=== PATIENT | male | born 1960 | race Caucasian/White ===

== ENCOUNTER 2023-11-03 08:06 | Outpatient (OUT) | payer OTHER, SELFPAY ==
[2023-11-03 08:28] LABS: Basophils Percent Auto 0.6 % (0.2-2.0); Eosinophils Absolute Auto 0.2 10^3/uL (0.0-0.7); Eosinophils Percent Auto 2.9 % (0.9-7.0); Hematocrit 41.2 % (42.0-54.0); Hemoglobin 13.9 g/dL (14.0-18.0); Immature Granulocytes Abs Auto 0.02 10^3/uL (0.00-0.03); Immature Granulocytes Pct Auto 0.3 % (0.0-0.5); Lymphocytes Absolute Auto 1.6 10^3/uL (1.2-3.8); Lymphocytes Percent Auto 24.2 % (20.5-60.0); Mean Corpuscular HGB Conc 33.7 g/dL (29.9-35.2); Mean Corpuscular Hemoglobin 31.1 pg (25.9-34.0); Mean Corpuscular Volume 92.2 fL (80.0-94.0); Mean Platelet Volume 9.5 fL (9.5-13.5); Monocytes Absolute Auto 0.5 10^3/uL (0.3-0.8); Monocytes Percent Auto 7.9 % (1.7-12.0); Neutrophils Absolute Auto 4.2 10^3/uL (1.4-6.5); Neutrophils Percent Auto 64.1 % (43.0-75.0); Platelet Count 176 10^3/uL (150-450); Red Blood Count 4.47 10^6/uL (4.70-6.10); White Blood Count 6.6 10^3/uL (4.0-11.0)
[2023-11-03 08:57] LABS: Bilirubin Urine NEGATIVE (NEGATIVE); Blood Urine NEGATIVE (NEGATIVE); Clarity Urine CLEAR (CLEAR); Color Urine YELLOW (YELLOW); Glucose Urine UA NEGATIVE (NEGATIVE); Ketones Urine NEGATIVE (NEGATIVE); Leukocyte Esterase Urine NEGATIVE (NEGATIVE); Nitrite Urine NEGATIVE (NEGATIVE); Protein Urine NEGATIVE (NEG/TRACE); pH Urine 5.5 (5.0-9.0)
[2023-11-03 09:19] LABS: Alanine Aminotransferase 33 U/L (16-63); Albumin Level 3.7 g/dL (3.4-5.0); Alkaline Phosphatase 93 U/L (46-116); Anion Gap 10.5; Aspartate Amino Transferase 17 U/L (15-37); Bilirubin Total 1.2 mg/dL (0.2-1.0); Carbon Dioxide 29.5 mmol/L (21.0-32.0); Chloride 99 mmol/L (98-107); Chol HDL Ratio 2.8; Cholesterol 109 mg/dL (<=200); Estimated GFR (African America >60 (>=60); Estimated GFR (Non-African Ame >60 (>=60); Globulin 3.7 g/dL; Glucose 102 mg/dL (74-106); HDL Cholesterol 39 mg/dL (40-60); Magnesium 1.8 mg/dL (1.8-2.4); Sodium 135 mmol/L (136-145); Total Protein 7.4 g/dL (6.4-8.2); Triglycerides 116 mg/dL (<=150); VLDL CHOLESTEROL 23.2 mg/dL
[2023-11-03 09:25] LABS: Prostate Specific Antigen Scrn 0.88 ng/mL (<=4.00)
[2023-11-03 09:41] LABS: Bacteria Urine NONE SEEN #/HPF (NONE SEEN); Cast Seen? NONE SEEN #/LPF (NONE SEEN); Crystals Seen? None Seen #/HPF (None Seen); Mucus Urine NONE SEEN (NONE SEEN); RBC Urine 0-2 #/HPF (0-2); Squamous Epithelial Cell Urine RARE #/LPF (NONE/RARE); WBC Urine 0-2 #/HPF (NONE SEEN)
== END 2023-11-03 08:07 | disposition home or self-care (01) ==
LOC: LAB 08:11
PROVIDERS: PCP Nurse Practitioner; Visit Provider Nurse Practitioner
DX: I25.10 Atherosclerotic heart disease of native coronary artery without angina pectoris (principal); Z12.5 Encounter for screening for malignant neoplasm of prostate; R25.2 Cramp and spasm; Z72.0 Tobacco use
CPT/HCPCS: 36415; 80053; 80061; 81001; 82728; 83735; 85025; G0103

== ENCOUNTER 2024-08-19 08:04 | Outpatient (OUT) | payer OTHER, SELFPAY ==
--- OUTSIDE RECORDS SUMMARY | 2024-08-19 08:09 | XMS_ITS | CCD ---
Author Organization [facility] Care Team Providers Care Storage Garage Manager Name Role Phone Unknown, Unknown Unavailable Unavailable UNKNOWN, UNKNOWN Primary Care Unavailable MD ALEM CRUZ Attending Unava ilable Lopez, Dr. Jess Barakat Referring Jayne vailable UNKNOWN, UNKNOWN Primary Care Unavailable Marroquin, Dr. Jess Barakat Attending Jayne vailable Aicisaiz, Tonja Vinita Unavailable Unavailable Unavailable ROGER, TONJA Lilia Primary Care Physician [phone] AICHHOLZ, TRUCK MECHANIC APPRENTICE TONJA Admitting Unavailable AICHHOLZ, TRUCK MECHANIC APPRENTICE TONJA Attending Unavailable AICHHOLZ, TRUCK MECHANIC APPRENTICE TONJA Primary Care Unavailable ROBBIE ADAMS Consulting Unavailable AICHHOLZ, TRUCK MECHANIC APPRENTICE TONJA Consulting Unavailable AICHHOLZ, TRUCK MECHANIC APPRENTICE TONJA Admitting Unavailable AICHHOLZ, TRUCK MECHANIC APPRENTICE TONJA Attending Unavailable AICHHOLZ, TRUCK MECHANIC APPRENTICE TONJA Primary Care Unavailable AICHHOLZ, TRUCK MECHANIC APPRENTICE TONJA Consulting Unavailable DR DENNIS KIM Consulting Unavailable AICHHOLZ, TRUCK MECHANIC APPRENTICE TONJA Admitting Unavailable AICHHOLZ, TRUCK MECHANIC APPRENTICE TONJA Attending Unavailable AICHHOLZ, TRUCK MECHANIC APPRENTICE TONJA Primary Care Unavailable AICHHOLZ, TRUCK MECHANIC APPRENTICE OTNJA Consulting Unavailable DR DENNIS KIM Consulting Unavailable AICHHOLZ, TRUCK MECHANIC APPRENTICE TONJA Admitting Unavailable AICHHOLZ, TRUCK MECHANIC APPRENTICE TONJA Attending Unavailable AICHHOLZ, TRUCK MECHANIC APPRENTICE TONJA Primary Care Unavailable ROBBIE ADAMS Consulting Unavailable AICHHOLZ, TRUCK MECHANIC APPRENTICE TONJA Consulting Unavailable AICHHOLZ, TRUCK MECHANIC APPRENTICE TONJA Admitting Unavailable AICHHOLZ, TRUCK MECHANIC APPRENTICE TONJA Attending Unavailable AICHHOLZ, TRUCK MECHANIC APPRENTICE TONJA Primary Care Unavailable AICHHOLZ, TRUCK MECHANIC APPRENTICE TONJA Consulting Unavailable AICHHOLZ, TRUCK MECHANIC APPRENTICE TONJA Primary Care Unavailable SHAIKH Pia LOEW Admitting Unavailable FAWWATod, SHAIKH Pia Attending Unavailable FAWWATod, SHAIKH Pia Consulting Unavailable DANAE .SEN Consulting Unavailable NILL ., DR CARPENTER Admitting Unavailable NILL ., DR CARPENTER Attending Unavailable AICHOLZ, TIFFANY TONJA Primary Care Unavailable NILL ., DR CARPENTER Consulting Unavailable SALMA CONNOLLY Consulting Unavailable MARCIO CARO Consulting Unavailable [facility], TIFFANY TONJA Admitting Unavailable [facility], TIFFANY TONJA Attending Unavailable AICHOLZ, TRUCK MECHANIC APPRENTICE TONJA Primary Care Unavailable ROBBIE ADAMS Consulting Unavailable AICHOLZ, TRUCK MECHANIC APPRENTICE TONJA Consulting Unavailable NILL, Pauline Rodriguez Attending Unavailable NILL, Pauline Rodriguez Attending Unavailable NILL, Pauline Rodriguez Attending Unavailable Aichholz FOUNTAIN MANAGER-Tonja ALLEN Primary Care Provider ROMAN HUDSON Attending [facility]available [facility]JA TALAMANTES Primary Care Unavailable ROMAN HUDSON Attending Unavailable [facility], TONJA TALAMANTES Primary Care [facility] Attending Unavailable [facility]JA Attending Unavailable AICHOLJc, TONJA Attending Unavailable ROMAN HUDSON Referring Unavailable [facility] TONJA VINITA Primary Care Unavailable Allergies Allergy Classification Reported Allergen(s) Allergy Type Date of Onset Reaction(s) Facility (1 source) No Known Medication Allergies; Translations: [No Known Medication Allergies] Propensity to adverse reactions (disorder) [facility] Repository Medications Current Medications Medication Drug Class(es) Dates Sig (Normalized) Sig (Original) atorvastatin 80 mg oral tablet (7 sources) HMG-CoA Reductase Inhibitor Start: 01-14-2020 take 1 tablet by mouth once daily atorvastatin 80 mg Tab 80 mg = 1 tab(s), Oral, Daily Start Date: 01/14/20 Status: Ordered BuPROPion (Eqv-Wellbutrin SR) 150 mg/12 hours oral tablet, extended release (2 sources) Start: 02-14-2023 BuPROPion (Eqv-Wellbutrin SR) 150 mg/12 hours oral tablet, extended release 150 mg = 1 tab(s), Oral, Daily, Refills(s) 0 Start Date: 02/14/23 Status: Ordered lisinopril 10 mg oral tablet (7 sources) Angiotensin Converting Enzyme Inhibitor Start: 01-14-2020 take 1 tablet by mouth once daily lisinopril 10 mg Tab 10 mg = 1 tab(s), Oral, Daily Start Date: 01/14/20 Status: Ordered Meclizine (4 sources) Antiemetic Start: 02-14-2023 meclizine 25 mg Tab as directed, Refills(s) 0 Start Date: 02/14/23 Status: Ordered Start: 02-14-2023 take 1 tablet by william th three times daily as needed for dizziness meclizine (Antivert) 25 mg tablet Take 1 tablet (25 mg) by mouth 3 times a day as needed for dizziness. 0 02/14/2023 Active take 1 tablet by william th three times daily as needed Meclizine HCl - 25 MG Oral Tablet TAKE 1 TABLET 3 TIMES DAILY NEEDED. Quantity: 0 Refills: 0 Ordered: 09-Jan-2023 DO Active omeprazole 20 mg delayed release oral capsule (7 sources) Proton Pump Inhibitor Start: 12-02-2023 take 1 capsule by mouth once daily omeprazole (PriLOSEC) [address] capsule Take 1 capsule (20 mg) by mouth once daily. 0 12/02/2023 Active Start: 01-14-2020 take 1 capsule by mo uth once daily omeprazole 20 mg Cap-DR 20 mg = 1 cap(s), Oral, Daily Start Date: 01/14/20 Status: Ordered take 1 tablet by william th once daily before mealtime omeprazole OTC (PriLOSEC OTC) 20 mg EC tablet Take 1 tablet (20 mg) by mouth once daily in the morning. Take before meals. Do not crush, chew, or split. 0 Active Completed/Discontinued Medications Medication Drug Class(es) Dates Sig (Normalized) Sig (Original) amLODIPine 10 mg oral tablet (4 sources) Dihydropyridine Calcium Channel Gamal Start: 02-14-2023 take 1 tablet by mouth once daily amLODIPine 10 mg Tab 30 EA, take 1 tablet by mouth once daily, Refills(s) 0 Start Date: 02/14/23 Status: Ordered take 1 tablet by mouth once barney y amLODIPine Besylate 10 MG Oral Tablet Take 1 tablet daily Quantity: 90 Refills: 3 Ordered: 09-Jan-2023 Jess Marroquin MD Active aspirin 81 mg delayed release oral tablet (7 sources) Platelet Aggregation Inhibitor, Nonsteroidal Anti-inflammatory Drug Start: 12-28-2022 take 1 tablet by mouth once daily Aspirin 81 MG Oral Tablet Delayed Release TAKE 1 TABLET DAILY. Quantity: 90 Refills: 3 Ordered: 09-Jan-2023 Jess Marroquin MD Start : 28-Dec-2022 Active Start: 01-14-2020 take 1 tablet by mouth once da eladio aspirin 81 mg oral tablet 81 mg = 1 tab(s), Oral, Daily Start Date: 01/14/20 Status: Ordered iohexol (OMNIPaque) 350 mg iodine/mL solution 75 mL (1 source) Start: 12-14-2023 End: 12-14-2023 iohexol (OMNIPaque) 350 mg iodine/mL solution 75 mL metoprolol tartrate 25 mg oral tablet (3 sources) beta-Adrenergic Gamal Start: 09-28-2022 take 1 tablet by mouth twice daily Metoprolol Tartrate 25 MG Oral Tablet TAKE 1 TABLET TWICE DAILY. Quantity: 30 Refills: 2 Ordered: 29-Nov-2022 DO Start : 28-Sep-2022 Active Problems Active Problems Problem Classification Problem Date Documented Date Episodic/Chronic Aortic; peripheral; and visceral artery aneurysms (20 sources) Aneurysm of ascending aorta; Translations: [Thoracic aneurysm without mention of rupture] Onset: 04-28-2022 02-09-2023 Chronic Cardiac dysrhythmias (1 source) Bradycardia, unspecified; Translations: [BRADYCARDIA UNSPECIFIED] Onset: 01-03-2023 Episodic Conditions associated with dizziness or vertigo (4 sources) Dizziness and giddiness; Translations: [DIZZINESS AND GIDDINESS] Onset: 12-30-2022 Episodic Coronary atherosclerosis and other heart disease (15 sources) Recurrent coronary arteriosclerosis after percutaneous transluminal coronary angioplasty; Translations: [Coronary atherosclerosis of [place] coronary artery] Onset: 04-13-2022 01-14-2020 Chronic Comment on above: RCA drug-eluting siddhartha nt Cole 2012; Outside Source Comme nt: Comment on above: RCA drug-eluting stent Cole 2012; Coronary atherosclerosis and other heart disease (1 source) Presence of coronary angioplasty implant and graft; Translations: [PRESENCE COR ANGPLSTY IMPLANT AND GRAFT] Onset: 03-06-2023 Episodic Disorders of lipid metabolism (9 sources) Hyperlipidemia; Translations: [Other and unspecified hyperlipidemia] Onset: 01-03-2023 02-09-2023 Chronic Esophageal disorders (6 sources) Gastroesophageal reflux disease; Translations: [Gastro-esophageal reflux disease without esophagitis] Onset: 03-06-2023 01-14-2020 Chronic Essential hypertension (5 sources) Hypertensive disorder; Translations: [Unspecified essential hypertension] Onset: 03-06-2023 01-14-2020 Chronic Headache; including migraine (4 sources) Headache; including migraine; Translations: [HEADACHE UNSPECIFIED] Onset: 01-17-2023 Hypertension with complications and secondary hypertension (3 sources) Secondary hypertension; Translations: [Secondary hypertension, unspecified] Onset: 11-28-2023 11-28-2023 Chronic Other aftercare (1 source) Other snf (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; Translations: [OTH [facility] CURRENT DRUG THERAPY] Onset: 03-06-2023 Episodic Other aftercare (1 source) [facility] (current) use of aspirin; Translations: [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 OF 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 CURRENT USE OF ASPIRIN] Onset: 03-06-2023 Episodic Other and unspecified benign neoplasm (3 sources) History of polyp of colon; Translations: [Personal history of colonic polyps] Onset: 02-14-2023 Episodic Other and unspecified benign neoplasm (4 sources) Personal history of colonic polyps; Translations: [PERSONAL HISTORY OF COLONIC POLYPS] Onset: 03-01-2023 Episodic Other and unspecified benign neoplasm (1 source) Benign neoplasm of sigmoid colon; Translations: [BENIGN NEOPLASM OF SIGMOID COLON] Onset: 03-06-2023 Episodic Other and unspecified benign neoplasm (2 sources) Benign neoplasm of sigmoid colon; Translations: [Benign neoplasm of sigmoid colon] Onset: 03-14-2023 Episodic Other lower respiratory disease (3 sources) Dyspnea on exertion; Translations: [Other forms of dyspnea] Onset: 11-28-2023 11-28-2023 Episodic Other screening for suspected conditions (not mental disorders or infectious disease) (4 sources) Abnormal findings on diagnostic imaging of other specified body structures; Translations: [ABNORML FIND DX IMG OT BODY STRUC] Onset: 11-23-2022 Chronic Residual codes; unclassified (1 source) Body mass index 20-24 - normal; Translations: [Body Mass Index between 19-24, adult] Episodic Residual codes; unclassified (3 sources) Tobacco user; Translations: [Tobacco use] Onset: 02-14-2023 Episodic Substance-related disorders (6 sources) Smokes tobacco daily; Translations: [Tobacco use disorder] Onset: 04-20-2022 Chronic Comment on above: 1.5PPD sometimes mor e; Unclassified (1 source) Aneurysm of the ascending aorta, without rupture; Translations: [Aneurysm of the ascending aorta, without rupture] Onset: 12-28-2022 Unclassified (1 source) Abdominal aortic aneurysm, without rupture, unspecified; Translations: [Abdominal aortic aneurysm, without rupture, unspecified] Onset: 12-28-2022 Unclassified (2 sources) Body mass index 20-24 - normal 02-14-2023 Unclassified (2 sources) Patient encounter status 01-15-2020 Unclassified (1 source) ABDOMINAL AA W/O RUPTURE UNSPCIFIED; Translations: [ABDOMINAL AA W/O RUPTURE UNSPCIFIED] Onset: 03-06-2023 Unclassified (1 source) Aneurysm of the ascending aorta, without rupture (CMS/HCC); Translations: [Aneurysm of the ascending aorta, without rupture (CMS/HCC)] Onset: 12-15-2023 Past or Other Problems Problem Classification Problem Date Documented Date Episodic/Chronic Biliary tract disease (1 source) Calculus of gallbladder without cholecystitis without obstruction; Translations: [CALCU GB W/O CHOLECYST W/O OBST] Onset: 05-05-2022 Episodic Other screening for suspected conditions (not mental disorders or infectious disease) (1 source) Encounter for screening for malignant neoplasm of prostate; Translations: [ENC SCREEN MALIG NEOPLASM PROSTATE] Onset: 04-15-2022 Episodic Unclassified (1 source) Aneurysm of the ascending aorta, without rupture (CMS/HCC); Translations: [Aneurysm of the ascending aorta, without rupture (CMS/HCC)] Onset: 01-17-2024 Results Test Name Value Interpretation Reference Range Facility CT ANGIO CHEST W AND WO IV C [facility] 12-14-2023 CT ANGIO CHEST W AND WO IV CONTRAST Interpreted By: Pauline Flowers, ADDENDUM: Technical: The following is to serve as an over-read for a contrast-enhanced cardiac CT, to evaluate the extra vascular structures. Contiguous axial CT sections are performed from level the bj to the upper abdomen following the bolus administration of 90 cc of intravenous Omnipaque 350. Findings: There are bilateral emphysematous changes with scattered subpleural bulla more pronounced along the mediastinum. There is no sign of pathologic lymph node enlargement. There is no pericardial or pleural effusion. There is a small calcified gallstone. There is an exophytic cyst in the mid right kidney posteriorly measuring 1.5 cm in diameter. The visualized osseous and soft tissue structures of the chest wall are intact. Impression: Bilateral emphysematous changes. Cholelithiasis. 1.5 cm right renal cyst. The extra vascular structures are otherwise unremarkable. Signed by: Pauline Flowers 12/18/2023 4:59 PM -------- ORIGINAL REPORT -------- Dictation workstation: [id number] Interpreted By: Pauline Shepard, STUDY: CT ANGIO CHEST W AND WO IV CONTRAST; 12/14/2023 11:09 am INDICATION: Signs/Symptoms:year fu. COMPARISON: None. ACCESSION NUMBER(S): [id number] ORDERING CLINICIAN: ROMAN HUDSON TECHNIQUE: Using multi-detector 64-slice CT technology, axial, sequential imaging with prospective ECG gating was performed of the chest following the intravenous administration of contrast material. A low-osmolar contrast agent was used 90ml of Omnipaque 350. CT Dose-Length Product (DLP): 1254.6 mGy*cm CT Dose Reduction Employed: Yes prospective ECG triggering, iterative reconstruction For optimization of anatomic evaluation, multiplanar reconstruction, maximum intensity projections, and advanced 3-D off-line postprocessing were performed on a dedicated stand-alone workstation by the interpreting physician. FINDINGS: THORACIC AORTIC DIMENSIONS: Aortic annulus: 28 x 21mm. Sinus of Valsalva(coronal): 39 mm Across sinuses(cusp-commissure ): 38mm. Sinotubular junction: 33mm. Ascending aorta (RPA level): 37mm. Upper ascending aorta: 35mm. Arch(mid): 26mm. There is incomplete visualization of the aortic arch that is outside field of view. Arch(distal): 29mm. Descending aorta(PA level): 29mm. Descending aorta (diaphragm level): 25mm. Main pulmonary artery: 19mm. Right pulmonary artery: 19 mm. Left pulmonary artery: 18mm. No evidence of thoracic aortic dissection or coarctation. Aortic Valve: Trileaflet Pulmonary Veins: Normal pulmonary vein anatomy without evidence of anomalous pulmonary venous return. No pulmonary vein stenosis CORONARY ARTERIES: The examination is not optimized for assessment of the coronary arteries. Normal coronary artery origins. Right dominant system. Diffuse coronary artery calcification. CARDIAC CHAMBERS: Normal atrioventricular and ventriculoarterial concordance. ABDOMINAL AORTIC DIMENSIONS: Suprarenal abdominal aorta (diaphragm level): 25 mm Renal artery level: 29 mm. Small dissection flap along posterior aorta at the level of right renal artery. Length of limited dissection 8 mm. Infrarenal abdominal aorta: 34 mm (mural thrombus present). Distal abdominal aorta (iliac bifurcation): Unable to visualize outside of field of view. Celiac artery: Normal. Superior mesenteric artery: Mild atherosclerosis. Right renal artery: Mild atherosclerosis. Left renal artery: Mild atherosclerosis. IMPRESSION: 1. Dilated aortic root 39 mm. 2. Limited dissection of posterior abdominal aorta (at level of right renal artery takeoff) with maximal aorta luminal diameter 29 mm. 3. Infrarenal abdominal aortic aneurysm 34 mm. Reading Credentialing Coordinator: Dr. Pauline Shepard, Date: 12/18/2023 2:43 pm Signed by: Pauline Shepard 12/18/2023 3:00 PM Dictation workstation: [id number] [facility] Ambulatory Visit Summaryon 0 03-14-2023 Ambulatory Visit Summary JATINDER CALVERT :1960 Visit Date:03/14/2023 Ambulatory Visit Instructions Your Care Team Attending Physician - Pauline BAINS MD Primary Care Physician - TONJA WILEY CNP This Is Your Medications List amlodipine (amLODIPine 10 mg Tab) aspirin (aspirin 81 mg oral tablet) atorvastatin (atorvastatin 80 mg Tab) buPROPion (BuPROPion (Eqv-Wellbutrin SR) 150 mg/12 hours oral tablet, extended release) lisinopril (lisinopril 10 mg Tab) meclizine (meclizine 25 mg Tab) omeprazole (omeprazole 20 mg Сергей-) Procedures Performed Colonoscopy (03/01/2023), Colonoscopy (01/2020), Cardiac catheterisation, Placement of stent in cardiac conduit. Medications What How Much When Instructions Unchanged amlodipine (amLODIPine 10 mg Tab) 30 EA, take 1 tablet by mouth once daily Unchanged aspirin (aspirin 81 mg oral tablet) 1 Tablets By Mouth Every day Unchanged atorvastatin (atorvastatin 80 mg Tab) 1 Tablets By Mouth Every day Unchanged buPROPion (BuPROPion (Eqv-Wellbutrin SR) 150 mg/ 12 hours oral tablet, extended release) 1 Tablets By Mouth Every day Unchanged lisinopril (lisinopril 10 mg Tab) 1 Tablets By Mouth Every day Unchanged meclizine (meclizine 25 mg Tab) as directed Unchanged omeprazole (omeprazole 20 mg Cap-DR) 1 Capsules By Mouth Every day Allergies No Known Allergies No Known Medication Allergies Problems Ongoing - Any problem that you are currently receiving treatment for. Abdominal aortic aneurysm without rupture BMI 22.0-22.9, adult CAD (coronary artery disease) Chronic GERD Hyperlipidemia Hypertension Personal history of colonic polyps Recurrent coronary arteriosclerosis after percutaneous transluminal coronary angioplasty Screening for malignant neoplasm of colon Tobacco use Michelle [facility] General Surgery Office/Clini c Noteon 03-14-2023 General Surgery Office/Clinic Note Chief Complaint colonoscopy follow up HPI Staff 13 day post operative follow up post colonoscopy with sigmoid polypectomy. History of Present Illness s/p colonoscopy and polypectomy for small tubular adenoma or sigmoid colon; patient doing well; denies abd pain or blood in stools. Review of Systems ROS - Provider Constitutional: no fever, no sweats, no weight loss. Eyes: no glasses, no blurred vision, no visual loss. ENMT: no dentures, no hoarseness, no swallowing difficulties, no hearing loss, no ear infection(s), no nose bleeds. Cardiovascular: normal blood pressure, no chest pain, regular heartbeat, no heart murmur. Respiratory: no shortness of breath, no cough, no asthma, no wheezing. Gastrointestinal: no nausea, no vomiting, no diarrhea, no constipation, no blood in stool, no change in bowel habits, no abdominal pain, no hepatitis. Genitourinary: no kidney stones, no urine infection, no dysuria. Musculoskeletal: no pain, no weakness. Skin: no changing moles, no rash, no skin lumps. Neurologic: no seizures, no epilepsy, no headache. Psychiatric: no emotional or psychiatric problem. Heme/Lymph: no bleeding problems, no anemia, no blood clots, no transfusions. Allergy/Immunologic: no swollen lymph nodes/glands, no IV drug abuse. Other: Additional ROS info: Except as noted in the above Review of Systems and in the History of Present Illness, all other systems have been reviewed and are negative or noncontributory. Assessment/Plan 1. Benign neoplasm of sigmoid colon (D12.5: Benign neoplasm of sigmoid colon) recommend surveillance colonoscopy in 5 years, call sooner if problems/questions. Follow-up No qualifying data available Problem List/Past Medical History Ongoing Abdominal aortic aneurysm without rupture BMI 22.0-22.9, adult CAD (coronary artery disease) Chronic GERD Hyperlipidemia Hypertension Personal history of colonic polyps Recurrent coronary arteriosclerosis after percutaneous transluminal coronary angioplasty Screening for malignant neoplasm of colon Tobacco use Tubular adenoma of colon Historical No qualifying data Procedure/Surgical History Colonoscopy (03/01/2023), Colonoscopy (01/2020), Cardiac catheterisation, Placement of stent in cardiac conduit. Medications amLODIPine 10 mg Tab aspirin 81 mg oral tablet, 81 mg= 1 tab(s), Oral, Daily atorvastatin 80 mg Tab, 80 mg= 1 tab(s), Oral, Daily BuPROPion (Eqv-Wellbutrin SR) 150 mg/12 hours oral tablet, extended release, 150 mg= 1 tab(s), Oral, Daily lisinopril 10 mg Tab, 10 mg= 1 tab(s), Oral, Daily meclizine 25 mg Tab omeprazole 20 mg Cap-DR, 20 mg= 1 cap(s), Oral, Daily Allergies No Known Allergies No Known Medication Allergies Social History Alcohol - Denies Alcohol Use, 01/14/2020 Substance Abuse - Denies Substance Abuse, 02/14/2023 Tobacco 10 or more cigarettes (1/2 pack or more)/day in last 30 days Tobacco Use:. Never Smokeless Tobacco Use:. Cigarettes, 1 per day. Previous treatment: Counseling. Ready to change: No. Household tobacco concerns: No. Yes, 02/14/2023 Family History Diabetes mellitus type 2: Mother and Sister. Hypertension: Father. Primary malignant neoplasm of prostate: Sister. Immunizations Vaccine Date Status influenza virus vaccine, inactivated 08/20/2022 Recorded Normal [facility] Comment on above: Result Comment: Elec tronically Signed By: WALT ELLIOTT, Pauline Egan\Date and Time Signed: 03/14/23 15:50 EDT Reminderson 03-14-2023 Reminders - From: Delores Joseph LPN To: N - Clinical; Sent: 03/14/2023 15:27:01 EDT Show up: 01/30/2028 07:00:00 EDT Subject: colonoscopy recall Due Date/Time: 03/01/2028 07:00:00 EDT Reminder/Recall Patient due for colonoscopy 03/01/28 due to history of colonic polyp. Normal [facility] Pathology Noteon 03-06-2023 Pathology Note [id number] D:127 Normal [facility] Outside Colonoscopyon 2022 Outside Colonoscopy [id number] D:127 Normal [facility] Consent for Procedure/Surger yon 02-15-2023 Consent for Procedure/Surgery [id number] D:127 Normal [facility] General Surgery Office/Clini c Noteon 02-14-2023 General Surgery Office/Clinic Note Chief Complaint surveillance colonoscopy HPI Staff 62 year old male presents on consultation for surveillance colonoscopy. Last colonoscopy completed 01/2020 with tubulovillous adenoma. No known family history of colon cancer. Denies abdominal or rectal pain. No rectal bleeding or change in bowel habits. Denies nausea or vomiting. No unexplained weight loss. History of Present Illness 62 yo male with h/o CAD, htn, hyperlipidemia, presents for surveillance colonoscopy; last colonoscopy 01/2020 with small tubulovillous adenoma in the distal sigmoid colon; denies change in bms or blood in stools, no abd complaints; no abdominal operations; on baby asa daily, no NSAIDs, no SBE prophylaxis; no fmhx of GI malignancy or IBD; smokes daily. Review of Systems PHQ Score Initial Depression Screen Score: 0 ROS - Provider Constitutional: no fever, no sweats, no weight loss. Eyes: no glasses, no blurred vision, no visual loss. ENMT: no dentures, no hoarseness, no swallowing difficulties, no hearing loss, no ear infection(s), no nose bleeds. Cardiovascular: normal blood pressure, no chest pain, regular heartbeat, no heart murmur. Respiratory: no shortness of breath, no cough, no asthma, no wheezing. Gastrointestinal: no nausea, no vomiting, no diarrhea, no constipation, no blood in stool, no change in bowel habits, no abdominal pain, no hepatitis. Genitourinary: no kidney stones, no urine infection, no dysuria. Musculoskeletal: no pain, no weakness. Skin: no changing moles, no rash, no skin lumps. Neurologic: no seizures, no epilepsy, no headache. Psychiatric: no emotional or psychiatric problem. Heme/Lymph: no bleeding problems, no anemia, no blood clots, no transfusions. Allergy/Immunologic: no swollen lymph nodes/glands, no IV drug abuse. Other: Additional ROS info: Except as noted in the above Review of Systems and in the History of Present Illness, all other systems have been reviewed and are negative or noncontributory. Physical Exam Vitals & Measurements HR: 68(Peripheral) RR: 16 BP: 116/84 HT: 70 in HT: 177.8 cm WT: 71.4 kg WT: 157.08 lb BMI: 22.59 HEENT: normal conjunctiva, sclera clear, no scleral icterus, EOM intact, PERRLA, oral mucosa moist without lesions. Neck: trachea midline, no mass, symmetric, no thyromegaly or nodules, no adenopathy Respiratory: lungs CTA, respirations non labored. Cardiovascular: regular rate and rhythm, no murmur, no pedal edema or varicosities. Gastrointestinal: soft, non distended, no tenderness, no masses, no palpable hernias, diastasis recti no, no hepatosplenomegaly; normal bs Lymphatic: no cervical adenopathy, no supraclavicular adenopathy Musculoskeletal: normal gait, digits and nails without infection, nodes, cyanosis, clubbing. Skin: no rashes, no lesions, no ulcers, no subcutaneous nodules, induration. Psychiatric/Neuro: oriented to time, place, person, judgement normal, affect appropriate for age, insight intact, no focal deficits. Tests: review of old records completed, Discussed surgical options, risks, and possible complications with patient. Assessment/Plan 1. Personal history of colonic polyps (Z86.010: Personal history of colonic polyps) plan surveillance colonoscopy under anesthesia, informed consent obtained. 2. Tobacco use (Z72.0: Tobacco use) We strongly recommend to quit tobacco use. Cigarette smoking harms nearly every organ of the body, causes many diseases, and reduces the health of smokers in general. Quitting smoking lowers your risk for smoking-related diseases and can add years to your life. We encourage you to visit www.smokefree.gov access to helpful resources including free telephone support. If you decide on prescription treatment to help you quit, your family doctor would be happy to provide these. Follow-up No qualifying data available Problem List/Past Medical History Ongoing Abdominal aortic aneurysm without rupture BMI 22.0-22.9, adult CAD (coronary artery disease) Chronic GERD Hyperlipidemia Hypertension Personal history of colonic polyps Recurrent coronary arteriosclerosis after percutaneous transluminal coronary angioplasty Screening for malignant neoplasm of colon Tobacco use Historical No qualifying data Procedure/Surgical History Colonoscopy (01/2020), Cardiac catheterisation, Placement of stent in cardiac conduit. Medications amLODIPine 10 mg Tab aspirin 81 mg oral tablet, 81 mg= 1 tab(s), Oral, Daily atorvastatin 80 mg Tab, 80 mg= 1 tab(s), Oral, Daily BuPROPion (Eqv-Wellbutrin SR) 150 mg/12 hours oral tablet, extended release, 150 mg= 1 tab(s), Oral, Daily lisinopril 10 mg Tab, 10 mg= 1 tab(s), Oral, Daily meclizine 25 mg Tab omeprazole 20 mg Cap-DR, 20 mg= 1 cap(s), Oral, Daily Allergies No Known Allergies No Known Medication Allergies Social History Alcohol - Denies Alcohol Use, 01/14/2020 Substance Abuse - Denies Substance Abuse, 02/14/2023 Tobacco 10 or more cigarettes (1/2 pack or (more content not included)... Normal [facility] Comment on above: Result Comment: Elec tronically Signed By: WALT ELLIOTT, Pauline Egan\Date and Time Signed: 02/14/23 15:24 EDT MRI BRAIN WO CONon 3 MRI BRAIN WO CON EXAMINATION: MRI BRA IN WO CON, 01/17/2023 3:03 PM EST HISTORY: Headache COMPARISON: None. TECHNIQUE: MRI of the brain was performed without IV contrast. FINDINGS: CEREBRUM: No edema, hemorrhage, mass, acute infarction, or inappropriate atrophy. Minimal scattered hyperintense foci are present, typical for a patient of this age, most commonly caused by small vessel ischemic changes. CEREBELLUM: No edema, hemorrhage, mass, acute infarction, or inappropriate atrophy. BRAINSTEM: No edema, hemorrhage, mass, acute infarction, or inappropriate atrophy. CSF SPACES: Ventricles, cisterns, and sulci are appropriate for age. No hydrocephalus, subarachnoid hemorrhage, or mass. SKULL: No mass or other significant visible lesion. SINUSES: Partial opacification right ethmoid cellules ORBITS: Limited views are unremarkable. OTHER: Negative. IMPRESSION: Minimal white matter signal abnormality. Nonspecific. No acute infarct Electronically authenticated by: ROBBIE ADAMS Date: 2023-01-18 08:13 Normal [facility] Office Visit (Cardiology)on 01-09-2023 Follow-up visit Diagnoses/Problems Assessed CAD S/P percutaneous coronary angioplasty (414.01,V45.82) (I25.10,Z98.61) RCA drug-eluting stent Cole 2012 Abdominal aortic aneurysm (441.4) (I71.40) Ascending aortic aneurysm (441.2) (I71.21) Hypertension (401.9) (I10) Hyperlipidemia (272.4) (E78.5) Current every day smoker (305.1) (F17.200) 1.5PPD sometimes more Body mass index (BMI) of 22.0 to 22.9 in adult (V85.1) (Z68.22) Orders CAD S/P percutaneous coronary angioplasty Renew: Aspirin 81 MG Oral Tablet Delayed Release; TAKE 1 TABLET DAILY IO EKG Electrocardiogram- 12 Lead; Status:Complete; Done: [id number] CAD S/P percutaneous coronary angioplasty, Hyperlipidemia Renew: Atorvastatin Calcium 80 MG Oral Tablet; TAKE 1 TABLET DAILY ALT - Alanine Aminotransferase, Serum; Status:Active - Retrospective Authorization; Requested for:[id number]; AST; Status:Active - Retrospective Authorization; Requested for:[id number]; Lipid Panel; Status:Active - Retrospective Authorization; Requested for:[id number]; CAD S/P percutaneous coronary angioplasty, Hypertension Renew: Lisinopril 10 MG Oral Tablet; TAKE 1 TABLET DAILY Hypertension Renew: amLODIPine Besylate 10 MG Oral Tablet; Take 1 tablet daily SocHx: Current every day smoker You need to stop smoking. Though it is not easy, more than half of all adult smokers have quit. We encourage you to write down all the reasons you should quit smoking and set a quit date for yourself. Ask us how we can help. You may also call 9-079-KQUYNOW for free resources and assistance.; Status:Complete - Retrospective Authorization; Done: [id number] Tobacco Use Screening; Status:Complete; Done: [id number] Patient Instructions Please bring all medicines, vitamins, and herbal supplements with you when you come to the office. Prescriptions will not be filled unless you are compliant with your follow up appointments or have a follow up appointment scheduled as per instruction of your physician. Refills should be requested at the time of your visit. Follow up in 1 year. The provider reviewed the following test(s) and result(s) with the patient: ECG Chief Complaint JATINDER CALVERT is being seen for a consultation for. referral Dr. Salmon; AAA, HTN 62-year-old white male who is being seen for management of hypertension and CAD. The patient was seen recently by cardiothoracic surgery at [facility] Dr. Sherman Cruz for ascending and abdominal aortic aneurysm. The size is too small to intervene on. The patient has history of CAD and previous PCI of the RCA 2012 in [place] with drug-eluting stent. He is actively smoking and at one time was smoking 2 and half packs daily. He does have significant emphysema but not on medical therapy. Has had no recurrent coronary artery disease. He is hyperlipidemic and hypertensive on medical therapy. 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 He wishes to quit smoking and he is working with his PCP on tobacco cessation methods. His examination is only remarkable for diminished breath sounds otherwise was unremarkable. Assessment/recommendati ons: 1?CAD status post PCI of the RCA 2012 with drug-eluting stent. No recurrences and no symptoms. He is on aspirin and high intensity statin. Tobacco cessation was advised. No card investigations are needed. 2?ascending aortic aneurysm and abdominal arctic aneurysm both are less than 4 cm in diameter followed by the aortic clinic at [facility]. Tobacco cessation was emphasized. Hypertension controlled was advised as well. 3?hypertension, currently under control medical therapy with no changes needed. 4?hyperlipidemia on statin therapy. Target LDL less than 70 mg/dL. Lipid profile is ordered. 5?COPD from heavy tobacco abuse. Currently not on medical therapy. 6?heavy tobacco abuse. Patient was counseled on tobacco cessation and and he wishes to quit smoking. His PCP is working on measures to achieve the goal. Patient will come back to see me in annual basis or sooner if needed Active Problems Problems Abdominal aortic aneurysm (441.4) (I71.40) Ascending aortic aneurysm (441.2) (I71.21) CAD S/P percutaneous coronary angioplasty (414.01,V45.82) (I25.10,Z98.61) RCA drug-eluting stent Cole 2012 Hyperlipidemia (272.4) (E78.5) Hypertension (401.9) (I10) Surgical History Problems History of Colonoscopy History of Coronary artery stent placement Current Meds Medication NameInstruction amLODIPine Besylate 10 MG Oral TabletTake 1 tablet daily Aspirin 81 MG Oral Tablet Delayed ReleaseTAKE 1 TABLET DAILY. Atorvastatin Calcium 80 MG Oral TabletTAKE 1 TABLET DAILY. Lisinopril 10 MG Oral TabletTAKE 1 TABLET DAILY. Meclizine HCl - 25 MG Oral TabletTAKE 1 TABLET 3 TIMES DAILY NEEDED. Omeprazole 20 MG Oral Capsule Delayed ReleaseTAKE 1 CAPSULE BY MOUTH DAILY patient brought bottles Allergies NoKnown No Known Russ (more content not included)... Normal [facility] Tobacco Screening.on 023 Adult depression screening assessment No -[facility] [employer] DO Work Phone: Tobacco use status CPHS a) Yes [facility] [employer] DO Work Phone: Tobacco Screening. Yes [facility] [employer] DO Work Phone: CARDIAC SHERMAN ADMITon 023 CK [Catalytic activity/Vol] 85 U/L Normal 39-308 [facility] Comment on above: Performed By: #### C SAVANNAH BERTRAND #### [facility] [address] [place], [place] [address] Dr. Diego Wilkins CK.MB [Mass/Vol] 1.16 ng/mL Normal <=3.60 [facility] Comment on above: Performed By: #### C SAVANNAH BERTRAND #### [facility] [address] [place], [place] [address] Dr. Diego Wilkins HSTROP 5.4 pg/mL Normal 4.0-76.1 [facility] Comment on above: Result Comment: CUT- OFF POINTS HAVE BEEN ESTABLISHED BASED ON THE FOURTH UNIVERSAL DEFINITIONS OF MYOCARDIAL INFARCTION. THE UPPER REFERENCE LIMIT (URL) OF TROPONIN, DEFINED THE 99TH PERCENTILE OF cTnI DISTRIBUTION IN A REFERENCE POPULATION, HAS BEEN CONFIRMED THE DECISION THRESHOLD FOR DC DIAGNOSIS. Performed By: #### C SAVANNAH BERTRAND #### [facility] [address] [place] [address] [address] Diego Wilkins AUDREY 39 ng/mL Normal 16-96 [facility] Comment on above: Performed By: #### C ELZA, SAVANNAH #### [facility] [address] [place] [address] [address] Diego Wilkins CBC AUTO DIFFon 12-30-2022 BASO # 0.1 103/ul Normal 0.0-0.1 [facility] Comment on above: Performed By: #### C BC ####[facility] [address] [place] [address]DrJos Wilkins Basophils/100 WBC (Bld) 0.8 % Normal 0.2-2.0 [facility] Comment on above: Performed By: #### C BC ####[facility] [address] [place] [address]DrJos Wilkins EO # 0.2 103/ul Normal 0.0-0.7 [facility] Comment on above: Performed By: #### C BC ####[facility] [address] [place] [address]DrJos Wilkins Eosinophils/100 WBC (Bld) 2.8 % Normal 0.9-7.0 [facility] Comment on above: Performed By: #### C BC ####[facility] [address] [place] [address]Dr. Diego Wilkins Erythrocyte distribution width (RBC) [Ratio] 12.1 % Normal 11.0-15.0 [facility] Comment on above: Performed By: #### C BC ####[facility] [address] [place] [address]DrJos Wilkins Hematocrit (Bld) [Volume fraction] 41.4 % Critically low 42.0-54.0 [facility] Comment on above: Performed By: #### C BC ####[facility] [address] [place] [id number]. Diego Wilkins Hemoglobin (Bld) [Mass/Vol] 14.1 g/dL Normal 14.0-18.0 [facility] Comment on above: Performed By: #### C BC ####[facility] [address] [place] [id number]. Diego Wilkins IG # 0.02 10e3/ul Normal 0.00-0.03 [facility] Comment on above: Performed By: #### C BC ####[facility] [address] [place] [id number]. Diego Wilkins IG % 0.3 % Normal 0.0-0.5 [facility] Comment on above: Performed By: #### C BC ####[facility] [address] [place], [place] [address]Dr. Diego Wilkins LYMPH # 1.6 103/ul Normal 1.2-3.8 [facility] Comment on above: Performed By: #### C BC ####[facility] [address] [place] [address]Dr. Diego Wilkins Lymphocytes/100 WBC (Bld) 25.9 % Normal 20.5-60.0 [facility] Comment on above: Performed By: #### C BC ####[facility] [address] [place] [id number]. Diego Wilkins MANUAL DIFF REQ NO Normal [facility] Comment on above: Performed By: #### C BC ####[facility] [address] [place], [place] [address]Dr. Diego Wilkins MCH (RBC) [Entitic mass] 30.7 pg Normal 25.9-34.0 [facility] Comment on above: Performed By: #### C BC ####[facility] [address] [place] [id number]. Diego Wilkins MCHC (RBC) [Mass/Vol] 34.1 g/dL Normal 29.9-35.2 [facility] Comment on above: Performed By: #### C BC ####[facility] [address] [place] [id number]. Diego Wilkins MCV (RBC) [Entitic vol] 90.0 fL Normal 80.0-94.0 [facility] Comment on above: Performed By: #### C BC ####[facility] [address] [place] [id number]. Diego Wilkins MONO # 0.3 103/ul Normal 0.3-0.8 [facility] Comment on above: Performed By: #### C BC ####[facility] [address] [place], [place] [address]Dr. Diego Wilkins Monocytes/100 WBC (Bld) 5.1 % Normal 1.7-12.0 [facility] Comment on above: Performed By: #### C BC ####[facility] [address] [place], [place] [address]Dr. Diego Wilkins NEUT # 4.0 103/ul Normal 1.4-6.5 [facility] Comment on above: Performed By: #### C BC ####[facility] [address] [place], [place] [address]Dr. Diego Wilkins Neutrophils/100 WBC (Bld) 65.1 % Normal 43.0-75.0 [facility] Comment on above: Performed By: #### C BC ####[facility] [address] [place], [place] [address]Dr. Diego Wilkins Platelet mean volume (Bld) [Entitic vol] 10.0 fL Normal 9.5-13.5 [facility] Comment on above: Performed By: #### C BC ####[facility] [address] [place] [id number]. Diego Wilkins PLT 145 103/ul Critically low 150-450 [facility] Comment on above: Performed By: #### C BC ####[facility] [address] [place] [id number]. Diego Wilkins RBC 4.60 106/ul Critically low 4.70-6.10 [facility] Comment on above: Performed By: #### C BC ####[facility] [address] [place], [place] [address]NtDr. Diego Wilkins WBC 6.1 103/ul Normal 4.0-11.0 [facility] Comment on above: Performed By: #### C BC ####[facility] [address] [place], [place] [address]SeDr. Diego Wilkins PROF 14(COMP METB)on 023 Albumin [Mass/Vol] 3.5 g/dL Normal 3.4-5.0 [facility] Comment on above: Performed By: #### C ELZA, CMADM #### [facility] [address] [place] [address] [address] Diego Wilkins Albumin/Globulin [Mass ratio] 1.0 {ratio} Normal [facility] Comment on above: Performed By: #### C ELZA, CMADM #### [facility] [address] [place] [address] [address] Diego Wilkins ALP [Catalytic activity/Vol] 116 U/L Normal 46-116 [facility] Comment on above: Performed By: #### C ELZA, CMADM #### [facility] [address] [place] [address] [address] Diego Wilkins ALT [Catalytic activity/Vol] 20 U/L Normal 16-63 [facility] Comment on above: Performed By: #### C ELZA, CMADM #### [facility] [address] [place] [address] [address] Diego Wilkins Anion gap [Moles/Vol] 11.2 mmol/L Normal [facility] Comment on above: Performed By: #### C ELZA, CMADM #### [facility] [address] [place] [address] [address] Diego Wilkins AST [Catalytic activity/Vol] 18 U/L Normal 15-37 [facility] Comment on above: Performed By: #### C ELZA, CMADM #### [facility] [address] [place] [address] [address] Diego Wilkins Bilirubin [Mass/Vol] 0.6 mg/dL Normal 0.2-1.0 [facility] Comment on above: Performed By: #### C MP, CMADM #### [facility] [address] [place] [address] [address] Diego Wilkins Calcium [Mass/Vol] 8.7 mg/dL Normal 8.5-10.1 [facility] Comment on above: Performed By: #### C MP, CMADM #### [facility] [address] [place] [address] [address] Diego Wilkins Chloride [Moles/Vol] 102 mmol/L Normal 98-107 [facility] Comment on above: Performed By: #### C MP, CMADM #### [facility] [address] [place] [address] [address] Diego Wilkins CO2 [Moles/Vol] 31.4 mmol/L Normal 21.0-32.0 [facility] Comment on above: Performed By: #### C MP, CMADM #### [facility] [address] [place] [address] [address] Diego Wilkins Creatinine [Mass/Vol] 0.76 mg/dL Normal 0.70-1.30 [facility] Comment on above: Performed By: #### C MP, CMADM #### [facility] [address] [place] [address] [address] Diego Wilkins EGFR-AF GHANAIAN >60 Normal >=60 [facility] Comment on above: Performed By: #### C MP, CMADM #### [facility] [address] [place] [address] [address] Diego Wilkins EGFR-NON AF GHANAIAN >60 Normal >=60 [facility] Comment on above: Performed By: #### C MP, CMADM #### [facility] [address] [place] [address] [address] Diego Wilkins Globulin (S) [Mass/Vol] 3.6 g/dL Normal [facility] Comment on above: Performed By: #### C MP, CMADM #### [facility] [address] [place] [address] [address] Diego Wilkins Glucose [Mass/Vol] 110 mg/dL Critically high 74-106 [facility] Comment on above: Performed By: #### C MP, CMADM #### [facility] [address] [place] [address] [address] Diego Wilkins Potassium [Moles/Vol] 3.6 mmol/L Normal 3.5-5.1 [facility] Comment on above: Performed By: #### C MP, CMADM #### [facility] [address] [place] [address] Dr. Diego Wilkins Protein [Mass/Vol] 7.1 g/dL Normal 6.4-8.2 [facility] Comment on above: Performed By: #### C MP, CMADM #### [facility] [address] [place] [address] Dr. Diego Wilkins Sodium [Moles/Vol] 141 mmol/L Normal 136-145 [facility] Comment on above: Performed By: #### C MP, CMADM #### [facility] [address] [place] [address] Dr. Diego Wilkins Urea nitrogen [Mass/Vol] 4.0 mg/dL Critically low 7.0-18.0 [facility] Comment on above: Performed By: #### C MP, CMADM #### [facility] [address] [place] [address] Dr. Diego Wilkins Urea nitrogen/Creatinin e [Mass ratio] 5.3 mg/mg Normal [facility] Comment on above: Performed By: #### C MP, CMADM #### [facility] [address] [place] [address] Dr. Diego Wilkins T4on 12-30-2022 T4 [Mass/Vol] 8.90 ug/dL Normal 4.50-12.10 [facility] Comment on above: Performed By: #### T 4, TSH #### [facility] [address] [place] [address] Dr. Diego Wilkins TROPONIN, HIGH SENSITIVITYon 12-30-2022 HSTROP 4.6 pg/mL Normal 4.0-76.1 [facility] Comment on above: Result Comment: CUT- OFF POINTS HAVE BEEN ESTABLISHED BASED ON THE FOURTH UNIVERSAL DEFINITIONS OF MYOCARDIAL INFARCTION. THE UPPER REFERENCE LIMIT (URL) OF TROPONIN, DEFINED THE 99TH PERCENTILE OF cTnI DISTRIBUTION IN A REFERENCE POPULATION, HAS BEEN CONFIRMED THE DECISION THRESHOLD FOR DC DIAGNOSIS. Performed By: #### H STROPN ####[facility] [address] [place], [place] [address]RqDr. Diego Wilkins TSHon 12-30-2022 TSH 1.729 uIU/mL Normal 0.358-3.740 [facility] Comment on above: Performed By: #### T 4, TSH #### [facility] [address] [place], [place] [address] Dr. Diego Wilkins Office Visit (Cardiac Surger y)on 12-28-2022 Follow-up visit Diagnoses/Problems Assessed Ascending aortic aneurysm (441.2) (I71.21) Abdominal aortic aneurysm (441.4) (I71.40) Orders Abdominal aortic aneurysm, Ascending aortic aneurysm Basic Metabolic Panel; Status:Active - Retrospective By Protocol Authorization; Requested for:20Nov2023; CT Chest Abdomen Pelvis with IV Contrast; Status:Hold For - Scheduling,Retrospectiv e By Protocol Authorization; Requested for:20Nov2023; Patient taking Metformin or Derivatives? : No Radiologist to Determine Optimal Study : Y What are the patient's signs and symptoms? : none SocHx: Current every day smoker Tobacco Use Screening; Status:Complete; Done: 28Dec2022 Provider Impressions In summary this 62-year-old man is asymptomatic from a 3.9 cm a sending aortic aneurysm. I reviewed his investigations that include an old echo from 2015. At that time left ventricular function was normal, the tricuspid valve showed mild to moderate regurgitation, mitral and aortic valves are essentially normal. The aortic root on this study was mildly dilated at 3.8 cm. There was evidence of mild pulmonary hypertension likely secondary to his smoking history. I reviewed his most recent CT scan on 23 November. This reveals a relatively smooth ascending aorta that is ectatic measuring 3.9 cm. There are some changes consistent with emphysema. I compared this to a CT scan from April 2022, in which the ascending aorta was measured at 3.9 x 3.8 cm. Therefore there has been no significant change in the past 6 months. Incidentally in April [address] he also had a CT of the abdomen, which confirmed a 3.2 x 3.5 cm abdominal aortic aneurysm. In summary, Mr. Calvert has 2 aneurysms involving the ascending aorta at 3.9 cm and the abdominal aorta at 3.2 x 3.5 cm. Based on international guidelines neither meet the indications for surgery at this time. Typically for the ascending aorta this would be diameter of 5.5 cm. In some cases we will operate on a lower diameter based on the risk and benefit analysis. In his case, my concern would be pulmonary dysfunction if he ever require surgery. The fact that he has substantial clubbing of both hands, evidence of emphysema on his CT scan, and evidence of mild pulmonary hypertension on an echo from 6 years ago are all concerning features about the severity of his COPD. We spent some time talking about smoking cessation, and have asked him to speak to [facility] team about the options to help with smoking cessation. We discussed the need for tight blood pressure control, and to take his blood pressure daily. I do believe he should be referred to a chemistry physics teacher, and since he lives in the [facility], we will refer him to one of our cardiology colleagues from [facility]. Lastly, we will refer him to the aortic clinic. So that he can be followed on a regular basis. That team will be able to evaluate both the abdominal aortic aneurysm and ascending aortic aneurysm on a regular basis. I have spoken with the nurse from that team, María Elena Tubbs, and his next visit would be in approximately 1 year. Chief Complaint Patient is here for a surgical evaluation for an ascending aortic aneurysm following a referral by Tonja Wiley CNP ([facility]). COURTNEY Ruiz, RN Adult Risk Screening Living Will. Living Will: No living will on file. Healthcare POA: No healthcare proxy on file. History of Present Illness This 62-year patient has been referred with a diagnosis of a dilated ascending aorta. He recently underwent a CT scan on 23 November, somehow he was known to have ectasia of the ascending aorta. This confirmed a slightly dilated ascending aorta of 3.9 cm. For that reason, he has been referred to our cardiac surgical team. 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 He feels they are related to musculoskeletal symptoms from the jarring effects of the forklift. There have been no pain events that appear to be unexplained or that come within his chest. He has had no shortness of breath. He has had hypertension for quite some time and dyslipidemia. He has been a heavy smoker, approximately 2 packs/day for 45 years and consumes THC daily. No alcohol use. He did have a coronary stent in 2013. Review of Systems Constitutional: not feeling tired. Eyes: no eyesight problems. ENT: no hearing loss and no nosebleeds. Cardiovascular: no intermittent leg claudication and as noted in HPI. Respiratory: no chronic cough and no shortness of breath. Gastrointestinal: no change in bowel habits and no blood in stools. Genitourinary: no urinary frequency and no hematuria. Skin: no skin rashes. Neurological: no seizures and no frequent falls. Psychiatric: no depression and not suicidal. All other systems have been reviewed and are negative for complaint. Active Problems Problems Abdominal aortic aneurysm (441.4) (I71.40) Ascending aortic aneurysm (441.2) (I71.21) CAD S/P percutaneous coronary angioplasty (414.01,V45.82) (I25 (more content not included)... Normal [facility] Tobacco Screening.on 023 Fall risk assessment a) No falls within the last year [facility] Work Phone: Tobacco use status [facility]PHS a) Yes [facility] Work Phone: Tobacco Screening. Yes [facility] 1800 Work Phone: CT CHEST WO CONon 11-24-2022 CT CHEST WO CON EXAMINATION: CT CHES T WO CON HISTORY: Imaging result abnormal ; ectasia of ascending thoracic aorta COMPARISON: CT chest 04/28/2022 TECHNIQUE: Axial, Coronal, and Sagittal images were created without the administration of IV contrast material. Dose reduction techniques were achieved by using automated exposure control and/or adjustment of mA and/or kV according to patient size and/or use of iterative reconstruction technique. FINDINGS: LUNGS: Mild emphysematous changes. A few small areas of pleural scarring. No suspicious nodules. PLEURA: No mass, effusion, or pneumothorax. VASCULATURE: No abnormality. VARINDER: No mass or adenopathy. MEDIASTINUM: No mass or adenopathy. CARDIAC: No enlargement or pericardial thickening. AORTA: Mild ectasia of ascending thoracic aorta, 3.9 cm in diameter. CHEST WALL: No mass or axillary adenopathy. BONES: No bone lesion or fracture. LIMITED ABDOMEN: No suspicious findings. Limited images of the upper abdomen. OTHER: Negative. IMPRESSION: 1. Stable mild ectasia of the ascending thoracic aorta, 3.9 cm in diameter. 2. Mild emphysematous changes. Electronically authenticated by: DENNIS KIM Date: 2022-11-24 07:39 Normal [facility] CTA ABD/PELVIS WO W CONon CTA ABD/PELVIS WO W CON EXAMINATION: CTA ABD/PELVIS WO W CON HISTORY: Imaging result abnormal ; thoracic aortic aneurysm, abdominal aortic aneurysm suspected on chest CT COMPARISON: No relevant comparison available. TECHNIQUE: Axial, Coronal, and Sagittal CT images without and with IV contrast. Multi-planar/3-D imaging to optimize visualization of vascular anatomy. Dose reduction techniques were achieved by using automated exposure control and/or adjustment of mA and/or kV according to patient size and/or use of iterative reconstruction technique. FINDINGS: AORTA/VASCULAR: Fusiform aneurysmal dilation of the infrarenal aorta up to 3.5 x 3.2 cm. Moderate atherosclerotic narrowing of the distal aorta and its bifurcation. Mild-moderate atherosclerotic narrowing of the common iliac arteries. CELIAC ARTERY: Normal celiac vessels. SMA: Normal mesenteric vessels. RENAL ARTERIES: Moderate atherosclerotic narrowing at origin of right renal artery. No significant narrowing of left renal artery. LUNG BASES: No visible pulmonary or pleural disease. LIVER: No enlargement, atrophy, abnormal density, or significant focal lesion. BILIARY: 5 mm stone within the noninflamed gallbladder. PANCREAS: No lesion, fluid collection, ductal dilatation, or atrophy. SPLEEN: No enlargement or focal lesion. ADRENALS: No mass or enlargement. KIDNEYS: Incidental small right renal cyst. No mass, obstruction, or calcification. BOWEL/MESENTERY: No visible mass, obstruction, or bowel wall thickening. RETROPERITONEUM: No mass or adenopathy. LYMPH NODES: No adenopathy. URINARY BLADDER: No visible focal wall thickening, lesion, or calculus. PELVIC ORGANS: No visible mass. Pelvic organs appropriate for patient age. ABDOMINAL WALL: No mass or hernia. BONES: No bony lesion or fracture. Moderate-marked degenerative disc disease and foraminal narrowing involving the lower lumbar spine. OTHER: Negative. IMPRESSION: 1. Mild fusiform aneurysmal dilation of the abdominal aorta, 3.5 cm in diameter. Moderate atherosclerotic disease. 2. Cholelithiasis. Electronically authenticated by: DENNIS KIM Date: 2022-05-04 07:31 Normal [facility] CTA CHEST WO W CONon 022 CTA CHEST WO W CON EXAMINATION: CTA ALYSE ST WO W CON HISTORY: Thoracic aortic aneurysm without rupture COMPARISON: 04/20/2022 TECHNIQUE: Multi-planar CT images were created with IV contrast. Axial, Coronal, and Sagittal images. Dose reduction techniques were achieved by using automated exposure control and/or adjustment of mA and/or kV according to patient size and/or use of iterative reconstruction technique. FINDINGS: VASCULATURE: No pulmonary embolism or abnormal opacity. LUNGS: Moderate bilateral centrilobular and paraseptal emphysema. Scattered punctate pulmonary nodules, stable from the exam one week ago. Patchy opacities in both lung apices, pleural parenchymal scarring is favored. No new infiltrate nodule or mass PLEURA: No mass, effusion, or pneumothorax. VARINDER: No mass or adenopathy. MEDIASTINUM: No mass or adenopathy. CARDIAC: No enlargement, pericardial effusion, or pericardial thickening. AORTA: Prominent thoracic aorta measuring a maximum of 3.9 x 3.8 cm axial image 51. Moderate atherosclerosis. No aortic dissection. There is abnormal contour of the visualized abdominal aorta with contour deformity along the posterior margin axial image 99 through 100 and a second area image 104 CHEST WALL: No mass or axillary adenopathy. BONES: No bone lesion or fracture. LIMITED ABDOMEN: No suspicious findings. Limited images of the upper abdomen. OTHER: Negative. IMPRESSION: Borderline aneurysm of the ascending thoracic aorta measuring 3.9 cm in diameter Contour deformity of the posterior abdominal aorta which is only partially visualized. Consider CT angiogram of the abdomen and pelvis to evaluate atherosclerotic aortic ulcer or intramural thrombus Electronically authenticated by: ROBBIE ADAMS Date: 2022-04-29 07:42 Normal [facility] CT LUNG CANCER SCREENINGon 0 04-20-2022 CT LUNG CANCER SCREENING EXAMINATION: CT LUNG CANCER SCREENING HISTORY: Tobacco dependence caused by cigarettes COMPARISON: No relevant comparison available. TECHNIQUE: Axial, Coronal, and Sagittal images were created without the administration of IV contrast material. Dose reduction techniques were achieved by using automated exposure control and/or adjustment of mA and/or kV according to patient size and/or use of iterative reconstruction technique. FINDINGS: LUNGS: Moderate centrilobular and paraseptal emphysema with an upper lobe predominance. Scattered solid bilateral pulmonary nodules the largest in the left apex measures 9.8 x 7.4 mm, axial image 13 this is relatively flat and could represent pleural parenchymal scarring. PLEURA: No mass, effusion, or pneumothorax. VASCULATURE: No abnormality. VARINDER: No mass or pathologic adenopathy. MEDIASTINUM: No mass or pathologic adenopathy. CARDIAC: No enlargement or pericardial effusion. Moderate coronary atherosclerosis AORTA: Aneurysm of the ascending thoracic aorta measuring 4.1 cm in diameter, axial image #84. Mild to moderate aortic atherosclerosis CHEST WALL: No mass or axillary adenopathy BONES: No bone lesion or fracture. LIMITED ABDOMEN: No suspicious findings. Limited images of the upper abdomen. OTHER: Negative. IMPRESSION: Scattered parenchymal nodules the largest in the left apex. 6 month follow-up is recommended as there are no prior comparisons 4.1 cm aneurysm ascending aorta LUNG SCREENING: Lung-RADS Category 3- Probably benign. Probably benign finding(s)- short term follow up suggested; includes nodules with a low likelihood of becoming a clinically active cancer. Six month LDCT. Electronically authenticated by: ROBBIE ADAMS Date: 2022-04-20 09:40 Normal [facility] CBC AUTO DIFFon 04-13-2022 BASO # 0.0 103/ul Normal 0.0-0.1 [facility] Comment on above: Performed By: #### C BC ####[facility] [address] [place] [address]Dr. Diego Wilkins Basophils/100 WBC (Bld) 0.8 % Normal 0.2-2.0 [facility] Comment on above: Performed By: #### C BC ####[facility] [address] [place] [address]Dr. Diego Wilkins EO # 0.0 103/ul Normal 0.0-0.7 [facility] Comment on above: Performed By: #### C BC ####[facility] [address] [place] [address]Dr. Diego Wilkins Eosinophils/100 WBC (Bld) 0.3 % Critically low 0.9-7.0 [facility] Comment on above: Performed By: #### C BC ####[facility] [address] [place] [address]Dr. Diego Wilkins Erythrocyte distribution width (RBC) [Ratio] 13.0 % Normal 11.0-15.0 [facility] Comment on above: Performed By: #### C BC ####[facility] [address] [place] [address]Dr. Diego Wilkins Hematocrit (Bld) [Volume fraction] 43.3 % Normal 42.0-54.0 [facility] Comment on above: Performed By: #### C BC ####[facility] [address] [place], [place] [address]Dr. Diego Wilkins Hemoglobin (Bld) [Mass/Vol] 14.2 g/dL Normal 14.0-18.0 [facility] Comment on above: Performed By: #### C BC ####[facility] [address] [place], [place] [address]Dr. Diego Wilkins IG # 0.01 10e3/ul Normal 0.00-0.03 [facility] Comment on above: Performed By: #### C BC ####[facility] [address] [place], [place] [address]Dr. Leathaliz Wilkins IG % 0.3 % Normal 0.0-0.5 [facility] Comment on above: Performed By: #### C BC ####[facility] [address] [place], [place] [address]Dr. Leathaliz Wilkins LYMPH # 0.9 103/ul Critically low 1.2-3.8 [facility] Comment on above: Performed By: #### C BC ####[facility] [address] [place], [place] [address]Dr. Leathaliz Wilkins Lymphocytes/100 WBC (Bld) 23.7 % Normal 20.5-60.0 [facility] Comment on above: Performed By: #### C BC ####[facility] [address] [place], [place] [address]Dr. Diego Wilkins MANUAL DIFF REQ NO Normal [facility] Comment on above: Performed By: #### C BC ####[facility] [address] [place], [place] [address]Dr. Diego Wilkins MCH (RBC) [Entitic mass] 31.0 pg Normal 25.9-34.0 [facility] Comment on above: Performed By: #### C BC ####[facility] [address] [place] [address]Dr. Diego Wilkins MCHC (RBC) [Mass/Vol] 32.8 g/dL Normal 29.9-35.2 [facility] Comment on above: Performed By: #### C BC ####[facility] [address] [place] [address]Dr. Diego Wilkins MCV (RBC) [Entitic vol] 94.5 fL Critically high 80.0-94.0 [facility] Comment on above: Performed By: #### C BC ####[facility] [address] [place] [address]Dr. Diego Wilkins MONO # 0.6 103/ul Normal 0.3-0.8 [facility] Comment on above: Performed By: #### C BC ####[facility] [address] [place] [address]Dr. Diego Wilkins Monocytes/100 WBC (Bld) 16.8 % Critically high 1.7-12.0 [facility] Comment on above: Performed By: #### C BC ####[facility] [address] [place] [address]Dr. Diego Wilkins NEUT # 2.1 103/ul Normal 1.4-6.5 [facility] Comment on above: Performed By: #### C BC ####[facility] [address] [place] [address]Dr. Diego Wilkins Neutrophils/100 WBC (Bld) 58.1 % Normal 43.0-75.0 [facility] Comment on above: Performed By: #### C BC ####[facility] [address] [place] [address]Dr. Diego Wilkins Platelet mean volume (Bld) [Entitic vol] 10.6 fL Normal 9.5-13.5 [facility] Comment on above: Performed By: #### C BC ####[facility] [address] [place], [place] [address]Mg. Diego Wilkins PLT 141 103/ul Critically low 150-450 [facility] Comment on above: Performed By: #### C BC ####[facility] [address] [place], [place] [address]Xn. Diego Wilkins RBC 4.58 106/ul Critically low 4.70-6.10 [facility] Comment on above: Performed By: #### C BC ####[facility] [address] [place] [id number]. Diego Wilkins WBC 3.6 103/ul Critically low 4.0-11.0 [facility] Comment on above: Performed By: #### C BC ####[facility] [address] [place] [id number]. Diego Wilkins LIPID PROFILEon 04-13-2022 CHOL-HDL RATIO NORM SEE BELOW Normal [facility] Comment on above: Result Comment: 3.3 - 4.4 LOW RISK 4.4 - 7.1 AVERAGE RISK 7.1 - 11.0 MODERATE RISK >11.0 HIGH RISK Performed By: #### L IPID, CMP ####[facility] [address] [place] [id number]. Diego Wilkins Cholesterol [Mass/Vol] 71 mg/dL Normal <=200 [facility] Comment on above: Performed By: #### L IPID, CMP ####[facility] [address] [place] [id number]. Diego Wilkins Cholesterol in HDL [Mass/Vol] 30 mg/dL Critically low 40-60 [facility] Comment on above: Performed By: #### L IPID, CMP ####[facility] [address] [place] [id number]. Diego Wilkins Cholesterol in LDL [Mass/Vol] 28.4 mg/dL Normal [facility] Comment on above: Performed By: #### L IPID, CMP ####[facility] [address] [place] [id number]. Diego Wilkins Cholesterol.total/ Cholesterol in HDL [Mass ratio] 2.4 {ratio} Normal [facility] Comment on above: Performed By: #### L IPID, CMP ####[facility] [address] [place] [address]Dr. Diego Wilkins HDL NORMAL > or = 60 mg/dl - LO W CARDIOVASCULAR RISK <40 mg/dl - HIGH CARDIOVASCULAR RISK Normal [facility] Comment on above: Performed By: #### L IPID, CMP ####[facility] [address] [place] [address]Dr. Diego Wilkins LDL CALC NORMAL SEE BELOW Normal [facility] Comment on above: Result Comment: <100 mg/dl OPTIMAL 100 - 129 mg/dl NEAR OR ABOVE OPTIMAL 130 - 159 mg/dl BORDERLINE HIGH 160 - 189 mg/dl HIGH >190 mg/dl VERY HIGH Performed By: #### L IPID, CMP ####[facility] [address] [place], [place] [address]Dr. Diego Wilkins Triglyceride [Mass/Vol] 63 mg/dL Normal <=150 [facility] Comment on above: Performed By: #### L IPID, CMP ####[facility] [address] [place], [place] [address]Dr. Diego Wilkins VLDL CALC 12.6 mg/dL Normal [facility] Comment on above: Performed By: #### L IPID, CMP ####[facility] [address] [place] [address]Dr. Diego Wilkins PROF 14(COMP METB)on 022 Albumin [Mass/Vol] 3.9 g/dL Normal 3.4-5.0 [facility] Comment on above: Performed By: #### L IPID, CMP ####[facility] [address] [place], [place] [address]Dr. Diego Wilkins Albumin/Globulin [Mass ratio] 1.1 {ratio} Normal [facility] Comment on above: Performed By: #### L IPID, CMP ####[facility] [address] [place] [address]Dr. Dieog Wilkins ALP [Catalytic activity/Vol] 141 U/L Critically high 46-116 [facility] Comment on above: Performed By: #### L IPID, CMP ####[facility] [address] [place] [address]Dr. Diego Wilkins ALT [Catalytic activity/Vol] 24 U/L Normal 16-63 [facility] Comment on above: Performed By: #### L IPID, CMP ####[facility] [address] [place] [address]Dr. Diego Wilkins Anion gap [Moles/Vol] 9.9 mmol/L Normal [facility] Comment on above: Performed By: #### L IPID, CMP ####[facility] [address] [place], [place] [address]Dr. Diego Wilkins AST [Catalytic activity/Vol] 23 U/L Normal 15-37 [facility] Comment on above: Performed By: #### L IPID, CMP ####[facility] [address]uk[address] [place], [place] [address]Dr. Diego Wilkins Bilirubin [Mass/Vol] 0.7 mg/dL Normal 0.2-1.0 [facility] Comment on above: Performed By: #### L IPID, CMP ####[facility] [address] [place], [place] [address]Dr. Diego Franky Calcium [Mass/Vol] 9.0 mg/dL Normal 8.5-10.1 [facility] Comment on above: Performed By: #### L IPID, CMP ####[facility] [address] [place], [place] [address]Dr. Diego Wilkins Chloride [Moles/Vol] 98 mmol/L Normal 98-107 [facility] Comment on above: Performed By: #### L IPID, CMP ####[facility] [address] [place], [place] [address]Dr. Diego Wilkins CO2 [Moles/Vol] 32.6 mmol/L Critically high 21.0-32.0 [facility] Comment on above: Performed By: #### L IPID, CMP ####[facility] [address] [place], [place] [address]Dr. Diego Wilkins Creatinine [Mass/Vol] 0.84 mg/dL Normal 0.70-1.30 [facility] Comment on above: Performed By: #### L IPID, CMP ####[facility] [address] [place] [address]Dr. Diego Wilkins EGFR-AF GHANAIAN >60 Normal >=60 [facility] Comment on above: Performed By: #### L IPID, CMP ####[facility] [address] [place] [address]Dr. Diego Wilkins EGFR-NON AF GHANAIAN >60 Normal >=60 [facility] Comment on above: Performed By: #### L IPID, CMP ####[facility] [address] [place], [place] [address]Dr. Leathaliz Franky Globulin (S) [Mass/Vol] 3.4 g/dL Normal [facility] Comment on above: Performed By: #### L IPID, CMP ####[facility] [address] [place], [place] [address]Dr. Leathaliz Franky Glucose [Mass/Vol] 98 mg/dL Normal 74-106 [facility] Comment on above: Performed By: #### L IPID, CMP ####[facility] [address] [place], [place] [address]Dr. Leathaliz Franky Potassium [Moles/Vol] 3.5 mmol/L Normal 3.5-5.1 [facility] Comment on above: Performed By: #### L IPID, CMP ####[facility] [address] [place], [place] [address]Dr. Diego Franky Protein [Mass/Vol] 7.3 g/dL Normal 6.4-8.2 [facility] Comment on above: Performed By: #### L IPID, CMP ####[facility] [address] [place], [place] [address]Dr. Leathaliz Wilkins Sodium [Moles/Vol] 137 mmol/L Normal 136-145 [facility] Comment on above: Performed By: #### L IPID, CMP ####[facility] [address] [place], [place] [address]Dr. Leathaliz Wilkins Urea nitrogen [Mass/Vol] 5.0 mg/dL Critically low 7.0-18.0 [facility] Comment on above: Performed By: #### L IPID, CMP ####[facility] [address] [place] [address]Dr. Diego Wilkins Urea nitrogen/Creatinin e [Mass ratio] 6.0 mg/mg Normal [facility] Comment on above: Performed By: #### L IPID, CMP ####[facility] [address] [place] [id number]. Diego Wilkins UA RANDOM W/MICROSCOPICon BACTERIA NONE SEEN Normal NONE SEEN [facility] Comment on above: Performed By: #### U AMIC #### [facility] [address] [place] [address] Dr. Diego Wilkins Bilirubin Ql (U) Negative Normal NEGATIVE [facility] Comment on above: Performed By: #### U AMIC #### [facility] [address] [place] [address] Dr. Diego Wilkins CAST NONE SEEN Normal NONE SEEN [facility] Comment on above: Performed By: #### U AMIC #### [facility] [address] [place] [address] [address] Diego Wilkins Clarity (U) CLEAR Normal CLEAR [facility] Comment on above: Performed By: #### U AMIC #### [facility] [address] [place] [address] [address] Diego Wilkins Color (U) LT. YELLOW Normal YELLOW [facility] Comment on above: Performed By: #### U AMIC #### [facility] [address] [place] [address] [address] Diego Wilkins Crystals LM Nom (Urine sed) NONE SEEN Normal NONE SEEN [facility] Comment on above: Performed By: #### U AMIC #### [facility] [address] [place] [address] Dr. Diego Wilkins Epithelial cells LM Ql (Urine sed) RARE Normal NONE SEEN /RARE [facility] Comment on above: Performed By: #### U AMIC #### [facility] [address] [place] [address] [address] Diego Wilkins Glucose Ql (U) Negative Normal NEGATIVE [facility] Comment on above: Performed By: #### U AMIC #### [facility] [address] [place] [address] [address] Diego Wilkins Hemoglobin Ql (U) Negative Normal NEGATIVE [facility] Comment on above: Performed By: #### U AMIC #### [facility] [address] [place] [address] [address] Diego Wilkins Ketones Ql (U) Negative Normal NEGATIVE [facility] Comment on above: Performed By: #### U AMIC #### [facility] [address] [place] [address] [address] Diego Wilkins LEUKOCYTES Negative Normal NEGATIVE [facility] Comment on above: Performed By: #### U AMIC #### [facility] [address] [place] [address] Dr. Diego Wilkins MUCOUS NONE SEEN Normal NONE SEEN [facility] Comment on above: Performed By: #### U AMIC #### [facility] [address] [place] [address] [address] Diego Wilkins Nitrite Ql (U) Negative Normal NEGATIVE [facility] Comment on above: Performed By: #### U AMIC #### [facility] [address] [place] [address] Dr. Diego Wilkins pH (U) 6.0 [pH] Normal 5-9 [facility] Comment on above: Performed By: #### U AMIC #### [facility] [address] [place] [address] [address] Diego Wilkins RBC NONE SEEN Abnormal 0-2 [facility] Comment on above: Performed By: #### U AMIC #### [facility] [address] [place] [address] [address] Diego Wilkins SPEC GRAVITY <=1.005 Abnormal 1.005-<=1.025 [facility] Comment on above: Performed By: #### U AMIC #### [facility] [address] [place] [address] [address] Diego Wilkins UA PROTEIN Negative Normal NEGATIVE/ TRACE [facility] Comment on above: Performed By: #### U AMIC #### [facility] [address] [place] [address] [address] Diego Wilkins Urobilinogen Qn (U) 1.0 {Shelly'U}/dL Normal 0.2 - 1.0 [facility] Comment on above: Performed By: #### U AMIC #### [facility] [address] [place] [address] [address] Diego Wilkins WBC NONE SEEN Normal NONE SEEN [facility] Comment on above: Performed By: #### U AMIC #### [facility] [address] [place] [address] [address] Diego Wilkins Vital Signs Date Time Vital Sign Value Performing Clinician Facility 11-29-2023 11:04-0500 Body height 172.7 cm Roman Hudson MD Work Phone: [facility] 11-29-2023 11:04-0500 Body mass index (BMI) [Ratio] 23.87 kg/m2 Roman Hudson MD Work Phone: [facility] 11-29-2023 11:04-0500 Body weight 71.22 kg Roman Hudson MD Work Phone: [facility] 11-29-2023 11:04-0500 Diastolic blood pressure 68 mm[Hg] Roman Hudson MD Work Phone: [facility] 11-29-2023 11:04-0500 Heart rate 84 /min Roman Hudson MD Work Phone: [facility] 11-29-2023 11:04-0500 SaO2% (BldA) [Mass fraction] 96 % Roman Hudson MD Work Phone: [facility] 11-29-2023 11:04-0500 Systolic blood pressure 105 mm[Hg] Roman Hudson MD Work Phone: [facility] 02-14-2023 15:06-0400 Blood Pressure Location Pauline BAINS [facility] [place] 02-14-2023 15:06-0400 Diastolic blood pressure 84 mm[Hg] Pauline BAINS [facility] [place] 02-14-2023 15:06-0400 Heart rate 68 /min Pauline BAINS [facility] [place] 02-14-2023 15:06-0400 Respiratory rate 16 /min Pauline BAINS [facility] [place] 02-14-2023 15:06-0400 Systolic blood pressure 116 mm[Hg] Pauline BAINS [facility] [place] 01-09-2023 10:00-0500 Diastolic blood pressure 74 mm[Hg] Tonja Cifuenteshholz Work Phone: [facility] 600 DO Work Phone: 01-09-2023 10:00-0500 Diastolic blood pressure 82 mm[Hg] Tonja Cifuenteshholz Work Phone: [facility] 600 DO Work Phone: 01-09-2023 10:00-0500 Systolic blood pressure 118 mm[Hg] Tonja Cifuenteshholz Work Phone: [facility] 600 DO Work Phone: 01-09-2023 10:00-0500 Systolic blood pressure 124 mm[Hg] Tonja Cifuenteshholz Work Phone: [facility] [place] 600 DO Work Phone: 01-09-2023 09:58-0500 Body height 176.53 cm Tonja Cifuenteshholz Work Phone: [facility] [place] 600 DO Work Phone: 01-09-2023 09:58-0500 Body mass index (BMI) [Ratio] 22.27 kg/m2 Tonja Jo Aichholz Work Phone: [facility] 600 DO Work Phone: 01-09-2023 09:58-0500 Body surface area Derived from formula 1.85 m2 Tonja Wiley Work Phone: [facility] 600 DO Work Phone: 01-09-2023 09:58-0500 Body weight 69.4 kg Tonja Wiley Work Phone: [facility] 600 DO Work Phone: 01-09-2023 09:58-0500 Heart rate 75 /min Tonja Wiley Work Phone: [employer] 600 DO Work Phone: 12-28-2022 13:06-0500 Body height 175.26 cm Unknown Unknown [facility] 1800 Work Phone: 12-28-2022 13:06-0500 Body mass index (BMI) [Ratio] 22.52 kg/m2 Unknown Unknown [facility] 1800 Work Phone: 12-28-2022 13:06-0500 Body surface area Derived from formula 1.84 m2 Unknown Unknown [facility] Work Phone: 12-28-2022 13:06-0500 Body weight 69.17 kg Unknown Unknown [facility] Work Phone: 12-28-2022 13:06-0500 Diastolic blood pressure 81 mm[Hg] Unknown Unknown [facility] Work Phone: 12-28-2022 13:06-0500 Heart rate 60 /min Unknown Unknown [facility] [facility] Work Phone: 12-28-2022 13:06-0500 SaO2% (BldA) [Mass fraction] 94 % Unknown Unknown [facility] Work Phone: 12-28-2022 13:06-0500 Systolic blood pressure 152 mm[Hg] Unknown Unknown [facility] [facility] Work Phone: 12-28-2022 13:06-0500 0 1 Unknown Unknown [facility] Work Phone: Comment on above: [employer] Encounters Encounter Date Encounter Type Care Provider Facility Start: 08-08-2024 End: 08-08-2024 ambulatory TONJA AICHHOLZ Not Available Start: 05-07-2024 End: 05-07-2024 ambulatory TONJA AICHHOLZ Not Available Start: 01-17-2024 End: 01-17-2024 Office outpatient visit 25 minutes Roman Hudson MD Work Phone: [facility] Comment on above: Ascending aortic ane urysm, unspecified whether ruptured ([facility]) Start: 01-17-2024 End: 01-18-2024 ambulatory [facility] Start: 12-14-2023 End: 12-14-2023 Subsequent hospital visit by physician Madeline Daily [address] 1 [facility] Comment on above: Ascending aorta dila tation ([facility]) Start: 12-14-2023 End: 12-14-2023 ambulatory ROMAN R [facility] Start: 11-29-2023 End: 11-29-2023 ambulatory ROMAN Rodriguez [facility] Start: 11-29-2023 End: 11-29-2023 Office outpatient new 60 minutes Roman Hudson MD Work Phone: [facility] Comment on above: Ascending aorta dila tion ([facility]) Start: 11-06-2023 End: 11-06-2023 ambulatory TONJA AICHHOLZ Not Available Start: 03-14-2023 End: 03-15-2023 ambulatory Pauline BAINS Facility:[facility] Start: 03-14-2023 End: 03-14-2023 Patient encounter procedure Pauline BAINS General [facility] Start: 03-01-2023 End: 03-02-[address] PAULINE BAINS . Facility:[facility] Start: 02-14-2023 End: 02-15-2023 ambulatory Pauline BAINS Facility:[facility] Start: 02-14-2023 End: 02-14-2023 Patient encounter procedure Pauline BAINS General [facility] Start: 01-17-2023 End: 01-18-2023 ambulatory TIFFANY WILEY Facility:[facility] Start: 01-09-2023 Office consultation new/estab patient 60 min Tonja Wiley Work Phone: [facility] 600 DO Work Phone: Start: 01-09-[address] Jess Marroquin Facility: Start: 12-30-2022 End: 12-30-2022 ambulatory TIFFANY WILEY Facility:[facility] Start: 12-28-2022 Office consultation new/estab patient 80 min Unknown Unknown [facility] [facility] Work Phone: Start: 12-28-2022 ambulatory UNKNOWN UNKNOWN Facilit y:[facility] Start: 11-23-2022 End: 11-24-2022 ambulatory TIFFANY WILEY Facility:[facility] Start: 05-03-2022 End: 05-04-2022 ambulatory TIFFANY WILEY Facility:[facility] Start: 04-28-2022 End: 04-29-2022 ambulatory TIFFANY WILEY Facility:[facility] Start: 04-20-2022 End: 04-21-2022 ambulatory TIFFANY WILEY Facility:[facility] Start: 04-13-2022 End: 04-14-2022 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 Diego Wilkins Start: 11-20-2020 Colonoscopy Tonja Vinita avila Work Phone: Start: 01-19-2020 Colonoscopy Pauline RENTERIA LL Cardiac catheterization Mike aejag NILL Placement of stent i n cardiac conduit Pauline NILL Placement of stent i n coronary artery Unknown Unknown Plan of Treatment Date Care Activity Detail Author Start: 03-01-2033 Screening for malign ant neoplasm of colon [facility] Start: 01-17-2024 End: 01-17-2024 Telemedicine consultation with patient 01/17/2024 1:20 PM EST Telemedicine [facility] [address] [facility] [address] [place] [id number] [place] [address] Department [place] [address] [facility] Start: 01-09-2024 FUV, Provider: Jess Marroquin, Status: Pen, Time: 9:20 AM FUV, Provider: Jess Marroquin, Status: Pen, Time: 9:20 AM [facility] 600 DO Work Phone: Start: 01-09-2024 End: 01-09-2024 Patient encounter procedure 01/09/2024 9:20 AM EST Office Visit [address] [place] [address] Jess Marroquin MD [address] [facility] 2, [address] [place] [address] [facility] Start: 11-29-2023 NPV, Provider: Roman Hudson, Status: Pen, Time: 11:30 AM NPV, Provider: Roman Hudson, Status: Pen, Time: 11:30 AM [facility] 600 DO Work Phone: Start: 01-11-2023 NPV, Provider: Roman Hudson, Status: Pen, Time: 2:30 PM NPV, Provider: Roman Hudson, Status: Pen, Time: 2:30 PM [facility] Work Phone: Start: 06-30-2018 Pneumococcal Vaccine : Pediatrics (0 to 5 Years) and At-Risk Patients (6 to 64 Years) (2 - PCV) Pneumococcal Vaccine: Pediatrics (0 to 5 Years) and At-Risk Patients (6 to 64 Years) (2 - PCV) [facility] Start: 2011 Zoster Vaccines (1 o f 2) Zoster Vaccines (1 of 2) [facility] Start: 1983 DTaP/Tdap/Td Vaccine s (1 - Tdap) DTaP/Tdap/Td Vaccines (1 - Tdap) [facility] Start: 1979 Hepatitis C screening Hepatitis C [facility] Start: 1967 Pneumococcal Vaccine : Pediatrics (0 to 5 Years) and At-Risk Patients (6 to 64 Years) (1 - PCV) Pneumococcal Vaccine: Pediatrics (0 to 5 Years) and At-Risk Patients (6 to 64 Years) (1 - PCV) [facility] Start: 1962 MMR Vaccines (1 of 1 - Standard series) MMR Vaccines (1 of 1 - Standard series) [facility] Start: 02-09-1962 COVID-19 Vaccine (#1) COVID-19 Vacci ne (#1) [facility] Start: 1961 HIV screening HIV Screening [facility] Start: 1961 Lipid panel Lipid Panel [facility] Start: 1961 Screening for malign ant neoplasm of colon [facility] Start: 1961 Yearly Adult Physical Yearly Adult P hysical [facility] End: 12-14-2023 CTA Chest vessels WO and W contrast IV [facility] Service Area Work Phone: Comment on above: Once for 1 Occurrenc es starting 12/14/2023 until 12/14/2023 Immunizations Immunization Date Immunization Notes Care Provider Flip yañez 07-13-2023 influenza, injectabl e, quadrivalent, preservative free Roman Hudson MD Work Phone: [facility] Work Phone: 08-20-2022 influenza virus vacc ine, unspecified formulation Pauline BAINS [facility] [place] 08-20-2022 influenza, seasonal, injectable Tonja Wiley Work Phone: [facility] 600 DO Work Phone: 08-18-2020 influenza, injectabl e, quadrivalent, preservative free Unknown Unknown [facility] [facility] Work Phone: 07-12-2019 influenza, injectabl e, quadrivalent, preservative free Unknown Unknown [facility] [facility] Work Phone: 06-30-2017 pneumococcal polysaccharide vaccine, 23 valent Tonja Wiley Work Phone: [facility] 600 DO Work Phone: Comment on above: Series: Payers Date Payer Category Payer Unknown 1960 Unknown [id number] 2.16. [id number] 1961 Unknown [id number] 2.16. [id number] 1961 Unknown [id number] 2.16.84 [id number] 1961 Unknown [id number] 2.16.84 0.1.595296.3.579.2.593 1961 Unknown [id number] 2.16.84 0.1.795104.3.579.2.593 1961 Unknown [id number] 2.16.84 0.1.713325.3.579.2.593 1961 Unknown [id number] 2.16.84 0.1.291441.3.579.2.593 1961 Unknown [id number] 2.16.84 0.1.883651.3.579.2.593 1961 Unknown [id number] 2.16.84 0.1.374405.3.579.2.593 1961 Unknown [id number] 2.16.84 0.1.215374.3.579.2.593 1961 Unknown [id number] 2.16.8 40.1.750241.3.579.2.727 1961 Unknown [id number] 2.16.8 40.1.073653.3.579.2.727 1961 Unknown [id number] 2.16.8 40.1.682885.3.579.2.727 1961 Unknown [id number] 2.16.8 40.1.457959.3.579.2.1245 1961 Unknown [id number] 2.16.8 40.1.233869.3.579.2.1245 1961 Unknown [id number] 2.16.84 0.1.105353.3.579.2.1259 1961 Unknown [id number] 2.16.84 0.1.333699.3.579.2.1259 1961 Unknown [id number] 2.16.840 .1.261455.3.579.2.1259 1961 Unknown [id number] 2.16.8 40.1.576597.3.579.2.1246 1959 Unknown [id number] Social History Date Type Detail Facility Start: 11-29-2023 End: 12-15-2023 Current every day smoker Current every day smoker [facility] Work Phone: Comment on above: 1.5PPD sometimes mor e; Start: 02-14-2023 Tobacco smoking status Heavy t obacco smoker (finding) [facility] Tobacco smoking status Never [facility] [place] Start: 11-29-2023 End: 12-15-2023 Sex Assigned At Male [facility] Start: 11-28-2023 End: 12-15-2023 Tobacco smoking status NHIS Smokes tobacco daily [facility] Work Phone: History of tobacco use Cigarette Smoker [facility] Work Phone: Start: 1960 Sex Assigned At Not on file [facility] Work Phone: Start: 11-19-2023 End: 12-14-2023 Exposure to SARS-CoV-2 (event) Not sure [facility] Start: 12-15-2023 Alcohol intake Lifetime non-d margarita (finding) [facility] Work Phone: Functional Status Date Assessment Result Facility 02-14-2023 Functional Status N/A [facility] Clinical Notes 11-23-2022 to 01-17-2024 Roman Hudson MD - 01/17/2024 1:20 PM Irvin Hudson MD - 11/29/2023 11:30 AM EST Note Date & Type Note Facility 01-17-2024 History of Present illness Narrative Contacting Jatinder to discuss results of recent ct 12/14/23. Ginger Conley RN This is a 64 years old male patient who has been followed by the aortic center because of a dilated ascending. He had a previous CT with no contrast that it was not a good quality to do measurements so we requested a new CT scan with contrast and we have a today which is actually showing ascending aorta of 39 mm. The patient has no significant risk factors he is hypertensive but he is taking medications. So we have a 20-minute phone conversation today with him we explained him about surveillance we will see him in 1 more year with new CT scan he is advised to maintain his blood pressure medication and also avoid heavy lifting. documented in this encounter [facility] Work Phone: 11-29-2023 History of Present illness Narrative Jatinder returns for aorta follow up. Ginger Conley RN This is a 63 years old male patient who was found with mildly dilated ascending aorta 3.[address] November 2022. The patient is here today with no new imaging so we will send him for a new CT scan and then eventually follow-up in 1 more year. The patient denies any significant family history with aneurysm or other pathology. He himself does not look like have an connective tissue disorder so we will going to order genetic studies anyways. In the meantime I advised him to maintain regular visit with his chemistry physics teacher and blood pressure control. Will get the echo cardiogram to rule out bicuspid valve and we will follow him with a CT scan. He is also advised to avoid heavy lifting. documented in this encounter [facility] Work Phone: 03-01-2023 Note OPERATIVE NOTE OPERATION DATE: 03/01/2023 PREOPERATIVE DIAGNOSIS: Personal history of colon polyps. POSTOPERATIVE DIAGNOSIS: Distal sigmoid polyp, 5 mm. PROCEDURE: Colonoscopy to cecum with hot snare polypectomy x1. SURGEON: Pauline Bains M.D. ANESTHESIA: Monitored anesthesia care. ESTIMATED BLOOD LOSS: Zero. INDICATIONS AND CONSENT: Patient is a 62-year-old male with personal history of colon polyps. Last colonoscopy was in 2019. Indications, risks, benefits, alternatives of proceeding with surveillance colonoscopy were explained extensively to the patient, including the risks of bleeding, colon perforation or anesthetic complications. All of his questions were answered. Informed consent was obtained. PROCEDURE: Patient brought to the operating room, placed in the left lateral decubitus position. Monitored anesthesia care was provided. Rectal exam was performed which showed no masses or blood. The scope was inserted into the anal canal. Under direct visualization was advanced. It was advanced to the cecum where cecal markings were clearly identified. There was noted to be a good prep. Upon withdrawal of the scope, mucosal surfaces were carefully examined. There were no mass lesions or inflammatory changes. No significant diverticulosis. In the distal sigmoid colon, there was noted to be a 5 mm sessile, hyperemic polyp that was removed with hot snare with good hemostasis. The scope was retroflexed in the anal canal. There was no significant hemorrhoidal disease. Scope was then withdrawn. Patient tolerated procedure well, was sent to recovery room in good condition. CC: Tonja Wiley CNP [facility] 11-23-2022 History of Present illness Narrative This 62-year patient has been referred with a diagnosis of a dilated ascending aorta. He recently underwent a CT scan on 23 November, somehow he was known to have ectasia of the ascending aorta. This confirmed a slightly dilated ascending aorta of 3.9 cm. 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 He feels they are related to musculoskeletal symptoms from the jarring effects of the forklift. There have been no pain events that appear to be unexplained or that come within his chest. He has had no shortness of breath. He has had hypertension for quite some time and dyslipidemia. He has been a heavy smoker, approximately 2 packs/day for 45 years and consumes THC daily. No alcohol use. He did have a coronary stent in 2012. [id number] Work Phone: Chief complaint Narrative - Reported Patient is here for a surgical evaluation for an ascending aortic aneurysm following a referral by Tonja Wiley CNP ([facility]). COURTNEY Ruiz, RN [id number] Work Phone: Chief complaint Narrative - Reported JATINDER CALVERT is being seen for a consultation for. referral Dr. Salmon; AAA, [id number] white male who is being seen for management of hypertension and CAD. The patient was seen recently by cardiothoracic surgery at [facility] Dr. Sherman Cruz for ascending and abdominal aortic aneurysm. The size is too small to intervene on. The patient has history of CAD and previous PCI of the RCA 2012 in [place] with drug-eluting stent. He is actively smoking and at one time was smoking 2 and half packs daily. He does have significant emphysema but not on medical therapy. Has had no recurrent coronary artery disease. He is hyperlipidemic and hypertensive on medical therapy. 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 He wishes to quit smoking and he is working with his PCP on tobacco cessation methods. His examination is only remarkable for diminished breath sounds otherwise was unremarkable.Assessment/recommen dations:1 CAD status post PCI of the RCA 2012 with drug-eluting stent. No recurrences and no symptoms. He is on aspirin and high intensity statin. Tobacco cessation was advised. No card investigations are needed.2 ascending aortic aneurysm and abdominal arctic aneurysm both are less than 4 cm in diameter followed by the aortic clinic at [facility]. Tobacco cessation was emphasized. Hypertension controlled was advised as well.3 hypertension, currently under control medical therapy with no changes needed.4 hyperlipidemia on statin therapy. Target LDL less than 70 mg/dL. Lipid profile is ordered.5 COPD from heavy tobacco abuse. Currently not on medical therapy.6 heavy tobacco abuse. Patient was counseled on tobacco cessation and and he wishes to quit smoking. His PCP is working on measures to achieve the goal. Patient will come back to see me in annual basis or sooner if needed -[facility] 600 DO Work Phone: Evaluation + Plan note No data available for this section [facility] [place] Evaluation note Diagnosis Ascending aorta dilation (CMS/HCC) Thoracic aneurysm without mention of rupture documented in this encounter [facility] Work Phone: Evaluation note* Diagnosis Ascending aorta dilatation (CMS/HCC) Thoracic aneurysm without mention of rupture documented in this encounter [facility] Work Phone: Evaluation note* Diagnosis Ascending aortic aneurysm, unspecified whether ruptured (CMS/HCC) documented in this encounter [facility] Work Phone: Hospital Discharge instructions No data available for this section [facility] [place] Progress note No data available for this section [facility] [place] Summary Purpose Family History No Family History Records FoundNo Family History Records FoundNo Family History Records FoundNo Family History Records FoundNo Family History Records FoundNo Family History Records FoundNo Family History Records Found Advance Directives No Advanced Directives Records FoundNo Advanced Directives Records FoundNo Advanced Directives Records FoundNo Advanced Directives Records FoundNo Advanced Directives Records FoundNo Advanced Directives Records FoundNo Advanced Directives Records Found Reason for Referral Specialty Diagnoses / Procedures Referred By Contac t Referred To Contact Radiology Diagnoses Ascending aorta dilatation (CMS/HCC) Procedures CT angio [place] [address] [facility] [place] [address] Referral ID Status Reason Start Date Expiration Date Visits Requested Visits Authorized [id number] Authorized Perform Procedure 11/30/2023 11/29/2024 1 1 Additional Source Comments (unrecognized sect ion and content) No Status Records FoundNo Status Records FoundNo Status Records FoundNo Status Records FoundNo Status Records FoundNo Status Records FoundNo Status Records Found INFORMATION SOURCE (unrecogn ized section and content) DATE CREATED AUTHOR 01/09/2023 [facility] DATE CREATED AUTHOR AUTHOR'S ORGANIZ ATION 01/09/2023 [employer] DATE CREATED AUTHOR AUTHOR'S ORGANIZ ATION 03/07/2023 [facility] DATE CREATED AUTHOR AUTHOR'S ORGANIZ ATION 03/15/2023 [facility] DATE CREATED AUTHOR AUTHOR'S ORGANIZ ATION 01/22/2024 [facility] DATE CREATED AUTHOR AUTHOR'S ORGANIZ ATION 08/11/2024 [facility] EPIC DATE CREATED AUTHOR AUTHOR'S ORGANIZ ATION 2024 [facility] Patient Care team informatio n (unrecognized section and content) Storage Garage Manager Relationship Specialty Start Date End Date Tonja Wiley, FOUNTAIN MANAGER-TRUCK MECHANIC APPRENTICE [address] [facility] [place] [address] PCP - General 01/09/23 Storage Garage Manager Relationship Specialty Start Date End Date Tonja Wiley FOUNTAIN MANAGER-TRUCK MECHANIC APPRENTICE [address] [place] [address] PCP - General 01/09/23 Storage Garage Manager Relationship Specialty Start Date End Date Tonja Wiley, FOUNTAIN MANAGER-[facility] [address] [place] [address] PCP - General 01/09/23 Reason for Visit (unrecogniz ed section and content) Specialty Diagnoses / Procedures Referred By Contac t Referred To Contact Radiology Diagnoses Ascending aorta dilatation (CMS/HCC) Procedures [place] angio [place] [address] [facility] Department of Surgery-Cardiac [place] [id number] Referral ID Status Reason Start Date Expiration Date Visits Requested Visits Authorized [id number] Authorized Perform Procedure 11/30/2023 11/29/2024 1 FOR RECORDS PERTAINING TO PATIENTS WHO ARE OR HAVE BEEN ENROLLED IN A CHEMICAL DEPENDENCY/SUBSTANCEABUSE PROGRAM, SOME INFORMATION MAY BE OMITTED. This clinical summary was aggregated from multiple sources. Caution should be exercised in using it in the provision of clinical care. This summary normalizes information from multiple sources, and as a consequence, information in this document may materially change the coding, format and clinical context of patient data. In addition, data may be omitted in some cases. CLINICAL DECISIONS SHOULD BE BASED ON THE PRIMARY CLINICAL RECORDS. [email or web address] provides no warranty or guarantee of the accuracy [phone] completeness of information in this [email or web address]
[2024-08-19 08:41] LABS: Basophils Absolute Auto 0.1 10^3/uL (0.0-0.1); Basophils Percent Auto 0.8 % (0.2-2.0); Eosinophils Absolute Auto 0.2 10^3/uL (0.0-0.7); Eosinophils Percent Auto 2.7 % (0.9-7.0); Hematocrit 43.2 % (42.0-54.0); Hemoglobin 14.6 g/dL (14.0-18.0); Immature Granulocytes Abs Auto 0.02 10^3/uL (0.00-0.03); Immature Granulocytes Pct Auto 0.3 % (0.0-0.5); Lymphocytes Absolute Auto 1.8 10^3/uL (1.2-3.8); Lymphocytes Percent Auto 23.4 % (20.5-60.0); Mean Corpuscular HGB Conc 33.8 g/dL (29.9-35.2); Mean Corpuscular Hemoglobin 31.3 pg (25.9-34.0); Mean Corpuscular Volume 92.7 fL (80.0-94.0); Mean Platelet Volume 9.7 fL (9.5-13.5); Monocytes Absolute Auto 0.5 10^3/uL (0.3-0.8); Monocytes Percent Auto 6.1 % (1.7-12.0); Neutrophils Percent Auto 66.7 % (43.0-75.0); Platelet Count 203 10^3/uL (150-450); Red Blood Count 4.66 10^6/uL (4.70-6.10); Red Cell Distribution Width 13.1 % (11.0-15.0); White Blood Count 7.5 10^3/uL (4.0-11.0)
[2024-08-19 08:44] LABS: Bilirubin Urine NEGATIVE (NEGATIVE); Blood Urine NEGATIVE (NEGATIVE); Clarity Urine CLEAR (CLEAR); Color Urine YELLOW (YELLOW); Glucose Urine UA NEGATIVE (NEGATIVE); Ketones Urine TRACE mg/dL (NEGATIVE); Leukocyte Esterase Urine NEGATIVE (NEGATIVE); Nitrite Urine NEGATIVE (NEGATIVE); Protein Urine NEGATIVE (NEG/TRACE); Specific Gravity Urine 1.025 (1.005-1.025)
[2024-08-19 08:47] LABS: Urine Microscopic Indicated NO
[2024-08-19 08:55] LABS: Creatinine Urine Random 326.09 mg/dL (20.00-300.00); Microalbumin Urine Random 4.9 mg/dL (<=30.0)
[2024-08-19 09:18] LABS: Alanine Aminotransferase 26 U/L (16-63); Albumin Level 3.5 g/dL (3.4-5.0); Alkaline Phosphatase 117 U/L (46-116); Anion Gap 7.8; Aspartate Amino Transferase 18 U/L (15-37); BUN Creatinine Ratio 5.1; Bilirubin Total 0.7 mg/dL (0.2-1.0); Calcium 9.3 mg/dL (8.5-10.1); Carbon Dioxide 33.4 mmol/L (21.0-32.0); Chloride 99 mmol/L (98-107); Chol HDL Ratio 2.7; Cholesterol 95 mg/dL (<=200); Estimated GFR (African America >60 (>=60); Estimated GFR (Non-African Ame >60 (>=60); Globulin 3.6 g/dL; Glucose 103 mg/dL (74-106); HDL Cholesterol 35 mg/dL (40-60); Potassium 3.2 mmol/L (3.5-5.1); Sodium 137 mmol/L (136-145); Total Protein 7.1 g/dL (6.4-8.2); Triglycerides 111 mg/dL (<=150); VLDL CHOLESTEROL 22.2 mg/dL
[2024-08-19 10:10] LABS: Prostate Specific Antigen Scrn 0.99 ng/mL (<=4.00)
== END 2024-08-19 08:05 | disposition home or self-care (01) ==
LOC: LAB 08:05
PROVIDERS: PCP Nurse Practitioner; Visit Provider Nurse Practitioner
DX: I25.10 Atherosclerotic heart disease of native coronary artery without angina pectoris (principal); F17.200 Nicotine dependence, unspecified, uncomplicated; J43.8 Other emphysema; I10 Essential (primary) hypertension; Z12.5 Encounter for screening for malignant neoplasm of prostate
CPT/HCPCS: 36415; 80053; 80061; 81003; 82043; 82570; 85025; G0103

== ENCOUNTER 2024-09-07 08:20 | Outpatient (OUT) | payer OTHER, SELFPAY ==
--- OUTSIDE RECORDS SUMMARY | 2024-09-07 08:25 | XMS_ITS | CCD ---
Author Organization [facility] Care Team Providers Care Brass Cutter Name Role Phone Unknown, Unknown Unavailable Unavailable UNKNOWN, UNKNOWN Primary Care Unavailable MD ALEM CRUZ Attending Unava ilable Lopez, Dr. Jess Barakat Referring Jayne vailable UNKNOWN, UNKNOWN Primary Care Unavailable Marroquin, Dr. Jess Barakat Attending Jayne vailable Aicisaiz, Tonja Vinita Unavailable Unavailable Unavailable ROGER, TONJA Lilia Primary Care Physician AICHHOLZ, CARBON CLEANER TONJA Admitting Unavailable AICHHOLZ, CARBON CLEANER TONJA Attending Unavailable AICHHOLZ, CARBON CLEANER TONJA Primary Care Unavailable ROBBIE ADAMS Consulting Unavailable AICHHOLZ, CARBON CLEANER TONJA Consulting Unavailable AICHHOLZ, CARBON CLEANER TONJA Admitting Unavailable AICHHOLZ, CARBON CLEANER TONJA Attending Unavailable AICHHOLZ, CARBON CLEANER TONJA Primary Care Unavailable AICHHOLZ, CARBON CLEANER TONJA Consulting Unavailable DR DENNIS KIM Consulting Unavailable AICHHOLZ, CARBON CLEANER TONJA Admitting Unavailable AICHHOLZ, CARBON CLEANER TONJA Attending Unavailable AICHHOLZ, CARBON CLEANER TONJA Primary Care Unavailable AICHHOLZ, CARBON CLEANER TONJA Consulting Unavailable DR DENNIS KIM Consulting Unavailable AICHHOLZ, CARBON CLEANER TONJA Admitting Unavailable AICHHOLZ, CARBON CLEANER TONJA Attending Unavailable AICHHOLZ, CARBON CLEANER TONJA Primary Care Unavailable ROBBIE ADAMS Consulting Unavailable AICHHOLZ, CARBON CLEANER TONJA Consulting Unavailable AICHHOLZ, CARBON CLEANER TONJA Admitting Unavailable AICHHOLZ, CARBON CLEANER TONJA Attending Unavailable AICHHOLZ, CARBON CLEANER TONJA Primary Care Unavailable AICHHOLZ, CARBON CLEANER TONJA Consulting Unavailable AICHHOLZ, CARBON CLEANER TONJA Primary Care Unavailable SHAIKH Pia LOWE Admitting Unavailable FAWWATod, SHAIKH Pia Attending Unavailable FAWWATod, SHAIKH Pia Consulting Unavailable DANAE .SEN Consulting Unavailable NILL ., DR CARPENTER Admitting Unavailable NILL ., DR CARPENTER Attending Unavailable AICHOLZ, TIFFANY TONJA Primary Care Unavailable NILL ., DR CARPENTER Consulting Unavailable SALMA CONNOLLY Consulting Unavailable MARCIO CARO Consulting Unavailable [facility] TIFFANY TONJA Admitting Unavailable [facility] TIFFANY TONJA Attending Unavailable AICHOLZ, CARBON CLEANER TONJA Primary Care Unavailable ROBBIE ADAMS Consulting Unavailable AICHOLZ, CARBON CLEANER TONJA Consulting Unavailable NILL, Pauline Rodriguez Attending Unavailable NILL, Pauline Rodriguez Attending Unavailable NILL, Pauline Rodriguez Attending Unavailable Aichholz TANK WAGON OPERATOR-Tonja ALLEN Primary Care Provider ROMAN HUDSON Attending [facility]available [facility] TALAMANTES Primary Care Unavailable ROMAN HUDSON Attending Unavailable [facility], TONJA TALAMANTES Primary Care Unavailable [facility]ONJA Attending Unavailable [facility] TONJA Attending Unavailable AICHOLJc, TONJA Attending Unavailable ROMAN HUDSON Referring Unavailable [facility], TONJA VINITA Primary Care Unavailable Allergies Allergy Classification Reported Allergen(s) Allergy Type Date of Onset Reaction(s) Facility (1 source) No Known Medication Allergies; Translations: [No Known Medication Allergies] Propensity to adverse reactions (disorder) [facility] Repository Medications Current Medications Medication Drug Class(es) [...] transluminal coronary angioplasty; Translations: [Coronary atherosclerosis of [place] coronary artery] Onset: 04-13-2022 01-14-2020 Chronic Comment [...] 11-28-2023 Chronic Other aftercare (1 source) Other prison (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; Translations: [OTH [facility] CURRENT DRUG THERAPY] Onset: 03-06-2023 Episodic Other aftercare (1 source) [facility] (current) use of aspirin; 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 COMPARISON: None. ACCESSION NUMBER(S): [id number] ORDERING CLINICIAN: ROMAN HUDSON TECHNIQUE: Using multi-detector [...] Infrarenal abdominal aortic aneurysm 34 mm. Reading Home Service Technician: Dr. Pauline Shepard, Date: 12/18/2023 2:43 pm Signed by: Pauline Shepard 12/18/2023 3:00 PM Dictation workstation: [id number] [facility] Ambulatory Visit Summaryon 0 03-14-2023 Ambulatory [...] malignant neoplasm of colon Tobacco use Michelle [facility] General Surgery Office/Clini c Noteon 03-14-2023 General [...] influenza virus vaccine, inactivated 08/20/2022 Recorded Normal [facility] Comment on above: Result Comment: Elec tronically Signed By: WALT ELLIOTT, Pauline Egan\Date and Time Signed: 03/14/23 15:50 EDT Reminderson 03-14-2023 Reminders - From: Delores Joseph LPN To: N - Clinical; Sent: 03/14/2023 15:27:01 EDT Show up: 01/30/2028 07:00:00 EDT Subject: colonoscopy recall Due Date/Time: 03/01/2028 07:00:00 EDT Reminder/Recall Patient due for colonoscopy 03/01/28 due to history of colonic polyp. Normal [facility] Pathology Noteon 03-06-2023 Pathology Note [id number]#1.00C D:127 Normal [facility] Outside Colonoscopyon 2022 Outside Colonoscopy [id number]#1.00C D:127 Normal [facility] Consent for Procedure/Surger yon 02-15-2023 Consent for Procedure/Surgery [id number] D:127 Normal [facility] General Surgery Office/Clini c Noteon 02-14-2023 General [...] pack or (more content not included)... Normal [facility] Comment on above: Result Comment: Elec tronically [...] ROBBIE ADAMS Date: 2023-01-18 08:13 Normal [facility] Office Visit (Cardiology)on 01-09-2023 Follow-up visit [...] IO EKG Electrocardiogram- 12 Lead; Status:Complete; Done: [id number] CAD S/P percutaneous coronary angioplasty, Hyperlipidemia Renew: Atorvastatin Calcium 80 MG Oral Tablet; TAKE 1 TABLET DAILY ALT - Alanine Aminotransferase, Serum; Status:Active - Retrospective Authorization; Requested for:[id number]; AST; Status:Active - Retrospective Authorization; Requested for:[id number]; Lipid Panel; Status:Active - Retrospective Authorization; Requested for:[id number]; CAD S/P percutaneous coronary angioplasty, Hypertension Renew: [...] we can help. You may also call 8-141-SGAGNOW for free resources and assistance.; Status:Complete - Retrospective Authorization; Done: [id number] Tobacco Use Screening; Status:Complete; Done: [id number] Patient Instructions Please bring all medicines, vitamins, [...] was seen recently by cardiothoracic surgery at [facility] Dr. Sherman Cruz for ascending and abdominal aortic aneurysm. The size is too small to intervene on. The patient has history of CAD and previous PCI of the RCA 2012 in [place] with drug-eluting stent. He is actively smoking and at one time was smoking 2 and half packs daily. He does have significant emphysema but not on medical therapy. Has had no recurrent coronary artery disease. He is hyperlipidemic and hypertensive on medical therapy. 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 He wishes to [...] diameter followed by the aortic clinic at [facility]. Tobacco cessation was emphasized. Hypertension [...] Known Russ (more content not included)... Normal made.com Tobacco Screening.on 023 Adult depression screening assessment No -[facility] [employer] 600 DO Work Phone: Tobacco use status CPHS a) Yes [facility] [employer] 600 DO Work Phone: Tobacco Screening. Yes [facility] [employer] 600 DO Work Phone: CARDIAC SHERMAN ADMITon 023 CK [Catalytic activity/Vol] 85 U/L Normal 39-308 [facility] Comment on above: Performed By: #### C SAVANNAH BERTRAND #### [facility] [address] [place], [place] [address] Dr. Diego Wilkins CK.MB [Mass/Vol] 1.16 ng/mL Normal <=3.60 [facility] Comment on above: Performed By: #### C SAVANNAH BERTRAND #### [facility] [address] [place], [place] [address] Dr. Diego Wilkins HSTROP 5.4 pg/mL Normal 4.0-76.1 [facility] Comment on above: Result Comment: CUT- OFF POINTS HAVE BEEN ESTABLISHED BASED ON THE FOURTH UNIVERSAL DEFINITIONS OF MYOCARDIAL INFARCTION. THE UPPER REFERENCE LIMIT (URL) OF TROPONIN, DEFINED THE 99TH PERCENTILE OF cTnI DISTRIBUTION IN A REFERENCE POPULATION, HAS BEEN CONFIRMED THE DECISION THRESHOLD FOR [place] DIAGNOSIS. Performed By: #### C SAVANNAH BERTRAND #### [facility] [address] [place] [address] [address] Diego Wilkins AUDREY 39 ng/mL Normal 16-96 [facility] Comment on above: Performed By: #### C ELZA, SAVANNAH #### [facility] [address] [place] [address] [address] Diego Wilkins CBC AUTO DIFFon 12-30-2022 BASO # 0.1 103/ul Normal 0.0-0.1 [facility] Comment on above: Performed By: #### C BC ####[facility] [address] [place] [address]DrJos Wilkins Basophils/100 WBC (Bld) 0.8 % Normal 0.2-2.0 [facility] Comment on above: Performed By: #### C BC ####[facility] [address] [place] [address]DrJos Wilkins EO # 0.2 103/ul Normal 0.0-0.7 [facility] Comment on above: Performed By: #### C BC ####[facility] [address] [place] [address]DrJos Wilkins Eosinophils/100 WBC (Bld) 2.8 % Normal 0.9-7.0 [facility] Comment on above: Performed By: #### C BC ####[facility] [address] [place] [address]Dr. Digeo Wilkins Erythrocyte distribution width (RBC) [Ratio] 12.1 % Normal 11.0-15.0 [facility] Comment on above: Performed By: #### C BC ####[facility] [address] [place] [address]DrJos Wilkins Hematocrit (Bld) [Volume fraction] 41.4 % Critically low 42.0-54.0 [facility] Comment on above: Performed By: #### C BC ####[facility] [address] [place] [id number]. Diego Wilkins Hemoglobin (Bld) [Mass/Vol] 14.1 g/dL Normal 14.0-18.0 [facility] Comment on above: Performed By: #### C BC ####[facility] [address] [place] [id number]. Diego Wilkins IG # 0.02 10e3/ul Normal 0.00-0.03 [facility] Comment on above: Performed By: #### C BC ####[facility] [address] [place] [address]Dr. Diego Wilkins IG % 0.3 % Normal 0.0-0.5 [facility] Comment on above: Performed By: #### C BC ####[facility] [address] [place], [place] [address]Dr. Diego Wilkins LYMPH # 1.6 103/ul Normal 1.2-3.8 [facility] Comment on above: Performed By: #### C BC ####[facility] [address] [place] [address]Dr. Diego Wilkins Lymphocytes/100 WBC (Bld) 25.9 % Normal 20.5-60.0 [facility] Comment on above: Performed By: #### C BC ####[facility] [address] [place] [id number]. Diego Wilkins MANUAL DIFF REQ NO Normal [facility] Comment on above: Performed By: #### C BC ####[facility] [address] [place], [place] [address]Dr. Diego Wilkins MCH (RBC) [Entitic mass] 30.7 pg Normal 25.9-34.0 [facility] Comment on above: Performed By: #### C BC ####[facility] [address] [place] [id number]. Diego Wilkins MCHC (RBC) [Mass/Vol] 34.1 g/dL Normal 29.9-35.2 [facility] Comment on above: Performed By: #### C BC ####[facility] [address] [place] [id number]. Diego Wilkins MCV (RBC) [Entitic vol] 90.0 fL Normal 80.0-94.0 [facility] Comment on above: Performed By: #### C BC ####[facility] [address] [place] [id number]. Diego Wilkins MONO # 0.3 103/ul Normal 0.3-0.8 [facility] Comment on above: Performed By: #### C BC ####[facility] [address] [place], [place] [address]Dr. Diego Wilkins Monocytes/100 WBC (Bld) 5.1 % Normal 1.7-12.0 [facility] Comment on above: Performed By: #### C BC ####[facility] [address] [place], [place] [address]Dr. Diego Wilkins NEUT # 4.0 103/ul Normal 1.4-6.5 [facility] Comment on above: Performed By: #### C BC ####[facility] [address] [place], [place] [address]Dr. Diego Wilkins Neutrophils/100 WBC (Bld) 65.1 % Normal 43.0-75.0 [facility] Comment on above: Performed By: #### C BC ####[facility] [address] [place], [place] [address]Dr. Diego Wilkins Platelet mean volume (Bld) [Entitic vol] 10.0 fL Normal 9.5-13.5 [facility] Comment on above: Performed By: #### C BC ####[facility] [address] [place] [id number]. Diego Wilkins PLT 145 103/ul Critically low 150-450 The [facility] Comment on above: Performed By: #### C BC ####[facility] [address] [place] [id number]. Diego Wilkins RBC 4.60 106/ul Critically low 4.70-6.10 [facility] Comment on above: Performed By: #### C BC ####[facility] [address] [place], [place] [address]KqDr. Diego Wilkins WBC 6.1 103/ul Normal 4.0-11.0 [facility] Comment on above: Performed By: #### C BC ####[facility] [address] [place], [place] [address]DzDr. Diego Wilkins PROF 14(COMP METB)on 023 Albumin [Mass/Vol] 3.5 g/dL Normal 3.4-5.0 [facility] Comment on above: Performed By: #### C ELZA, CMADM #### [facility] [address] [place] [address] [address] Diego Wilkins Albumin/Globulin [Mass ratio] 1.0 {ratio} Normal [facility] Comment on above: Performed By: #### C ELZA, CMADM #### [facility] [address] [place] [address] [address] Diego Wilkins ALP [Catalytic activity/Vol] 116 U/L Normal 46-116 [facility] Comment on above: Performed By: #### C ELZA, CMADM #### [facility] [address] [place] [address] [address] Diego Wilkins ALT [Catalytic activity/Vol] 20 U/L Normal 16-63 [facility] Comment on above: Performed By: #### C ELZA, CMADM #### [facility] [address] [place] [address] [address] Diego Wilkins Anion gap [Moles/Vol] 11.2 mmol/L Normal [facility] Comment on above: Performed By: #### C ELZA, CMADM #### [facility] [address] [place] [address] [address] Diego Wilknis AST [Catalytic activity/Vol] 18 U/L Normal 15-37 [facility] Comment on above: Performed By: #### C ELZA, CMADM #### [facility] [address] [place] [address] [address] Diego Wilkins Bilirubin [Mass/Vol] 0.6 mg/dL Normal 0.2-1.0 [facility] Comment on above: Performed By: #### C MP, CMADM #### [facility] [address] [place] [address] [address] Diego Wilkins Calcium [Mass/Vol] 8.7 mg/dL Normal 8.5-10.1 [facility] Comment on above: Performed By: #### C MP, CMADM #### [facility] [address] [place] [address] [address] Diego Wilkins Chloride [Moles/Vol] 102 mmol/L Normal 98-107 [facility] Comment on above: Performed By: #### C MP, CMADM #### [facility] [address] [place] [address] [address] Diego Wilkins CO2 [Moles/Vol] 31.4 mmol/L Normal 21.0-32.0 [facility] Comment on above: Performed By: #### C MP, CMADM #### [facility] [address] [place] [address] [address] Diego Wilkins Creatinine [Mass/Vol] 0.76 mg/dL Normal 0.70-1.30 [facility] Comment on above: Performed By: #### C MP, CMADM #### [facility] [address] [place] [address] [address] Diego Wilkins EGFR-AF CHINESE >60 Normal >=60 [facility] Comment on above: Performed By: #### C MP, CMADM #### [facility] [address] [place] [address] [address] Diego Wilkins EGFR-NON AF CHINESE >60 Normal >=60 [facility] Comment on above: Performed By: #### C MP, CMADM #### [facility] [address] [place] [address] [address] Deigo Wilkins Globulin (S) [Mass/Vol] 3.6 g/dL Normal [facility] Comment on above: Performed By: #### C MP, CMADM #### [facility] [address] [place] [address] [address] Diego Wilkins Glucose [Mass/Vol] 110 mg/dL Critically high 74-106 [facility] Comment on above: Performed By: #### C MP, CMADM #### [facility] [address] [place] [address] [address] Diego Wilkins Potassium [Moles/Vol] 3.6 mmol/L Normal 3.5-5.1 [facility] Comment on above: Performed By: #### C MP, CMADM #### [facility] [address] [place] [address] Dr. Diego Wilkins Protein [Mass/Vol] 7.1 g/dL Normal 6.4-8.[address] [facility] Comment on above: Performed By: #### C MP, CMADM #### [facility] [address] [place] [address] Dr. Diego Wilkins Sodium [Moles/Vol] 141 mmol/L Normal 136-[address] [facility] Comment on above: Performed By: #### C MP, CMADM #### [facility] [address] [place] [address] Dr. Diego Wilkins Urea nitrogen [Mass/Vol] 4.0 mg/dL Critically low 7.0-18.0 [facility] Comment on above: Performed By: #### C MP, CMADM #### [facility] [address] [place] [address] Dr. Diego Wilkins Urea nitrogen/Creatinin e [Mass ratio] 5.3 mg/mg Normal [facility] Comment on above: Performed By: #### C MP, CMADM #### [facility] [address] [place] [address] Dr. Diego Wilkins T4on 12-30-2022 T4 [Mass/Vol] 8.90 ug/dL Normal 4.50-12.10 [facility] Comment on above: Performed By: #### T 4, TSH #### [facility] [address] [place] [address] Dr. Diego Wilkins TROPONIN, HIGH SENSITIVITYon 12-30-2022 HSTROP 4.6 pg/mL Normal 4.0-76.1 [facility] Comment on above: Result Comment: CUT- OFF POINTS HAVE BEEN ESTABLISHED BASED ON THE FOURTH UNIVERSAL DEFINITIONS OF MYOCARDIAL INFARCTION. THE UPPER REFERENCE LIMIT (URL) OF TROPONIN, DEFINED THE 99TH PERCENTILE OF cTnI DISTRIBUTION IN A REFERENCE POPULATION, HAS BEEN CONFIRMED THE DECISION THRESHOLD FOR [place] DIAGNOSIS. Performed By: #### H STROPN ####[facility] [address] [place], [place] [address]Dr. Diego Wilkins TSHon 12-30-2022 TSH 1.729 uIU/mL Normal 0.358-3.740 [facility] Comment on above: Performed By: #### T 4, TSH #### [facility] [address] [place], [place] [address] Dr. Diego Wilkins Office Visit (Cardiac Surger [...] have [facility] about the options to help with smoking cessation. We discussed the need for tight blood pressure control, and to take his blood pressure daily. I do believe he should be referred to a community health planning director, and since he lives in the [facility], we will refer him to one of our cardiology colleagues from [facility]. Lastly, we will refer him to the [...] following a referral by Tonja Wiley CNP ([facility]). COURTNEY Ruiz, RN Adult Risk Screening Living [...] (414.01,V45.82) (I25 (more content not included)... Normal made.com Tobacco Screening.on 023 Fall risk assessment a) No falls within the last year [facility] 1800 Work Phone: Tobacco use status CPHS a) Yes [facility] 1800 Work Phone: Tobacco Screening. Yes [facility] 1800 Work Phone: CT CHEST WO CONon [...] by: DENNIS KIM Date: 2022-11-24 07:39 Normal [facility] CTA ABD/PELVIS WO W CONon CTA [...] by: DENNIS KIM Date: 2022-05-04 07:31 Normal [facility] CTA CHEST WO W CONon 022 [...] ROBBIE ADAMS Date: 2022-04-29 07:42 Normal [facility] CT LUNG CANCER SCREENINGon 0 04-20-2022 [...] ROBBIE ADAMS Date: 2022-04-20 09:40 Normal [facility] CBC AUTO DIFFon 04-13-2022 BASO # 0.0 103/ul Normal 0.0-0.1 [facility] Comment on above: Performed By: #### C BC ####[facility] [address] [place] [address]Dr. Diego Wilkins Basophils/100 WBC (Bld) 0.8 % Normal 0.2-2.0 [facility] Comment on above: Performed By: #### C BC ####[facility] [address] [place] [address]Dr. Diego Iwlkins EO # 0.0 103/ul Normal 0.0-0.7 [facility] Comment on above: Performed By: #### C BC ####[facility] [address] [place] [address]Dr. Diego Wilkins Eosinophils/100 WBC (Bld) 0.3 % Critically low 0.9-7.0 [facility] Comment on above: Performed By: #### C BC ####[facility] [address] [place] [address]Dr. Diego Wilkins Erythrocyte distribution width (RBC) [Ratio] 13.0 % Normal 11.0-15.0 [facility] Comment on above: Performed By: #### C BC ####[facility] [address] [place] [address]Dr. Diego Wilkins Hematocrit (Bld) [Volume fraction] 43.3 % Normal 42.0-54.0 [facility] Comment on above: Performed By: #### C BC ####[facility] [address] [place], [place] [address]Dr. Diego Wilkins Hemoglobin (Bld) [Mass/Vol] 14.2 g/dL Normal 14.0-18.0 [facility] Comment on above: Performed By: #### C BC ####[facility] [address] [place], [place] [address]Dr. Diego Wilkins IG # 0.01 10e3/ul Normal 0.00-0.03 [facility] Comment on above: Performed By: #### C BC ####[facility] [address] [place], [place] [address]Dr. Leathaliz Wilkins IG % 0.3 % Normal 0.0-0.5 [facility] Comment on above: Performed By: #### C BC ####[facility] [address] [place], [place] [address]Dr. Leathaliz Wilkins LYMPH # 0.9 103/ul Critically low 1.2-3.8 The [facility] Comment on above: Performed By: #### C BC ####[facility] [address] [place], [place] [address]Dr. Leathaliz Wilkins Lymphocytes/100 WBC (Bld) 23.7 % Normal 20.5-60.0 [facility] Comment on above: Performed By: #### C BC ####[facility] [address] [place], [place] [address]Dr. Diego Wilkins MANUAL DIFF REQ NO Normal [facility] Comment on above: Performed By: #### C BC ####[facility] [address] [place], [place] [address]Dr. Diego Wilkins MCH (RBC) [Entitic mass] 31.0 pg Normal 25.9-34.0 [facility] Comment on above: Performed By: #### C BC ####[facility] [facility] [address] [place] [address]Dr. Diego Wilkins MCHC (RBC) [Mass/Vol] 32.8 g/dL Normal 29.9-35.2 The [facility] Comment on above: Performed By: #### C BC ####[facility] [address] [place] [address] [address]Dr. Diego Wilkins MCV (RBC) [Entitic vol] 94.5 fL Critically high 80.0-94.0 The [facility] Comment on above: Performed By: #### C BC ####[facility] [address] [place] [address]Dr. Diego Wilkins MONO # 0.6 103/ul Normal 0.3-0.8 The [facility] Comment on above: Performed By: #### C BC ####[facility] [address] [place] [address]Dr. Diego Wilkins Monocytes/100 WBC (Bld) 16.8 % Critically high 1.7-12.0 The [facility] Comment on above: Performed By: #### C BC ####[facility] [address] [place] [address]Dr. Diego Wilkins NEUT # 2.1 103/ul Normal 1.4-6.5 The [facility] Comment on above: Performed By: #### C BC ####[facility] [address] [place] [address]Dr. Diego Wilkins Neutrophils/100 WBC (Bld) 58.1 % Normal 43.0-75.0 The [facility] Comment on above: Performed By: #### C BC ####[facility] [address] [place] [address]Dr. Diego Wilkins Platelet mean volume (Bld) [Entitic vol] 10.6 fL Normal 9.5-13.5 The [facility] Comment on above: Performed By: #### C BC ####[facility] [address] [place], [place] [address]Fg. Diego Wilkins PLT 141 103/ul Critically low 150-450 The [facility] Comment on above: Performed By: #### C BC ####[facility] [address]fc[address]vm[address] [place], [place] [address]Ir. Diego Wilkins RBC 4.58 106/ul Critically low 4.70-6.10 The [facility] Comment on above: Performed By: #### C BC ####[facility] [address] [place] [id number]. Diego Wilkins WBC 3.6 103/ul Critically low 4.0-11.0 The [facility] Comment on above: Performed By: #### C BC ####[facility] [address] [place] [id number]. Diego Wilkins LIPID PROFILEon 04-13-2022 CHOL-HDL RATIO NORM SEE BELOW Normal The [facility] Comment on above: Result Comment: 3.3 - 4.4 LOW RISK 4.4 - 7.1 AVERAGE RISK 7.1 - 11.0 MODERATE RISK >11.0 HIGH RISK Performed By: #### L IPID, CMP ####[facility] [address]ssts[address] [place] [id number]. Diego Wilkins Cholesterol [Mass/Vol] 71 mg/dL Normal <=200 The [facility] Comment on above: Performed By: #### L IPID, CMP ####[facility] [address]msy[address]xpaqs[address] [place] [id number]. Diego Wilkins Cholesterol in HDL [Mass/Vol] 30 mg/dL Critically low 40-60 The [facility] Comment on above: Performed By: #### L IPID, CMP ####[facility] [address]mselnes[address] [place] [id number]. Diego Wilkins Cholesterol in LDL [Mass/Vol] 28.4 mg/dL Normal The [facility] Comment on above: Performed By: #### L IPID, CMP ####[facility] [address]ik[address]ynqvt[address] [place] [id number]. Diego Wilkins Cholesterol.total/ Cholesterol in HDL [Mass ratio] 2.4 {ratio} Normal The [facility] Comment on above: Performed By: #### L IPID, CMP ####[facility] [address] [place] [address]Dr. Diego Wilkins HDL NORMAL > or = 60 mg/dl - LO W CARDIOVASCULAR RISK <40 mg/dl - HIGH CARDIOVASCULAR RISK Normal [facility] Comment on above: Performed By: #### L IPID, CMP ####[facility] [address]hlmon[address] [place] [address]Dr. Diego Wilkins LDL CALC NORMAL SEE BELOW Normal [facility] Comment on above: Result Comment: <100 mg/dl OPTIMAL 100 - 129 mg/dl NEAR OR ABOVE OPTIMAL 130 - 159 mg/dl BORDERLINE HIGH 160 - 189 mg/dl HIGH >190 mg/dl VERY HIGH Performed By: #### L IPID, CMP ####[facility] [address] [place], [place] [address]Dr. Diego Wilkins Triglyceride [Mass/Vol] 63 mg/dL Normal <=150 [facility] Comment on above: Performed By: #### L IPID, CMP ####[facility] [address] [place], [place] [address]Dr. Diego Wilkins VLDL CALC 12.6 mg/dL Normal [facility] Comment on above: Performed By: #### L IPID, CMP ####[facility] Mtygonxate[address] [place] [address]Dr. Diego Wilkins PROF 14(COMP METB)on 022 Albumin [Mass/Vol] 3.9 g/dL Normal 3.4-5.0 [facility] Comment on above: Performed By: #### L IPID, CMP ####[facility] R[address] [place], [place] [address]Dr. Diego Wilkins Albumin/Globulin [Mass ratio] 1.1 {ratio} Normal [facility] Comment on above: Performed By: #### L IPID, CMP ####[facility] Is[address]uyigna[address] [place] [address]Dr. iDego Wilkins ALP [Catalytic activity/Vol] 141 U/L Critically high 46-116 [facility] Comment on above: Performed By: #### L IPID, CMP ####[facility] U[address]zctxt[address] [place] [address]Dr. Diego Wilkins ALT [Catalytic activity/Vol] 24 U/L Normal 16-63 [facility] Comment on above: Performed By: #### L IPID, CMP ####[facility] [address] [place] [address]Dr. Diego Wilkins Anion gap [Moles/Vol] 9.9 mmol/L Normal [facility] Comment on above: Performed By: #### L IPID, CMP ####[facility] [address] [place], [place] [address]Dr. Diego Wilkins AST [Catalytic activity/Vol] 23 U/L Normal 15-37 [facility] Comment on above: Performed By: #### L IPID, CMP ####[facility] [address] [place], [place] [address]Dr. Diego Wilkins Bilirubin [Mass/Vol] 0.7 mg/dL Normal 0.2-1.0 [facility] Comment on above: Performed By: #### L IPID, CMP ####[facility] [address] [place], [place] [address]Dr. Diego Franky Calcium [Mass/Vol] 9.0 mg/dL Normal 8.5-10.1 [facility] Comment on above: Performed By: #### L IPID, CMP ####[facility] [address] [place], [place] [address]Dr. Diego Wilkins Chloride [Moles/Vol] 98 mmol/L Normal 98-107 The [facility] Comment on above: Performed By: #### L IPID, CMP ####[facility] Ul[address] [place], [place] [address]Dr. Diego Wilkins CO2 [Moles/Vol] 32.6 mmol/L Critically high 21.0-32.0 [facility] Comment on above: Performed By: #### L IPID, CMP ####[facility] [address]ch[address] [place], [place] [address]Dr. Diego Wilkins Creatinine [Mass/Vol] 0.84 mg/dL Normal 0.70-1.30 The [facility] Comment on above: Performed By: #### L IPID, CMP ####[facility] [address]xvxl[address] [place] [address]Dr. Diego Wilkins EGFR-AF CHINESE >60 Normal >=60 The [facility] Comment on above: Performed By: #### L IPID, CMP ####[facility] Zcoxptkjwc[address] [place] [address]Dr. Diego Wilkins EGFR-NON AF CHINESE >60 Normal >=60 [facility] Comment on above: Performed By: #### L IPID, CMP ####[facility] [address] [place], [place] [address]Dr. Leathaliz Franky Globulin (S) [Mass/Vol] 3.4 g/dL Normal [facility] Comment on above: Performed By: #### L IPID, CMP ####[facility] Qvgsc[address] [place], [place] [address]Dr. Leathaliz Franky Glucose [Mass/Vol] 98 mg/dL Normal 74-106 [facility] Comment on above: Performed By: #### L IPID, CMP ####[facility] Z[address] [place], [place] [address]Dr. Leathaliz Franky Potassium [Moles/Vol] 3.5 mmol/L Normal 3.5-5.1 The [facility] Comment on above: Performed By: #### L IPID, CMP ####[facility] [address] [place], [place] [address]Dr. Diego Franky Protein [Mass/Vol] 7.3 g/dL Normal 6.4-8.[address] [facility] Comment on above: Performed By: #### L IPID, CMP ####[facility] [address] [place], [place] [address]Dr. Leathaliz Wilkins Sodium [Moles/Vol] 137 mmol/L Normal 136-[address] [facility] Comment on above: Performed By: #### L IPID, CMP ####[facility] [address] [place], [place] [address]Dr. Leathaliz Wilkins Urea nitrogen [Mass/Vol] 5.0 mg/dL Critically low 7.0-18.0 The [facility] Comment on above: Performed By: #### L IPID, CMP ####[facility] [address] [place] [address]Dr. Diego Wilkins Urea nitrogen/Creatinin e [Mass ratio] 6.0 mg/mg Normal The [facility] Comment on above: Performed By: #### L IPID, CMP ####[facility] Drvvv[address]egi[address] [place] [id number]. Diego Wilkins UA RANDOM W/MICROSCOPICon BACTERIA NONE SEEN Normal NONE SEEN [facility] Comment on above: Performed By: #### U AMIC #### [facility] [address] [place] [address] Dr. Diego Wilkins Bilirubin Ql (U) Negative Normal NEGATIVE The [facility] Comment on above: Performed By: #### U AMIC #### [facility] [address] [place] [address] Dr. Diego Wilkins CAST NONE SEEN Normal NONE SEEN [facility] Comment on above: Performed By: #### U AMIC #### [facility] [address] [address] [address] Diego Wilkins Clarity (U) CLEAR Normal CLEAR [facility] Comment on above: Performed By: #### U AMIC #### [facility] [address] [address] [address] Diego Wilkins Color (U) LT. YELLOW Normal YELLOW The [facility] Comment on above: Performed By: #### U AMIC #### [facility] [address] [address] [address] Diego Wilkins Crystals LM Nom (Urine sed) NONE SEEN Normal NONE SEEN The [facility] Comment on above: Performed By: #### U AMIC #### [facility] [address] [place] [address] Dr. Diego Wilkins Epithelial cells LM Ql (Urine sed) RARE Normal NONE SEEN /RARE The [facility] Comment on above: Performed By: #### U AMIC #### [facility] [address] [address] [address] Dieog Wilkins Glucose Ql (U) Negative Normal NEGATIVE The [facility] Comment on above: Performed By: #### U AMIC #### [facility] [address] [address] [address] Diego Wilkins Hemoglobin Ql (U) Negative Normal NEGATIVE The [facility] Comment on above: Performed By: #### U AMIC #### [facility] [address] [address] [address] Diego Wilkins Ketones Ql (U) Negative Normal NEGATIVE [facility] Comment on above: Performed By: #### U AMIC #### [facility] [address] [address] [address] Diego Wilkins LEUKOCYTES Negative Normal NEGATIVE [facility] Comment on above: Performed By: #### U AMIC #### [facility] [address] [place] [address] Dr. Diego Wilkins MUCOUS NONE SEEN Normal NONE SEEN [facility] Comment on above: Performed By: #### U AMIC #### [facility] [address] [address] [address] Diego Wilkins Nitrite Ql (U) Negative Normal NEGATIVE The [facility] Comment on above: Performed By: #### U AMIC #### [facility] [address] [place] [address] Dr. Diego Wilkins pH (U) 6.0 [pH] Normal 5-9 [facility] Comment on above: Performed By: #### U AMIC #### [facility] [address] [address] [address] Diego Wilkins RBC NONE SEEN Abnormal 0-2 The [facility] Comment on above: Performed By: #### U AMIC #### [facility] [address] [address] [address] Diego Wilkins SPEC GRAVITY <=1.005 Abnormal 1.005-<=1.025 [facility] Comment on above: Performed By: #### U AMIC #### [facility] [address] [address] [address] Diego Wilkins UA PROTEIN Negative Normal NEGATIVE/ TRACE [facility] Comment on above: Performed By: #### U AMIC #### [facility] [address] [address] [address] Diego Wilkins Urobilinogen Qn (U) 1.0 {Shelly'U}/dL Normal 0.2 - 1.0 [facility] Comment on above: Performed By: #### U AMIC #### [facility] [address] [address] [address] Diego Wilkins WBC NONE SEEN Normal NONE SEEN [facility] Comment on above: Performed By: #### U AMIC #### [facility] [address] [address] [address] Diego Wilkins Vital Signs Date Time Vital Sign Value Performing Clinician Facility 11-29-2023 11:04-0500 Body height 172.7 cm Roman Hudson MD Work Phone: [facility] 11-29-2023 11:04-0500 Body mass index (BMI) [Ratio] 23.87 kg/m2 Roman Hudson MD Work Phone: [facility] 11-29-2023 11:04-0500 Body weight 71.22 kg Roman Hudson MD Work Phone: [facility] 11-29-2023 11:04-0500 Diastolic blood pressure 68 mm[Hg] Roman Hudson MD Work Phone: [facility] 11-29-2023 11:04-0500 Heart rate 84 /min oRman Hudson MD Work Phone: [facility] 11-29-2023 11:04-0500 SaO2% (BldA) [Mass fraction] 96 % Roman Hudson MD Work Phone: [facility] 11-29-2023 11:04-0500 Systolic blood pressure 105 mm[Hg] Roman Hudson MD Work Phone: [facility] 02-14-2023 15:06-0400 Blood Pressure Location Pauline BAINS [facility] [place] 02-14-2023 15:06-0400 Diastolic blood pressure 84 mm[Hg] Pauline BAINS [facility] 02-14-2023 15:06-0400 Heart rate 68 /min Pauline BAINS [facility] [place] 02-14-2023 15:06-0400 Respiratory rate 16 /min Pauline BAINS [facility] [place] 02-14-2023 15:06-0400 Systolic blood pressure 116 mm[Hg] Pauline BAINS [facility] [place] 01-09-2023 10:00-0500 Diastolic blood pressure 74 mm[Hg] Tonja Cifuenteshholz Work Phone: [facility] [employer] 600 DO Work Phone: 01-09-2023 10:00-0500 Diastolic blood pressure 82 mm[Hg] Tonja Cifuenteshholz Work Phone: [facility] [employer] 600 DO Work Phone: 01-09-2023 10:00-0500 Systolic blood pressure 118 mm[Hg] Tonja Cifuenteshholz Work Phone: [facility] [employer] 600 DO Work Phone: 01-09-2023 10:00-0500 Systolic blood pressure 124 mm[Hg] Tonja Cifuenteshholz Work Phone: [facility] [employer] 600 DO Work Phone: 01-09-2023 09:58-0500 Body height 176.53 cm Tonja Cifuenteshholz Work Phone: [facility] [employer] 600 DO Work Phone: 01-09-2023 09:58-0500 Body mass index (BMI) [Ratio] 22.27 kg/m2 Tonja Jo Aichholz Work Phone: [facility] 600 DO Work Phone: 01-09-2023 09:58-0500 Body surface area Derived from formula 1.85 m2 Tonja Wiley Work Phone: [facility] 600 DO Work Phone: 01-09-2023 09:58-0500 Body weight 69.4 kg Tonja Wiley Work Phone: [facility] 600 DO Work Phone: 01-09-2023 09:58-0500 Heart rate 75 /min Tonja Wiley Work Phone: [facility] 600 DO Work Phone: 12-28-2022 13:06-0500 Body height 175.26 cm Unknown Unknown [facility] 1800 Work Phone: 12-28-2022 13:06-0500 Body mass index (BMI) [Ratio] 22.52 kg/m2 Unknown Unknown [facility] 1800 Work Phone: 12-28-2022 13:06-0500 Body surface area Derived from formula 1.84 m2 Unknown Unknown [facility] 1800 Work Phone: 12-28-2022 13:06-0500 Body weight 69.17 kg Unknown Unknown [facility] 1800 Work Phone: 12-28-2022 13:06-0500 Diastolic blood pressure 81 mm[Hg] Unknown Unknown [facility] 1800 Work Phone: 12-28-2022 13:06-0500 Heart rate 60 /min Unknown Unknown [facility] 1800 Work Phone: 12-28-2022 13:06-0500 SaO2% (BldA) [Mass fraction] 94 % Unknown Unknown [facility] 1800 Work Phone: 12-28-2022 13:06-0500 Systolic blood pressure 152 mm[Hg] Unknown Unknown [facility] 1800 Work Phone: 12-28-2022 13:06-0500 0 1 Unknown Unknown [facility] 1800 Work Phone: Comment on above: [employer] Encounters Encounter Date Encounter Type Care Provider Facility Start: 08-08-2024 End: 08-08-2024 ambulatory TONJA AICHHOLZ Not Available Start: 05-07-2024 End: 05-07-2024 ambulatory TONJA AICHHOLZ Not Available Start: 01-17-2024 End: 01-17-2024 Office outpatient visit 25 minutes Roman Hudson MD Work Phone: [facility] Comment on above: Ascending aortic ane urysm, unspecified whether ruptured ([facility]) Start: 01-17-2024 End: 01-18-2024 ambulatory [facility] Start: 12-14-2023 End: 12-14-2023 Subsequent hospital visit by physician Madeline Daily [address] [facility] Comment on above: Ascending aorta dila tation ([facility]) Start: 12-14-2023 End: 12-14-2023 ambulatory ROMAN R [facility] Start: 11-29-2023 End: 11-29-2023 ambulatory ROMAN Rodriguez [facility] Start: 11-29-2023 End: 11-29-2023 Office outpatient new 60 minutes Roman Hudson MD Work Phone: [facility] Comment on above: Ascending aorta dila tion ([facility]) Start: 11-06-2023 End: 11-06-2023 ambulatory TONJA AICHHOLZ Not Available Start: 03-14-2023 End: 03-15-2023 ambulatory Pauline BAINS Facility:[facility] Start: 03-14-2023 End: 03-14-2023 Patient encounter procedure Pauline BAINS [facility] Start: 03-01-2023 End: 03-02-[address] PAULINE BAINS . Facility:[facility] Start: 02-14-2023 End: 02-15-2023 ambulatory Pauline BAINS Facility:[facility] Start: 02-14-2023 End: 02-14-2023 Patient encounter procedure Pauline BAINS [facility] Start: 01-17-2023 End: 01-18-2023 ambulatory TIFFANY WILEY Facility:[facility] Start: 01-09-2023 Office consultation new/estab patient 60 min Tonja Wiley Work Phone: [facility] 600 DO Work Phone: Start: 01-09-[address] Jess Marroquin Facility: Start: 12-30-2022 End: 12-30-2022 ambulatory TIFFANY WILEY Facility:[facility] Start: 12-28-2022 Office consultation new/estab patient 80 min Unknown Unknown [facility] 1800 Work Phone: Start: 12-28-2022 ambulatory UNKNOWN UNKNOWN Facilit y:[facility] Start: 11-23-2022 End: 11-24-2022 ambulatory TIFFANY WILEY Facility:[facility] Start: 05-03-2022 End: 05-04-2022 ambulatory TIFFANY WILEY Facility:[facility] Start: 04-28-2022 End: 04-29-2022 ambulatory TIFFANY WILEY Facility:[facility] Start: 04-20-2022 End: 04-21-2022 ambulatory TIFFANY WILEY Facility:[facility] Start: 04-13-2022 End: 04-14-2022 ambulatory [employer] TONJA ROGER Facility:[facility] Procedures Date Procedure Procedure Detail Performing Clinician Start: 12-14-2023 CT ANGIO CHEST W AND WO IV CONTRAST ROMAN HUDSON Start: 03-01-2023 Colonoscopy Roman rogers MD Work Phone: Start: 03-01-2023 Colonoscopy Pauline NI LL Start: 04-13-2022 PSA screening [employer] TONJA ROGER Comment on above: Performed By: #### P [facility] #### [facility] [address] [address] [address] Diego Wilkins Start: 11-20-2020 Colonoscopy Tonja Vinita avila Work Phone: Start: 01-19-2020 Colonoscopy Pauline RENTERIA LL Cardiac catheterization Mike aejag NILL Placement of stent i n cardiac conduit Pauline NILL Placement of stent i n coronary artery Unknown Unknown Plan of Treatment Date Care Activity Detail Author Start: 03-01-2033 Screening for malign ant neoplasm of colon [facility] Start: 01-17-2024 End: 01-17-2024 Telemedicine consultation with patient 01/17/2024 1:20 PM EST [facility]icine [facility] [address] [facility] [address] [place] [id number] [place] [address] Department [place] [address] [facility] Start: 01-09-2024 FUV, Provider: Jess Marroquin, Status: Pen, Time: 9:20 AM FUV, Provider: Jess Marroquin, Status: Pen, Time: 9:20 AM [facility] 600 DO Work Phone: Start: 01-09-2024 End: 01-09-2024 Patient encounter procedure 01/09/2024 9:20 AM EST Office Visit [address] [place] [address] Jess Marroquin MD [address] [facility] 2, [address] [place] [address] [facility] Start: 11-29-2023 NPV, Provider: Roman Hudson, Status: Pen, Time: 11:30 AM NPV, Provider: Roman Hudson, Status: Pen, Time: 11:30 AM [facility] 600 DO Work Phone: Start: 01-11-2023 NPV, [...] (6 to 64 Years) (2 - PCV) [facility] Start: 2011 Zoster Vaccines (1 o f 2) Zoster Vaccines (1 of 2) [facility] Start: 1983 DTaP/Tdap/Td Vaccine s (1 - Tdap) DTaP/Tdap/Td Vaccines (1 - Tdap) [facility] Start: 1979 Hepatitis C screening Hepatitis C [facility] Start: 1967 Pneumococcal Vaccine : Pediatrics (0 to 5 Years) and At-Risk Patients (6 to 64 Years) (1 - PCV) Pneumococcal Vaccine: Pediatrics (0 to 5 Years) and At-Risk Patients (6 to 64 Years) (1 - PCV) [facility] Start: 1962 MMR Vaccines (1 of 1 - Standard series) MMR Vaccines (1 of 1 - Standard series) [facility] Start: 02-09-1962 COVID-19 Vaccine (#1) COVID-19 Vacci ne (#1) [facility] Start: 1961 HIV screening HIV Screening [facility] Start: 1961 Lipid panel Lipid Panel [facility] Start: 1961 Screening for malign ant neoplasm of colon [facility] Start: 1961 Yearly Adult Physical Yearly Adult P hysical [facility] End: 12-14-2023 CTA Chest vessels WO and W contrast IV [facility] Service Area Work Phone: Comment on above: Once for 1 Occurrenc es starting 12/14/2023 until 12/14/2023 Immunizations Immunization Date Immunization Notes Care Provider Flip yañez 07-13-2023 influenza, injectabl e, quadrivalent, preservative free Roman Hudson MD Work Phone: [facility] Work Phone: 08-20-2022 influenza virus vacc ine, unspecified formulation Pauline BAINS [facility] [place] 08-20-2022 influenza, seasonal, injectable Tonja Wiley Work Phone: [facility] 600 DO Work Phone: 08-18-2020 influenza, injectabl e, quadrivalent, preservative free Unknown Unknown [facility] Work Phone: 07-12-2019 influenza, injectabl e, quadrivalent, preservative free Unknown Unknown [facility] Work Phone: 06-30-2017 pneumococcal polysaccharide vaccine, 23 valent Tonja Wiley Work Phone: [facility] 600 DO Work Phone: Comment on above: Series: Payers Date Payer Category Payer Unknown 1960 Unknown [id number] [id number] 1961 Unknown [id number] 2.16. [id number] 1961 Unknown [id number] 2.16.84 [id number] 1961 Unknown [id number] 2.16.84 [id number] 1961 Unknown [id number] 2.16.84 [id number] 1961 Unknown [id number] 2.16.84 [id number] 1961 Unknown [id number] 2.16.84 [id number] 1960 Unknown [id number] 2.16.84 0.1.052708.3.579.2.593 1960 Unknown [id number] 2.16.84 0.1.677704.3.579.2.593 1960 Unknown [id number] 2.16.84 0.1.052970.3.579.2.593 1960 Unknown [id number] 2.16.8 40.1.681903.3.579.2.727 1961 Unknown [id number] 2.16.8 40.1.024386.3.579.2.727 1960 Unknown [id number] 2.16.8 40.1.304306.3.579.2.727 1960 Unknown [id number] 2.16.8 40.1.883469.3.579.2.1245 1960 Unknown [id number] 2.16.8 40.1.695088.3.579.2.1245 1960 Unknown [id number] 2.16.84 0.1.666781.3.579.2.1259 1960 Unknown [id number] 2.16.84 0.1.175327.3.579.2.1259 1960 Unknown [id number] 2.16.840 .1.313367.3.579.2.1259 1960 Unknown [id number] 2.16.8 40.1.439023.3.579.2.1246 1959 Unknown [id number] Social History Date Type Detail Facility Start: 11-29-2023 End: 12-15-2023 Current every day smoker Current every day smoker [facility] Work Phone: Comment on above: 1.5PPD sometimes mor e; Start: 02-14-2023 Tobacco smoking status Heavy t obacco smoker (finding) [facility] Tobacco smoking status Never [facility] Start: 11-29-2023 End: 12-15-2023 Sex Assigned At Male [facility] Start: 11-28-2023 End: 12-15-2023 Tobacco smoking status NHIS Smokes tobacco daily [facility] Work Phone: History of tobacco use Cigarette Smoker [facility] Work Phone: Start: 1960 Sex Assigned At Not on file [facility] Work Phone: Start: 11-19-2023 End: 12-14-2023 Exposure to SARS-CoV-2 (event) Not sure [facility] Start: 12-15-2023 Alcohol intake Lifetime non-d margarita (finding) [facility] Work Phone: Functional Status Date Assessment Result Facility 02-14-2023 Functional Status N/A [facility] Clinical Notes 11-23-2022 to 01-17-2024 Roman [...] avoid heavy lifting. documented in this encounter [facility] Work Phone: 11-29-2023 History of Present illness [...] him to maintain regular visit with his community health planning director and blood pressure control. Will get the echo cardiogram to rule out bicuspid valve and we will follow him with a CT scan. He is also advised to avoid heavy lifting. documented in this encounter [facility] Work Phone: 03-01-2023 Note OPERATIVE NOTE OPERATION [...] good condition. CC: Tonja Wiley CNP [facility] 11-23-2022 History of Present illness Narrative [...] did have a coronary stent in 2012. [facility] Work Phone: Chief complaint Narrative - Reported Patient is here for a surgical evaluation for an ascending aortic aneurysm following a referral by Tonja Wiley CNP ([facility]). COURTNEY Ruiz, RN [facility] Work Phone: Chief complaint Narrative - Reported JATINDER CALVERT is being seen for a consultation for. referral Dr. Salmon; AAA, [id number] white male who is being seen for management of hypertension and CAD. The patient was seen recently by cardiothoracic surgery at [facility] Dr. Sherman Cruz for ascending and abdominal aortic aneurysm. The size is too small to intervene on. The patient has history of CAD and previous PCI of the RCA 2012 in [place] with drug-eluting stent. He is actively smoking and at one time was smoking 2 and half packs daily. He does have significant emphysema but not on medical therapy. Has had no recurrent coronary artery disease. He is hyperlipidemic and hypertensive on medical therapy. 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 He wishes to [...] diameter followed by the aortic clinic at [facility]. Tobacco cessation was emphasized. Hypertension [...] in annual basis or sooner if needed -[facility] 600 DO Work Phone: Evaluation + Plan note No data available for this section [facility] Evaluation note Diagnosis Ascending aorta dilation (CMS/HCC) Thoracic aneurysm without mention of rupture documented in this encounter [facility] Work Phone: Evaluation note* Diagnosis Ascending aorta dilatation (CMS/HCC) Thoracic aneurysm without mention of rupture documented in this encounter [facility] Work Phone: Evaluation note* Diagnosis Ascending aortic aneurysm, unspecified whether ruptured (CMS/HCC) documented in this encounter [facility] Work Phone: Hospital Discharge instructions No data available for this section [facility] Progress note No data available for this section [facility] Summary Purpose Family History No Family History [...] [place] [address] [facility] [place] [address] Referral ID Status Reason Start Date Expiration Date Visits Requested Visits Authorized [id number] Authorized Perform Procedure 11/30/2023 11/29/2024 1 1 Additional Source Comments (unrecognized sect ion and content) No Status Records FoundNo Status Records FoundNo Status Records FoundNo Status Records FoundNo Status Records FoundNo Status Records FoundNo Status Records Found INFORMATION SOURCE (unrecogn ized section and content) DATE CREATED AUTHOR 01/09/2023 [facility] DATE CREATED AUTHOR AUTHOR'S ORGANIZ ATION 01/09/2023 [facility] DATE CREATED AUTHOR AUTHOR'S ORGANIZ ATION 03/07/2023 [facility] DATE CREATED AUTHOR AUTHOR'S ORGANIZ ATION 03/15/2023 [facility] DATE CREATED AUTHOR AUTHOR'S ORGANIZ ATION 01/22/2024 [facility] DATE CREATED AUTHOR AUTHOR'S ORGANIZ ATION 08/11/2024 [facility] EPIC DATE CREATED AUTHOR AUTHOR'S ORGANIZ ATION 2024 [facility] Patient Care team informatio n (unrecognized section and content) Brass Cutter Relationship Specialty Start Date End Date Tonja Wiley, TANK WAGON OPERATOR-[employer] CLEANER [address] [place] [place] [address] PCP - General 01/09/23 Brass Cutter Relationship Specialty Start Date End Date Tonja Wiley TANK WAGON OPERATOR-[employer]ER [address] [place] [address] PCP - General 01/09/23 Brass Cutter Relationship Specialty Start Date End Date Tonja Wiley, TANK WAGON OPERATOR-[facility] [address] [place] [address] PCP - General 01/09/23 Reason for Visit (unrecogniz ed section and content) Specialty Diagnoses / Procedures Referred By Contac t Referred To Contact Radiology Diagnoses Ascending aorta dilatation (CMS/HCC) Procedures CT angio [place] [address] [facility] Department of Surgery-Cardiac [place] [id number] Referral ID Status Reason Start Date Expiration Date Visits Requested Visits Authorized [id number] Authorized Perform Procedure 11/30/2023 11/29/2024 1 FOR [...] BE BASED ON THE PRIMARY CLINICAL RECORDS. [email or web address] provides no warranty or guarantee of the accuracy or completeness of information in this document.
[2024-09-07 08:55] LABS: Potassium 4.3 mmol/L (3.5-5.1)
== END 2024-09-07 08:21 | disposition home or self-care (01) ==
LOC: LAB 08:22
PROVIDERS: PCP Nurse Practitioner; Visit Provider Nurse Practitioner
DX: E87.6 Hypokalemia (principal)
CPT/HCPCS: 36415; 84132

== ENCOUNTER 2025-01-04 09:07 | Outpatient (OUT) | payer OTHER, SELFPAY ==
--- NOTE | 2025-01-04 | CT_ITS ---
[address] [address] Patient Name: JATINDER SCHULTZ MRN: [id number] date: 1960 Sex: M Assigned Patient Location: CT Current Patient Location: CT Accession/Order Number: [id number] Exam Date: 01/04/2025 09:21 Report Date: 01/06/2025 16:31 At the request of: PEDRO DURAN Procedure: CT lung screening low-dose EXAM: CT lung screening low-dose HISTORY: cigarette nicotine dependance F17.210 COMPARISON: 11/23/2022. 04/28/2022. 04/20/2022. TECHNIQUE: Unenhanced low-dose helical acquisition obtained through the chest. FINDINGS: Mild-moderate paraseptal and centrilobular emphysema. Scattered pulmonary granulomatous calcifications. Stable focal thickening of the right minor fissure. Mild biapical pleural and pulmonary parenchymal scarring. The pleural spaces are clear. No enlarged lymph nodes within the chest. Severe diffuse coronary arterial calcifications. CT/CT lung screening low-dose IMPRESSION: 1. No evidence of pulmonary malignancy. 2. Mild-moderate emphysema. 3. Severe coronary arterial calcifications. Lung-RADs 1 FINDINGS: No lung nodules; nodule(s) with specific calcifications: Complete, central, popcorn, concentric rings and fat containing nodules. MANAGEMENT: Continue annual screening with LDCT in 12 months. Lung-RADs S FINDINGS: severe coronary arterial calcifications.. Electronically authenticated by: ANANT CALLES Date: 01/06/2025 16:31
--- OUTSIDE RECORDS SUMMARY | 2025-01-04 09:11 | XMS_ITS | CCD ---
Author Organization [facility] Care Team Providers Care Aircraft Designer Name Role Phone Unknown, Unknown Unavailable Unavailable UNKNOWN, UNKNOWN Primary Care Unavailable MD LOI CRUZ Attending Unava ilable Lopez, Dr. Jess Barakat Referring Jayne vailable UNKNOWN, UNKNOWN Primary Care Unavailable Lopez, Dr. Jess Barakat Attending Jayne vailable Saurabh Tonja Vinita Unavailable Unavailable Unavailable CRYS WILEYA J Primary Care Physician AICHHOLZ, SOCIAL INSURANCE ANALYST TONJA Admitting Unavailable AICHHOLZ, SOCIAL INSURANCE ANALYST TONJA Attending Unavailable AICHHOLZ, SOCIAL INSURANCE ANALYST TONJA Primary Care Unavailable ROBBIE ADAMS Consulting Unavailable AICHHOLZ, SOCIAL INSURANCE ANALYST TONJA Consulting Unavailable AICHHOLZ, SOCIAL INSURANCE ANALYST TONJA Admitting Unavailable AICHHOLZ, SOCIAL INSURANCE ANALYST TONJA Attending Unavailable AICHHOLZ, SOCIAL INSURANCE ANALYST TONJA Primary Care Unavailable AICHHOLZ, SOCIAL INSURANCE ANALYST TONJA Consulting Unavailable DR DENNIS KIM Consulting Unavailable AICHHOLZ, SOCIAL INSURANCE ANALYST TONJA Admitting Unavailable AICHHOLZ, SOCIAL INSURANCE ANALYST TONJA Attending Unavailable AICHHOLZ, SOCIAL INSURANCE ANALYST TONJA Primary Care Unavailable AICHHOLZ, SOCIAL INSURANCE ANALYST TONJA Consulting Unavailable DR DENNIS KIM Consulting Unavailable AICHHOLZ, SOCIAL INSURANCE ANALYST TONJA Admitting Unavailable AICHHOLZ, SOCIAL INSURANCE ANALYST TONJA Attending Unavailable AICHHOLZ, SOCIAL INSURANCE ANALYST TONJA Primary Care Unavailable ROBBIE ADAMS Consulting Unavailable AICHHOLZ, SOCIAL INSURANCE ANALYST TONJA Consulting Unavailable AICHHOLZ, SOCIAL INSURANCE ANALYST TONAJ Admitting Unavailable AICHHOLZ, SOCIAL INSURANCE ANALYST TONJA Attending Unavailable AICHHOLZ, SOCIAL INSURANCE ANALYST TONJA Primary Care Unavailable AICHHOLZ, SOCIAL INSURANCE ANALYST TONJA Consulting Unavailable AICHHOLZ, SOCIAL INSURANCE ANALYST TONJA Primary Care Unavailable SHAIKH Pia LOWE Admitting Unavailable SHAIKH Pia LOWE Attending Unavailable FAWSHAIKH Pia CORADO Consulting Unavailable DIAB ., SEN Consulting Unavailable NILL ., DR CARPENTER Admitting Unavailable NILL ., DR CARPENTER Attending Unavailable AICHHOLZ, SOCIAL INSURANCE ANALYST TONJA Primary Care Unavailable NILL ., DR CARPENTER Consulting Unavailable SALMA CONNOLLY Consulting Unavailable MARCIO CARO Consulting Unavailable AICHHOLZ, SOCIAL INSURANCE ANALYST TONJA Admitting Unavailable AICHHOLZ, SOCIAL INSURANCE ANALYST TONJA Attending Unavailable AICHHOLZ, SOCIAL INSURANCE ANALYST TONJA Primary Care Unavailable ROBBIE ADAMS Consulting Unavailable AICHHOLZ, SOCIAL INSURANCE ANALYST TONJA Consulting Unavailable NILL, Pauline Rodriguez Attending Unavailable NILL, Pauline Rodriguez Attending Unavailable NILL, Pauline R Attending Unavailable Aichholz MANAGER WOUND CARE-SOCIAL INSURANCE ANALYST, Tonja Vinita Primary Care Provider ROMAN HUDSON Attending Unavailable AICHHOLZ, TONJA TALAMANTES Primary Care Unavailable ROMAN HUDSON Attending Unavailable AICHHOLZ, TONJA TALAMANTES Primary Care Unavailable TRISTANROMAN TITUS Referring Unavailable AICHHOLZ, TONJA TALAMANTES Primary Care Unavailable Aichholz WOOL PULLER, Tonja Unavailable Loi Red MD Primary Care Provider Unallocated , Noms Provider Primary Care Provi eddy Loi Red MD Primary Care Provider [phone] AICHHOLZ, TONJA Attending Unavailable AICHHOLZ, TONJA Attending Unavailable AICHHOLZ, TONJA Attending Unavailable AICHHOLZ, TONJA Attending Unavailable Allergies Allergy Classification Reported Allergen(s) Allergy Type Date of Onset Reaction(s) Facility (1 source) No Known Medication Allergies; Translations: [No Known Medication Allergies] Propensity to adverse reactions (disorder) [facility] Repository Medications Current Medications Medication Drug Class(es) Dates Sig (Normalized) Sig (Original) [id number] 200 actuat albuterol 0.09 mg/actuat metered dose inhaler (17 sources) beta2-Adrenergic Agonist Start: 05-07-2024 End: 09-07-2024 take 2 puff(s) by inhalation every six hours for wheezing albuterol HFA 90 mcg/act inhaler Indications: Other emphysema ([facility]) Inhale 2 puffs every 6 (six) hours if needed for wheezing or shortness of breath 18 g 1 08/08/2024 Active amLODIPine 5 mg oral tablet (20 sources) Dihydropyridine Calcium Channel Gamal Start: 09-10-2024 End: 12-09-2024 take 1 tablet by mouth once daily amLODIPine (Norvasc) 5 MG tablet Indications: Primary hypertension (CMS/HCC) Take 1 tablet (5 mg) by mouth Daily 90 tablet 1 09/10/2024 Active Start: 02-14-2023 End: 10-28-2024 take 1 tablet by mouth once daily amLODIPine (Norvasc) 10 MG tablet Indications: Primary hypertension (CMS/HCC) Take 1 tablet (10 mg) by mouth Daily 90 tablet 1 07/30/2024 10/28/2024 Active take 1 tablet by once daily amLODIPine Besylate 10 MG Oral Tablet Take 1 tablet daily Quantity: 90 Refills: 3 Ordered: 09-Jan-2023 Jess Marroquin MD Active atorvastatin 80 mg oral tablet (20 sources) HMG-CoA Reductase Inhibitor Start: 01-14-2020 End: 01-05-2025 take 1 tablet by mouth in the evening atorvastatin (Lipitor) 80 MG tablet Indications: 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 (CMS/HCC) Take 1 tablet (80 mg) by mouth in the evening 90 tablet 1 10/07/2024 01/05/2025 Active 120 actuat budesonide 0.16 mg/actuat / formoterol fumarate 0.0048 mg/actuat / glycopyrrolate 0.009 mg/actuat metered dose inhaler (14 sources) Corticosteroid, beta2-Adrenergic Agonist Start: 07-30-2024 End: 11-06-2024 take 2 puff(s) by mouth in the morning Budeson-Glycopyrro l-Formoterol (Breztri Aerosphere) 160-9-4.8 MCG/ACT aerosol Indications: Chronic Obstructive Pulmonary Disease , Pulmonary Emphysema Inhale 2 puffs in the morning and 2 puffs before bedtime. Rinse mouth after use. 32.1 g 1 08/08/2024 11/06/2024 Active End: 07-30-2024 take 2 puff(s) by inhalation in the morning Uviwxwl-Intyrlxlzhb-Uwszkaokja (Breztri Aerosphere) 160-9-4.8 MCG/ACT aerosol Indications: Chronic Obstructive Pulmonary Disease , Pulmonary Emphysema Inhale 2 puffs in the morning and 2 puffs before bedtime. 07/30/2024 Discontinued (Reorder) BuPROPion (Eqv-Wellbutrin SR) 150 mg/12 hours oral tablet, extended release (2 sources) Start: 02-14-2023 BuPROPion (Eqv-Wellbutrin SR) 150 mg/12 hours oral tablet, extended release 150 mg = 1 tab(s), Oral, Daily, Refills(s) 0 Start Date: 02/14/23 Status: Ordered lisinopril 10 mg oral tablet (20 sources) Angiotensin Converting Enzyme Inhibitor Start: 01-14-2020 End: 12-09-2024 take 1 tablet by mouth once daily in the morning lisinopril 10 MG tablet Indications: Primary hypertension (CMS/HCC) Take 1 tablet (10 mg) by mouth Daily Take 10 mg by mouth in the morning. 90 tablet 1 09/10/2024 Active Meclizine (19 sources) Antiemetic Start: 02-14-2023 meclizine 25 mg Tab as directed, Refills(s) 0 Start Date: 02/14/23 Status: Ordered Start: 02-14-2023 take 1 tablet by william th three times daily as needed for dizziness meclizine (Antivert) 25 mg tablet Take 1 tablet (25 mg) by mouth 3 times a day as needed for dizziness. 0 02/14/2023 Active take 1 tablet by william th every eight hours as needed for dizziness meclizine (Antivert) 25 MG tablet Take 25 mg by mouth every 8 (eight) hours if needed for dizziness Active take 1 tablet by william th three times daily as needed Meclizine HCl - 25 MG Oral Tablet TAKE 1 TABLET 3 TIMES DAILY NEEDED. Quantity: 0 Refills: 0 Ordered: 09-Jan-2023 DO Active 10 actuat olodaterol 0.0025 mg/actuat / tiotropium 0.0025 mg/actuat inhalation spray (2 sources) Anticholinergic, beta2-Adrenergic Agonist tiotropium-olodatero l (Stiolto Respimat) 2.5-2.5 MCG/ACT aerosol solution inhaler Indications: Chronic Obstructive Pulmonary Disease Inhale 2 Inhalation Daily Active omeprazole 20 mg delayed release oral capsule (20 sources) Proton Pump Inhibitor Start: 2023 End: 2024 take 1 capsule by mouth before mealtime omeprazole (PriLOSEC) [address] capsule Indications: Gastroesophageal reflux disease, unspecified whether esophagitis present Take 1 capsule (20 mg) by mouth in the morning. Take before meals. 90 capsule 1 11/27/2024 02/25/2025 Active Start: 01-14-2020 take 1 capsule by [...] not crush, chew, or split. 0 Active potassium chloride 20 meq extended release oral tablet (1 source) Start: 08-19-2024 End: 08-24-2024 take 1 tablet by mouth once daily at mealtime potassium chloride CR (K-Tab) 20 MEQ ER tablet Indications: Hypokalemia Take 1 tablet (20 mEq) by mouth Daily for 5 days Take with food. Do not crush, chew, or split. 5 tablet 08/19/2024 08/24/2024 Active Completed/Discontinued Medications Medication Drug Class(es) Dates Sig (Normalized) Sig (Original) aspirin 81 mg delayed release oral tablet (14 sources) Platelet Aggregation Inhibitor, Nonsteroidal Anti-inflammatory Drug [...] Oral, Daily Start Date: 01/14/20 Status: Ordered benzonatate 200 mg oral capsule (4 sources) Non-narcotic Antitussive End: 08-08-2024 take 1 capsule by mouth every eight hours benzonatate (Tessalon) 200 MG capsule Take 200 mg by mouth every 8 (eight) hours Do not crush or chew. 08/08/2024 Discontinued (Therapy completed) iohexol (OMNIPaque) 350 mg iodine/mL solution 75 [...] unspecified; Translations: [BRADYCARDIA UNSPECIFIED] Onset: 01-03-2023 Episodic Chronic obstructive pulmonary disease and bronchiectasis (20 sources) Pulmonary emphysema; Translations: [Other emphysema] Onset: 05-07-2024 05-07-2024 Chronic Conditions associated with dizziness or vertigo (4 sources) Dizziness and giddiness; Translations: [DIZZINESS AND GIDDINESS] Onset: 12-30-2022 Episodic Coronary atherosclerosis and other heart disease (20 sources) Recurrent coronary arteriosclerosis after percutaneous transluminal coronary angioplasty; Translations: [Coronary atherosclerosis of venetie coronary artery] Onset: 04-13-2022 01-14-2020 Chronic Comment on above: RCA drug-eluting siddhartha nt Cole 2012; Outside Source Comme nt: Comment on above: RCA drug-eluting stent Cole 2012; Coronary atherosclerosis and other heart disease (1 source) Presence of coronary angioplasty implant and graft; Translations: [PRESENCE COR ANGPLSTY IMPLANT AND GRAFT] Onset: 03-06-2023 Episodic Disorders of lipid metabolism (20 sources) Hyperlipidemia; Translations: [Other and unspecified hyperlipidemia] Onset: 01-03-2023 02-09-2023 Chronic Esophageal disorders (20 sources) Gastroesophageal reflux disease; Translations: [Gastro-esophageal reflux disease without esophagitis] Onset: 03-06-2023 01-14-2020 Chronic Essential hypertension (20 sources) Hypertensive disorder; Translations: [Unspecified essential hypertension] Onset: 03-06-2023 01-14-2020 Chronic Headache; including migraine (4 sources) Headache; including migraine; Translations: [HEADACHE UNSPECIFIED] Onset: 01-17-2023 Hypertension with complications and secondary hypertension (3 sources) Secondary hypertension; Translations: [Secondary hypertension, unspecified] Onset: 11-28-2023 11-28-2023 Chronic Other aftercare (1 source) Other intermediate designer (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; Translations: [OTH PIT TANNER CURRENT DRUG THERAPY] Onset: 03-06-2023 Episodic Other aftercare (1 source) skilled nursing (current) use of aspirin; Translations: [PIT TANNER CURRENT USE OF ASPIRIN] Onset: 03-06-2023 Episodic [...] IMG OT BODY STRUC] Onset: 11-23-2022 Chronic Other screening for suspected conditions (not mental disorders or infectious disease) (20 sources) Encounter for screening for malignant neoplasm of prostate; Translations: [Patient encounter status] Onset: 04-15-2022 08-19-2024 Episodic Residual codes; unclassified (1 source) Body mass index 20-24 - normal; Translations: [Body Mass Index between 19-24, adult] Episodic Residual codes; unclassified (3 sources) Tobacco user; Translations: [Tobacco use] Onset: 02-14-2023 Episodic Substance-related disorders (20 sources) Smokes tobacco daily; Translations: [Tobacco use [...] mass index 20-24 - normal 02-14-2023 Unclassified (1 source) ABDOMINAL AA W/O RUPTURE [...] W/O CHOLECYST W/O OBST] Onset: 05-05-2022 Episodic Fluid and electrolyte disorders (11 sources) Hypokalemia; Translations: [Hypokalemia] Onset: 08-19-2024 08-19-2024 Episodic Other liver diseases (15 sources) Hyperbilirubinemia; Translations: [Unspecified jaundice] Onset: 11-05-2023 11-05-2023 Episodic Unclassified (4 sources) Patient encounter status 01-15-2020 Unclassified (1 source) Aneurysm of the ascending aorta, without rupture (CMS/HCC); Translations: [Aneurysm of the ascending aorta, without rupture (CMS/HCC)] Onset: 01-17-2024 Results Test Name Value Interpretation Reference Range Facility ALL POTASSIUMon 09-07-2024 Potassium [Moles/Vol] 4.3 mmol/L 3.5 - 5.1 mmol/L [facility] ALL CBC WITH AUTO DIFFon BASOPHILS ABSOLUTE AUTO 0.1 [facility] Basophils/100 WBC (Bld) 0.8 % 0.2 - 2.0 % [facility] Eosinophils/100 WBC (Bld) 2.7 % 0.9 - 7.0 % [facility] Erythrocyte distribution width (RBC) [Ratio] 13.1 % 11.0 - 15.0 % [facility] Hematocrit (Bld) [Volume fraction] 43.2 % 42.0 - 54.0 % [facility] Hemoglobin (Bld) [Mass/Vol] 14.6 g/dL 14.0 - 18.0 g/dL [facility] IMMATURE GRANULOCYTES ABS AUTO 0.02 [facility] Immature granulocytes/100 WBC (Bld) 0.3 % 0.0 - 0.5 % [facility] Interpretation and review of laboratory results Abnormal [facility] LYMPHOCYTES ABSOLUTE AUTO 1.8 [facility] Lymphocytes/100 WBC (Bld) 23.4 % 20.5 - 60.0 % [facility] MCH (RBC) [Entitic mass] 31.3 pg 25.9 - 34.0 pg [facility] MCHC (RBC) [Mass/Vol] 33.8 g/dL 29.9 - 35.2 g/dL [facility] MCV (RBC) [Entitic vol] 92.7 fL 80.0 - 94.0 fL [facility] MONOCYTES ABSOLUTE AUTO 0.5 [facility] Monocytes/100 WBC (Bld) 6.1 % 1.7 - 12.0 % [facility] NEUTROPHILS ABSOLUTE AUTO 5.0 [facility] Neutrophils/100 WBC (Bld) 66.7 % 43.0 - 75.0 % [facility] Platelet mean volume (Bld) [Entitic vol] 9.7 fL 9.5 - 13.5 fL [facility] EO # 0.2 [facility] PLT 203 [facility] RBC 4.66 Low [facility] WBC 7.5 [facility] UA (CLEAN/CATCH) MICROSC OPIC IF INDICATEon 08-19-2024 BILIRUBIN URINE Negative NEGATIVE [facility] BLOOD URINE Negative NEGATIVE [facility] Clarity (U) CLEAR CLEAR [facility] Color (U) YELLOW YELLOW [facility] GLUCOSE URINE UA Negative NEGATIVE mg/dL [facility] Interpretation and review of laboratory results Abnormal [facility] Ketones Ql (U) TRACE Abnormal NEGATIVE mg/dL [facility] Leukocyte esterase Test strip Ql (U) Negative NEGATIVE [facility] NITRITE URINE Negative NEGATIVE [facility] pH (U) 6.0 [pH] 5.0 - 9.0 [facility] PROTEIN URINE Negative NEG/TRACE mg/dL [facility] SPECIFIC GRAVITY URINE 1.025 1.005 - 1.025 [facility] URINE MICROSCOPIC INDICATED NO [facility] UROBILINOGEN URINE 1.0 EU/dL 0.2 - 1.0 EU/dL [facility] CT ANGIO CHEST W AND WO IV C [facility] 12-14-2023 CT ANGIO CHEST W AND [...] PM -------- ORIGINAL REPORT -------- Dictation workstation: [id number] Interpreted By: Pauline Shepard, STUDY: CT ANGIO CHEST W AND WO IV CONTRAST; 12/14/2023 11:09 am INDICATION: Signs/Symptoms:year fu. COMPARISON: None. ACCESSION NUMBER(S): [id number] ORDERING CLINICIAN: ROMAN HUDSON TECHNIQUE: Using multi-detector [...] Infrarenal abdominal aortic aneurysm 34 mm. Reading V Belt Curer: Dr. Pauline Shepard, Date: 12/18/2023 2:43 pm Signed by: Pauline Shepard 12/18/2023 3:00 PM Dictation workstation: [id number] [facility] Ambulatory Visit Summaryon 0 03-14-2023 Ambulatory Visit Summary JATINDER CALVERT :1960 Visit Date:03/14/2023 Ambulatory Visit Instructions Your Care Team Attending Physician - WALT ELLIOTT, Pauline Rodriguez Primary Care Physician - SAURABH ALLEN, TONJA Rodrigues This Is Your Medications List amlodipine (amLODIPine 10 mg Tab) aspirin (aspirin 81 mg oral tablet) atorvastatin (atorvastatin 80 mg Tab) buPROPion (BuPROPion (Eqv-Wellbutrin SR) 150 mg/12 hours oral tablet, extended release) lisinopril (lisinopril 10 mg Tab) meclizine (meclizine 25 mg Tab) omeprazole (omeprazole 20 mg Cap-DR) Procedures Performed Colonoscopy (03/01/2023), Colonoscopy (01/2020), Cardiac [...] for malignant neoplasm of colon Tobacco use Normal [facility] General Surgery Office/Clini c Noteon 03-14-2023 General [...] influenza virus vaccine, inactivated 08/20/2022 Recorded Normal [facility] Comment on above: Result Comment: Elec tronically Signed By: WALT ELLIOTT, Pauline Egan\Date and Time Signed: 03/14/23 15:50 EDT Reminderson 03-14-2023 Reminders - From: Delores Joseph LPN To: N - Clinical; Sent: 03/14/2023 15:27:01 EDT Show up: 01/30/2028 07:00:00 EDT Subject: colonoscopy recall Due Date/Time: 03/01/2028 07:00:00 EDT Reminder/Recall Patient due for colonoscopy 03/01/28 due to history of colonic polyp. Normal [facility] Pathology Noteon 03-06-2023 Pathology Note [id number]#1.00C D:127 Normal [facility] Outside Colonoscopyon 2022 Outside Colonoscopy [id number]#1.00C D:127 Normal [facility] Consent for Procedure/Surger yon 02-15-2023 Consent for Procedure/Surgery [id number]#1.00C D:127 Normal [facility] General Surgery Office/Clini c Noteon 02-14-2023 General [...] pack or (more content not included)... Normal [facility] Comment on above: Result Comment: Elec tronically [...] by: ROBBIE ADAMS Date: 2023-01-18 08:13 Normal [facility] Office Visit (Cardiology)on 01-09-2023 Follow-up visit Diagnoses/Problems Assessed CAD S/P percutaneous coronary angioplasty (414.01,V45.82) (I25.10,Z98.61) RCA drug-eluting stent Kelsey 2012 Abdominal aortic aneurysm (441.4) (I71.40) Ascending aortic aneurysm (441.2) (I71.21) Hypertension (401.9) (I10) Hyperlipidemia (272.4) (E78.5) Current every day smoker (305.1) (F17.200) 1.5PPD sometimes more Body mass index (BMI) of 22.0 to 22.9 in adult (V85.1) (Z68.22) Orders CAD S/P percutaneous coronary angioplasty Renew: Aspirin 81 MG Oral Tablet Delayed Release; TAKE 1 TABLET DAILY IO EKG Electrocardiogram- 12 Lead; Status:Complete; Done: [id number] CAD S/P percutaneous coronary angioplasty, Hyperlipidemia Renew: Atorvastatin Calcium 80 MG Oral Tablet; TAKE 1 TABLET DAILY ALT - Alanine Aminotransferase, Serum; Status:Active - Retrospective Authorization; Requested for:[id number]; AST; Status:Active - Retrospective Authorization; Requested for:09Jan2023; Lipid Panel; Status:Active - Retrospective Authorization; Requested for:[id number]; CAD S/P percutaneous coronary angioplasty, Hypertension Renew: [...] we can help. You may also call 0-411-HMUATutor TechnologiesNOW for free resources and assistance.; Status:Complete - Retrospective Authorization; Done: [id number] Tobacco Use Screening; Status:Complete; Done: [id number] Patient Instructions Please bring all medicines, vitamins, [...] was seen recently by cardiothoracic surgery at [facility] Dr. Sherman Cruz for ascending and abdominal aortic aneurysm. The size is too small to intervene on. The patient has history of CAD and previous PCI of the RCA 2013 in [place] with drug-eluting stent. He is actively smoking and at one time was smoking 2 and half packs daily. He does have significant emphysema but not on medical therapy. Has had no recurrent coronary artery disease. He is hyperlipidemic and hypertensive on medical therapy. 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 He wishes to [...] diameter followed by the aortic clinic at [facility]. Tobacco cessation was emphasized. Hypertension controlled was [...] Known Russ (more content not included)... Normal [facility] Tobacco Screening.on 023 Adult depression screening assessment No [facility] [address] DO Work Phone: Tobacco use status [facility] a) Yes [facility] Work Phone: Tobacco Screening. Yes [facility] 600 DO Work Phone: CARDIAC SHERMAN ADMITon 023 CK [Catalytic activity/Vol] 85 U/L Normal 39-308 [facility] Comment on above: Performed By: #### C SAVANNAH BERTRAND #### [facility] [address] [address] [address] Diego Wilkins CK.MB [Mass/Vol] 1.16 ng/mL Normal <=3.60 [facility] Comment on above: Performed By: #### C SAVANNAH BERTRAND #### [facility] [address] [address] [address] Diego Wilkins HSTROP 5.4 pg/mL Normal 4.0-76.1 [facility] Comment on above: Result Comment: CUT- OFF POINTS HAVE BEEN ESTABLISHED BASED ON THE FOURTH UNIVERSAL DEFINITIONS OF MYOCARDIAL INFARCTION. THE UPPER REFERENCE LIMIT (URL) OF TROPONIN, DEFINED THE 99TH PERCENTILE OF cTnI DISTRIBUTION IN A REFERENCE POPULATION, HAS BEEN CONFIRMED THE DECISION THRESHOLD FOR NM DIAGNOSIS. Performed By: #### C SAVANNAH BERTRAND #### [facility] [address] [address] [address] Diego Wilkins AUDREY 39 ng/mL Normal 16-96 [facility] Comment on above: Performed By: #### C SAVANNAH BERTRAND #### [facility] [address] [address] [address] Diego Wilkins CBC AUTO DIFFon 12-30-2022 BASO # 0.1 103/ul Normal 0.0-0.1 [facility] Comment on above: Performed By: #### C BC ####[facility] [id number] [id number] Wilkins Basophils/100 WBC (Bld) 0.8 % Normal 0.2-2.0 [facility] Comment on above: Performed By: #### C BC ####[facility] [id number] [id number]. Diego Wilkins EO # 0.2 103/ul Normal 0.0-0.7 [facility] Comment on above: Performed By: #### C BC ####[facility] [address] [address]Dr. Diego Wilkins Eosinophils/100 WBC (Bld) 2.8 % Normal 0.9-7.0 [facility] Comment on above: Performed By: #### C BC ####[facility] [address] [address]Dr. Diego Wilkins Erythrocyte distribution width (RBC) [Ratio] 12.1 % Normal 11.0-15.0 [facility] Comment on above: Performed By: #### C BC ####[facility] [address] [place], [place] [address]Dr. Diego Wilkins Hematocrit (Bld) [Volume fraction] 41.4 % Critically low 42.0-54.0 [facility] Comment on above: Performed By: #### C BC ####[facility] [address] [place], [place] [address]Dr. Diego Wilkins Hemoglobin (Bld) [Mass/Vol] 14.1 g/dL Normal 14.0-18.0 [facility] Comment on above: Performed By: #### C BC ####[facility] [address] [place], [place] [address]Dr. Diego Wilkins IG # 0.02 10e3/ul Normal 0.00-0.03 [facility] Comment on above: Performed By: #### C BC ####[facility] [address] [place], [place] [address]Dr. Diego Wilkins IG % 0.3 % Normal 0.0-0.5 [facility] Comment on above: Performed By: #### C BC ####[facility] [address] [place], [place] [address]Dr. Diego Wilkins LYMPH # 1.6 103/ul Normal 1.2-3.8 [facility] Comment on above: Performed By: #### C BC ####[facility] Quusoautif[address] [place], [place] [address]Dr. Diego Wilkins Lymphocytes/100 WBC (Bld) 25.9 % Normal 20.5-60.0 [facility] Comment on above: Performed By: #### C BC ####[facility] [address] [place] [address]Dr. Diego Wilkins MANUAL DIFF REQ NO Normal [facility] Comment on above: Performed By: #### C BC ####[facility] [address] [place] [address] [id number]. Diego Wilkins MCH (RBC) [Entitic mass] 30.7 pg Normal 25.9-34.0 [facility] Comment on above: Performed By: #### C BC ####[facility] Aydunluqwd[address] [place], [place] [address]Dr. Diego Wilkins MCHC (RBC) [Mass/Vol] 34.1 g/dL Normal 29.9-35.2 [facility] Comment on above: Performed By: #### C BC ####[facility] Kdpkyklngw[address] [place], [place] [address]Dr. Diego Wilkins MCV (RBC) [Entitic vol] 90.0 fL Normal 80.0-94.0 [facility] Comment on above: Performed By: #### C BC ####[facility] Ddeocuolfu[address] [place], [place] [address]Dr. Diego Wilkins MONO # 0.3 103/ul Normal 0.3-0.8 [facility] Comment on above: Performed By: #### C BC ####[facility] Rkcapcpihh[address] [place], [place] [address]Dr. Diego Wilkins Monocytes/100 WBC (Bld) 5.1 % Normal 1.7-12.0 [facility] Comment on above: Performed By: #### C BC ####[facility] Pbmbcnxazj3[address] [place], [place] [address]Dr. Leathaliz Wilkins NEUT # 4.0 103/ul Normal 1.4-6.5 [facility] Comment on above: Performed By: #### C BC ####[facility] Nhyfnahbzd[address] [place], [place] [address]Dr. Diego Wilkins Neutrophils/100 WBC (Bld) 65.1 % Normal 43.0-75.0 [facility] Comment on above: Performed By: #### C BC ####[facility] T[address]orn[address] [place], [place] [address]Tq. Diego Wilkins Platelet mean volume (Bld) [Entitic vol] 10.0 fL Normal 9.5-13.5 [facility] Comment on above: Performed By: #### C BC ####[facility] I[address]xcazmdj67[address] [place], [place] [address]Fs. Diego Wilkins PLT 145 103/ul Critically low 150-450 [facility] Comment on above: Performed By: #### C BC ####[facility] Ldbpeobvgc44[address] [place], [place] [address]Qx. Diego Wilkins RBC 4.60 106/ul Critically low 4.70-6.10 [facility] Comment on above: Performed By: #### C BC ####[facility] Dpbwnmbxop[address] [place] [id number]. Diego Wilkins WBC 6.1 103/ul Normal 4.0-11.0 [facility] Comment on above: Performed By: #### C BC ####[facility] Fgjhkqkzoy8[address] [place] [id number] Wilkins PROF 14(COMP METB)on 023 Albumin [Mass/Vol] 3.5 g/dL Normal 3.4-5.0 [facility] Comment on above: Performed By: #### C SAVANNAH BERTRAND #### [facility] Laboratory [address] [address] [address] Diego Wilkins Albumin/Globulin [Mass ratio] 1.0 {ratio} Normal [facility] Comment on above: Performed By: #### C SAVANNAH BERTRAND #### [facility] Laboratory [address] [address] [address] Diego Wilkins ALP [Catalytic activity/Vol] 116 U/L Normal 46-116 [facility] Comment on above: Performed By: #### C SAVANNAH BERTRAND #### [facility] Laboratory [address] [address] [address] Diego Wilkins ALT [Catalytic activity/Vol] 20 U/L Normal 16-63 [facility] Comment on above: Performed By: #### C ELZA, CMADM #### [facility] Laboratory [address] [address] [address] Diego Wilkins Anion gap [Moles/Vol] 11.2 mmol/L Normal [facility] Comment on above: Performed By: #### C MP, CMADM #### [facility] Laboratory [address] [address] [address] Diego Wilkins AST [Catalytic activity/Vol] 18 U/L Normal 15-37 [facility] Comment on above: Performed By: #### C MP, CMADM #### [facility] Laboratory [address] [address] [address] Diego Wilkins Bilirubin [Mass/Vol] 0.6 mg/dL Normal 0.2-1.0 [facility] Comment on above: Performed By: #### C MP, CMADM #### [facility] Laboratory [address] [place] [address] Dr. Diego Wilkins Calcium [Mass/Vol] 8.7 mg/dL Normal 8.5-10.1 [facility] Comment on above: Performed By: #### C ELZA, CMADM #### [facility] Laboratory [address] [address] [address] Diego Wilkins Chloride [Moles/Vol] 102 mmol/L Normal 98-107 [facility] Comment on above: Performed By: #### C MP, CMADM #### [facility] Laboratory [address] [address] [address] Diego Wilkins CO2 [Moles/Vol] 31.4 mmol/L Normal 21.0-32.0 [facility] Comment on above: Performed By: #### C MP, CMADM #### [facility] Laboratory [address] [address] [address] Diego Wilkins Creatinine [Mass/Vol] 0.76 mg/dL Normal 0.70-1.30 [facility] Comment on above: Performed By: #### C MP, CMADM #### [facility] Laboratory [address] [address] [address] Diego Wilkins EGFR-AF LITHUANIAN >60 Normal >=60 [facility] Comment on above: Performed By: #### C MP, CMADM #### [facility] Laboratory [address] [address] [address] Diego Wilkins EGFR-NON AF LITHUANIAN >60 Normal >=60 [facility] Comment on above: Performed By: #### C MP, CMADM #### [facility] Laboratory [address] [address] [address] Diego Wilkins Globulin (S) [Mass/Vol] 3.6 g/dL Normal [facility] Comment on above: Performed By: #### C MP, CMADM #### [facility] Laboratory [address] [address] [address] Diego Wilkins Glucose [Mass/Vol] 110 mg/dL Critically high 74-106 [facility] Comment on above: Performed By: #### C MP, CMADM #### [facility] Laboratory [address] [address] [address] Diego Wilkins Potassium [Moles/Vol] 3.6 mmol/L Normal 3.5-5.1 [facility] Comment on above: Performed By: #### C MP, CMADM #### [facility] Laboratory [address] [address] [address] Diego Wilkins Protein [Mass/Vol] 7.1 g/dL Normal 6.4-8.2 [facility] Comment on above: Performed By: #### C MP, CMADM #### [facility] Laboratory [address] [address] [address] Diego Wilkins Sodium [Moles/Vol] 141 mmol/L Normal 136-145 [facility] Comment on above: Performed By: #### C MP, CMADM #### [facility] Laboratory [address] [address] [address] Diego Wilkins Urea nitrogen [Mass/Vol] 4.0 mg/dL Critically low 7.0-18.0 [facility] Comment on above: Performed By: #### C MP, CMADM #### [facility] Laboratory [address] [address] [address] Diego Wilkins Urea nitrogen/Creatinine [Mass ratio] 5.3 mg/mg Normal [facility] Comment on above: Performed By: #### C MP, CMADM #### [facility] Laboratory [address] [address] [address] Diego Wilkins T4on 12-30-2022 T4 [Mass/Vol] 8.90 ug/dL Normal 4.50-12.10 [facility] Comment on above: Performed By: #### T 4, TSH #### [facility] Laboratory [phone] Diego Wilkins TROPONIN, HIGH SENSITIVITYon 12-30-2022 HSTROP 4.6 pg/mL Normal 4.0-76.1 [facility] Comment on above: Result Comment: CUT- OFF POINTS HAVE BEEN ESTABLISHED BASED ON THE FOURTH UNIVERSAL DEFINITIONS OF MYOCARDIAL INFARCTION. THE UPPER REFERENCE LIMIT (URL) OF TROPONIN, DEFINED THE 99TH PERCENTILE OF cTnI DISTRIBUTION IN A REFERENCE POPULATION, HAS BEEN CONFIRMED THE DECISION THRESHOLD FOR NM DIAGNOSIS. Performed By: #### H STROPN ####[facility] [address] [place] [phone]. Diego Wilkins TSHon 12-30-2022 TSH 1.729 uIU/mL Normal 0.358-3.740 [facility] Comment on above: Performed By: #### T 4, TSH #### [facility] Laboratory [phone] Diego Wilkins Office Visit (Cardiac Surger [...] have asked him to speak to his [facility] team about the options to help with smoking cessation. We discussed the need for tight blood pressure control, and to take his blood pressure daily. I do believe he should be referred to a rnp, and since he lives in the [facility], we will refer him to one of our cardiology colleagues from [facility]. Lastly, we will refer him to the [...] following a referral by Tonja Wiley CNP ([facility] [place] COURTNEY Ruiz, RN Adult Risk Screening Living [...] did have a coronary stent in 2012. Review of Systems Constitutional: not feeling tired. [...] (414.01,V45.82) (I25 (more content not included)... Normal REMOTV Tobacco Screening.on 023 Fall risk assessment a) No falls within the last year [facility] 1800 Work Phone: Tobacco use status [facility]PH[facility] a) Yes [facility] 1800 Work Phone: Tobacco Screening. Yes [facility] 1800 Work Phone: CT CHEST WO CONon [...] by: DENNIS KIM Date: 2022-11-24 07:39 Normal [facility] CTA ABD/PELVIS WO W CONon CTA [...] by: DENNIS KIM Date: 2022-05-04 07:31 Normal [facility] CTA CHEST WO W CONon 022 [...] ROBBIE ADAMS Date: 2022-04-29 07:42 Normal [facility] CT LUNG CANCER SCREENINGon 0 04-20-2022 CT [...] ROBBIE ADAMS Date: 2022-04-20 09:40 Normal [facility] CBC AUTO DIFFon 04-13-2022 BASO # 0.0 103/ul Normal 0.0-0.1 [facility] Comment on above: Performed By: #### C BC ####[facility] X[address]rb[address] [place], [place] [address]Dr. Diego Wilkins Basophils/100 WBC (Bld) 0.8 % Normal 0.2-2.0 [facility] Comment on above: Performed By: #### C BC ####[facility] Cr[address]oofpt[address] [place] [address]Dr. Diego Wilkins EO # 0.0 103/ul Normal 0.0-0.7 [facility] Comment on above: Performed By: #### C BC ####[facility] Hslxksteb[address] [place], [place] [address]Dr. Diego Wilkins Eosinophils/100 WBC (Bld) 0.3 % Critically low 0.9-7.0 [facility] Comment on above: Performed By: #### C BC ####[facility] Cojolntxmy[address] [place], [place] [address]Dr. Diego Wilkins Erythrocyte distribution width (RBC) [Ratio] 13.0 % Normal 11.0-15.0 [facility] Comment on above: Performed By: #### C BC ####[facility] Eaehlhyunu[address] [place], [place] [address]Dr. Diego Wilkins Hematocrit (Bld) [Volume fraction] 43.3 % Normal 42.0-54.0 [facility] Comment on above: Performed By: #### C BC ####[facility] Htkfldnelm[address] [place], [place] [address]Dr. Diego Wilkins Hemoglobin (Bld) [Mass/Vol] 14.2 g/dL Normal 14.0-18.0 [facility] Comment on above: Performed By: #### C BC ####[facility] Qykudsuxty[address] [place], [place] [address]Dr. Diego Wilkins IG # 0.01 10e3/ul Normal 0.00-0.03 [facility] Comment on above: Performed By: #### C BC ####[facility] Fxqnqervaz[address] [place], [place] [address]Dr. Diego Wilkins IG % 0.3 % Normal 0.0-0.5 [facility] Comment on above: Performed By: #### C BC ####[facility] [address] [place] [address]Qt. Diego Wilkins LYMPH # 0.9 103/ul Critically low 1.2-3.8 [facility] Comment on above: Performed By: #### C BC ####[facility] [address] [place] [address]Dr. Diego Wilkins Lymphocytes/100 WBC (Bld) 23.7 % Normal 20.5-60.0 [facility] Comment on above: Performed By: #### C BC ####[facility] [address] [place] [address]Dr. Diego Wilkins MANUAL DIFF REQ NO Normal [facility] Comment on above: Performed By: #### C BC ####[facility] V[address]nszi[address] [place] [address]Dr. Leathaliz Wilkins MCH (RBC) [Entitic mass] 31.0 pg Normal 25.9-34.0 [facility] Comment on above: Performed By: #### C BC ####[facility] Tagmcnxphk[address] [place], [place] [address]Dr. Leathaliz Wilkins MCHC (RBC) [Mass/Vol] 32.8 g/dL Normal 29.9-35.2 [facility] Comment on above: Performed By: #### C BC ####[facility] W[address]cfr[address] [place] [address]Dr. Diego Wilkins MCV (RBC) [Entitic vol] 94.5 fL Critically high 80.0-94.0 [facility] Comment on above: Performed By: #### C BC ####[facility] Fr[address] [place] [address]Dr. Diego Wilkins MONO # 0.6 103/ul Normal 0.3-0.8 [facility] Comment on above: Performed By: #### C BC ####[facility] Arjnogerhz[address] [place], [place] [address]Dr. Diego Wilkins Monocytes/100 WBC (Bld) 16.8 % Critically high 1.7-12.0 [facility] Comment on above: Performed By: #### C BC ####[facility] [address] [place] [id number]. Diego Wilkins NEUT # 2.1 103/ul Normal 1.4-6.5 [facility] Comment on above: Performed By: #### C BC ####[facility] Oz[address]fuctmr[address] [place] [phone]. Diego Wilkins Neutrophils/100 WBC (Bld) 58.1 % Normal 43.0-75.0 [facility] Comment on above: Performed By: #### C BC ####[facility] R[address]yepb[address] [place] [address]Dr. Diego Wilkins Platelet mean volume (Bld) [Entitic vol] 10.6 fL Normal 9.5-13.5 [facility] Comment on above: Performed By: #### C BC ####[facility] X[address]qu[address] [place] [address]Dr. Diego Wilkins PLT 141 103/ul Critically low 150-450 [facility] Comment on above: Performed By: #### C BC ####[facility] [address]qatmxv[address] [place] [phone]. Diego Wilkins RBC 4.58 106/ul Critically low 4.70-6.[address] [facility] Comment on above: Performed By: #### C BC ####[facility] F[address]nkw[address] [place] [id number]. Diego Wilkins WBC 3.6 103/ul Critically low 4.0-11.0 [facility] Comment on above: Performed By: #### C BC ####[facility] Qf[address]kvqyv[address] [place] [id number]. Diego Wilkins LIPID PROFILEon 04-13-2022 CHOL-HDL RATIO NORM SEE BELOW Normal [facility] Comment on above: Result Comment: 3.3 - 4.4 LOW RISK 4.4 - 7.1 AVERAGE RISK 7.1 - 11.0 MODERATE RISK >11.0 HIGH RISK Performed By: #### L IPID, CMP ####[facility] [address] [place] [address]Dr. Diego Wilkins Cholesterol [Mass/Vol] 71 mg/dL Normal <=200 [facility] Comment on above: Performed By: #### L IPID, CMP ####[facility] Sz[address]ssfork[address] [place] [phone]. Diego Wilkins Cholesterol in HDL [Mass/Vol] 30 mg/dL Critically low 40-60 [facility] Comment on above: Performed By: #### L IPID, CMP ####[facility] [address]yjmep[address] [place] [phone]. Leathaliz Wilkins Cholesterol in LDL [Mass/Vol] 28.4 mg/dL Normal [facility] Comment on above: Performed By: #### L IPID, CMP ####[facility] [address]zxe[address] [place] [phone]. Diego Wilkins Cholesterol.total/C holesterol in HDL [Mass ratio] 2.4 {ratio} Normal [facility] Comment on above: Performed By: #### L IPID, CMP ####[facility] [address]agg[address] [place] [phone]. Diego Wilkins HDL NORMAL > or = 60 mg/dl - LO W CARDIOVASCULAR RISK <40 mg/dl - HIGH CARDIOVASCULAR RISK Normal [facility] Comment on above: Performed By: #### L IPID, CMP ####[facility] [address]jxocp[address] [place] [phone]. Diego Wilkins LDL CALC NORMAL SEE BELOW Normal [facility] Comment on above: Result Comment: <100 mg/dl OPTIMAL 100 - 129 mg/dl NEAR OR ABOVE OPTIMAL 130 - 159 mg/dl BORDERLINE HIGH 160 - 189 mg/dl HIGH >190 mg/dl VERY HIGH Performed By: #### L IPID, CMP ####[facility] Xlf[address]olru[address] [place] [phone]. Diego Wilkins Triglyceride [Mass/Vol] 63 mg/dL Normal <=150 [facility] Comment on above: Performed By: #### L IPID, CMP ####[facility] Lvgucfydfk4[address] [place] [id number]. Leathaliz Franky VLDL CALC 12.6 mg/dL Normal [facility] Comment on above: Performed By: #### L IPID, CMP ####[facility] Tr[address]dmwgq[address] [place] [address]Dr. Diego Wilkins PROF 14(COMP METB)on 022 Albumin [Mass/Vol] 3.9 g/dL Normal 3.4-5.0 [facility] Comment on above: Performed By: #### L IPID, CMP ####[facility] Sw[address]termuvl[address] [place] [address]Dr. Diego Wilkins Albumin/Globulin [Mass ratio] 1.1 {ratio} Normal [facility] Comment on above: Performed By: #### L IPID, CMP ####[facility] Rajqfqiqyw[address] [place] [address]Dr. Diego Wilkins ALP [Catalytic activity/Vol] 141 U/L Critically high 46-116 [facility] Comment on above: Performed By: #### L IPID, CMP ####[facility] Rviwypjrzy[address] [place] [address]Dr. Diego Wilkins ALT [Catalytic activity/Vol] 24 U/L Normal 16-63 [facility] Comment on above: Performed By: #### L IPID, CMP ####[facility] Ympcglenpr[address] [place] [address]Dr. Diego Wilikns Anion gap [Moles/Vol] 9.9 mmol/L Normal [facility] Comment on above: Performed By: #### L IPID, CMP ####[facility] Ucktkptruy[address] [place] [address]Dr. Diego Wilkins AST [Catalytic activity/Vol] 23 U/L Normal 15-37 [facility] Comment on above: Performed By: #### L IPID, CMP ####[facility] [address]fdzczus[address] [place] [address]Dr. Diego Wilkins Bilirubin [Mass/Vol] 0.7 mg/dL Normal 0.2-1.0 [facility] Comment on above: Performed By: #### L IPID, CMP ####[facility] Sa[address]etbhfx[address] [place] [address]Dr. Diego Wilkins Calcium [Mass/Vol] 9.0 mg/dL Normal 8.5-10.1 [facility] Comment on above: Performed By: #### L IPID, CMP ####[facility] Coc[address]qilc[address] [place] [address]Dr. Diego Wilkins Chloride [Moles/Vol] 98 mmol/L Normal 98-107 [facility] Comment on above: Performed By: #### L IPID, CMP ####[facility] Grrsufpfim[address] [place] [address]Dr. Diego Wilkins CO2 [Moles/Vol] 32.6 mmol/L Critically high 21.0-32.0 [facility] Comment on above: Performed By: #### L IPID, CMP ####[facility] Yczmuoxtim[address] [place], [place] [address]Dr. Diego Wilkins Creatinine [Mass/Vol] 0.84 mg/dL Normal 0.70-1.30 [facility] Comment on above: Performed By: #### L IPID, CMP ####[facility] Kuvjnjjrye[address] [place], [place] [address]Dr. Diego Wilkins EGFR-AF LITHUANIAN >60 Normal >=60 [facility] Comment on above: Performed By: #### L IPID, CMP ####[facility] Qempficwdz[address] [place], [place] [address]Dr. Diego Wilkins EGFR-NON AF LITHUANIAN >60 Normal >=60 [facility] Comment on above: Performed By: #### L IPID, CMP ####[facility] Sfnzmbhiuh[address] [place], [place] [address]Dr. Diego Wilkins Globulin (S) [Mass/Vol] 3.4 g/dL Normal [facility] Comment on above: Performed By: #### L IPID, CMP ####[facility] Luikcecyca[address] [place], [place] [address]Dr. Diego Wilkins Glucose [Mass/Vol] 98 mg/dL Normal 74-106 [facility] Comment on above: Performed By: #### L IPID, CMP ####[facility] Mpzzxwdpes[address] [place], [place] [address]Dr. Diego Wilkins Potassium [Moles/Vol] 3.5 mmol/L Normal 3.5-5.1 [facility] Comment on above: Performed By: #### L IPID, CMP ####[facility] Cu[address]wnhwm[address] [place] [address]Dr. Diego Wilkins Protein [Mass/Vol] 7.3 g/dL Normal 6.4-8.2 [facility] Comment on above: Performed By: #### L IPID, CMP ####[facility] Rwkscgfclm[address] [place] [address]Dr. Diego Wilkins Sodium [Moles/Vol] 137 mmol/L Normal 136-145 [facility] Comment on above: Performed By: #### L IPID, CMP ####[facility] Fkqhygspjw[address] [place], [place] [address]Dr. Diego Wilkins Urea nitrogen [Mass/Vol] 5.0 mg/dL Critically low 7.0-18.0 [facility] Comment on above: Performed By: #### L IPID, CMP ####[facility] Xxbswousiw[address] [place], [place] [address]Dr. Diego Wilkins Urea nitrogen/Creatinine [Mass ratio] 6.0 mg/mg Normal [facility] Comment on above: Performed By: #### L IPID, CMP ####[facility] Uufcmnnnxg[address] [place], [place] [address]DrJos Wilkins UA RANDOM W/MICROSCOPICon BACTERIA NONE SEEN Normal NONE SEEN [facility] Comment on above: Performed By: #### U AMIC #### [facility] Laboratory [address] [place] [address] Dr. Diego Wilkins Bilirubin Ql (U) Negative Normal NEGATIVE [facility] Comment on above: Performed By: #### U AMIC #### [facility] Laboratory [address] [place] [address] Dr. Diego Wilkins CAST NONE SEEN Normal NONE SEEN [facility] Comment on above: Performed By: #### U AMIC #### [facility] Laboratory [address] [place] [address] Dr. Diego Wilkins Clarity (U) CLEAR Normal CLEAR [facility] Comment on above: Performed By: #### U AMIC #### [facility] Laboratory [address] [address] [address] Diego Wilkins Color (U) LT. YELLOW Normal YELLOW [facility] Comment on above: Performed By: #### U AMIC #### [facility] Laboratory [address] [address] [address] Diego Wilkins Crystals LM Nom (Urine sed) NONE SEEN Normal NONE SEEN [facility] Comment on above: Performed By: #### U AMIC #### [facility] [address] [place] [address] Dr. Diego Wilkins Epithelial cells LM Ql (Urine sed) RARE Normal NONE SEEN /RARE [facility] Comment on above: Performed By: #### U AMIC #### [facility] [address] [place] [address] Dr. Diego Wilkins Glucose Ql (U) Negative Normal NEGATIVE [facility] Comment on above: Performed By: #### U AMIC #### [facility] [address] [address] [address] Diego Wilkins Hemoglobin Ql (U) Negative Normal NEGATIVE [facility] Comment on above: Performed By: #### U AMIC #### [facility] [address] [place] [address] Dr. Diego Wilkins Ketones Ql (U) Negative Normal NEGATIVE [facility] Comment on above: Performed By: #### U AMIC #### [facility] [address] [address] [address] Diego Wilkins LEUKOCYTES Negative Normal NEGATIVE [facility] Comment on above: Performed By: #### U AMIC #### [facility] [address] [place] [address] Dr. Diego Wilkins MUCOUS NONE SEEN Normal NONE SEEN [facility] Comment on above: Performed By: #### U AMIC #### [facility] [address] [place] [address] Dr. Diego Wilkins Nitrite Ql (U) Negative Normal NEGATIVE [facility] Comment on above: Performed By: #### U AMIC #### [facility] [address] [place] [address] Dr. Diego Wilkins pH (U) 6.0 [pH] Normal 5-9 [facility] Comment on above: Performed By: #### U AMIC #### [facility] [address] [place] [address] Dr. Diego Wilkins RBC NONE SEEN Abnormal 0-2 [facility] Comment on above: Performed By: #### U AMIC #### [facility] [address] [place] [address] Dr. Diego Wilkins SPEC GRAVITY <=1.005 Abnormal 1.005-<=1.025 [facility] Comment on above: Performed By: #### U AMIC #### [facility] [address] [place] [address] Dr. Diego Wilkins UA PROTEIN Negative Normal NEGATIVE/ TRACE [facility] Comment on above: Performed By: #### U AMIC #### [facility] [address] [place] [address] Dr. Diego Wilkins Urobilinogen Qn (U) 1.0 {Shelly'U}/dL Normal 0.2 - 1. 0 [facility] Comment on above: Performed By: #### U AMIC #### [facility] [address] [place] [address] Dr. Diego Wilkins WBC NONE SEEN Normal NONE SEEN [facility] Comment on above: Performed By: #### U AMIC #### [facility] [address] [place] [address] Dr. Diego Wilkins Vital Signs Date Time Vital Sign Value Performing Clinician Facility 12-26-2024 15:48-0500 Body height 176.5 cm Tonja Wiley [employer] Work Phone: [facility] 12-26-2024 15:48-0500 Body mass index (BMI) [Ratio] 22.42 kg/m2 Tonja Wiley [employer] Work Phone: [facility] 12-26-2024 15:48-0500 Body temperature 98.01 [degF] Tonja Wiley [employer] Work Phone: [facility] 12-26-2024 15:48-0500 Body weight 69.85 kg Tonja Kellyholz [employer] Work Phone: [facility] 12-26-2024 15:48-0500 Diastolic blood pressure 76 mm[Hg] Tonja Aichholz [employer] Work Phone: [facility] 12-26-2024 15:48-0500 Heart rate 51 /min Tonja Aichholz [employer] Work Phone: [facility] 12-26-2024 15:48-0500 Respiratory rate 18 /min Tonja Aichholz [employer] Work Phone: [facility] 12-26-2024 15:48-0500 SaO2% (BldA) [Mass fraction] 97 % Tonja Esauhholz [employer] Work Phone: [facility] 12-26-2024 15:48-0500 Systolic blood pressure 118 mm[Hg] Tonja Aichholz [employer] Work Phone: [facility] 09-10-2024 15:37-0400 Body height 176.5 cm Tonja Aichholz [employer] Work Phone: [facility] 09-10-2024 15:37-0400 Body mass index (BMI) [Ratio] 22.42 kg/m2 Tonja Aichholz [employer] Work Phone: [facility] 09-10-2024 15:37-0400 Body temperature 98.01 [degF] Tonja Esauhholz [employer] Work Phone: [facility] 09-10-2024 15:37-0400 Body weight 69.85 kg Tonja Aichholz [employer] Work Phone: [facility] 09-10-2024 15:37-0400 Diastolic blood pressure 66 mm[Hg] Tonja Aichholz [employer] Work Phone: [facility] 09-10-2024 15:37-0400 Heart rate 77 /min Tonja Aichholz [employer] Work Phone: [facility] 09-10-2024 15:37-0400 Respiratory rate 18 /min Tonja Kellyholz [employer] Work Phone: [facility] 09-10-2024 15:37-0400 SaO2% (BldA) [Mass fraction] 98 % Tonja Esauhholz [employer] Work Phone: [facility] 09-10-2024 15:37-0400 Systolic blood pressure 100 mm[Hg] Tonja Aichholz [employer] Work Phone: [facility] 08-08-2024 15:28-0400 Body height 176.5 cm Tonja Aichholz [employer] Work Phone: [facility] 08-08-2024 15:28-0400 Body mass index (BMI) [Ratio] 22.42 kg/m2 Tonja Aichholz [employer] Work Phone: [facility] 08-08-2024 15:28-0400 Body temperature 98.8 [degF] Tonja Esauhholz [employer] Work Phone: [facility] 08-08-2024 15:28-0400 Body weight 69.85 kg Tonja Aichholz [employer] Work Phone: [facility] 08-08-2024 15:28-0400 Diastolic blood pressure 70 mm[Hg] Tonja Esauhholz [employer] Work Phone: [facility] 08-08-2024 15:28-0400 Heart rate 79 /min Tonja Aichholz [employer] Work Phone: [facility] 08-08-2024 15:28-0400 Respiratory rate 18 /min Tonja Aichholz [employer] Work Phone: [facility] 08-08-2024 15:28-0400 SaO2% (BldA) [Mass fraction] 97 % Tonja Esauhholz [employer] Work Phone: [facility] 08-08-2024 15:28-0400 Systolic blood pressure 110 mm[Hg] Tonja Aichholz [employer] Work Phone: [facility] 11-29-2023 11:04-0500 Body height 172.7 cm Roman Hudson MD Work Phone: [facility] 11-29-2023 11:04-0500 Body mass index (BMI) [Ratio] 23.87 kg/m2 Roman Hudson MD Work Phone: [facility] 11-29-2023 11:04-0500 Body weight 71.22 kg Roman Hudson MD Work Phone: [facility] 11-29-2023 11:04-0500 Diastolic blood pressure 68 mm[Hg] Roman Hudson MD Work Phone: [facility] 11-29-2023 11:04-0500 Heart rate 84 /min Roman Hudson MD Work Phone: [facility] 11-29-2023 11:04-0500 SaO2% (BldA) [Mass fraction] 96 % Roman Hudson MD Work Phone: [facility] 11-29-2023 11:04-0500 Systolic blood pressure 105 mm[Hg] Roman Hudson MD Work Phone: [facility] 02-14-2023 15:06-0400 Blood Pressure Location Pauline BAINS [facility] [place] 02-14-2023 15:06-0400 Diastolic blood pressure 84 mm[Hg] Pauline BAINS [facility] [place] 02-14-2023 15:06-0400 Heart rate 68 /min Pauline BAINS [facility] [place] 02-14-2023 15:06-0400 Respiratory rate 16 /min Pauline BAINS [facility] [place] 02-14-2023 15:06-0400 Systolic blood pressure 116 mm[Hg] Pauline BAINS [facility] [place] 01-09-2023 10:00-0500 Diastolic blood pressure 74 mm[Hg] Tonja Talamantes Aichholz [facility] Phone: [facility] [facility] Work Phone: 01-09-2023 10:00-0500 Diastolic blood pressure 82 mm[Hg] Tonja Talamantes Aichholz Work Phone: [facility] [facility] DO Work Phone: 01-09-2023 10:00-0500 Systolic blood pressure 118 mm[Hg] Tonja Talamantes Aichholz Work Phone: [facility] 600 DO Work Phone: 01-09-2023 10:00-0500 Systolic blood pressure 124 mm[Hg] Tonja [facility]antes [facility] Work Phone: 01-09-2023 09:58-0500 Body height 176.53 cm Tonja Jo Aichholz Work Phone: [facility] [employer] 600 DO Work Phone: 01-09-2023 09:58-0500 Body mass index (BMI) [Ratio] 22.27 kg/m2 Tonja Jo Aichholz Work Phone: [facility] 600 DO Work Phone: 01-09-2023 09:58-0500 Body surface area Derived from formula 1.85 m2 Tonja Jo Aichholz Work Phone: [facility] 600 DO Work Phone: 01-09-2023 09:58-0500 Body weight 69.4 kg Tonja Talamantes Aichholz Work Phone: [facility] [employer] 600 DO Work Phone: 01-09-2023 09:58-0500 Heart rate 75 /min Tonja Vinita Aichholz Work Phone: [facility] 600 DO Work Phone: 12-28-2022 13:06-0500 Body height 175.26 cm Unknown Unknown [facility] Work Phone: 12-28-2022 13:06-0500 Body mass index (BMI) [Ratio] 22.52 kg/m2 Unknown Unknown [facility] Work Phone: 12-28-2022 13:06-0500 Body surface area Derived from formula 1.84 m2 Unknown Unknown [facility] Work Phone: 12-28-2022 13:06-0500 Body weight 69.17 kg Unknown Unknown [facility] 1800 Work Phone: 12-28-2022 13:06-0500 Diastolic blood pressure 81 mm[Hg] Unknown Unknown [facility] Work Phone: 12-28-2022 13:06-0500 Heart rate 60 /min Unknown Unknown [facility] Work Phone: 12-28-2022 13:06-0500 SaO2% (BldA) [Mass fraction] 94 % Unknown Unknown [facility] Work Phone: 12-28-2022 13:06-0500 Systolic blood pressure 152 mm[Hg] Unknown Unknown [facility] Work Phone: 12-28-2022 13:06-0500 0 1 Unknown Unknown [facility] Work Phone: Comment on above: [employer] Encounters Encounter Date Encounter Type Care Provider Facility Start: 12-26-2024 End: 12-26-2024 Office outpatient visit 25 minutes Tonja Wiley [employer] Work Phone: [facility] Comment on above: Primary hypertension (CMS/HCC) (Primary Dx); Other emphysema (CMS/HCC); 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 (CMS/HCC); Gastroesophageal reflux disease, unspecified whether esophagitis present; Mixed hyperlipidemia (CMS/HCC); Cigarette nicotine dependence without complication; Aneurysm of ascending aorta without rupture (CMS/HCC); Abdominal aortic aneurysm (AAA) without rupture, unspecified part (CMS/HCC); Encounter for screening for lung cancer Start: 12-26-2024 End: 12-26-2024 ambulatory TONJA AICHHOLZ Not Available Start: 12-26-2024 End: 12-26-2024 Bamboo flowsheet Tonja Wiley [employer] Work Phone: [facility] Start: 12-26-2024 End: 12-26-2024 Bamboo flowsheet Tonja Wiley [employer] Work Phone: [facility] Start: 11-27-2024 End: 11-27-2024 Refill Tonja Saurabh [employer] Work Phone: [facility] Comment on above: Gastroesophageal ref lux disease, unspecified whether esophagitis present Start: 10-07-2024 End: 10-07-2024 Refill Tonja Saurabh [employer] Work Phone: [facility] Comment on above: Coronary artery dise ase involving venetie coronary artery of venetie heart without angina pectoris (CMS/HCC) Start: 09-10-2024 End: 09-10-2024 Office outpatient visit 15 minutes Tonja Wiley [employer] Work Phone: [facility] Comment on above: Primary hypertension (CMS/HCC) (Primary Dx); Tobacco dependence Start: 09-10-2024 End: 09-10-2024 ambulatory TONJA AICHHOLZ Not Available Start: 09-10-2024 End: 09-10-2024 Bamboo flowsheet Tonja Wiley [employer] Work Phone: [facility] Start: 09-10-2024 End: 09-10-2024 Bamboo flowsheet Tonja Wiley [employer] Work Phone: [facility] Start: 09-07-2024 End: 09-09-2024 Clinisync Result Encounter Tonja Saurabh [employer] Work Phone: [facility] Unsolicited Start: 09-07-2024 End: 09-09-2024 Clinisync Result Encounter Tonja Sarahz [employer] Work Phone: [facility] Unsolicited Start: 08-19-2024 End: 08-19-2024 Clinisync Result Encounter Tonja Kellyholz [employer] Work Phone: [facility] Unsolicited Start: 08-19-2024 End: 08-19-2024 Clinisync Result Encounter Tonja Sarahz [employer] Work Phone: [facility] Unsolicited Start: 08-19-2024 End: 08-19-2024 Refill Tonja Saurabh [employer] Work Phone: [facility] Comment on above: Hypokalemia (Primary Dx) Start: 08-08-2024 End: 08-08-2024 Office outpatient visit 25 minutes Tonja Saurabh [employer] Work Phone: [facility] Comment on above: Primary hypertension (CMS/HCC) (Primary Dx); Tobacco dependence; Other emphysema (CMS/HCC); Prostate cancer screening; 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 (CMS/HCC); Gastroesophageal reflux disease, unspecified whether esophagitis present Start: 08-08-2024 End: 08-08-2024 ambulatory TONJA KELLYHOLZ Not Available Start: 08-08-2024 End: 08-08-2024 Bamboo flowsheet Tonja Kellyholz [employer] Work Phone: [facility] Start: 08-08-2024 End: 08-08-2024 Bamboo flowsheet Tonja Esauhholz [employer] Work Phone: [facility] Start: 07-30-2024 End: 07-30-2024 Refill Tonja Kellyholz [employer] Work Phone: [facility] Comment on above: Other emphysema (CMS /HCC) (Primary Dx); Primary hypertension ([facility]); 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 Comment on above: Ascending aortic ane urysm, unspecified whether ruptured ([facility]) Start: 01-17-2024 End: 01-18-2024 ambulatory [facility] Start: 12-14-2023 End: 12-14-2023 Subsequent hospital visit by physician Madeline Daily [facility] Comment on above: Ascending aorta dila tation ([facility]) Start: 12-14-2023 End: 12-14-2023 ambulatory [facility] Start: 11-29-2023 End: 11-29-2023 ambulatory [facility] Start: 11-29-2023 End: 11-29-2023 Office outpatient new 60 minutes Roman Hudson MD Work Phone: [facility] Comment on above: Ascending aorta dila tion ([facility]) Start: 03-14-2023 End: 03-15-2023 ambulatory Pauline BAINS Facility: [facility] Start: 03-14-2023 End: 03-14-2023 Patient encounter procedure Pauline BAINS [facility] Start: 03-01-2023 End: 03-02-[address] PAULINE BAINS . Facility: Start: 02-14-2023 End: 02-15-2023 ambulatory Pauline BAINS Facility:[facility] Start: 02-14-2023 End: 02-14-2023 Patient encounter procedure Pauline Rodriguez NILL General Surgery Nill/[facility] Start: 01-17-2023 End: 01-18-2023 ambulatory TIFFANY WILEY Facility:[facility] Start: 01-09-2023 Office consultation new/estab patient 60 min Tonja Wiley Work Phone: [facility] 600 DO Work Phone: Start: 01-09-[address] Jess Marroquin Facility: Start: 12-30-2022 End: 12-30-2022 ambulatory TIFFANY WILEY Facility:[facility] Start: 12-28-2022 Office consultation new/estab patient 80 min Unknown Unknown [facility] Work Phone: Start: 12-28-2022 ambulatory UNKNOWN UNKNOWN Facilit y:[facility] Start: 11-23-2022 End: 11-24-2022 ambulatory [employer] ANALYST TONJA SAURABH Facility:[facility] Start: 05-03-2022 End: 05-04-2022 ambulatory SOC[employer] INSURANCE ANALYST TONJA SAURABH Facility:[facility] Start: 04-28-2022 End: 04-29-2022 ambulatory [employer] INSURANCE ANALYST TONJA SARAHZ Facility:[facility] Start: 04-20-2022 End: 04-21-2022 ambulatory SOC[employer] INSURANCE ANALYST TONJA SARAHZ Facility:[facility] Start: 04-13-2022 End: 04-14-2022 ambulatory [employer] INSURANCE ANALYST TONJA KELLYHOLZ Facility:[facility] Procedures Date Procedure Procedure Detail Performing Clinician Start: 09-07-2024 ALL POTASSIUM Tonja Esauh hugo [employer] Work Phone: Start: 08-19-2024 ALL CBC WITH AUTO DIFF Tonja Aichholz [employer] Work Phone: Start: 08-19-2024 TBH UA (CLEAN/CATCH) MICROSCOPIC IF INDICATE Tonja Aichholz [employer] Work Phone: Start: 12-14-2023 CT ANGIO CHEST W AND WO IV CONTRAST ROMAN HUDSON Start: 03-01-2023 Colonoscopy Roman rogers MD Work Phone: Start: 03-01-2023 Colonoscopy Pauline RENTERIA LL Start: 04-13-2022 PSA screening [employer] INSURANCE ANALYST TONJA WILEY Comment on above: Performed By: #### [facility] #### [facility] Laboratory [address] [place] [address] Dr. Diego Wilkins Start: 11-20-2020 Colonoscopy Tonja Vinita avila Work Phone: Start: 01-19-2020 Colonoscopy Pauline RENTERIA LL Cardiac catheterization Mike tyler NILL Placement of stent i n cardiac conduit Pauline NILL Placement of stent i n coronary artery Unknown Unknown Plan of Treatment Date Care Activity Detail Author Start: 03-01-2033 Screening for malign ant neoplasm of colon [facility] Start: 03-10-2028 Screening for malign ant neoplasm of colon [facility] Start: 03-25-2025 End: 03-25-2025 Patient encounter procedure 03/25/2025 3:40 PM EDT Office Visit [facility] [address] [place] [phone] Tonja Wiley NP [address] [place] [phone] [facility] Start: 12-26-2024 End: 12-26-2024 Patient encounter procedure 12/26/2024 3:40 PM EST Office Visit [facility] [address] [place] [phone] Tonja Wiley NP [address] [place] [phone] 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 (CMS/HCC) (Primary Dx); Other emphysema (CMS/HCC); Primary hypertension (CMS/HCC); Gastroesophageal reflux disease, unspecified whether esophagitis present; Mixed hyperlipidemia (CMS/HCC); Tobacco dependence; Aneurysm of ascending aorta without rupture (CMS/HCC); Abdominal aortic aneurysm (AAA) without rupture, unspecified part (CMS/HCC) [facility] Comment on above: Coronary artery dise ase involving venetie coronary artery of venetie heart without angina pectoris (CMS/HCC) (Primary Dx); Other emphysema (CMS/HCC); Primary hypertension (CMS/HCC); Gastroesophageal reflux disease, unspecified whether esophagitis present; Mixed hyperlipidemia (CMS/HCC); Tobacco dependence; Aneurysm of ascending aorta without rupture (CMS/HCC); Abdominal aortic aneurysm (AAA) without rupture, unspecified part (CMS/HCC) Start: 12-26-2024 End: 12-26-2025 CT Chest for screening WO contrast CT lung screening low dose Imaging Routine Cigarette nicotine dependence without complication Encounter for screening for lung cancer Expected: 12/26/2024 (Approximate), Expires: 12/26/2025 [facility] Work Phone: Comment on above: Expected: 12/26/2024 (Approximate), Expires: 12/26/2025 Start: 12-11-2024 End: 12-11-2024 Patient encounter procedure 12/11/2024 3:20 PM EST Office Visit [facility] [address] [place] [phone] Tonja Wiley NP [address] [place] [phone] [facility] Start: 09-10-2024 End: 09-10-2024 Patient encounter procedure [facility] Comment on above: Arrived Start: 09-09-2024 End: 08-19-2025 Potassium [Moles/volume] in Serum or Plasma Potassium Lab Routine Hypokalemia Expected: 09/09/2024 (Approximate), Expires: 08/19/2025 [facility] Work Phone: Comment on above: Expected: 09/09/2024 (Approximate), Expires: 08/19/2025 Start: 08-08-2024 End: 08-08-2024 Patient encounter procedure [facility] Comment on above: Tobacco dependence ( Primary Dx); Primary hypertension (CMS/HCC); Other emphysema (CMS/HCC); Prostate cancer screening; 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 (CMS/HCC) Start: 08-08-2024 End: 08-08-2025 CBC W Auto Differential panel - Blood CBC and differential Lab Routine Tobacco dependence Other emphysema (CMS/HCC) 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 (CMS/HCC) Expected: 08/08/2024 (Approximate), Expires: 08/08/2025 [facility] Work Phone: Comment on above: Expected: 08/08/2024 (Approximate), Expires: 08/08/2025 Start: 08-08-2024 End: 08-08-2025 Comprehensive metabolic 2000 panel - Serum or Plasma Comprehensive metabolic panel Lab Routine Primary hypertension (CMS/HCC) 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 (CMS/HCC) Expected: 08/08/2024 (Approximate), Expires: 08/08/2025 [facility] Comment on above: Expected: 08/08/2024 (Approximate), Expires: 08/08/2025 Start: 08-08-2024 End: 08-08-2025 Lipid 1996 panel - Serum or Plasma Lipid panel Lab Routine 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 (CMS/HCC) Expected: 08/08/2024 (Approximate), Expires: 08/08/2025 [facility] Comment on above: Expected: 08/08/2024 (Approximate), Expires: 08/08/2025 Start: 08-08-2024 End: 08-08-2025 Microalbumin/Creatinine panel in random Urine Microalbumin / creatinine, urine ratio Lab Routine Primary hypertension (CMS/HCC) Expected: 08/08/2024 (Approximate), Expires: 08/08/2025 [facility] Comment on above: Expected: 08/08/2024 (Approximate), Expires: 08/08/2025 Start: 08-08-2024 End: 08-08-2025 Prostate specific Ag [Mass/volume] in Serum or Plasma PSA Lab Routine Prostate cancer screening Expected: 08/08/2024 (Approximate), Expires: 08/08/2025 [facility] Comment on above: Expected: 08/08/2024 (Approximate), Expires: 08/08/2025 Start: 08-08-2024 End: 08-08-2025 Urinalysis complete panel - Urine Urinalysis with reflex microscopic (clean catch) Lab Routine Primary hypertension (CMS/HCC) Expected: 08/08/2024 (Approximate), Expires: 08/08/2025 [facility] Comment on above: Expected: 08/08/2024 (Approximate), Expires: 08/08/2025 Start: 07-21-2024 Influenza vaccination Influenza Vacc ine (#1) [facility] Start: 01-17-2024 End: 01-17-2024 Telemedicine consultation with patient 01/17/2024 1:20 PM EST Telemedicine [facility] [address] [facility] [address] [place] [phone] [place] [address] Department [place] [address] [facility] Start: 01-09-2024 FUV, Provider: Jess Marroquin, Status: Pen, Time: 9:20 AM FUV, Provider: Jess Marroquin, Status: Pen, Time: 9:[address] [facility] 600 DO Work Phone: Start: 01-09-2024 End: 01-09-2024 Patient encounter procedure 01/09/2024 9:20 AM EST Office Visit [place] [address] [facility] [address] [place] [address] Jess Marroquin MD [address] [facility] [address] [place] [address] [facility] Start: 11-29-2023 NPV, Provider: Roman Hudson, Status: Pen, Time: 11:30 AM NPV, Provider: Roman Hudson, Status: Pen, Time: 11:30 AM [facility] 600 DO Work Phone: Start: 01-11-2023 NPV, Provider: Roman Hudson, Status: Pen, Time: 2:30 PM NPV, Provider: Roman Hudson, Status: Pen, Time: 2:30 PM [facility] Work Phone: Start: 06-30-2018 Pneumococcal Vaccine : Pediatrics (0 to 5 Years) and At-Risk Patients (6 to 64 Years) (2 - PCV) Pneumococcal Vaccine: Pediatrics (0 to 5 Years) and At-Risk Patients (6 to 64 Years) (2 - PCV) [facility] Start: 2011 Zoster Vaccines (1 of 2) Zoster Vacc kita (1 of 2) [facility] Start: 1983 DTaP/Tdap/Td Vaccine s (1 - Tdap) DTaP/Tdap/Td Vaccines (1 - Tdap) [facility] Start: 1979 Hepatitis C screening Hepatitis C [facility] Start: 1967 Pneumococcal Vaccine : Pediatrics (0 to 5 Years) and At-Risk Patients (6 to 64 Years) (1 - PCV) Pneumococcal Vaccine: Pediatrics (0 to 5 Years) and At-Risk Patients (6 to 64 Years) (1 - PCV) [facility] Start: 1962 MMR Vaccines (1 of 1 - Standard series) MMR Vaccines (1 of 1 - Standard series) [facility] Start: 02-09-1962 COVID-19 Vaccine (#1) COVID-19 Vacci ne (#1) [facility] Start: 1961 HIV screening HIV Screening [facility] Start: 1961 Lipid panel Lipid Panel [facility] Start: 1961 Screening for malign ant neoplasm of colon [facility] Start: 1961 Yearly Adult Physical Yearly Adult P hysical [facility] End: 12-14-2023 CTA Chest vessels WO and W contrast IV [facility] Service Area Work Phone: Comment on above: Once for 1 Occurrenc es starting 12/14/2023 until 12/14/2023 Immunizations Immunization Date Immunization Notes Care Provider Flip yañez 08-08-2024 influenza virus vacc ine, unspecified formulation Tonja Wiley WOOL [employer]ER Work Phone: [facility] 07-13-2023 influenza, injectabl e, quadrivalent, preservative free Roman Hudson MD Work Phone: [facility] Work Phone: 07-13-2023 influenza virus vacc ine, unspecified formulation Tonja Wiley [employer] Work Phone: [facility] 08-20-2022 influenza virus vacc ine, unspecified formulation Pauline BAINS [facility] [place] 08-20-2022 influenza, seasonal, injectable Tonja Wiley Work Phone: [facility] 600 DO Work Phone: 08-18-2020 influenza, injectabl e, quadrivalent, preservative free Unknown Unknown [facility] Work Phone: 07-12-2019 influenza, injectabl e, quadrivalent, preservative free Unknown Unknown [facility] Work Phone: 06-30-2017 pneumococcal polysaccharide vaccine, 23 valent Tonja Wiley Work Phone: [facility] 600 DO Work Phone: Comment on above: Series: Payers Date Payer Category Payer Private Health Insurance [employer] [id number] 2023 Unknown 1961 Unknown [id number] [id number]. 356 1961 Unknown [id number] 2.16.840.1.585121.3.579.2. 356 1961 Unknown [id number] 2.16.840.1.421805.3.579.2. 593 1961 Unknown [id number] 2.16.840.1.713366.3.579.2. 593 1961 Unknown [id number] 2.16.840.1.427795.3.579.2. 593 1961 Unknown [id number] 2.16.840.1.269253.3.579.2. 593 1961 Unknown [id number] 2.16.840.1.350263.3.579.2. 593 1961 Unknown [id number] 2.16.840.1.981961.3.579.2. 593 1961 Unknown [id number] 2.16.840.1.339487.3.579.2. 593 1961 Unknown [id number] 2.16.840.1.156254.3.579.2. 593 1961 Unknown [id number] 2.16.840.1.404795.3.579.2. 727 1961 Unknown [id number] 2.16.840.1.533021.3.579.2. 727 1961 Unknown [id number] 2.16.840.1.404175.3.579.2. 727 1961 Unknown [id number] 2.16.840.1.758660.3.579.2. 1245 1961 Unknown [id number] 2.16.840.1.080827.3.579.2. 1245 1961 Unknown [id number] 2.16.840.1.418338.3.579.2. 1246 1961 Unknown [id number] 2.16.840.1.249071.3.579.2. 1258 1961 Unknown [id number] 2.16.840.1.097677.3.579.2. 1259 1961 Unknown [id number] 2.16.840.1.495122.3.579.2. 1258 1961 Unknown [id number] 2.16.840.1.643299.3.579.2. 1259 1959 Unknown [id number] Social History Date Type Detail Facility Start: 11-29-2023 End: 05-07-2024 Current every day smoker Current every day smoker [facility] Comment on above: 1.5PPD sometimes mor e; Start: 02-14-2023 Tobacco smoking status Heavy t obacco smoker (finding) [facility] Tobacco smoking status Never [facility] Start: 11-29-2023 End: 05-07-2024 Sex Assigned At Male [facility] Start: 11-06-2023 End: 11-28-2023 Tobacco smoking status NHIS Smokes tobacco daily [facility] Work Phone: History of tobacco use Cigarette Smoker [facility] Work Phone: Start: 1960 Sex Assigned At Not on file [facility] Work Phone: Start: 11-19-2023 End: 12-14-2023 Exposure to SARS-CoV-2 (event) Not sure [facility] Start: 12-15-2023 Alcohol intake Lifetime non-d margarita (finding) [facility] Work Phone: Start: 11-06-2023 Tobacco use and exposure Former smokeless tobacco user [facility] End: 10-12-2023 History of tobacco use User of smokeless tobacco [facility] Functional Status Date Assessment Result Facility 02-14-2023 Functional Status N/A [facility] Clinical Notes 11-23-2022 to 12-26-2024 Tonja Wiley NP - 12/26/2024 4:33 PM Mona Wiley NP - 12/26/2024 3:40 PM ESTTonja Wiley, AALIYAH - 12/26/2024 7:51 AM ESTTonja Wiley, AALIYAH - 12/26/2024 7:50 AM ESTPatient Instructions Note Date & Type Note Facility 12-26-2024 History of Present illness Narrative Associated Problem(s): Encounter for screening for lung cancer Patient meets requirements for low dose CT scan for lung cancer screening: age 55-80, patient is a current smoker or has quit in the last 15 years. Smoking history is > or equal to 30 pack-year. If needed the patient is able or willing to receive treatment. The patient is not currently exhibiting any s/s of lung cancer. We have discussed the benefits as well as harms of screening, follow up testing if needed, false positive rates. We have also discussed that this type of CT scan has less radiation exposure than a traditional lung CT scan. We have also discussed that it is important to follow with annual screening for this. The patient has also been counseled on the importance of smoking cessation. Smokes: 1.25ppdX 50 years Images from the original note were not included. Jatinder Calvert is a 64 y.o. male presents with chief complaint of No chief complaint on file. HPI: COPD: did not like the way loni worked, he does admit to cough, clear mucus, with some wheezing at HS, does use albuterol as well prn Does get dyspnea with mild strenuous work. Hypertension This is a chronic problem. The current episode started more than 1 year ago. The problem is unchanged. The problem is controlled. Associated symptoms include shortness of breath. Pertinent negatives include no blurred vision, chest pain or peripheral edema. There are no associated agents to hypertension. Risk factors for coronary artery disease include dyslipidemia, male gender and smoking/tobacco exposure. Past treatments include TANA inhibitors and calcium channel blockers. The current treatment provides significant improvement. There are no compliance problems. Hypertensive end-organ damage includes CAD/NM. There is no history of CVA, heart failure, left ventricular hypertrophy or PVD. SUBJECTIVE: MEDICATIONS: Current Outpatient Medications Medication Instructions albuterol HFA 90 mcg/act inhaler 2 puffs, Inhalation, Every 6 hours PRN amLODIPine (NORVASC) 5 mg, Oral, Daily aspirin 81 mg, Daily atorvastatin (LIPITOR) 80 mg, Oral, Every evening lisinopril 10 mg, Oral, Daily, Take 10 mg by mouth in the morning. meclizine (ANTIVERT) 25 mg, Every 8 hours PRN omeprazole (PRILOSEC) 20 mg, Oral, Daily before breakfast tiotropium-olodaterol (Stiolto Respimat) 2.5-2.5 MCG/ACT aerosol solution inhaler 2 Inhalation , Inhalation, Daily ALLERGIES: No Known Allergies REVIEW OF SYMPTOMS: Review of Systems Constitutional: Negative for activity change, appetite change and unexpected weight change. HENT: Negative for ear pain, nosebleeds, sneezing, trouble swallowing and voice change. Eyes: Negative for blurred vision, pain, discharge and visual disturbance. Respiratory: Positive for shortness of breath and wheezing. Negative for apnea and chest tightness. Cardiovascular: Negative for chest pain and leg swelling. Gastrointestinal: Negative for abdominal distention, blood in stool, constipation and diarrhea. Genitourinary: Negative for decreased urine volume, difficulty urinating, dysuria and hematuria. Skin: Negative for color change. Neurological: Negative for dizziness, tremors and seizures. Psychiatric/Behavioral: Negative for agitation, decreased concentration, hallucinations, self-injury and suicidal ideas. The patient is not nervous/anxious. Hematological: Negative for adenopathy. Does not bruise/bleed easily. Endocrine: Negative for cold intolerance, heat intolerance, polydipsia and polyuria. Allergic/Immunologic: Negative for environmental allergies and food allergies. 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 OBJECTIVE: Visit Vitals BP 118/76 (BP Location: Left arm, Patient Position: Sitting, BP Cuff Size: Adult long) Pulse 51 Temp 98 F (Temporal) Resp 18 Ht 5' 9.5 Wt 154 lb SpO2 97% BMI 22.42 kg/m Smoking Status Every Day BSA 1.85 m Physical Exam Vitals and nursing note reviewed. Constitutional: Appearance: Normal appearance. He is not ill-appearing or toxic-appearing. HENT: Head: Normocephalic. Right Ear: External ear normal. Left Ear: External ear normal. Nose: Nose normal. Mouth/Throat: Mouth: Mucous membranes are moist. Pharynx: Oropharynx is clear. Eyes: Extraocular Movements: Extraocular movements intact. Conjunctiva/sclera: Conjunctivae normal. Neck: Vascular: No carotid bruit. Cardiovascular: Rate and Rhythm: Normal rate and regular rhythm. Pulses: Normal pulses. Heart sounds: Normal heart sounds. Pulmonary: Effort: Pulmonary effort is normal. Breath sounds: Normal breath sounds. No wheezing or rales. Abdominal: General: Bowel sounds are normal. Palpations: Abdomen is soft. Musculoskeletal: Cervical back: Neck supple. Right lower leg: No edema. Left lower leg: No edema. Lymphadenopathy: Cervical: No cervical adenopathy. Skin: General: Skin is warm and dry. Capillary Refill: Capillary refill takes 2 to 3 seconds. Neurological: General: No focal deficit present. Mental Status: He is alert. Psychiatric: Mood and Affect: Mood normal. Behavior: Behavior normal. Thought Content: Thought content normal. Judgment: Judgment normal. ASSESSMENT AND PLAN: Follow up in about 3 months (around 03/25/2025) for Recheck. Problem List Items Addressed This Visit 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 (CMS/HCC) - Primary No current symptoms Current meds: amlodipine, asa, statin, tana Primary hypertension (CMS/HCC) Please check blood pressure daily and record DASH diet Limit caffeine Take medication as directed Contact office if chest pain, pressure, dizziness, shortness of breath, swelling legs Recommend slow position changes Current meds: amlodipine, tana GERD (gastroesophageal reflux disease) Recommendations: freq small meals, nothing to eat or drink at least 2 hours prior to bed, limit caffeine, alcohol, as well as spicy foods Meds to limit or avoid if possible: NSAIDS Elevate HOB if possible Current meds: omeprazole Abdominal aortic aneurysm, without rupture, unspecified (CMS/HCC) Cont with CV for monitoring Ascending aortic aneurysm (CMS/HCC) Continue with CV for monitoring Hyperlipidemia (CMS/HCC) On statin therapy Check labs yearly and prn dose changes Cigarette nicotine dependence without complication The patient has been advised of the risks of continued smoking: stroke, NM, all forms of cancer, lung disease, and . Options for quitting smoking include: cold turkey, hypnosis, acupuncture, nicotine replacement meds (gum, lozenges, and patches), Buproprion, and Varenicline. At this time pt is encouraged to evaluate their goals for wanting to quit smoking, and reach out to provider when ready to start this process Relevant Orders CT lung screening low dose Other emphysema (CMS/HCC) Albuterol inhaler prn Recommend smoking cessation Will trial stiolito #2 samples given Lot: [id number], exp 08/14 Encounter for screening for lung cancer Patient meets requirements for low dose CT scan for lung cancer screening: age 55-80, patient is a current smoker or has quit in the last 15 years. Smoking history is > or equal to 30 pack-year. If needed the patient is able or willing to receive treatment. The patient is not currently exhibiting any s/s of lung cancer. We have discussed the benefits as well as harms of screening, follow up testing if needed, false positive rates. We have also discussed that this type of CT scan has less radiation exposure than a traditional lung CT scan. We have also discussed that it is important to follow with annual screening for this. The patient has also been counseled on the importance of smoking cessation. Smokes: 1.25ppdX [address] lung screening low dose Associated Problem(s): Ascending aortic aneurysm (CMS/HCC) Continue with CV for monitoring Associated Problem(s): Abdominal aortic aneurysm, without rupture, unspecified (CMS/HCC) Cont with CV for monitoring Associated Problem(s): Cigarette nicotine dependence without complication The patient has been advised of the risks of continued smoking: stroke, NM, all forms of cancer, lung disease, and . Options for quitting smoking include: cold turkey, hypnosis, acupuncture, nicotine replacement meds (gum, lozenges, and patches), Buproprion, and Varenicline. At this time pt is encouraged to evaluate their goals for wanting to quit smoking, and reach out to provider when ready to start this process Associated Problem(s): Hyperlipidemia (CMS/HCC) On statin therapy Check labs yearly and prn dose changes Associated Problem(s): GERD (gastroesophageal reflux disease) Recommendations: freq small meals, nothing to eat or drink at least 2 hours prior to bed, limit caffeine, alcohol, as well as spicy foods Meds to limit or avoid if possible: NSAIDS Elevate HOB if possible Current meds: omeprazole Associated Problem(s): Primary hypertension (CMS/HCC) Please check blood pressure daily and record DASH diet Limit caffeine Take medication as directed Contact office if chest pain, pressure, dizziness, shortness of breath, swelling legs Recommend slow position changes Current meds: amlodipine, tana Associated Problem(s): 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 (CMS/HCC) No current symptoms Current meds: amlodipine, asa, statin, tana Associated Problem(s): Other emphysema (CMS/HCC) Albuterol inhaler prn Recommend smoking cessation Will trial stiolito #2 samples given Lot: [id number], exp 08/14 documented in this encounter [facility] 12-26-2024 Instructions Tonja Wiley NP - 12/26/2024 3:40 PM EST Low dose CT scan for lung cancer screening: will fax to [facility] they should schedule. If they do not call you in 10 days, call them: [phone] Try stiolito 2 puffs daily documented in this encounter [facility] 09-10-2024 History of Present illness Narrative Associated Problem(s): Tobacco dependence The patient has been advised of the risks of continued smoking: stroke, NM, all forms of cancer, lung disease, and . Options for quitting smoking include: cold turkey, hypnosis, acupuncture, nicotine replacement meds (gum, lozenges, and patches), Buproprion, and Varenicline. At this time pt is encouraged to evaluate their goals for wanting to quit smoking, and reach out to provider when ready to start this process Associated Problem(s): Primary hypertension (CMS/HCC) Continue amlodipine at 5mg daily Continue all other blood pressure meds Fu in 3 months for recheck Pt states he does not feel any different however the dizziness has cut down drastically. Images from the original note were not included. Jatinder Calvert is a 64 y.o. male presents with chief complaint of No chief complaint on file. HPI: Here for recheck of blood pressure: since his last visit, we lowered the dose of amlodipine to 5mg, d/t dizziness and lightheadedness. He reports there has been significant improvement in the dizziness, still occ with position changes, but not happening on a daily basis. Denies chest pain, pressure, or swelling in legs SUBJECTIVE: MEDICATIONS: Current Outpatient Medications Medication Instructions albuterol HFA 90 mcg/act inhaler 2 puffs, Inhalation, Every 6 hours PRN amLODIPine (NORVASC) 5 mg, Oral, Daily aspirin 81 mg, Oral, Daily atorvastatin (LIPITOR) 80 mg, Oral, Every evening Ktkvlfy-Nhdvtgduuxy-Sqxezgygos (Breztri Aerosphere) 160-9-4.8 MCG/ACT aerosol 2 puffs, Inhalation, 2 times daily, Rinse mouth after use lisinopril 10 mg, Oral, Daily, Take 10 mg by mouth in the morning. meclizine (ANTIVERT) 25 mg, Oral, Every 8 hours PRN omeprazole (PRILOSEC) 20 mg, Oral, Daily before breakfast ALLERGIES: No Known Allergies REVIEW OF SYMPTOMS: Review of Systems Constitutional: Negative for activity change, appetite change and unexpected weight change. HENT: Negative for ear pain, nosebleeds, sneezing, trouble swallowing and voice change. Eyes: Negative for pain, discharge and visual disturbance. Respiratory: Positive for cough and shortness of breath (with physical activity). Negative for apnea, chest tightness and wheezing. Cardiovascular: Negative for leg swelling. Gastrointestinal: Negative for abdominal distention, blood in stool, constipation and diarrhea. Genitourinary: Negative for decreased urine volume, difficulty urinating, dysuria and hematuria. Skin: Negative for color change. Neurological: Positive for dizziness. Negative for tremors, seizures and facial asymmetry. Psychiatric/Behavioral: Negative for agitation, decreased concentration, hallucinations, self-injury and suicidal ideas. The patient is not nervous/anxious. Hematological: Negative for adenopathy. Does not bruise/bleed easily. Endocrine: Negative for cold intolerance, heat intolerance, polydipsia and polyuria. Allergic/Immunologic: Negative for environmental allergies and food allergies. PAST MEDICAL HISTORY Past Medical History: Diagnosis Date Abnormal CBC Abnormal computed tomography angiography (CTA) Abnormal CT lung screening Aneurysm, thoracic aortic (CMS/HCC) CAD (coronary artery disease) ([facility]/HCC) Centrilobular emphysema (CMS/HCC) Chest pain, cardiac 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 ([facility]/HCC) 11/06/2023 Dyspnea Elevated alkaline phosphatase level Erectile dysfunction GERD (gastroesophageal reflux disease) 01/15/2024 Headache HTN (hypertension) ([facility]/HCC) Leg cramps Nevus Primary hypertension ([facility]/HCC) 11/06/2023 Serum total bilirubin elevated 11/05/2023 Tobacco use URI (upper respiratory infection) Past Surgical History: Procedure Laterality Date HEART CATH 1 stent family history includes Diabetes in his mother; Heart disease in his father. OBJECTIVE: Visit Vitals BP 100/66 (BP Location: Left arm, Patient Position: Sitting, BP Cuff Size: Adult long) Pulse 77 Temp 98 F (Temporal) Resp 18 Ht 5' 9.5 Wt 154 lb SpO2 98% BMI 22.42 kg/m Smoking Status Every Day BSA 1.85 m Physical Exam Vitals and nursing note reviewed. Constitutional: Appearance: Normal appearance. HENT: Head: Normocephalic. Right Ear: External ear normal. Left Ear: External ear normal. Nose: Nose normal. Mouth/Throat: Mouth: Mucous membranes are moist. Pharynx: Oropharynx is clear. Eyes: Extraocular Movements: Extraocular movements intact. Conjunctiva/sclera: Conjunctivae normal. Cardiovascular: Rate and Rhythm: Normal rate and regular rhythm. Pulses: Normal pulses. Heart sounds: Normal heart sounds. Pulmonary: Effort: Pulmonary effort is normal. Breath sounds: Normal breath sounds. Musculoskeletal: Cervical back: Neck supple. Right lower leg: No edema. Left lower leg: No edema. Lymphadenopathy: Cervical: No cervical adenopathy. Skin: General: Skin is warm and dry. Capillary Refill: Capillary refill takes 2 to 3 seconds. Neurological: General: No focal deficit present. Mental Status: He is alert. Psychiatric: Mood and Affect: Mood normal. Behavior: Behavior normal. Thought Content: Thought content normal. Judgment: Judgment normal. ASSESSMENT AND PLAN: Follow up in about 3 months (around 12/11/2024) for Recheck. Problem List Items Addressed This Visit Primary hypertension (CMS/HCC) - Primary Continue amlodipine at 5mg daily Continue all other blood pressure meds Fu in 3 months for recheck Relevant Medications amLODIPine (Norvasc) 5 MG tablet lisinopril 10 MG tablet Tobacco dependence The patient has been advised of the risks of continued smoking: stroke, NM, all forms of cancer, lung disease, and . Options for quitting smoking include: cold turkey, hypnosis, acupuncture, nicotine replacement meds (gum, lozenges, and patches), Buproprion, and Varenicline. At this time pt is encouraged to evaluate their goals for wanting to quit smoking, and reach out to provider when ready to start this process documented in this encounter [facility] 08-08-2024 History of Present illness Narrative Associated Problem(s): Tobacco dependence Started smoking again, 1ppd, had quit for about 90 days The patient has been advised of the risks of continued smoking: stroke, NM, all forms of cancer, lung disease, and . Options for quitting smoking include: cold turkey, hypnosis, acupuncture, nicotine replacement meds (gum, lozenges, and patches), Buproprion, and Varenicline. At this time pt is encouraged to evaluate their goals for wanting to quit smoking, and reach out to provider when ready to start this process Associated Problem(s): Primary hypertension (CMS/HCC) Possible dizziness from drops in blood pressure, have him cut back amlodipine to 5mg daily and RTO in 4 weeks for blood pressure check Associated Problem(s): Other emphysema (CMS/HCC) Continue breztri and prn albuterol Urged to quit smoking Fu in 6 months Vertigo? Pass diagnosis BP was taken first with 82/60 Grabbed another MA for a BP recheck Jatinder Calvert is a 63 y.o. male presents with chief complaint of No chief complaint on file. HPI: CAD: stable, no chest pain/pressure, compliant with meds COPD: doing well on breztri, less use of albuterol, no hemoptysis Hypertension This is a chronic problem. The current episode started more than 1 year ago. The problem is unchanged. The problem is controlled. Pertinent negatives include no anxiety, chest pain, peripheral edema or shortness of breath. There are no associated agents to hypertension. Risk factors for coronary artery disease include dyslipidemia, male gender and smoking/tobacco exposure. Past treatments include TANA inhibitors and calcium channel blockers. The current treatment provides significant improvement. There are no compliance problems. SUBJECTIVE: MEDICATIONS: Current Outpatient Medications Medication Instructions albuterol HFA 90 mcg/act inhaler 2 puffs, Inhalation, Every 6 hours PRN amLODIPine (NORVASC) 10 mg, Oral, Daily atorvastatin (LIPITOR) 80 mg, Oral, Every evening Jiewpgs-Cumiefdysda-Tmovoxommq (Breztri Aerosphere) 160-9-4.8 MCG/ACT aerosol 2 puffs, Inhalation, 2 times daily, Rinse mouth after use lisinopril 10 mg, Oral, Daily, Take 10 mg by mouth in the morning. meclizine (ANTIVERT) 25 mg, Oral, Every 8 hours PRN omeprazole (PRILOSEC) 20 mg, Oral, Daily before breakfast ALLERGIES: No Known Allergies REVIEW OF SYMPTOMS: Review of Systems Constitutional: Negative for activity change, appetite change and unexpected weight change. HENT: Negative for ear pain, nosebleeds, sneezing, trouble swallowing and voice change. Eyes: Negative for pain, discharge and visual disturbance. Respiratory: Negative for apnea, chest tightness, shortness of breath and wheezing. Cardiovascular: Negative for chest pain and leg swelling. Gastrointestinal: Negative for abdominal distention, blood in stool, constipation and diarrhea. Genitourinary: Negative for decreased urine volume, difficulty urinating, dysuria and hematuria. Skin: Negative for color change. Neurological: Positive for dizziness. Negative for tremors and seizures. Psychiatric/Behavioral: Negative for agitation, decreased concentration, hallucinations, self-injury and suicidal ideas. The patient is not nervous/anxious. Hematological: Negative for adenopathy. Does not bruise/bleed easily. Endocrine: Negative for cold intolerance, heat intolerance, polydipsia and polyuria. Allergic/Immunologic: Negative for environmental allergies and food allergies. PAST MEDICAL HISTORY Past Medical History: Diagnosis Date Abnormal CBC Abnormal computed tomography angiography (CTA) Abnormal CT lung screening Aneurysm, thoracic aortic (CMS/HCC) CAD (coronary artery disease) ([facility]/HCC) Centrilobular emphysema ([facility]/HCC) Chest pain, cardiac 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 (CMS/HCC) 11/06/2023 Dyspnea Elevated alkaline phosphatase level Erectile dysfunction GERD (gastroesophageal reflux disease) 01/15/2024 Headache HTN (hypertension) (CMS/HCC) Leg cramps Nevus Primary hypertension ([facility]/HCC) 11/06/2023 Serum total bilirubin elevated 11/05/2023 Tobacco use URI (upper respiratory infection) Past Surgical History: Procedure Laterality Date HEART CATH 1 stent family history includes Diabetes in his mother; Heart disease in his father. OBJECTIVE: Visit Vitals BP 110/70 (BP Location: Left arm, Patient Position: Sitting, BP Cuff Size: Adult long) Pulse 79 Temp 98.8 F (Temporal) Resp 18 Ht 5' 9.5 Wt 154 lb SpO2 97% BMI 22.42 kg/m Smoking Status Every Day BSA 1.85 m Physical Exam Vitals and nursing note reviewed. Constitutional: Appearance: Normal appearance. HENT: Head: Normocephalic. Right Ear: External ear normal. Left Ear: External ear normal. Nose: Nose normal. Mouth/Throat: Mouth: Mucous membranes are moist. Pharynx: Oropharynx is clear. Eyes: Extraocular Movements: Extraocular movements intact. Conjunctiva/sclera: Conjunctivae normal. Neck: Vascular: No carotid bruit. Cardiovascular: Rate and Rhythm: Normal rate and regular rhythm. Pulses: Normal pulses. Heart sounds: Normal heart sounds. Pulmonary: Effort: Pulmonary effort is normal. Breath sounds: Normal breath sounds. Abdominal: General: Bowel sounds are normal. Palpations: Abdomen is soft. Musculoskeletal: Cervical back: Neck supple. Right lower leg: No edema. Left lower leg: No edema. Lymphadenopathy: Cervical: No cervical adenopathy. Skin: General: Skin is warm and dry. Capillary Refill: Capillary refill takes 2 to 3 seconds. Neurological: General: No focal deficit present. Mental Status: He is alert. Psychiatric: Mood and Affect: Mood normal. Behavior: Behavior normal. Thought Content: Thought content normal. Judgment: Judgment normal. ASSESSMENT AND PLAN: No follow-ups on file. Problem List Items Addressed This Visit 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 (CMS/HCC) Relevant Medications atorvastatin (Lipitor) 80 MG tablet Other Relevant Orders CBC and differential Comprehensive metabolic panel Lipid panel Primary hypertension (CMS/HCC) Possible dizziness from drops in blood pressure, have him cut back amlodipine to 5mg daily and RTO in 4 weeks for blood pressure check Relevant Medications lisinopril 10 MG tablet Other Relevant Orders Comprehensive metabolic panel Urinalysis with reflex microscopic (clean catch) Microalbumin / creatinine, urine ratio GERD (gastroesophageal reflux disease) Relevant Medications omeprazole (PriLOSEC) [address] capsule Tobacco dependence - Primary Started smoking again, 1ppd, had quit for about 90 days The patient has been advised of the risks of continued smoking: stroke, NM, all forms of cancer, lung disease, and . Options for quitting smoking include: cold turkey, hypnosis, acupuncture, nicotine replacement meds (gum, lozenges, and patches), Buproprion, and Varenicline. At this time pt is encouraged to evaluate their goals for wanting to quit smoking, and reach out to provider when ready to start this process Relevant Orders CBC and differential Other emphysema (CMS/HCC) Continue breztri and prn albuterol Urged to quit smoking Fu in 6 months Relevant Medications albuterol HFA 90 mcg/act inhaler Ocrtqni-Ffrhvyauyih-Rcozgpxhyl (Breztri Aerosphere) 160-9-4.8 MCG/ACT aerosol Other Relevant Orders CBC and differential Prostate cancer screening Relevant Orders PSA documented in this encounter [facility] 01-17-2024 History of Present illness Narrative Contacting [...] avoid heavy lifting. documented in this encounter [facility] Work Phone: 11-29-2023 History of Present [...] him to maintain regular visit with his rnp and blood pressure control. Will get the echo cardiogram to rule out bicuspid valve and we will follow him with a CT scan. He is also advised to avoid heavy lifting. documented in this encounter [facility] Work Phone: 03-01-2023 Note OPERATIVE NOTE [...] good condition. CC: Tonja Wiley CNP [facility] 11-23-2022 History of Present illness Narrative This [...] did have a coronary stent in 2012. [facility] [address] Work Phone: Chief complaint Narrative - Reported Patient is here for a surgical evaluation for an ascending aortic aneurysm following a referral by Tonja Wiley CNP ([facility] [place]). COURTNEY Ruiz, RN [facility] [address] Work Phone: Chief complaint Narrative - Reported JATINDER CALVERT is being seen for a consultation for. referral Dr. Salmon; AAA, [id number] white male who is being seen for management of hypertension and CAD. The patient was seen recently by cardiothoracic surgery at [facility] Dr. Sherman Cruz for ascending and abdominal aortic aneurysm. The size is too small to intervene on. The patient has history of CAD and previous PCI of the RCA 2012 in [place] with drug-eluting stent. He is actively smoking and at one time was smoking 2 and half packs daily. He does have significant emphysema but not on medical therapy. Has had no recurrent coronary artery disease. He is hyperlipidemic and hypertensive on medical therapy. 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 He wishes to quit smoking and he is working with his PCP on tobacco cessation methods. His examination is only remarkable for diminished breath sounds otherwise was unremarkable.Assessment/recomme ndations:1 CAD status post PCI of the RCA 2012 with drug-eluting stent. No recurrences and no symptoms. He is on aspirin and high intensity statin. Tobacco cessation was advised. No card investigations are needed.2 ascending aortic aneurysm and abdominal arctic aneurysm both are less than 4 cm in diameter followed by the aortic clinic at [facility]. Tobacco cessation was emphasized. Hypertension controlled was [...] in annual basis or sooner if needed -[facility] [address] DO Work Phone: Evaluation + Plan note No data available for this section General Surgery [place] Evaluation note Diagnosis Ascending aorta dilation (CMS/HCC) Thoracic aneurysm without mention of rupture documented in this encounter [facility] Work Phone: Evaluation note* Diagnosis Ascending aorta dilatation (CMS/HCC) Thoracic aneurysm without mention of rupture documented in this encounter [facility] Work Phone: Evaluation note* Diagnosis Ascending aortic aneurysm, unspecified whether ruptured (CMS/HCC) documented in this encounter [facility] Work Phone: Evaluation note* Diagnosis 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 (CMS/HCC)- Primary Primary hypertension (CMS/HCC) Unspecified essential hypertension Serum total bilirubin elevated Disorders of bilirubin excretion Other emphysema (CMS/HCC)- Primary Other emphysema Primary hypertension (CMS/HCC) Unspecified essential hypertension Mixed hyperlipidemia (CMS/HCC) Mixed hyperlipidemia Abdominal aortic aneurysm (AAA) without rupture, unspecified part (CMS/HCC) Aneurysm of ascending aorta without rupture (CMS/HCC) 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 (CMS/HCC) Tobacco dependence Tobacco use disorder Primary hypertension (CMS/HCC)- Primary Unspecified essential hypertension Tobacco dependence Tobacco use disorder Other emphysema (CMS/HCC) Other emphysema Prostate cancer screening Special screening for malignant neoplasm of prostate 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 (CMS/HCC) Gastroesophageal reflux disease, unspecified whether esophagitis present Primary hypertension (CMS/HCC)- Primary Unspecified essential hypertension Tobacco dependence Tobacco use disorder documented in this encounter [facility]* Diagnosis 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 (CMS/HCC)- Primary Primary hypertension (CMS/HCC) Unspecified essential hypertension Serum total bilirubin elevated Disorders of bilirubin excretion Other emphysema (CMS/HCC)- Primary Other emphysema Primary hypertension (CMS/HCC) Unspecified essential hypertension Mixed hyperlipidemia (CMS/HCC) Mixed hyperlipidemia Abdominal aortic aneurysm (AAA) without rupture, unspecified part (CMS/HCC) Aneurysm of ascending aorta without rupture (CMS/HCC) 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 (CMS/HCC) Tobacco dependence Tobacco use disorder Primary hypertension (CMS/HCC)- Primary Unspecified essential hypertension Tobacco dependence Tobacco use disorder Other emphysema (CMS/HCC) Other emphysema Prostate cancer screening Special screening for malignant neoplasm of prostate 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 (CMS/HCC) Gastroesophageal reflux disease, unspecified whether esophagitis present Primary hypertension (CMS/HCC)- Primary Unspecified essential hypertension Tobacco dependence Tobacco use disorder 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 (CMS/HCC) documented in this encounter [facility]* Diagnosis Primary hypertension (CMS/HCC)- Primary Unspecified essential hypertension Tobacco dependence Tobacco use disorder Other emphysema (CMS/HCC) Other emphysema Prostate cancer screening Special screening for malignant neoplasm of prostate 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 (CMS/HCC) Gastroesophageal reflux disease, unspecified whether esophagitis present documented in this encounter [facility]* Diagnosis Other emphysema (CMS/HCC)- Primary Other emphysema Primary hypertension (CMS/HCC) Unspecified essential hypertension 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 (CMS/HCC) Gastroesophageal reflux disease, unspecified whether esophagitis present documented in this encounter [facility]* Diagnosis Hypokalemia- Primary Hypopotassemia documented in this encounter [facility]* Diagnosis 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 (CMS/HCC)- Primary Primary hypertension (CMS/HCC) Unspecified essential hypertension Serum total bilirubin elevated Disorders of bilirubin excretion Other emphysema (CMS/HCC)- Primary Other emphysema Primary hypertension (CMS/HCC) Unspecified essential hypertension Mixed hyperlipidemia (CMS/HCC) Mixed hyperlipidemia Abdominal aortic aneurysm (AAA) without rupture, unspecified part (CMS/HCC) Aneurysm of ascending aorta without rupture (CMS/HCC) 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 (CMS/HCC) Tobacco dependence Tobacco use disorder Primary hypertension (CMS/HCC)- Primary Unspecified essential hypertension Tobacco dependence Tobacco use disorder Other emphysema (CMS/HCC) Other emphysema Prostate cancer screening Special screening for malignant neoplasm of prostate 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 (CMS/HCC) Gastroesophageal reflux disease, unspecified whether esophagitis present Primary hypertension (CMS/HCC)- Primary Unspecified essential hypertension Tobacco dependence Tobacco use disorder Gastroesophageal reflux disease, unspecified whether esophagitis present documented in this encounter [facility] note* Diagnosis 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 (CMS/HCC)- Primary Primary hypertension (CMS/HCC) Unspecified essential hypertension Serum total bilirubin elevated Disorders of bilirubin excretion Other emphysema (CMS/HCC)- Primary Other emphysema Primary hypertension (CMS/HCC) Unspecified essential hypertension Mixed hyperlipidemia (CMS/HCC) Mixed hyperlipidemia Abdominal aortic aneurysm (AAA) without rupture, unspecified part (CMS/HCC) Aneurysm of ascending aorta without rupture (CMS/HCC) 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 (CMS/HCC) Tobacco dependence Tobacco use disorder Primary hypertension (CMS/HCC)- Primary Unspecified essential hypertension Tobacco dependence Tobacco use disorder Other emphysema (CMS/HCC) Other emphysema Prostate cancer screening Special screening for malignant neoplasm of prostate 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 (CMS/HCC) Gastroesophageal reflux disease, unspecified whether esophagitis present Primary hypertension (CMS/HCC)- Primary Unspecified essential hypertension Tobacco dependence Tobacco use disorder Primary hypertension (CMS/HCC)- Primary Unspecified essential hypertension Other emphysema (CMS/HCC) Other emphysema 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 (CMS/HCC) Gastroesophageal reflux disease, unspecified whether esophagitis present Mixed hyperlipidemia (CMS/HCC) Mixed hyperlipidemia Cigarette nicotine dependence without complication Aneurysm of ascending aorta without rupture (CMS/HCC) Abdominal aortic aneurysm (AAA) without rupture, unspecified part ([facility]/HCC) Encounter for screening for lung cancer documented in this encounter [facility] Discharge instructions No data available for this section General Surgery [place] Progress note No data available for this section General Surgery [place] Summary Purpose Family History No Family History [...] Referral Specialty Diagnoses / Procedures Referred By Ruel t Referred To Contact Radiology Diagnoses Ascending aorta dilatation (CMS/HCC) Procedures [place] angio [place] [address] Department [place] [address] Referral ID Status Reason Start Date Expiration Date Visits Requested Visits Authorized [id number] Authorized Perform Procedure 11/30/2023 11/29/2024 1 1 Additional Source Comments (unrecognized sect ion and content) No Status Records FoundNo Status Records FoundNo Status Records FoundNo Status Records FoundNo Status Records FoundNo Status Records FoundNo Status Records Found INFORMATION SOURCE (unrecogn ized section and content) DATE CREATED AUTHOR 01/09/2023 [facility] DATE CREATED AUTHOR AUTHOR'S ORGANIZ ATION 01/09/2023 [employer] DATE CREATED AUTHOR AUTHOR'S ORGANIZ ATION 03/07/2023 [facility] DATE CREATED AUTHOR AUTHOR'S ORGANIZ ATION 03/15/2023 [facility] DATE CREATED AUTHOR AUTHOR'S ORGANIZ ATION 01/22/2024 [facility] DATE CREATED AUTHOR AUTHOR'S ORGANIZ ATION 2024 [facility] DATE CREATED AUTHOR AUTHOR'S ORGANIZ ATION 12/29/2024 [facility] EPIC Patient Care team informatio n (unrecognized section and content) Aircraft Designer Relationship Specialty Start Date End Date Tonja Wiley APRN-SOCIAL INSURANCE ANALYST [address] [place] [address] PCP - General 01/09/23 Aircraft Designer Relationship Specialty Start Date End Date EsauTonja arias APRN-SOCIAL INSURANCE ANALYST [address] [place] [address] PCP - General 01/09/23 Aircraft Designer Relationship Specialty Start Date End Date Tonja Wiley APRN-SOCIAL INSURANCE ANALYST [address] [place] [address], [place] [phone] PCP - General 01/09/23 Aircraft Designer Relationship Specialty Start Date End Date Loi Red MD [address] [place] [address] PCP - General Family Medicine 11/06/23 Tonja Wiley NP [address] [place] [phone] Nurse Practitioner Family Medicine 11/06/23 Aircraft Designer Relationship Specialty Start Date End Date Unallocated, Noms MD Dionna [address] [place] [address] PCP - General Family Medicine 09/10/24 Tonja Wiley NP [address] [place] [address] Nurse Practitioner Family Medicine 11/06/23 Aircraft Designer Relationship Specialty Start Date End Date Loi Red MD [address] [place] [phone] PCP - General Family Medicine 09/19/24 Tonja Wiley NP [address] [place] [phone] Nurse Practitioner Family Medicine 11/06/23 Aircraft Designer Relationship Specialty Start Date End Date Loi Red MD [address] [place] [phone] PCP - General Family Medicine 11/06/23 Tonja Wiley NP [address] [place] [address] Nurse Practitioner Family Medicine 11/06/23 Aircraft Designer Relationship Specialty Start Date End Date Loi Red MD [address] [place] [phone] PCP - General Family Medicine 11/06/23 Tonja Wiley NP [address] [place] [phone] Nurse Practitioner Family Medicine 11/06/23 Aircraft Designer Relationship Specialty Start Date End Date Loi Red MD [address] [place] [phone] PCP - General Family Medicine 11/06/23 Tonja Wiley NP [address] [place] [phone] Nurse Practitioner Family Medicine 11/06/23 Aircraft Designer Relationship Specialty Start Date End Date Loi Red MD [address] [place] [phone] PCP - General Family Medicine 11/06/23 Tonja Wiley NP [address] [place] [phone] Nurse Practitioner Family Medicine 11/06/23 Aircraft Designer Relationship Specialty Start Date End Date Loi Red MD [address] [place] [phone] PCP - General Family Medicine 11/06/23 Tonja Wiley NP [address] [place] [address] Nurse Practitioner Family Medicine 11/06/23 Aircraft Designer Relationship Specialty Start Date End Date Loi Red MD [address] [place] [phone] PCP - General Family Medicine 09/19/24 Tonja Wiley NP [address] [place] [phone] Nurse Practitioner Family Medicine 11/06/23 Aircraft Designer Relationship Specialty Start Date End Date Loi Red MD [address] [place] [phone] PCP - General Family Medicine 09/19/24 Tonja Wiley NP [address] [place] [address] Nurse Practitioner Family Medicine 11/06/23 Aircraft Designer Relationship Specialty Start Date End Date Loi Red MD [address] [place] [phone] PCP - General Family Medicine 09/19/24 Tonja Wiley NP [address] [place] [phone] Nurse Practitioner Family Medicine 11/06/23 Reason for Visit (unrecogniz ed section and content) Specialty Diagnoses / Procedures Referred By Contac t Referred To Contact Radiology Diagnoses Ascending aorta dilatation (CMS/HCC) Procedures [place] angio chest [place] [address] [address] Department [place] [address] Referral ID Status Reason Start Date Expiration Date Visits Requested Visits Authorized [id number] Authorized Perform Procedure 11/30/2023 11/29/2024 1 1 FOR RECORDS PERTAINING TO PATIENTS WHO [...] BE BASED ON THE PRIMARY CLINICAL RECORDS. [employer] [facility]. provides no warranty or guarantee of the accuracy or completeness of information in this document.
== END 2025-01-04 09:08 | disposition home or self-care (01) ==
LOC: CT 09:08
PROVIDERS: PCP Nurse Practitioner; Visit Provider Nurse Practitioner
DX: F17.210 Nicotine dependence, cigarettes, uncomplicated (principal); Z12.2 Encounter for screening for malignant neoplasm of respiratory organs
CPT/HCPCS: 71271

== ENCOUNTER 2025-01-22 08:21 | Outpatient (OUT) | payer OTHER, SELFPAY ==
--- NOTE | 2025-01-22 | PCN_ITS ---
CARDIAC STRESS TEST Requesting Physician: Procedure Date: 01/22/2025 This is a treadmill stress test with myocardial perfusion imaging, performed at the [facility] on 01/22/2025. An intravenous line was secured. Resting vital signs and ECG were obtained. The patient exercised on the treadmill according to the Lazarus protocol for a total of 5 minutes and 0 seconds and reached stage 2 of the protocol. The patient achieved 6 METS. Resting heart rate was 68 BPM, and maximum heart rate was 157 BPM, representing 100% of maximal predicted heart rate. Resting blood pressure was 127/76 and maximum blood pressure was 180/98. Resting ECG showed normal sinus rhythm without ischemic changes. ECG during exercise showed sinus tachycardia without ischemic ST changes. Final ECG was comparable to baseline. SUMMARY OF THE FINDINGS: 1. No evidence of ischemic ST changes during treadmill exercise stress test. 2. Ortez treadmill score of +5 is associated with low risk for long term care social worker cardiac events. 3. Myocardial perfusion imaging will be reported separately. JOSIASD
--- NOTE | 2025-01-22 07:50 | NM_ITS ---
Patient Name: JATINDER SCHULTZ MR#: [id number] : 1960 Exam Date: 01/22/2025 Ordering Doctor: TIFFANY Wiley CNP RADIOLOGY REPORT PROCEDURE: NM AUDREY PERF SPECT REST STR COMPARISON: None. INDICATIONS: CORONARY ARTERY DISEASE, HYPERTENSION, SMOKER TECHNIQUE: Exam Description: Stress/Rest one day protocol gated SPECT Rest Imagin.8 mCi Tc-99m Cardiolite IV on 01/22/2025 Stress Imaging 30.6 mCi Tc-99m Cardiolite IV on 01/22/2025 Exercise Protocol: Lazarus Heart Rate (bpm): Rest: 68 Max: 157 PMHR: 100 Blood Pressure: Rest: 127/76 Max: 180/98 Exercise Time: Minutes: 5 Seconds: 00 Stage Reached: Stage: 2 Mets 6.0 Symptoms: Rest and peak stress ECG findings were pending and the exercise portion of the study was pending per attending physician [facility] . For more details, please see separate cardiac stress test report. FINDINGS: QUALITY OF STUDY: Good PERFUSION DEFECT: LOCATION: Inferior SIZE: Moderate SEVERITY: Moderate TYPE: Fixed WALL MOTION: Normal wall motion LV SIZE: 90 mL. TID / TCD: 0.9 LVEF: Calculated EF 60%. SUMMARY: Myocardial perfusion imaging study is normal CONCLUSION: 1. Myocardial perfusion is normal with significant diaphragmatic attenuation 2. Global left ventricular systolic function is normal; ejection fraction is 60% 3. No evidence of transient ischemic dilatation Dictated by: Sharron Ayala M.D. on 01/29/2025 at 12:13 Approved by: Sharron Ayala M.D. on 01/29/2025 at 12:15
--- OUTSIDE RECORDS SUMMARY | 2025-01-22 08:42 | XMS_ITS | CCD ---
Author Organization [facility] Care Team Providers Care Hl7 Developer Name Role Phone Unknown, Unknown Unavailable Unavailable UNKNOWN, UNKNOWN Primary Care Unavailable MD LOI CRUZ Attending Unava ilable Lopez, Dr. Jess Barakat Referring Ajyne vailable UNKNOWN, UNKNOWN Primary Care Unavailable Lopez, Dr. Jess Barakat Attending Jayne vailable Saurabh Tonja [place] Unavailable Unavailable Unavailable CRYS WILEYA J Primary Care Physician AICHHOLZ, UX SPECIALIST TONJA Admitting Unavailable AICHHOLZ, UX SPECIALIST TONJA Attending Unavailable AICHHOLZ, UX SPECIALIST TONJA Primary Care Unavailable ROBBIE ADAMS Consulting Unavailable AICHHOLZ, UX SPECIALIST TONJA Consulting Unavailable AICHHOLZ, UX SPECIALIST TONJA Admitting Unavailable AICHHOLZ, UX SPECIALIST TONJA Attending Unavailable AICHHOLZ, UX SPECIALIST TONJA Primary Care Unavailable AICHHOLZ, UX SPECIALIST TONJA Consulting Unavailable DR DENNIS KIM Consulting Unavailable AICHHOLZ, UX SPECIALIST TONJA Admitting Unavailable AICHHOLZ, UX SPECIALIST TONJA Attending Unavailable AICHHOLZ, UX SPECIALIST TONJA Primary Care Unavailable AICHHOLZ, UX SPECIALIST TONJA Consulting Unavailable DR DENNIS KIM Consulting Unavailable AICHHOLZ, UX SPECIALIST TONJA Admitting Unavailable AICHHOLZ, UX SPECIALIST TONJA Attending Unavailable AICHHOLZ, UX SPECIALIST TONJA Primary Care Unavailable ROBBIE ADAMS Consulting Unavailable AICHHOLZ, UX SPECIALIST TONJA Consulting Unavailable AICHHOLZ, UX SPECIALIST TONJA Admitting Unavailable AICHHOLZ, UX SPECIALIST TONJA Attending Unavailable AICHHOLZ, UX SPECIALIST TONJA Primary Care Unavailable AICHHOLZ, UX SPECIALIST TONJA Consulting Unavailable AICHHOLZ, UX SPECIALIST TONJA Primary Care Unavailable SHAIKH Pia LOWE Admitting Unavailable SHAIKH Pia LOWE Attending Unavailable FAWSHAIKH Pia CORADO Consulting Unavailable DIAB ., SEN Consulting Unavailable NILL ., DR CARPENTER Admitting Unavailable NILL ., DR CARPENTER Attending Unavailable AICHHOLZ, UX SPECIALIST TONJA Primary Care Unavailable NILL ., DR CARPENTER Consulting Unavailable SALMA CONNOLLY Consulting Unavailable MARCIO CARO Consulting Unavailable AICHHOLZ, UX SPECIALIST TONJA Admitting Unavailable AICHHOLZ, UX SPECIALIST TONJA Attending Unavailable AICHHOLZ, UX SPECIALIST TONJA Primary Care Unavailable ROBBIE ADAMS Consulting Unavailable AICHHOLZ, UX SPECIALIST TONJA Consulting Unavailable NILL, Pauline Rodriguez Attending Unavailable NILL, Pauline Rodriguez Attending Unavailable NILL, Pauline R Attending Unavailable Aichholz PATTERN CHAIN BUILDER-UX SPECIALIST, Tonja [place] Primary Care Provider ROMAN HUDSON Attending Unavailable AICHHOLZ, TONJA TALAMANTES Primary Care Unavailable ROMAN HUDSON Attending Unavailable AICHHOLZ, TONJA TALAMANTES Primary Care Unavailable ROMAN HUDSON Referring Unavailable AICHHOLZ, TONJA TALAMANTES Primary Care Unavailable Aichholz DRAPERY SUPERVISOR, Tonja Unavailable Loi Red MD Primary Care Provider [phone] Unallocated , Noms Provider Primary Care Provi eddy Loi Red MD Primary Care Provider AICHHOLZ, TONJA Attending Unavailable AICHHOLZ, TONJA Attending Unavailable AICHHOLZ, TONJA Attending Unavailable AICHHOLZ, TONJA Attending Unavailable Allergies Allergy Classification Reported Allergen(s) Allergy Type Date of Onset Reaction(s) Facility (1 source) No Known Medication Allergies; Translations: [No Known Medication Allergies] Propensity to adverse reactions (disorder) [facility] Repository Medications Current Medications Medication Drug Class(es) Dates Sig (Normalized) Sig (Original) [id number] actuat albuterol 0.09 mg/actuat metered dose inhaler (18 sources) beta2-Adrenergic Agonist Start: 05-07-2024 End: 09-07-2024 take 2 puff(s) by inhalation every six hours for wheezing albuterol HFA 90 mcg/act inhaler Indications: Other emphysema ([facility]) Inhale 2 puffs every 6 (six) hours [...] MG tablet Indications: 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 (CMS/HCC) Take 1 tablet (80 mg) by mouth in the evening 90 tablet 1 10/07/2024 Active 120 actuat budesonide 0.16 mg/actuat / [...] 2 puff(s) by inhalation in the morning Yjooxns-Eahybprptvu-Cpchmqcwdu (Breztri Aerosphere) 160-9-4.8 MCG/ACT aerosol Indications: Chronic [...] morning. 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 operator (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; Translations: [OTH ALF CURRENT DRUG THERAPY] Onset: 03-06-2023 Episodic Other aftercare (1 source) longterm (current) use of aspirin; Translations: [PERSONAL INVESTMENT ADVISER CURRENT USE OF ASPIRIN] Onset: 03-06-2023 Episodic [...] body structures; Translations: [ABNORML FIND DX IMG OTH BODY STRUC] Onset: 11-23-2022 Chronic Other screening [...] Onset: 05-05-2022 Episodic Fluid and electrolyte disorders (13 sources) Hypokalemia; Translations: [Hypokalemia] Onset: 08-19-2024 08-19-2024 Episodic Other liver diseases (17 sources) Hyperbilirubinemia; Translations: [Unspecified jaundice] Onset: 11-05-2023 11-05-2023 Episodic Unclassified (4 sources) Patient encounter status 01-15-2020 Unclassified (1 source) Aneurysm of the ascending aorta, without rupture (CMS/HCC); Translations: [Aneurysm of the ascending aorta, without rupture (CMS/HCC)] Onset: 01-17-2024 Results Test Name Value Interpretation Reference Range Facility CT LUNG SCREENING LOW DOSEon 01-06-[address] [address] [address] Scan Report Signed Patient: JATINDER CALVERT MR#: [id number] : 1960 Acct:[id number] Age/Sex: 64 / M ADM Date: 01/04/25 Loc: CT Attending Dr: Tonja Wiley DRAPERY SUPERVISOR Ordering Physician: Tonja Wiley NP Date of Service: 01/04/25 Procedure(s): CT lung screening low-dose Accession Number(s): [id number] cc: Tonja Wiley NP [facility] [place] [address] Patient Name: JATINDER CALVERT MRN: [facility]:[id number] date: 1960 Sex: M Assigned Patient Location: CT Current Patient Location: CT Accession/Order Number: [id number] Exam Date: 01/04/2025 09:21 Report Date: 01/06/2025 16:31 At the request of: TONJA WILEY Procedure: CT lung screening low-dose EXAM: CT lung screening low-dose HISTORY: cigarette nicotine dependance F17.210 COMPARISON: 11/23/2022. 04/28/2022. 04/20/2022. TECHNIQUE: Unenhanced low-dose helical acquisition obtained through the chest. FINDINGS: Mild-moderate paraseptal and centrilobular emphysema. Scattered pulmonary granulomatous calcifications. Stable focal thickening of the right minor fissure. Mild biapical pleural and pulmonary parenchymal scarring. The pleural spaces are clear. No enlarged lymph nodes within the chest. Severe diffuse coronary arterial calcifications. CT/CT lung screening low-dose IMPRESSION: 1. No evidence of pulmonary malignancy. 2. Mild-moderate emphysema. 3. Severe coronary arterial calcifications. Lung-RADs 1 FINDINGS: No lung nodules; nodule(s) with specific calcifications: Complete, central, popcorn, concentric rings and fat containing nodules. MANAGEMENT: Continue annual screening with LDCT in 12 months. Lung-RADs S FINDINGS: severe coronary arterial calcifications.. Electronically authenticated by: ANANT CALLES Date: 01/06/2025 16:31 Dictated By: Anant Calles M.D. Signed By: 01/06/25 1639 DD/ 163 TD/TT: Claim Auditor: [facility] Radiology, Radiologmike rodas MD - 01/07/2025 [place] [address] CT Scan Report Signed Patient: JATINDER CALVERT MR#: [id number] : 1960 Acct:[id number] Age/Sex: 64 / M ADM Date: 01/04/25 Loc: CT Attending Dr: Tonja Wiley NP Ordering Physician: Tonja Wiley NP Date of Service: 01/04/25 Procedure(s): CT lung screening low-dose Accession Number(s): [id number] cc: Tonja Wiley NP [place] [address] Patient Name: JATINDER CALVERT MRN: [id number] date: 1960 Sex: M Assigned Patient Location: CT Current Patient Location: CT Accession/Order Number: [id number] Exam Date: 01/04/2025 09:21 Report Date: 01/06/2025 16:31 At the request of: TONJA WILEY Procedure: CT lung screening low-dose EXAM: CT lung screening low-dose HISTORY: cigarette nicotine dependance F17.210 COMPARISON: 11/23/2022. 04/28/2022. 04/20/2022. TECHNIQUE: Unenhanced low-dose helical acquisition obtained through the chest. FINDINGS: Mild-moderate paraseptal and centrilobular emphysema. Scattered pulmonary granulomatous calcifications. Stable focal thickening of the right minor fissure. Mild biapical pleural and pulmonary parenchymal scarring. The pleural spaces are clear. No enlarged lymph nodes within the chest. Severe diffuse coronary arterial calcifications. CT/CT lung screening low-dose IMPRESSION: 1. No evidence of pulmonary malignancy. 2. Mild-moderate emphysema. 3. Severe coronary arterial calcifications. Lung-RADs 1 FINDINGS: No lung nodules; nodule(s) with specific calcifications: Complete, central, popcorn, concentric rings and fat containing nodules. MANAGEMENT: Continue annual screening with LDCT in 12 months. Lung-RADs S FINDINGS: severe coronary arterial calcifications.. Electronically authenticated by: ANANT CALLES Date: 01/06/2025 16:31 Dictated By: Anant Calles M.D. Signed By: 01/06/25 163 DD/ 1631 TD/TT: Claim Auditor: [facility] Radiology Study observation (narrative) [facility] CT LUNG SCREENING LOW DOSEOr dered By: Radiologist Radiology on 01-06-2025 [facility] Work Phone: ALL POTASSIUMon 09-07-2024 Potassium [Moles/Vol] 4.3 mmol/L 3.5 - 5.1 mmol/L [facility] ALL CBC WITH AUTO DIFFon BASOPHILS ABSOLUTE AUTO 0.1 [facility] Basophils/100 WBC (Bld) 0.8 % 0.2 - 2.0 % [facility] Eosinophils/100 WBC (Bld) 2.7 % 0.9 - 7.0 % [facility] Erythrocyte distribution width (RBC) [Ratio] 13.1 % 11.0 - 15.0 % [facility] Hematocrit (Bld) [Volume fraction] 43.2 % 42.0 - 54.0 % [facility] Hemoglobin (Bld) [Mass/Vol] 14.6 g/dL 14.0 - 18.0 g/dL [facility] IMMATURE GRANULOCYTES ABS AUTO 0.02 [facility] Immature granulocytes/100 WBC (Bld) 0.3 % 0.0 - 0.5 % [facility] Interpretation and review of laboratory results Abnormal [facility] LYMPHOCYTES ABSOLUTE AUTO 1.8 [facility] Lymphocytes/100 WBC (Bld) 23.4 % 20.5 - 60.0 % [facility] MCH (RBC) [Entitic mass] 31.3 pg 25.9 - 34.0 pg [facility] MCHC (RBC) [Mass/Vol] 33.8 g/dL 29.9 - 35.2 g/dL [facility] MCV (RBC) [Entitic vol] 92.7 fL 80.0 - 94.0 fL [facility] MONOCYTES ABSOLUTE AUTO 0.5 [facility] Monocytes/100 WBC (Bld) 6.1 % 1.7 - 12.0 % [facility] NEUTROPHILS ABSOLUTE AUTO 5.0 [facility] Neutrophils/100 WBC (Bld) 66.7 % 43.0 - 75.0 % [facility] Platelet mean volume (Bld) [Entitic vol] 9.7 fL 9.5 - 13.5 fL [facility] TBH EO # 0.2 [facility]H PLT 203 [facility] TBH RBC 4.66 Low [facility] TB WBC 7.5 [facility] UA (CLEAN/CATCH) MICROSC OPIC IF INDICATEon 08-19-2024 BILIRUBIN URINE Negative NEGATIVE [facility] BLOOD URINE Negative NEGATIVE [facility] Clarity (U) CLEAR CLEAR [facility] Color (U) YELLOW YELLOW [facility] GLUCOSE URINE UA Negative NEGATIVE mg/dL [facility] Interpretation and review of laboratory results Abnormal [facility] Ketones Ql (U) TRACE Abnormal NEGATIVE mg/dL [facility] Leukocyte esterase Test strip Ql (U) Negative NEGATIVE [facility] NITRITE URINE Negative NEGATIVE [facility] pH (U) 6.0 [pH] 5.0 - 9.0 [facility] PROTEIN URINE Negative NEG/TRACE mg/dL [facility] SPECIFIC GRAVITY URINE 1.025 1.005 - 1.025 [facility] URINE MICROSCOPIC INDICATED NO [facility] UROBILINOGEN URINE 1.0 EU/dL 0.2 - 1.0 EU/dL [facility] CT ANGIO CHEST W AND WO IV C [facility] 12-14-2023 CT ANGIO CHEST W AND WO [...] PM -------- ORIGINAL REPORT -------- Dictation workstation: [id number] Interpreted By: Pauline Shepard, STUDY: CT ANGIO CHEST W AND WO IV CONTRAST; 12/14/2023 11:09 am INDICATION: Signs/Symptoms:year fu. COMPARISON: None. ACCESSION NUMBER(S): [id number] ORDERING CLINICIAN: ROMAN HUDSON TECHNIQUE: Using multi-detector [...] Infrarenal abdominal aortic aneurysm 34 mm. Reading Laborer Pipelines: Dr. Pauline Shepard, Date: 12/18/2023 2:43 pm Signed by: Pauline Shepard 12/18/2023 3:00 PM Dictation workstation: [id number] [facility] Ambulatory Visit Summaryon 0 03-14-2023 Ambulatory Visit Summary JATINDER CALVERT :1960 Visit Date:03/14/2023 Ambulatory Visit Instructions Your Care Team Attending Physician - WALT ELLIOTT, Pauline Rodriguez Primary Care Physician - TONJA WILEY CNP [...] for malignant neoplasm of colon Tobacco use [facility] General Surgery Office/Clini c Noteon 03-14-2023 [...] influenza virus vaccine, inactivated 08/20/2022 Recorded Normal [facility] Comment on above: Result Comment: Elec tronically Signed By: WALT ELLIOTT, Pauline Egan\Date and Time Signed: 03/14/23 15:50 EDT Reminderson 03-14-2023 Reminders - From: Delores Joseph LPN To: N - Clinical; Sent: 03/14/2023 15:27:01 EDT Show up: 01/30/2028 07:00:00 EDT Subject: colonoscopy recall Due Date/Time: 03/01/2028 07:00:00 EDT Reminder/Recall Patient due for colonoscopy 03/01/28 due to history of colonic polyp. Normal [facility] Pathology Noteon 03-06-2023 Pathology Note [id number]#1.00C D:127 Normal [facility] Outside Colonoscopyon 2022 Outside Colonoscopy [id number]#1.00C D:127 Normal [facility] Consent for Procedure/Surger yon 03-29-2023 Consent for Procedure/Surgery [id number]#1.00C D:127 Normal [facility] General Surgery Office/Clini c Noteon 02-14-2023 General [...] pack or (more content not included)... Normal [facility] Comment on above: Result Comment: Elec tronically Signed By: WALT ELLIOTT, Pauline Egan\Date and Time Signed: 02/14/23 15:24 EDT MRI BRAIN WO CONon MRI BRAIN WO CON EXAMINATION: MRI BRA [...] by: ROBBIE ADAMS Date: 2023-01-18 08:13 Normal [facility] Office Visit (Cardiology)on 01-09-2023 Follow-up visit Diagnoses/Problems Assessed CAD S/P percutaneous coronary angioplasty (414.01,V45.82) (I25.10,Z98.61) RCA drug-eluting stent Cole 2013 Abdominal aortic aneurysm (441.4) (I71.40) Ascending aortic aneurysm (441.2) (I71.21) Hypertension (401.9) (I10) Hyperlipidemia (272.4) (E78.5) Current every day smoker (305.1) (F17.200) 1.5PPD sometimes more Body mass index (BMI) of 22.0 to 22.9 in adult (V85.1) (Z68.22) Orders CAD S/P percutaneous coronary angioplasty Renew: Aspirin 81 MG Oral Tablet Delayed Release; TAKE 1 TABLET DAILY IO EKG Electrocardiogram- 12 Lead; Status:Complete; Done: [id number] CAD S/P percutaneous coronary angioplasty, Hyperlipidemia Renew: Atorvastatin Calcium 80 MG Oral Tablet; TAKE 1 TABLET DAILY ALT - Alanine Aminotransferase, Serum; Status:Active - Retrospective Authorization; Requested for:09Jan2023; AST; Status:Active - Retrospective Authorization; Requested for:09Jan2023; Lipid Panel; Status:Active - Retrospective Authorization; Requested for:[id number]; CAD S/P percutaneous coronary angioplasty, Hypertension Renew: [...] we can help. You may also call [phone] for free resources and assistance.; Status:Complete - Retrospective Authorization; Done: [id number] Tobacco Use Screening; Status:Complete; Done: [id number] Patient Instructions Please bring all medicines, vitamins, [...] was seen recently by cardiothoracic surgery at [facility] Dr. Sherman Cruz for ascending and abdominal aortic aneurysm. The size is too small to intervene on. The patient has history of CAD and previous PCI of the RCA 2012 in [place] with drug-eluting stent. He is actively smoking and at one time was smoking 2 and half packs daily. He does have significant emphysema but not on medical therapy. Has had no recurrent coronary artery disease. He is hyperlipidemic and hypertensive on medical therapy. 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 He wishes to [...] diameter followed by the aortic clinic at [facility]. Tobacco cessation was emphasized. Hypertension controlled was [...] coronary angioplasty (414.01,V45.82) (I25.10,Z98.61) RCA drug-eluting stent [place] 2012 Hyperlipidemia (272.4) (E78.5) Hypertension (401.9) (I10) [...] Known Russ (more content not included)... Normal [email or web address] Tobacco Screening.on 023 Adult depression screening assessment No [facility] Work Phone: Tobacco use status [facility] a) Yes [employer] 600 DO Work Phone: Tobacco Screening. Yes [facility] 600 DO Work Phone: CARDIAC SHERMAN ADMITon 023 CK [Catalytic activity/Vol] 85 U/L Normal 39-308 [facility] Comment on above: Performed By: #### C ELZA, CMADM #### [facility] [address] [place] [address] [address] Diego Wilkins CK.MB [Mass/Vol] 1.16 ng/mL Normal <=3.60 [facility] Comment on above: Performed By: #### C ELZA, CMADM #### [facility] [address] [place] [address] [address] Diego Wilkins HSTROP 5.4 pg/mL Normal 4.0-76.1 [facility] Comment on above: Result Comment: CUT- OFF POINTS HAVE BEEN ESTABLISHED BASED ON THE FOURTH UNIVERSAL DEFINITIONS OF MYOCARDIAL INFARCTION. THE UPPER REFERENCE LIMIT (URL) OF TROPONIN, DEFINED THE 99TH PERCENTILE OF cTnI DISTRIBUTION IN A REFERENCE POPULATION, HAS BEEN CONFIRMED THE DECISION THRESHOLD FOR MD DIAGNOSIS. Performed By: #### C ELZA, CMADM #### [facility] [address] [address] [address] Diego Wilkins AUDREY 39 ng/mL Normal 16-96 The [facility] Comment on above: Performed By: #### C ELZA, CMADM #### [facility] [address] [address] [address] Diego Wilkins CBC AUTO DIFFon 12-30-2022 BASO # 0.1 103/ul Normal 0.0-0.1 [facility] Comment on above: Performed By: #### C BC ####[facility] [address] [place] [address]Dr. Diego Wilkins Basophils/100 WBC (Bld) 0.8 % Normal 0.2-2.0 The [facility] Comment on above: Performed By: #### C BC ####[facility] [address] [place], [place] [id number]. Diego Wilkins EO # 0.2 103/ul Normal 0.0-0.7 The [facility] Comment on above: Performed By: #### C BC ####[facility] [address] [place] [address]Dr. Diego Wilkins Eosinophils/100 WBC (Bld) 2.8 % Normal 0.9-7.0 The [facility] Comment on above: Performed By: #### C BC ####[facility] [address] [place], [place] [address]Dr. Diego Wilkins Erythrocyte distribution width (RBC) [Ratio] 12.1 % Normal 11.0-15.0 [facility] Comment on above: Performed By: #### C BC ####[facility] [address] [place], [place] [address]Dr. Diego Wilkins Hematocrit (Bld) [Volume fraction] 41.4 % Critically low 42.0-54.0 [facility] Comment on above: Performed By: #### C BC ####[facility] [address] [place], [place] [address]Dr. Diego Wilkins Hemoglobin (Bld) [Mass/Vol] 14.1 g/dL Normal 14.0-18.0 The [facility] Comment on above: Performed By: #### C BC ####[facility] [address] [place], [place] [address]Dr. Diego Wilkins IG # 0.02 10e3/ul Normal 0.00-0.03 The [facility] Comment on above: Performed By: #### C BC ####[facility] [address] [place], [place] [address]Dr. Diego Wilkins IG % 0.3 % Normal 0.0-0.5 The [facility] Comment on above: Performed By: #### C BC ####[facility] [address] [place] [address]Dr. Diego Wilkins LYMPH # 1.6 103/ul Normal 1.2-3.8 [facility] Comment on above: Performed By: #### C BC ####[facility] [address] [place] [address]Dr. Diego Wilkins Lymphocytes/100 WBC (Bld) 25.9 % Normal 20.5-60.0 [facility] Comment on above: Performed By: #### C BC ####[facility] [address] [place] [address]Dr. Diego Wilkins MANUAL DIFF REQ NO Normal [facility] Comment on above: Performed By: #### C BC ####[facility] [address] [place] [address]Dr. Diego Wilkins MCH (RBC) [Entitic mass] 30.7 pg Normal 25.9-34.0 [facility] Comment on above: Performed By: #### C BC ####[facility] [address] [place] [address]Dr. Diego Wilkins MCHC (RBC) [Mass/Vol] 34.1 g/dL Normal 29.9-35.2 [facility] Comment on above: Performed By: #### C BC ####[facility] [address] [place] [address]Dr. Diego Wilkins MCV (RBC) [Entitic vol] 90.0 fL Normal 80.0-94.0 [facility] Comment on above: Performed By: #### C BC ####[facility] [address] [place] [address]Dr. Diego Wilkins MONO # 0.3 103/ul Normal 0.3-0.8 The [facility] Comment on above: Performed By: #### C BC ####[facility] [address] [place] [address]Dr. Diego Wilkins Monocytes/100 WBC (Bld) 5.1 % Normal 1.7-12.0 [facility] Comment on above: Performed By: #### C BC ####[facility] [address] [place], [place] [address]ZtJos Wilkins NEUT # 4.0 103/ul Normal 1.4-6.5 [facility] Comment on above: Performed By: #### C BC ####[facility] [address] [place], [place] [address]BwJos Wilkins Neutrophils/100 WBC (Bld) 65.1 % Normal 43.0-75.0 [facility] Comment on above: Performed By: #### C BC ####[facility] [address] [place], [place] [address]XtJos Wilkins Platelet mean volume (Bld) [Entitic vol] 10.0 fL Normal 9.5-13.5 [facility] Comment on above: Performed By: #### C BC ####[facility] [address] [place] [address]DrJos Wilkins PLT 145 103/ul Critically low 150-450 [facility] [place] Comment on above: Performed By: #### C BC ####[facility] [address] [place] [id number]. Diego Wilkins RBC 4.60 106/ul Critically low 4.70-6.10 [facility] Comment on above: Performed By: #### C BC ####[facility] [address] [place], [place] [address]CrJos Wilkins WBC 6.1 103/ul Normal 4.0-11.0 [facility] Comment on above: Performed By: #### C BC ####[facility] Sh[address] [place] [id number]. Diego Wilkins PROF 14(COMP METB)on 023 Albumin [Mass/Vol] 3.5 g/dL Normal 3.4-5.0 [facility] Comment on above: Performed By: #### C MPARNOLDM #### [facility] Laboratory [address] [place], [place] [address] Dr. Diego Wilkins Albumin/Globulin [Mass ratio] 1.0 {ratio} Normal [facility] Comment on above: Performed By: #### C MP, CMADM #### [facility] [address] [place] [address] [address] Diego Wilkins ALP [Catalytic activity/Vol] 116 U/L Normal 46-116 [facility] Comment on above: Performed By: #### C MP, CMADM #### [facility] [address] [place] [place] [address] [address] Diego Wilkins ALT [Catalytic activity/Vol] 20 U/L Normal 16-63 [facility] Comment on above: Performed By: #### C MP, CMADM #### [facility] [address] [place] [address] [address] Diego Wilkins Anion gap [Moles/Vol] 11.2 mmol/L Normal [facility] Comment on above: Performed By: #### C MP, CMADM #### [facility] [address] [place] [address] [address] Diego Wilkins AST [Catalytic activity/Vol] 18 U/L Normal 15-37 [facility] Comment on above: Performed By: #### C ELZA, CMADM #### [facility] [address] [place] [address] [address] Diego Wilkins Bilirubin [Mass/Vol] 0.6 mg/dL Normal 0.2-1.0 [facility] Comment on above: Performed By: #### C MP, CMADM #### [facility] [address] [place] [address] [address] Diego Wilkins Calcium [Mass/Vol] 8.7 mg/dL Normal 8.5-10.1 [facility] Comment on above: Performed By: #### C MP, CMADM #### [facility] [address] [place] [address] [address] Diego Wilkins Chloride [Moles/Vol] 102 mmol/L Normal 98-107 [facility] Comment on above: Performed By: #### C MP, CMADM #### [facility] [address] [place] [address] [address] Diego Wilkins CO2 [Moles/Vol] 31.4 mmol/L Normal 21.0-32.0 [facility] Comment on above: Performed By: #### C MP, CMADM #### [facility] [address] [place] [address] [address] Diego Wilkins Creatinine [Mass/Vol] 0.76 mg/dL Normal 0.70-1.30 [facility] Comment on above: Performed By: #### C MP, CMADM #### [facility] [address] [place] [address] [address] Diego Wilkins EGFR-AF GABONESE >60 Normal >=60 [facility] Comment on above: Performed By: #### C MP, CMADM #### [facility] [address] [place] [address] [address] Diego Wilkins EGFR-NON AF GABONESE >60 Normal >=60 [facility] Comment on above: Performed By: #### C MP, CMADM #### [facility] [address] [place] [address] [address] Diego Wilkins Globulin (S) [Mass/Vol] 3.6 g/dL Normal [facility] Comment on above: Performed By: #### C MP, CMADM #### [facility] [address] [place] [address] [address] Diego Wilkins Glucose [Mass/Vol] 110 mg/dL Critically high 74-106 [facility] Comment on above: Performed By: #### C MP, CMADM #### [facility] [address] [place] [address] [address] Diego Wilkins Potassium [Moles/Vol] 3.6 mmol/L Normal 3.5-5.1 [facility] Comment on above: Performed By: #### C MP, CMADM #### [facility] [address] [place] [address] [address] Diego Wilkins Protein [Mass/Vol] 7.1 g/dL Normal 6.4-8.2 [facility] Comment on above: Performed By: #### C MP, CMADM #### [facility] [address] [place] [address] [address] Diego Wilkins Sodium [Moles/Vol] 141 mmol/L Normal 136-145 [facility] Comment on above: Performed By: #### C ELZA, CMADM #### [facility] [address] [place] [address] [address] Diego Wilkins Urea nitrogen [Mass/Vol] 4.0 mg/dL Critically low 7.0-18.0 [facility] Comment on above: Performed By: #### C ELZA, CMADM #### [facility] [address] [place] [address] [address] Diego Wilkins Urea nitrogen/Creatinine [Mass ratio] 5.3 mg/mg Normal [facility] Comment on above: Performed By: #### C ELZA, ARNOLDM #### [facility] [address] [place] [address] Dr. Diego Wilkins T4on 12-30-2022 T4 [Mass/Vol] 8.90 ug/dL Normal 4.50-12.10 [facility] Comment on above: Performed By: #### T 4, TSH #### [facility] [address] [place] [address] Dr. Diego Wilkins TROPONIN, HIGH SENSITIVITYon 12-30-2022 HSTROP 4.6 pg/mL Normal 4.0-76.1 [facility] Comment on above: Result Comment: CUT- OFF POINTS HAVE BEEN ESTABLISHED BASED ON THE FOURTH UNIVERSAL DEFINITIONS OF MYOCARDIAL INFARCTION. THE UPPER REFERENCE LIMIT (URL) OF TROPONIN, DEFINED THE 99TH PERCENTILE OF cTnI DISTRIBUTION IN A REFERENCE POPULATION, HAS BEEN CONFIRMED THE DECISION THRESHOLD FOR MD DIAGNOSIS. Performed By: #### H STROPN ####[facility] [address] [place] [id number]. Diego Wilkins TSHon 12-30-2022 TSH 1.729 uIU/mL Normal 0.358-3.740 [facility] Comment on above: Performed By: #### T 4, TSH #### [facility] [address] [place] [id number] Diego Wilkins Office Visit (Cardiac Surger [...] day smoker Tobacco Use Screening; Status:Complete; Done: [id number] Provider Impressions In summary this 62-year-old man [...] have asked him to speak to his family health team about the options to help with smoking cessation. We discussed the need for tight blood pressure control, and to take his blood pressure daily. I do believe he should be referred to a manager play, and since he lives in the [facility], we will refer him to one of our cardiology colleagues from [facility]. Lastly, we will refer him to the [...] following a referral by Tonja Wiley CNP ([facility]). COURTNEY Ruiz, RN Adult Risk Screening [...] (414.01,V45.82) (I25 (more content not included)... Normal [employer] Tobacco Screening.on 023 Fall risk assessment a) No falls within the last year [facility] [address] Work Phone: Tobacco use status [facility]PH[facility] a) Yes [facility] 1800 Work Phone: Tobacco Screening. Yes [facility] 1800 Work Phone: CT CHEST WO CONon [...] by: DENNIS KIM Date: 2022-11-24 07:39 Normal [facility] CTA ABD/PELVIS WO W CONon CTA [...] by: DENNIS KIM Date: 2022-05-04 07:31 Normal [facility] CTA CHEST W CONon 022 CTA CHEST WO W CON EXAMINATION: CTA [facility] ST WO W [facility] HISTORY: Thoracic aortic aneurysm without rupture COMPARISON: [...] by: ROBBIE ADAMS Date: 2022-04-29 07:42 Normal [facility] CT LUNG CANCER SCREENINGon 0 04-20-2022 [...] ROBBIE ADAMS Date: 2022-04-20 09:40 Normal [facility] CBC AUTO DIFFon 04-13-2022 BASO # 0.0 103/ul Normal 0.0-0.1 [facility] Comment on above: Performed By: #### C BC ####[facility] [address] [place] [id number]. Diego Wilkins Basophils/100 WBC (Bld) 0.8 % Normal 0.2-2.0 [facility] Comment on above: Performed By: #### C BC ####[facility] [address] [place] [id number]. Diego Wilkins EO # 0.0 103/ul Normal 0.0-0.7 [facility] Comment on above: Performed By: #### C BC ####[facility] [address] [place] [id number]. Diego Wilkins Eosinophils/100 WBC (Bld) 0.3 % Critically low 0.9-7.0 [facility] Comment on above: Performed By: #### C BC ####[facility] [address] [place] [id number]. Diego Wilkins Erythrocyte distribution width (RBC) [Ratio] 13.0 % Normal 11.0-15.0 [facility] Comment on above: Performed By: #### C BC ####[facility] [address] [place] [id number]. Diego Wilkins Hematocrit (Bld) [Volume fraction] 43.3 % Normal 42.0-54.0 [facility] Comment on above: Performed By: #### C BC ####[facility] [address] [place] [id number]. Diego Wilkins Hemoglobin (Bld) [Mass/Vol] 14.2 g/dL Normal 14.0-18.0 [facility] Comment on above: Performed By: #### C BC ####[facility] [address] [place] [id number]. Diego Wilkins IG # 0.01 10e3/ul Normal 0.00-0.03 [facility] Comment on above: Performed By: #### C BC ####[facility] [address] [place] [id number]. Diego Wilkins IG % 0.3 % Normal 0.0-0.5 [facility] Comment on above: Performed By: #### C BC ####[facility] [address] [place] [address]Dr. Diego Wilkins LYMPH # 0.9 103/ul Critically low 1.2-3.8 [facility] Comment on above: Performed By: #### C BC ####[facility] [address] [place], [place] [address]Dr. Diego Wilkins Lymphocytes/100 WBC (Bld) 23.7 % Normal 20.5-60.0 [facility] Comment on above: Performed By: #### C BC ####[facility] [address] [place] [address]Dr. Diego Wilkins MANUAL DIFF REQ NO Normal [facility] Comment on above: Performed By: #### C BC ####[facility] [address] [place] [address]Dr. Diego Wilkins MCH (RBC) [Entitic mass] 31.0 pg Normal 25.9-34.0 [facility] Comment on above: Performed By: #### C BC ####[facility] [address] [place], [place] [address]Dr. Diego Wilkins MCHC (RBC) [Mass/Vol] 32.8 g/dL Normal 29.9-35.2 [facility] Comment on above: Performed By: #### C BC ####[facility] [address] [place] [address]Dr. Diego Wilkins MCV (RBC) [Entitic vol] 94.5 fL Critically high 80.0-94.0 [facility] Comment on above: Performed By: #### C BC ####[facility] [address]ay[address]fm[address] [place] [id number]. Diego Wilkins MONO # 0.6 103/ul Normal 0.3-0.8 [facility] Comment on above: Performed By: #### C BC ####[facility] [address] [place], [place] [address]Ij. Diego Wilkins Monocytes/100 WBC (Bld) 16.8 % Critically high 1.7-12.0 [facility] Comment on above: Performed By: #### C BC ####[facility] [address] [place] [id number]. Diego Wilkins NEUT # 2.1 103/ul Normal 1.4-6.5 [facility] Comment on above: Performed By: #### C BC ####[facility] Qgtaauzguo47[address] [place] [id number]. Diego Wilkins Neutrophils/100 WBC (Bld) 58.1 % Normal 43.0-75.0 [facility] Comment on above: Performed By: #### C BC ####[facility] Wqfixifgji45[address] [place] [id number]. Diego Wilkins Platelet mean volume (Bld) [Entitic vol] 10.6 fL Normal 9.5-13.5 [facility] Comment on above: Performed By: #### C BC ####[facility] Ykrbfjaxzo[address] [place] [id number]. Diego Wilkins PLT 141 103/ul Critically low 150-450 [facility] Comment on above: Performed By: #### C BC ####[facility] P[address]lej[address] [place] [id number]. Diego Wilkins RBC 4.58 106/ul Critically low 4.70-6.10 [facility] Comment on above: Performed By: #### C BC ####[facility] Fqqdnmjruv[address] [place] [id number]. Diego Wilkins WBC 3.6 103/ul Critically low 4.0-11.0 [facility] Comment on above: Performed By: #### C BC ####[facility] V[address]zfsvmtf[address] [place] [id number]. Diego Wilkins LIPID PROFILEon 04-13-2022 CHOL-HDL RATIO NORM SEE BELOW Normal [facility] Comment on above: Result Comment: 3.3 - 4.4 LOW RISK 4.4 - 7.1 AVERAGE RISK 7.1 - 11.0 MODERATE RISK >11.0 HIGH RISK Performed By: #### L IPID, CMP ####[facility] Vdsvaobojp[address] [place] [id number]. Diego Wilkins Cholesterol [Mass/Vol] 71 mg/dL Normal <=200 [facility] Comment on above: Performed By: #### L IPID, CMP ####[facility] Ir[address] [place] [id number]. Leathaliz Franky Cholesterol in HDL [Mass/Vol] 30 mg/dL Critically low 40-60 [facility] Comment on above: Performed By: #### L IPID, CMP ####[facility] Sx[address]ud[address]we[address] [place] [id number]. Leathaliz Franky Cholesterol in LDL [Mass/Vol] 28.4 mg/dL Normal [facility] Comment on above: Performed By: #### L IPID, CMP ####[facility] Vkqashyaoc15[address] [place] [id number]. Diego Franky Cholesterol.total/C holesterol in HDL [Mass ratio] 2.4 {ratio} Normal [facility] Comment on above: Performed By: #### L IPID, CMP ####[facility] B[address]ce[address] [place] [id number]. Diego Wilkins HDL NORMAL > or = 60 mg/dl - LO W CARDIOVASCULAR RISK <40 mg/dl - HIGH CARDIOVASCULAR RISK Normal [facility] Comment on above: Performed By: #### L IPID, CMP ####[facility] Dyoaukdogb23[address] [place] [id number]. Diego Wilkins LDL CALC NORMAL SEE BELOW Normal [facility] Comment on above: Result Comment: <100 mg/dl OPTIMAL 100 - 129 mg/dl NEAR OR ABOVE OPTIMAL 130 - 159 mg/dl BORDERLINE HIGH 160 - 189 mg/dl HIGH >190 mg/dl VERY HIGH Performed By: #### L IPID, CMP ####[facility] [address] [place] [address]Dr. Diego Wilkins Triglyceride [Mass/Vol] 63 mg/dL Normal <=150 [facility] Comment on above: Performed By: #### L IPID, CMP ####[facility] [address]kw[address]em[address]kp[address] [place] [address]Dr. Diego Wilkins VLDL CALC 12.6 mg/dL Normal [facility] Comment on above: Performed By: #### L IPID, CMP ####[facility] [address]rdf[address] [place] [address]Dr. Diego Wilkins PROF 14(COMP METB)on 022 Albumin [Mass/Vol] 3.9 g/dL Normal 3.4-5.0 [facility] Comment on above: Performed By: #### L IPID, CMP ####[facility] [address]fx[address] [place], [place] [address]Dr. Diego Wilkins Albumin/Globulin [Mass ratio] 1.1 {ratio} Normal [facility] Comment on above: Performed By: #### L IPID, CMP ####[facility] [address] [place], [place] [address]Dr. Diego Wilkins ALP [Catalytic activity/Vol] 141 U/L Critically high 46-116 [facility] Comment on above: Performed By: #### L IPID, CMP ####[facility] [address] [place], [place] [address]Dr. Diego Wilkins ALT [Catalytic activity/Vol] 24 U/L Normal 16-63 [facility] Comment on above: Performed By: #### L IPID, CMP ####[facility] Bertpsex[address] [place] [address]Dr. Diego Wilkins Anion gap [Moles/Vol] 9.9 mmol/L Normal [facility] Comment on above: Performed By: #### L IPID, CMP ####[facility] Kj[address]ht[address] [place], [place] [address]Dr. Diego Wilkins AST [Catalytic activity/Vol] 23 U/L Normal 15-37 [facility] Comment on above: Performed By: #### L IPID, CMP ####[facility] [address] [place], [place] [address]Dr. Diego Wilkins Bilirubin [Mass/Vol] 0.7 mg/dL Normal 0.2-1.0 [facility] Comment on above: Performed By: #### L IPID, CMP ####[facility] [address]ft[address] [place], [place] [address]Dr. Leathaliz Wilkins Calcium [Mass/Vol] 9.0 mg/dL Normal 8.5-10.1 [facility] Comment on above: Performed By: #### L IPID, CMP ####[facility] [address]ns[address] [place], [place] [address]Dr. Leathaliz Wilkins Chloride [Moles/Vol] 98 mmol/L Normal 98-107 [facility] Comment on above: Performed By: #### L IPID, CMP ####[facility] [address] [place], [place] [address]Dr. Leathaliz Wilkins CO2 [Moles/Vol] 32.6 mmol/L Critically high 21.0-32.0 [facility] Comment on above: Performed By: #### L IPID, CMP ####[facility] [address] [place], [place] [address]Dr. Leathaliz Franky Creatinine [Mass/Vol] 0.84 mg/dL Normal 0.70-1.30 [facility] Comment on above: Performed By: #### L IPID, CMP ####[facility] [address]wr[address] [place], [place] [address]Dr. Leathaliz Franky EGFR-AF GABONESE >60 Normal >=60 [facility] Comment on above: Performed By: #### L IPID, CMP ####[facility] [address]rt[address] [place], [place] [address]Dr. Diego Wilkins EGFR-NON AF GABONESE >60 Normal >=60 [facility] Comment on above: Performed By: #### L IPID, CMP ####[facility] Thuuy[address] [place], [place] [address]Dr. Diego Wilkins Globulin (S) [Mass/Vol] 3.4 g/dL Normal [facility] Comment on above: Performed By: #### L IPID, CMP ####[facility] [address] [place] [address]Dr. Leathaliz Franky Glucose [Mass/Vol] 98 mg/dL Normal 74-106 [facility] Comment on above: Performed By: #### L IPID, CMP ####[facility] [address]ky[address] [place] [address]Dr. Diego Wilkins Potassium [Moles/Vol] 3.5 mmol/L Normal 3.5-5.1 [facility] Comment on above: Performed By: #### L IPID, CMP ####[facility] [address] [place] [address]Dr. Diego Wilkins Protein [Mass/Vol] 7.3 g/dL Normal 6.4-8.2 [facility] Comment on above: Performed By: #### L IPID, CMP ####[facility] [address] [place], [place] [address]Dr. Diego Wilkins Sodium [Moles/Vol] 137 mmol/L Normal 136-145 [facility] Comment on above: Performed By: #### L IPID, CMP ####[facility] [address] [place] [address]Dr. Diego Wilkins Urea nitrogen [Mass/Vol] 5.0 mg/dL Critically low 7.0-18.0 [facility] Comment on above: Performed By: #### L IPID, CMP ####[facility] [address] [place] [address]Dr. Diego Wilkins Urea nitrogen/Creatinine [Mass ratio] 6.0 mg/mg Normal [facility] Comment on above: Performed By: #### L IPID, CMP ####[facility] [address]vx[address] [place] [address]Dr. Diego Wilkins UA RANDOM W/MICROSCOPICon BACTERIA NONE SEEN Normal NONE SEEN [facility] Comment on above: Performed By: #### U AMIC #### [facility] [address] [place] [address] [address] Diego Wilkins Bilirubin Ql (U) Negative Normal NEGATIVE [facility] Comment on above: Performed By: #### U AMIC #### [facility] [address] [place] [address] [address] Diego Wilkins CAST NONE SEEN Normal NONE SEEN [facility] Comment on above: Performed By: #### U AMIC #### [facility] [address] [place] [address] [address] Diego Wilkins Clarity (U) CLEAR Normal CLEAR [facility] Comment on above: Performed By: #### U AMIC #### [facility] [address] [place] [address] [address] Diego Wilkins Color (U) LT. YELLOW Normal YELLOW [facility] Comment on above: Performed By: #### U AMIC #### [facility] [address] [place] [address] Dr. Diego Wilkins Crystals LM Nom (Urine sed) NONE SEEN Normal NONE SEEN [facility] Comment on above: Performed By: #### U AMIC #### [facility] [address] [place] [address] Dr. Diego Wilkins Epithelial cells LM Ql (Urine sed) RARE Normal NONE SEEN /RARE [facility] Comment on above: Performed By: #### U AMIC #### [facility] [address] [place] [address] Dr. Diego Wilkins Glucose Ql (U) Negative Normal NEGATIVE [facility] Comment on above: Performed By: #### U AMIC #### [facility] [address] [place] [address] [address] Diego Wilkins Hemoglobin Ql (U) Negative Normal NEGATIVE [facility] Comment on above: Performed By: #### U AMIC #### [facility] [address] [place] [address] [address] Diego Wilkins Ketones Ql (U) Negative Normal NEGATIVE [facility] Comment on above: Performed By: #### U AMIC #### [facility] [address] [place] [address] Dr. Diego Wilkins LEUKOCYTES Negative Normal NEGATIVE [facility] Comment on above: Performed By: #### U AMIC #### [facility] [address] [place] [address] [address] Diego Wilkins MUCOUS NONE SEEN Normal NONE SEEN [facility] Comment on above: Performed By: #### U AMIC #### [facility] [address] [place] [address] [address] Diego Wilkins Nitrite Ql (U) Negative Normal NEGATIVE [facility] Comment on above: Performed By: #### U AMIC #### [facility] [address] [place] [address] Dr. Diego Wilkins pH (U) 6.0 [pH] Normal 5-9 [facility] Comment on above: Performed By: #### U AMIC #### [facility] [address] [place] [address] Dr. Diego Wilkins RBC NONE SEEN Abnormal 0-2 [facility] Comment on above: Performed By: #### U AMIC #### [facility] [facility] [address] [place] [address] Dr. Diego Wilkins SPEC GRAVITY <=1.005 Abnormal 1.005-<=1.025 [facility] Comment on above: Performed By: #### U AMIC #### [facility] [address] [place] [address] Dr. Diego Wilkins UA PROTEIN Negative Normal NEGATIVE/ TRACE [facility] Comment on above: Performed By: #### U AMIC #### [facility] [address] [place] [address] Dr. Diego Wilkins Urobilinogen Qn (U) 1.0 {Shelly'U}/dL Normal 0.2 - 1. 0 [facility] Comment on above: Performed By: #### U AMIC #### [facility] [address] [place] [address] Dr. Diego Wilkins WBC NONE SEEN Normal NONE SEEN [facility] Comment on above: Performed By: #### U AMIC #### [facility] [address] [place] [address] Dr. Diego Wilkins Vital Signs Date Time Vital Sign Value Performing Clinician Facility 12-26-2024 15:48-0500 Body height 176.5 cm Tonjaemerita Mendozaholz DRAPERY SUPERVISOR Work Phone: [facility] 12-26-2024 15:48-0500 Body mass index (BMI) [Ratio] 22.42 kg/m2 Tonja Esauhholz DRAPERY SUPERVISOR Work Phone: [facility] 12-26-2024 15:48-0500 Body temperature 98.01 [degF] Tonja Esauhholz DRAPERY SUPERVISOR Work Phone: [facility] 12-26-2024 15:48-0500 Body weight 69.85 kg Tonja Esauhholz DRAPERY SUPERVISOR Work Phone: [facility] 12-26-2024 15:48-0500 Diastolic blood pressure 76 mm[Hg] Tonja Esauhholz DRAPERY SUPERVISOR Work Phone: [facility] 12-26-2024 15:48-0500 Heart rate 51 /min Tonja Kellyholz DRAPERY SUPERVISOR Work Phone: [facility] 12-26-2024 15:48-0500 Respiratory rate 18 /min Tonja Aichholz DRAPERY SUPERVISOR Work Phone: [facility] 12-26-2024 15:48-0500 SaO2% (BldA) [Mass fraction] 97 % Tonja Esauhholz DRAPERY SUPERVISOR Work Phone: [facility] 12-26-2024 15:48-0500 Systolic blood pressure 118 mm[Hg] Tonja Kellyholz DRAPERY SUPERVISOR Work Phone: [facility] 09-10-2024 15:37-0400 Body height 176.5 cm Tonja Aichholz DRAPERY SUPERVISOR Work Phone: [facility] 09-10-2024 15:37-0400 Body mass index (BMI) [Ratio] 22.42 kg/m2 Tonja Aichholz DRAPERY SUPERVISOR Work Phone: [facility] 09-10-2024 15:37-0400 Body temperature 98.01 [degF] Tonja Esauhholz DRAPERY SUPERVISOR Work Phone: [facility] 09-10-2024 15:37-0400 Body weight 69.85 kg Tonja Aichholz DRAPERY SUPERVISOR Work Phone: [facility] 09-10-2024 15:37-0400 Diastolic blood pressure 66 mm[Hg] Tonja Aichholz DRAPERY SUPERVISOR Work Phone: [facility] 09-10-2024 15:37-0400 Heart rate 77 /min Tonja Aichholz DRAPERY SUPERVISOR Work Phone: [facility] 09-10-2024 15:37-0400 Respiratory rate 18 /min Tonja Aichholz DRAPERY SUPERVISOR Work Phone: [facility] 09-10-2024 15:37-0400 SaO2% (BldA) [Mass fraction] 98 % Tonja Aichholz DRAPERY SUPERVISOR Work Phone: [facility] 09-10-2024 15:37-0400 Systolic blood pressure 100 mm[Hg] Tonja Aichholz DRAPERY SUPERVISOR Work Phone: [facility] 08-08-2024 15:28-0400 Body height 176.5 cm Tonja Aichholz DRAPERY SUPERVISOR Work Phone: [facility] 08-08-2024 15:28-0400 Body mass index (BMI) [Ratio] 22.42 kg/m2 Tonja Aichholz DRAPERY SUPERVISOR Work Phone: [facility] 08-08-2024 15:28-0400 Body temperature 98.8 [degF] Tonja Aichholz DRAPERY SUPERVISOR Work Phone: [facility] 08-08-2024 15:28-0400 Body weight 69.85 kg Tonja Aichholz DRAPERY SUPERVISOR Work Phone: [facility] 08-08-2024 15:28-0400 Diastolic blood pressure 70 mm[Hg] Tonja Aichholz DRAPERY SUPERVISOR Work Phone: [facility] 08-08-2024 15:28-0400 Heart rate 79 /min Tonja Aichholz DRAPERY SUPERVISOR Work Phone: [facility] 08-08-2024 15:28-0400 Respiratory rate 18 /min Tonja Mendozahugo DRAPERY SUPERVISOR Work Phone: [facility] 08-08-2024 15:28-0400 SaO2% (BldA) [Mass fraction] 97 % Tonja Wiley DRAPERY SUPERVISOR Work Phone: [facility] 08-08-2024 15:28-0400 Systolic blood pressure 110 mm[Hg] Tonja Wiley DRAPERY SUPERVISOR Work Phone: [facility] 11-29-2023 11:04-0500 Body height 172.7 cm Roman Hudson MD Work Phone: [facility] 11-29-2023 11:04-0500 Body mass index (BMI) [Ratio] 23.87 kg/m2 Roman Hudson MD Work Phone: [facility] 11-29-2023 11:04-0500 Body weight 71.22 kg Roman Hudson MD Work Phone: [facility] 11-29-2023 11:04-0500 Diastolic blood pressure 68 mm[Hg] Roman Hudson MD Work Phone: [facility] 11-29-2023 11:04-0500 Heart rate 84 /min Roman Hudson MD Work Phone: [facility] 11-29-2023 11:04-0500 SaO2% (BldA) [Mass fraction] 96 % Roman Hudson MD Work Phone: [facility] 11-29-2023 11:04-0500 Systolic blood pressure 105 mm[Hg] Roman Hudson MD Work Phone: [facility] 02-14-2023 15:06-0400 Blood Pressure Location Pauline BAINS [facility] [place] 02-14-2023 15:06-0400 Diastolic blood pressure 84 mm[Hg] Pauline NILL [facility] [place] 02-14-2023 15:06-0400 Heart rate 68 /min Pauline SOTOL [facility] [place] 02-14-2023 15:06-0400 Respiratory rate 16 /min Pauline BAINS [facility] [place] 02-14-2023 15:06-0400 Systolic blood pressure 116 mm[Hg] Pauline BAINS [facility] [place] 01-09-2023 10:00-0500 Diastolic blood pressure 74 mm[Hg] Tonjaemerita Cifuenteshholz Work Phone: [facility] 600 DO Work Phone: 01-09-2023 10:00-0500 Diastolic blood pressure 82 mm[Hg] Tonja Cifuenteshholz Work Phone: [facility] 600 DO Work Phone: 01-09-2023 10:00-0500 Systolic blood pressure 118 mm[Hg] Tonjaemerita Cifuenteshholz Work Phone: [facility] 600 DO Work Phone: 01-09-2023 10:00-0500 Systolic blood pressure 124 mm[Hg] Tonjaemerita Cifuenteshholz Work Phone: [facility] 600 DO Work Phone: 01-09-2023 09:58-0500 Body height 176.53 cm Tonjaemerita Cifuenteshholz Work Phone: [facility] 600 DO Work Phone: 01-09-2023 09:58-0500 Body mass index (BMI) [Ratio] 22.27 kg/m2 Tonja Jo Aichholz Work Phone: [facility] 600 DO Work Phone: 01-09-2023 09:58-0500 Body surface area Derived from formula 1.85 m2 Tonja [facility] Work Phone: 01-09-2023 09:58-0500 Body weight 69.4 kg Tonja Wiley [facility] Work Phone: 01-09-2023 09:58-0500 Heart rate 75 /min Tonja Wiley [facility] Work Phone: 12-28-2022 13:06-0500 Body height 175.26 cm Unknown Unknown [facility] Work Phone: 12-28-2022 13:06-0500 Body mass index (BMI) [Ratio] 22.52 kg/m2 Unknown Unknown [facility] Work Phone: 12-28-2022 13:06-0500 Body surface area Derived from formula 1.84 m2 Unknown Unknown [facility] Work Phone: 12-28-2022 13:06-0500 Body weight 69.17 kg Unknown Unknown [facility] Work Phone: 12-28-2022 13:06-0500 Diastolic blood pressure 81 mm[Hg] Unknown Unknown [facility] Work Phone: 12-28-2022 13:06-0500 Heart rate 60 /min Unknown Unknown [facility] 1800 Work Phone: 12-28-2022 13:06-0500 SaO2% (BldA) [Mass fraction] 94 % Unknown Unknown [facility] Work Phone: 12-28-2022 13:06-0500 Systolic blood pressure 152 mm[Hg] Unknown Unknown [facility] Work Phone: 12-28-2022 13:06-0500 0 1 Unknown Unknown [facility] Work Phone: Comment on above: [employer] Encounters Encounter Date Encounter Type Care Provider Facility Start: 01-09-2025 End: 01-09-2025 Orders Only Tonja Wiley NP Work Phone: [facility] Comment on above: 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 (CMS/HCC) (Primary Dx); Primary hypertension (CMS/HCC); Cigarette nicotine dependence without complication Start: 01-06-2025 End: 01-07-2025 Clinisync Result Encounter Tonja Wiley NP Work Phone: [facility] External Department Unsolicited Start: 01-06-2025 End: 01-07-2025 Clinisync Result Encounter Tonja Wiley NP Work Phone: [facility] External Department Unsolicited Start: 12-26-2024 End: 12-26-2024 Office outpatient visit 25 minutes Tonja Wiley NP Work Phone: [facility] Comment on above: Primary hypertension (CMS/HCC) (Primary Dx); Other emphysema (CMS/HCC); 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 (CMS/HCC); Gastroesophageal reflux disease, unspecified whether esophagitis present; Mixed hyperlipidemia (CMS/HCC); Cigarette nicotine dependence without complication; Aneurysm of ascending aorta without rupture (CMS/HCC); Abdominal aortic aneurysm (AAA) without rupture, unspecified part (CMS/HCC); Encounter for screening for lung cancer Start: 12-26-2024 End: 12-26-2024 ambulatory TONJA WILEY Not Available Start: 12-26-2024 End: 12-26-2024 Bamboo flowsheet Tonja Wiley DRAPERY SUPERVISOR Work Phone: [facility] Start: 12-26-2024 End: 12-26-2024 Bamboo flowsheet Tonja Wiley DRAPERY SUPERVISOR Work Phone: [facility] Start: 11-27-2024 End: 11-27-2024 Refill Tonja Saurabh DRAPERY SUPERVISOR Work Phone: [facility] Comment on above: Gastroesophageal ref lux disease, unspecified whether esophagitis present Start: 10-07-2024 End: 10-07-2024 Refill Tonja Wiley DRAPERY SUPERVISOR Work Phone: [facility] Comment on above: 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 ([facility]) Start: 09-10-2024 End: 09-10-2024 Office outpatient visit 15 minutes Tonja Wiley DRAPERY SUPERVISOR Work Phone: [facility] Comment on above: Primary hypertension ([facility]) (Primary Dx); Tobacco dependence Start: 09-10-2024 End: 09-10-2024 ambulatory TONJA WILEY Not Available Start: 09-10-2024 End: 09-10-2024 Bamboo flowsheet Tonja Saurabh DRAPERY SUPERVISOR Work Phone: [facility] Start: 09-10-2024 End: 09-10-2024 Bamboo flowsheet Tonja Saurabh DRAPERY SUPERVISOR Work Phone: [facility] Start: 09-07-2024 End: 09-09-2024 Clinisync Result Encounter Tonja Wiley DRAPERY SUPERVISOR Work Phone: [facility] External Department Unsolicited Start: 09-07-2024 End: 09-09-2024 Clinisync Result Encounter Tonja Saurabh DRAPERY SUPERVISOR Work Phone: [facility] Unsolicited Start: 08-19-2024 End: 08-19-2024 Clinisync Result Encounter Tonja Saurabh DRAPERY SUPERVISOR Work Phone: [facility] Unsolicited Start: 08-19-2024 End: 08-19-2024 Clinisync Result Encounter Tonja Saurabh DRAPERY SUPERVISOR Work Phone: [facility] Unsolicited Start: 08-19-2024 End: 08-19-2024 Refill Tonja Aichholz DRAPERY SUPERVISOR Work Phone: [facility] Comment on above: Hypokalemia (Primary Dx) Start: 08-08-2024 End: 08-08-2024 Office outpatient visit 25 minutes Tonja Aicisaiz DRAPERY SUPERVISOR Work Phone: [facility] Comment on above: Primary hypertension (CMS/HCC) (Primary Dx); Tobacco dependence; Other emphysema (CMS/HCC); Prostate cancer screening; 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 (CMS/HCC); Gastroesophageal reflux disease, unspecified whether esophagitis present Start: 08-08-2024 End: 08-08-2024 ambulatory TONJA AICHHOLZ Not Available Start: 08-08-2024 End: 08-08-2024 Bamboo flowsheet Tonja Aichholz DRAPERY SUPERVISOR Work Phone: [facility] Start: 08-08-2024 End: 08-08-2024 Bamboo flowsheet Tonja Aichholz DRAPERY SUPERVISOR Work Phone: [facility] Start: 07-30-2024 End: 07-30-2024 Refill Tonja Aichholz DRAPERY SUPERVISOR Work Phone: [facility] Comment on above: Other emphysema (CMS /HCC) (Primary Dx); Primary hypertension (CMS/HCC); 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 Comment on above: Ascending aortic ane urysm, unspecified whether ruptured (CMS/HCC) Start: 01-17-2024 End: 01-18-2024 ambulatory ROMAN HUDSON [facility] Start: 12-14-2023 End: 12-14-2023 Subsequent hospital visit by physician Madeline Dai[address] 1 [facility] Comment on above: Ascending aorta dila tation ([facility]/HCC) Start: 12-14-2023 End: 12-14-2023 ambulatory ROMAN Rodriguez [facility] Start: 11-29-2023 End: 11-29-2023 ambulatory ROMAN Rodriguez [facility] Start: 11-29-2023 End: 11-29-2023 Office outpatient new 60 minutes Roman Hudson MD Work Phone: [facility] Comment on above: Ascending aorta dila tion (CMS/HCC) Start: 03-14-2023 End: 03-15-2023 ambulatory [facility] BAINS [facility] Start: 03-14-2023 End: 03-14-2023 Patient encounter procedure Pauline BAINS General [facility] Start: 03-01-2023 End: 03-02-[address] PAULINE BAINS . Facility:[facility] Start: 02-14-2023 End: 02-15-2023 ambulatory Paul[facility] BAINS [facility] Start: 02-14-2023 End: 02-14-2023 Patient encounter procedure Pauline BAINS General Surgery Nill[facility] Start: 01-17-2023 End: 01-18-2023 ambulatory TIFFANY WILEY Facility:[facility] Start: 01-09-2023 Office consultation new/estab patient 60 min Tonja Wiley Work Phone: [employer] 600 DO Work Phone: Start: 01-09-[address] Jess Marroquin Facility: Start: 12-30-2022 End: 12-30-2022 ambulatory UX SPECIALIST TONJA WILEY Facility:[facility] Start: 12-28-2022 Office consultation new/estab patient 80 min Unknown Unknown [facility] Work Phone: Start: 12-28-2022 ambulatory UNKNOWN UNKNOWN Facilit y:[facility] Start: 11-23-2022 End: 11-24-2022 ambulatory UX SPECIALIST TONJA AICHHOLZ Facility:[facility] Start: 05-03-2022 End: 05-04-2022 ambulatory UX SPECIALIST TONJA AICHHOLZ Facility:[facility] Start: 04-28-2022 End: 04-29-2022 ambulatory UX SPECIALIST TONJA AICHHOLZ Facility:[facility] Start: 04-20-2022 End: 04-21-2022 ambulatory UX SPECIALIST TONJA AICHHOLZ Facility:[facility] Start: 04-13-2022 End: 04-14-2022 ambulatory UX SPECIALIST TONJA AICHHOLZ Facility:[facility] Procedures Date Procedure Procedure Detail Performing Clinician Start: 01-06-2025 CT LUNG SCREENING LOW DOSE Tonja Aichholz DRAPERY SUPERVISOR Work Phone: Start: 09-07-2024 ALL POTASSIUM Tonja Aich hugo DRAPERY SUPERVISOR Work Phone: Start: 08-19-2024 ALL CBC WITH AUTO DIFF Tonja Aichholz DRAPERY SUPERVISOR Work Phone: Start: 08-19-2024 TBH UA (CLEAN/CATCH) MICROSCOPIC IF INDICATE Tonja Aichholz DRAPERY SUPERVISOR Work Phone: Start: 12-14-2023 CT ANGIO CHEST W AND WO IV CONTRAST ROMAN HUDSON Start: 03-01-2023 Colonoscopy Roman rogers MD Work Phone: Start: 03-01-2023 Colonoscopy Pauline NEAL Start: 04-13-2022 PSA screening UX SPECIALIST TONJA AICHHOLZ Comment on above: Performed By: #### P [facility] #### [facility] [address] [place] [address] Dr. Diego Wilkins Start: 11-20-2020 Colonoscopy Tonja Vinita Romero chholz Work Phone: Start: 01-19-2020 Colonoscopy Pauline NEAL Cardiac catheterization Mike ael NILL Placement of stent i n cardiac conduit Pauline BAINS Placement of stent i n coronary artery Unknown Unknown Plan of Treatment Date Care Activity Detail Author Start: 03-01-2033 Screening for malign ant neoplasm of colon [facility] Start: 03-10-2028 Screening for malign ant neoplasm of colon [facility] Start: 04-02-2025 End: 04-02-2025 Patient encounter procedure 04/02/2025 3:20 PM EDT Office Visit [facility] [address] [place] [phone] Tonja Wiley NP [address] [place] [phone] [facility] Start: 03-25-2025 End: 03-25-2025 Patient encounter procedure 03/25/2025 3:40 PM EDT Office Visit [facility] [address] [place] [phone] Tonja Wiley NP [address] [place] [phone] [facility] Start: 01-09-2025 End: 01-09-2027 NM Heart Perfusion W single state of exercise Stress test with myocardial perfusion Cardiac Nuclear Medicine High Priority 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 (CMS/HCC) Primary hypertension (CMS/HCC) Cigarette nicotine dependence without complication Expected: 01/09/2025 (Approximate), Expires: 01/09/2027 [facility] Work Phone: Comment on above: Expected: 01/09/2025 (Approximate), Expires: 01/09/2027 Start: 12-26-2024 End: 12-26-2024 Patient encounter procedure 12/26/2024 3:40 PM EST Office Visit [facility] [address] [place] [phone] Tonja Wiley NP [address] [place] [address] 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 (CMS/HCC) (Primary Dx); Other emphysema (CMS/HCC); Primary hypertension (CMS/HCC); Gastroesophageal reflux disease, unspecified whether esophagitis present; Mixed hyperlipidemia (CMS/HCC); Tobacco dependence; Aneurysm of ascending aorta without rupture (CMS/HCC); Abdominal aortic aneurysm (AAA) without rupture, unspecified part (CMS/HCC) [facility] Comment on above: 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 (CMS/HCC) (Primary Dx); [...] lung cancer Expected: 12/26/2024 (Approximate), Expires: 12/26/2025 [facility] Work Phone: Comment on above: Expected: 12/26/2024 (Approximate), Expires: 12/26/2025 Start: 12-11-2024 End: 12-11-2024 Patient encounter procedure 12/11/2024 3:20 PM EST Office Visit [facility] [address] [place] [phone] Tonja Wiley NP [address] [place] [address] [facility] Start: 09-10-2024 End: 09-10-2024 Patient encounter procedure [facility] Comment on above: Arrived Start: 09-09-2024 End: 08-19-2025 Potassium [Moles/volume] in Serum or Plasma Potassium Lab Routine Hypokalemia Expected: 09/09/2024 (Approximate), Expires: 08/19/2025 [facility] Work Phone: Comment on above: Expected: 09/09/2024 (Approximate), Expires: 08/19/2025 Start: 08-08-2024 End: 08-08-2024 Patient encounter procedure [facility] Comment on above: Tobacco dependence ( Primary Dx); Primary hypertension (CMS/HCC); Other emphysema (CMS/HCC); Prostate cancer screening; 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 (CMS/HCC) Start: 08-08-2024 End: 08-08-2025 CBC W Auto Differential panel - Blood CBC and differential Lab Routine Tobacco dependence Other emphysema (CMS/HCC) 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 (CMS/HCC) Expected: 08/08/2024 (Approximate), Expires: 08/08/2025 [facility] Work Phone: Comment on above: Expected: 08/08/2024 (Approximate), Expires: 08/08/2025 Start: 08-08-2024 End: 08-08-2025 Comprehensive metabolic 2000 panel - Serum or Plasma Comprehensive metabolic panel Lab Routine Primary hypertension (CMS/HCC) 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 (CMS/HCC) Expected: 08/08/2024 (Approximate), Expires: 08/08/2025 [facility] Comment on above: Expected: 08/08/2024 (Approximate), Expires: 08/08/2025 Start: 08-08-2024 End: 08-08-2025 Lipid 1996 panel - Serum or Plasma Lipid panel Lab Routine 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 (CMS/HCC) Expected: 08/08/2024 (Approximate), Expires: 08/08/2025 [facility] Comment on above: Expected: 08/08/2024 (Approximate), Expires: 08/08/2025 Start: 08-08-2024 End: 08-08-2025 Microalbumin/Creatinine panel in random Urine Microalbumin / creatinine, urine ratio Lab Routine Primary hypertension (CMS/HCC) Expected: 08/08/2024 (Approximate), Expires: 08/08/2025 [facility] Comment on above: Expected: 08/08/2024 (Approximate), Expires: 08/08/2025 Start: 08-08-2024 End: 08-08-2025 Prostate specific Ag [Mass/volume] in Serum or Plasma PSA Lab Routine Prostate cancer screening Expected: 08/08/2024 (Approximate), Expires: 08/08/2025 [facility] Comment on above: Expected: 08/08/2024 (Approximate), Expires: 08/08/2025 Start: 08-08-2024 End: 08-08-2025 Urinalysis complete panel - Urine Urinalysis with reflex microscopic (clean catch) Lab Routine Primary hypertension (CMS/HCC) Expected: 08/08/2024 (Approximate), Expires: 08/08/2025 [facility] Comment on above: Expected: 08/08/2024 (Approximate), Expires: 08/08/2025 Start: 07-21-2024 Influenza vaccination Influenza Vacc ine (#1) [facility] Start: 01-17-2024 End: 01-17-2024 Telemedicine consultation with patient 01/17/2024 1:20 PM EST Telemedicine [facility] [address] [facility] [address] [place] [phone] [place] [address] Department [place] [address] [facility] Start: 01-09-2024 FUV, Provider: Jess Marroquin, Status: Pen, Time: 9:20 AM FUV, Provider: Jess Marroquin, Status: Pen, Time: 9:20 AM [facility] 600 DO Work Phone: Start: 01-09-2024 End: 01-09-2024 Patient encounter procedure 01/09/2024 9:20 AM EST Office Visit [address] [place] [address] Jess Marroquin MD [address] [facility] 2, [address] [place] [address] [facility] Start: 11-29-2023 NPV, Provider: Roman Hudson, Status: Pen, Time: 11:30 AM NPV, Provider: Roman Hudson, Status: Pen, Time: 11:30 AM -[facility] 600 DO Work Phone: Start: 01-11-2023 NPV, [...] (6 to 64 Years) (2 - PCV) [facility] Start: 2011 Zoster Vaccines (1 of 2) Zoster Vacc kita (1 of 2) [facility] Start: 1983 DTaP/Tdap/Td Vaccine s (1 - Tdap) DTaP/Tdap/Td Vaccines (1 - Tdap) [facility] Start: 1979 Hepatitis C screening Hepatitis C [facility] Start: 1967 Pneumococcal Vaccine : Pediatrics (0 to 5 Years) and At-Risk Patients (6 to 64 Years) (1 - PCV) Pneumococcal Vaccine: Pediatrics (0 to 5 Years) and At-Risk Patients (6 to 64 Years) (1 - PCV) [facility] Start: 1962 MMR Vaccines (1 of 1 - Standard series) MMR Vaccines (1 of 1 - Standard series) [facility] Start: 02-09-1962 COVID-19 Vaccine (#1) COVID-19 Vacci ne (#1) [facility] Start: 1961 HIV screening HIV Screening [facility] Start: 1961 Lipid panel Lipid Panel [facility] Start: 1961 Screening for malign ant neoplasm of colon [facility] Start: 1961 Yearly Adult Physical Yearly Adult P hysical [facility] End: 12-14-2023 CTA Chest vessels WO and W contrast [facility] Work Phone: Comment on above: Once for 1 Occurrenc es starting 12/14/2023 until 12/14/2023 Immunizations Immunization Date Immunization Notes Care Provider Fa el[place]ety 08-08-2024 influenza virus vacc ine, unspecified formulation Tonja Wiley DRAPERY SUPERVISOR Work Phone: [facility] 07-13-2023 influenza, injectabl e, quadrivalent, preservative free Roman Hudson MD Work Phone: [facility] Work Phone: 07-13-2023 influenza virus vacc ine, unspecified formulation Tonja Wiley DRAPERY SUPERVISOR Work Phone: [facility] 08-20-2022 influenza virus vacc ine, unspecified formulation Pauline BAINS [facility] [place] 08-20-2022 influenza, seasonal, injectable Tonja Wiley Work Phone: [employer] 600 DO Work Phone: 08-18-2020 influenza, injectabl e, quadrivalent, preservative free Unknown Unknown [facility] Work Phone: 07-12-2019 influenza, injectabl e, quadrivalent, preservative free Unknown Unknown [facility] Work Phone: 06-30-2017 pneumococcal polysaccharide vaccine, 23 valent Tonja Wiley Work Phone: [employer] 600 DO Work Phone: Comment on above: Series: Payers Date Payer Category Payer Private Health Insurance [employer] [id number] 2023 Unknown 1961 Unknown [id number] 2.16.840.1.246270.3.579.2. 356 1961 Unknown [id number] 2.16.840.1.193756.3.579.2. 356 1961 Unknown [id number] 2.16.840.1.651859.3.579.2. 593 1961 Unknown [id number] 2.16.840.1.234157.3.579.2. 593 1961 Unknown [id number] 2.16.840.1.985546.3.579.2. 593 1961 Unknown [id number] 2.16.840.1.767737.3.579.2. 593 1961 Unknown [id number] 2.16.840.1.286089.3.579.2. 593 1961 Unknown [id number] 2.16.840.1.880586.3.579.2. 593 1961 Unknown [id number] 2.16.840.1.967530.3.579.2. 593 1961 Unknown [id number] 2.16.840.1.488221.3.579.2. 593 1961 Unknown [id number] 2.16.840.1.158321.3.579.2. 727 1961 Unknown [id number] 2.16.840.1.038196.3.579.2. 727 1961 Unknown [id number] 2.16.840.1.763462.3.579.2. 727 1961 Unknown [id number] 2.16.840.1.185743.3.579.2. 1245 1961 Unknown [id number] 2.16.840.1.765979.3.579.2. 1245 1961 Unknown [id number] 2.16.840.1.146844.3.579.2. 1246 1961 Unknown [id number] 2.16.840.1.894824.3.579.2. 1259 1961 Unknown [id number] 2.16.840.1.587225.3.579.2. 1259 1961 Unknown [id number] 2.16.840.1.743250.3.579.2. 1259 1961 Unknown [id number] 2.16.840.1.878763.3.579.2. 1259 1959 Unknown [id number] Social History Date Type Detail Facility Start: 11-29-2023 End: 05-07-2024 Current every day smoker Current every day smoker [facility] Comment on above: 1.5PPD sometimes mor e; Start: 02-14-2023 Tobacco smoking status Heavy t obacco smoker (finding) [facility] Tobacco smoking status Never [facility] Start: 11-29-2023 End: 05-07-2024 Sex Assigned At Male [facility] Start: 11-06-2023 End: 11-28-2023 Tobacco smoking status SCIS Smokes tobacco daily [facility] Work Phone: History of tobacco use Cigarette Smoker U [facility] Work Phone: Start: 1960 Sex Assigned At Not on file [facility] Work Phone: Start: 11-19-2023 End: 12-14-2023 Exposure to SARS-CoV-2 (event) Not sure [facility] Start: 12-15-2023 Alcohol intake Lifetime non-d margarita (finding) [facility] Work Phone: Start: 11-06-2023 Tobacco use and exposure Former smokeless tobacco user [facility] End: 10-12-2023 History of tobacco use User of smokeless tobacco [facility] Functional Status Date Assessment Result Facility 02-14-2023 Functional Status N/A [facility] Clinical Notes 11-23-2022 to 12-26-2024 Tonja Wiley NP - 12/26/2024 4:33 PM ESTTonja Wiley, AALIYAH - 12/26/2024 3:40 PM ESTTonja Wiley NP - 12/26/2024 7:51 AM ESTLisa Wiley, AALIYAH - 12/26/2024 7:50 AM ESTPatient [...] no compliance problems. Hypertensive end-organ damage includes CAD/MD. There is no history of CVA, heart [...] Chest pain, cardiac 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 (CMS/HCC) 11/06/2023 Dyspnea [...] Addressed This Visit 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 (CMS/HCC) - Primary [...] (CMS/HCC) Continue with CV for monitoring Hyperlipidemia ([facility]) On statin therapy Check labs yearly and prn dose changes Cigarette nicotine dependence without complication The patient has been advised of the risks of continued smoking: stroke, MD, all forms of cancer, lung disease, and [...] Will trial stiolito #2 samples given Lot: [id number], exp 08/14 Encounter for screening for lung [...] of the risks of continued smoking: stroke, MD, all forms of cancer, lung disease, and [...] tana Associated Problem(s): 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 (CMS/HCC) No current symptoms Current meds: amlodipine, asa, statin, tana Associated Problem(s): Other emphysema (CMS/HCC) Albuterol inhaler prn Recommend smoking cessation Will trial stiolito #2 samples given Lot: [id number], exp 08/14 documented in this encounter [facility] 12-26-2024 Instructions Tonja Wiley NP - 12/26/2024 3:40 PM EST Low dose CT scan for lung cancer screening: will fax to [facility] they should schedule. If they do not call you in 10 days, call them: [phone] Try stiolito 2 puffs daily documented in this encounter [facility] 09-10-2024 History of Present illness Narrative Associated Problem(s): Tobacco dependence The patient has been advised of the risks of continued smoking: stroke, MD, all forms of cancer, lung disease, and [...] atorvastatin (LIPITOR) 80 mg, Oral, Every evening Lwsjmld-Voehthimjze-Kzmbzixbyo (Breztri Aerosphere) 160-9-4.8 MCG/ACT aerosol 2 puffs, [...] Chest pain, cardiac 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 (CMS/HCC) 11/06/2023 Dyspnea [...] List Items Addressed This Visit Primary hypertension ([facility]) - Primary Continue amlodipine at 5mg daily Continue all other blood pressure meds Fu in 3 months for recheck Relevant Medications amLODIPine (Norvasc) 5 MG tablet lisinopril 10 MG tablet Tobacco dependence The patient has been advised of the risks of continued smoking: stroke, MD, all forms of cancer, lung disease, and . Options for quitting smoking include: cold turkey, hypnosis, acupuncture, nicotine replacement meds (gum, lozenges, and patches), Buproprion, and Varenicline. At this time pt is encouraged to evaluate their goals for wanting to quit smoking, and reach out to provider when ready to start this process documented in this encounter [facility] 08-08-2024 History of Present illness Narrative Associated Problem(s): Tobacco dependence Started smoking again, 1ppd, had quit for about 90 days The patient has been advised of the risks of continued smoking: stroke, MD, all forms of cancer, lung disease, and [...] atorvastatin (LIPITOR) 80 mg, Oral, Every evening Stughab-Tnjuhiemmhy-Vxesxuhxme (Breztri Aerosphere) 160-9-4.8 MCG/ACT aerosol 2 puffs, [...] thoracic aortic (CMS/HCC) CAD (coronary artery disease) ([facility]/HCC) Centrilobular emphysema (CMS/HCC) Chest pain, cardiac 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 (CMS/HCC) 11/06/2023 Dyspnea [...] Addressed This Visit 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 (CMS/HCC) Relevant Medications [...] of the risks of continued smoking: stroke, MD, all forms of cancer, lung disease, and [...] Relevant Medications albuterol HFA 90 mcg/act inhaler Zwzbhsi-Zcxfeclyorz-Obsaowuove (Breztri Aerosphere) 160-9-4.8 MCG/ACT aerosol Other Relevant Orders CBC and differential Prostate cancer screening Relevant Orders PSA documented in this encounter [facility] 01-17-2024 History of Present illness Narrative Contacting [...] avoid heavy lifting. documented in this encounter [facility] Work Phone: 11-29-2023 History of Present [...] him to maintain regular visit with his manager play and blood pressure control. Will get the echo cardiogram to rule out bicuspid valve and we will follow him with a CT scan. He is also advised to avoid heavy lifting. documented in this encounter [facility] Work Phone: 03-01-2023 Note OPERATIVE NOTE [...] good condition. CC: Tonja Wiley CNP [facility] 11-23-2022 History of Present illness Narrative [...] did have a coronary stent in 2013. [employer] [facility] Work Phone: Chief complaint Narrative - Reported Patient is here for a surgical evaluation for an ascending aortic aneurysm following a referral by Tonja Wiley CNP ([facility]). COURTNEY Ruiz, RN [employer] [facility] Work Phone: Chief complaint Narrative - Reported JATINDER CALVERT is being seen for a consultation for. referral Dr. Salmon; AAA, [id number] white male who is being seen for management of hypertension and CAD. The patient was seen recently by cardiothoracic surgery at [facility] Dr. Sherman Cruz for ascending and abdominal aortic aneurysm. The size is too small to intervene on. The patient has history of CAD and previous PCI of the RCA 2012 in [place] with drug-eluting stent. He is actively smoking and at one time was smoking 2 and half packs daily. He does have significant emphysema but not on medical therapy. Has had no recurrent coronary artery disease. He is hyperlipidemic and hypertensive on medical therapy. 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 He wishes to [...] diameter followed by the aortic clinic at [facility]. Tobacco cessation was emphasized. Hypertension controlled was [...] in annual basis or sooner if needed -[facility] 600 DO Work Phone: Evaluation + Plan note No data available for this section [facility] Evaluation note Diagnosis Ascending aorta dilation (CMS/HCC) Thoracic aneurysm without mention of rupture documented in this encounter [facility] Work Phone: Evaluation note* Diagnosis Ascending aorta dilatation (CMS/HCC) Thoracic aneurysm without mention of rupture documented in this encounter [facility] Work Phone: Evaluation note* Diagnosis Ascending aortic aneurysm, unspecified whether ruptured (CMS/HCC) documented in this encounter [facility] Work Phone: Evaluation note* Diagnosis 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 (CMS/HCC)- Primary Primary hypertension (CMS/HCC) Unspecified essential hypertension Serum total bilirubin elevated Disorders of bilirubin excretion Other emphysema (CMS/HCC)- Primary Other emphysema Primary hypertension (CMS/HCC) Unspecified essential hypertension Mixed hyperlipidemia (CMS/HCC) Mixed hyperlipidemia Abdominal aortic aneurysm (AAA) without rupture, unspecified part (CMS/HCC) Aneurysm of ascending aorta without rupture (CMS/HCC) 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 (CMS/HCC) Tobacco dependence Tobacco use disorder Primary hypertension (CMS/HCC)- Primary Unspecified essential hypertension Tobacco dependence Tobacco use disorder Other emphysema (CMS/HCC) Other emphysema Prostate cancer screening Special screening for malignant neoplasm of prostate 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 (CMS/HCC) Gastroesophageal reflux disease, unspecified whether esophagitis present Primary hypertension (CMS/HCC)- Primary Unspecified essential hypertension Tobacco dependence Tobacco use disorder [facility] Diagnosis 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 (CMS/HCC)- Primary Primary hypertension (CMS/HCC) Unspecified essential hypertension Serum total bilirubin elevated Disorders of bilirubin excretion Other emphysema (CMS/HCC)- Primary Other emphysema Primary hypertension (CMS/HCC) Unspecified essential hypertension Mixed hyperlipidemia (CMS/HCC) Mixed hyperlipidemia Abdominal aortic aneurysm (AAA) without rupture, unspecified part (CMS/HCC) Aneurysm of ascending aorta without rupture (CMS/HCC) 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 (CMS/HCC) Tobacco dependence Tobacco use disorder Primary hypertension (CMS/HCC)- Primary Unspecified essential hypertension Tobacco dependence Tobacco use disorder Other emphysema (CMS/HCC) Other emphysema Prostate cancer screening Special screening for malignant neoplasm of prostate 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 (CMS/HCC) Gastroesophageal reflux disease, unspecified whether esophagitis present Primary hypertension (CMS/HCC)- Primary Unspecified essential hypertension Tobacco dependence Tobacco use disorder 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 (CMS/HCC) [facility] Diagnosis Primary hypertension (CMS/HCC)- Primary Unspecified essential hypertension Tobacco dependence Tobacco use disorder Other emphysema (CMS/HCC) Other emphysema Prostate cancer screening Special screening for malignant neoplasm of prostate 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 (CMS/HCC) Gastroesophageal reflux disease, unspecified whether esophagitis present [facility] Diagnosis Other emphysema (CMS/HCC)- Primary Other emphysema Primary hypertension (CMS/HCC) Unspecified essential hypertension 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 (CMS/HCC) Gastroesophageal reflux disease, unspecified whether esophagitis present [facility] Diagnosis Hypokalemia- Primary Hypopotassemia [facility] Diagnosis 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 (CMS/HCC)- Primary Primary hypertension (CMS/HCC) Unspecified essential hypertension Serum total bilirubin elevated Disorders of bilirubin excretion Other emphysema (CMS/HCC)- Primary Other emphysema Primary hypertension (CMS/HCC) Unspecified essential hypertension Mixed hyperlipidemia (CMS/HCC) Mixed hyperlipidemia Abdominal aortic aneurysm (AAA) without rupture, unspecified part (CMS/HCC) Aneurysm of ascending aorta without rupture (CMS/HCC) 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 (CMS/HCC) Tobacco dependence Tobacco use disorder Primary hypertension (CMS/HCC)- Primary Unspecified essential hypertension Tobacco dependence Tobacco use disorder Other emphysema (CMS/HCC) Other emphysema Prostate cancer screening Special screening for malignant neoplasm of prostate 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 (CMS/HCC) Gastroesophageal reflux disease, unspecified whether esophagitis present Primary hypertension (CMS/HCC)- Primary Unspecified essential hypertension Tobacco dependence Tobacco use disorder Gastroesophageal reflux disease, unspecified whether esophagitis present documented in this encounter [facility]* Diagnosis 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 (CMS/HCC)- Primary Primary hypertension (CMS/HCC) Unspecified essential hypertension Serum total bilirubin elevated Disorders of bilirubin excretion Other emphysema (CMS/HCC)- Primary Other emphysema Primary hypertension (CMS/HCC) Unspecified essential hypertension Mixed hyperlipidemia (CMS/HCC) Mixed hyperlipidemia Abdominal aortic aneurysm (AAA) without rupture, unspecified part (CMS/HCC) Aneurysm of ascending aorta without rupture (CMS/HCC) 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 (CMS/HCC) Tobacco dependence Tobacco use disorder Primary hypertension (CMS/HCC)- Primary Unspecified essential hypertension Tobacco dependence Tobacco use disorder Other emphysema (CMS/HCC) Other emphysema Prostate cancer screening Special screening for malignant neoplasm of prostate 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 (CMS/HCC) Gastroesophageal reflux disease, unspecified whether esophagitis present Primary hypertension (CMS/HCC)- Primary Unspecified essential hypertension Tobacco dependence Tobacco use disorder Primary hypertension (CMS/HCC)- Primary Unspecified essential hypertension Other emphysema (CMS/HCC) Other emphysema 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 (CMS/HCC) Gastroesophageal reflux disease, unspecified whether esophagitis present Mixed hyperlipidemia (CMS/HCC) Mixed hyperlipidemia Cigarette nicotine dependence without complication Aneurysm of ascending aorta without rupture (CMS/HCC) Abdominal aortic aneurysm (AAA) without rupture, unspecified part (CMS/HCC) Encounter for screening for lung cancer documented in this encounter [facility]* Diagnosis 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 (CMS/HCC)- Primary Primary hypertension (CMS/HCC) Unspecified essential hypertension Serum total bilirubin elevated Disorders of bilirubin excretion Other emphysema (CMS/HCC)- Primary Other emphysema Primary hypertension (CMS/HCC) Unspecified essential hypertension Mixed hyperlipidemia (CMS/HCC) Mixed hyperlipidemia Abdominal aortic aneurysm (AAA) without rupture, unspecified part (CMS/HCC) Aneurysm of ascending aorta without rupture (CMS/HCC) 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 (CMS/HCC) Tobacco dependence Tobacco use disorder Primary hypertension (CMS/HCC)- Primary Unspecified essential hypertension Tobacco dependence Tobacco use disorder Other emphysema (CMS/HCC) Other emphysema Prostate cancer screening Special screening for malignant neoplasm of prostate 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 (CMS/HCC) Gastroesophageal reflux disease, unspecified whether esophagitis present Primary hypertension (CMS/HCC)- Primary Unspecified essential hypertension Tobacco dependence Tobacco use disorder Primary hypertension (CMS/HCC)- Primary Unspecified essential hypertension Other emphysema (CMS/HCC) Other emphysema 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 (CMS/HCC) Gastroesophageal reflux disease, unspecified whether esophagitis present Mixed hyperlipidemia (CMS/HCC) Mixed hyperlipidemia Cigarette nicotine dependence without complication Aneurysm of ascending aorta without rupture (CMS/HCC) Abdominal aortic aneurysm (AAA) without rupture, unspecified part (CMS/HCC) Encounter for screening for lung cancer 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 (CMS/HCC)- Primary Primary hypertension (CMS/HCC) Unspecified essential hypertension Cigarette nicotine dependence without complication documented in this encounter [facility] Discharge instructions No data available for this section General Surgery [place] Progress note No data available for this section General Surgery [place] Summary Purpose Family History No Family History [...] [place] [address] [facility] Department [place] [address] Referral ID Status Reason Start Date Expiration Date Visits Requested Visits Authorized [id number] Authorized Perform Procedure 11/30/2023 11/29/2024 1 1 Additional Source Comments (unrecognized sect ion and content) No Status Records FoundNo Status Records FoundNo Status Records FoundNo Status Records FoundNo Status Records FoundNo Status Records FoundNo Status Records Found INFORMATION SOURCE (unrecogn ized section and content) DATE CREATED AUTHOR 01/09/2023 [facility] DATE CREATED AUTHOR AUTHOR'S ORGANIZ ATION 01/09/2023 [employer] DATE CREATED AUTHOR AUTHOR'S ORGANIZ ATION 03/07/2023 [facility] DATE CREATED AUTHOR AUTHOR'S ORGANIZ ATION 03/15/2023 [facility] DATE CREATED AUTHOR AUTHOR'S ORGANIZ ATION 01/22/2024 [facility] DATE CREATED AUTHOR AUTHOR'S ORGANIZ ATION 2024 [facility] DATE CREATED AUTHOR AUTHOR'S ORGANIZ ATION 12/29/2024 [facility] dical Specialists EPIC Patient Care team informatio n (unrecognized section and content) Hl7 Developer Relationship Specialty Start Date End Date Tonja Wiley APRN-CNP [address] [place] [address] PCP - General 01/09/23 Hl7 Developer Relationship Specialty Start Date End Date Tonja Wiley APRN-CNP [address] [place] [address] PCP - General 01/09/23 Hl7 Developer Relationship Specialty Start Date End Date Tonja Wiley APRN-CNP [address] [place] [address] PCP - General 01/09/23 Hl7 Developer Relationship Specialty Start Date End Date Loi Red MD [address] [place] [address] PCP - General Family Medicine 11/06/23 Tonja Wiley, AALIYAH [address] [place] [address] Nurse Practitioner Family Medicine 11/06/23 Hl7 Developer Relationship Specialty Start Date End Date Unallocated, Noms MD Dionna [address] [place] [address] PCP - General Family Medicine 09/10/24 Tonja Wiley, AALIYAH [address] [place] [address] Nurse Practitioner Family Medicine 11/06/23 Hl7 Developer Relationship Specialty Start Date End Date Loi Red MD [address] [place] [address] PCP - General Family Medicine 09/19/24 Tonja Wiley, AALIYAH [address] [place] [address] Nurse Practitioner Family Medicine 11/06/23 [employer]l7 Developer Relationship Specialty Start Date End Date Loi Red MD [address] [place] [address] PCP - General Family Medicine 11/06/23 Tonja Wiley NP [address] [place] [address] Nurse Practitioner Family Medicine 11/06/23 [employer]l7 Developer Relationship Specialty Start Date End Date Loi Red MD [address] [place] [phone] PCP - General Family Medicine 11/06/23 Tonja Wiley NP [address] [place] [address] Nurse Practitioner Family Medicine 11/06/23 Hl7 Developer Relationship Specialty Start Date End Date Loi Red MD [address] [place] [address] PCP - General Family Medicine 11/06/23 Tonja Wiley NP [address] [place] [address] Nurse Practitioner Family Medicine 11/06/23 Hl7 Developer Relationship Specialty Start Date End Date Loi eRd MD [address] [place] [address] PCP - General Family Medicine 11/06/23 Tonja Wiley NP [address] [place] [address] Nurse Practitioner Family Medicine 11/06/23 [employer]l7 Developer Relationship Specialty Start Date End Date Loi Red MD [address] [place] [address] PCP - General Family Medicine 11/06/23 Tonja Wiley NP [address] [place] [address] Nurse Practitioner Family Medicine 11/06/23 [employer]l7 Developer Relationship Specialty Start Date End Date Loi Red MD [address] [place] [phone] PCP - General Family Medicine 09/19/24 Tonja Wiley NP [address] [place] [phone] Nurse Practitioner Family Medicine 11/06/23 [employer]l7 Developer Relationship Specialty Start Date End Date Loi Red MD [address] [place] [address] PCP - General Family Medicine 09/19/24 Tonja Wiley NP [address] [place] [id number] Nurse Practitioner Family Medicine 11/06/23 [employer] Relationship Specialty Start Date End Date Loi Red MD [address] [place] [id number] PCP - General Family Medicine 09/19/24 Tonja Wiley NP [address] [place] [id number] Nurse Practitioner Family Medicine 11/06/23 [employer] Developer Relationship Specialty Start Date End Date Loi Red MD [address] [place] [phone] PCP - General Family Medicine 09/19/24 Tonja Wiley NP [address] [place] [address] Nurse Practitioner Family Medicine 11/06/23 Reason for Visit (unrecogniz ed section and content) Specialty Diagnoses / Procedures Referred By Contac t Referred To Contact Radiology Diagnoses Ascending aorta dilatation (CMS/HCC) Procedures CT angio [place] [id number] Department [place] [address] Referral ID Status Reason Start Date Expiration Date Visits Requested Visits Authorized [id number] Authorized Perform Procedure 11/30/2023 11/29/2024 1 1 [...] BE BASED ON THE PRIMARY CLINICAL RECORDS. [email or web address] provides no warranty or guarantee of the accuracy or completeness of information in this document.
--- NOTE | 2025-01-22 09:53 | PC.NURSE ---
Nursing Note Cardiac Stress Test Reviewed: Medication, allergies and patient history reviewed. Stress Test: [x ] Patient tolerated stress test well. [ ] Patient unable to tolerate walking on treadmill. Switched to Lexiscan stress test. [ x] No chest pain noted per patient [ ] Chest pain that resolved prior to leaving stress lab. [ ] No dyspnea noted. [x ] Dyspnea that resolved prior to leaving stress lab. [x ] Patient left stress lab asymptomatic and hemodynamically stable. [ ] Patient taken to the Emergency Room due to non-resolving symptoms following stress test. [x ] Patient achieved target heart rate. [ ] Patient unable to achieve target heart rate. [ ] Aminophylline administered as reversal agent to Lexiscan (Regadenoson). [ ] Nitro administered. Nursing Comments: Patient was stopped for 1 minute and 32 seconds during phase 2 to readjust a missing lead prior to resuming the test. He was active on the treadmill the remaining amount of time and was able to reach target heart rate. Patient was short of breath and unable to continue once target was reached. Patient states this is his normal with activity, he knows he needs to smoke and should establish care with cardiology. Patient has not seen cardiology since his stent placement 13 years ago.
== END 2025-01-22 08:22 | disposition home or self-care (01) ==
LOC: NM 08:21
PROVIDERS: PCP Nurse Practitioner; Visit Provider Nurse Practitioner
DX: I25.10 Atherosclerotic heart disease of native coronary artery without angina pectoris (principal); I10 Essential (primary) hypertension; F17.210 Nicotine dependence, cigarettes, uncomplicated
CPT/HCPCS: 78452; 93017; A9500

== ENCOUNTER 2025-02-17 07:46 | Outpatient (OUT) | payer OTHER, SELFPAY ==
--- OUTSIDE RECORDS SUMMARY | 2025-02-17 07:58 | XMS_ITS | CCD ---
Author Organization [facility] Care Team Providers Care Chemical Laboratory Tester Name Role Phone Unknown, Unknown Unavailable Unavailable UNKNOWN, UNKNOWN Primary Care Unavailable MD LOI CRUZ Attending Unava ilable Lopez, Dr. Jess Barakat Referring Jayne vailable UNKNOWN, UNKNOWN Primary Care Unavailable Lopez, Dr. Jess Barakat Attending Jayne vailable Saurabh Tonja [place] Unavailable Unavailable Unavailable CRYS WILEYA J Primary Care Physician AICHHOLZ, CHECK SERVICES CLERK TONJA Admitting Unavailable AICHHOLZ, CHECK SERVICES CLERK TONJA Attending Unavailable AICHHOLZ, CHECK SERVICES CLERK TONJA Primary Care Unavailable ROBBIE ADAMS Consulting Unavailable AICHHOLZ, CHECK SERVICES CLERK TONJA Consulting Unavailable AICHHOLZ, CHECK SERVICES CLERK TONJA Admitting Unavailable AICHHOLZ, CHECK SERVICES CLERK TONJA Attending Unavailable AICHHOLZ, CHECK SERVICES CLERK TONJA Primary Care Unavailable AICHHOLZ, CHECK SERVICES CLERK TONJA Consulting Unavailable DR DENNIS KIM Consulting Unavailable AICHHOLZ, CHECK SERVICES CLERK TONJA Admitting Unavailable AICHHOLZ, CHECK SERVICES CLERK TONJA Attending Unavailable AICHHOLZ, CHECK SERVICES CLERK TONJA Primary Care Unavailable AICHHOLZ, CHECK SERVICES CLERK TONJA Consulting Unavailable DR DENNIS KIM Consulting Unavailable AICHHOLZ, CHECK SERVICES CLERK TONJA Admitting Unavailable AICHHOLZ, CHECK SERVICES CLERK TONJA Attending Unavailable AICHHOLZ, CHECK SERVICES CLERK TONJA Primary Care Unavailable ROBBIE ADAMS Consulting Unavailable AICHHOLZ, CHECK SERVICES CLERK TONJA Consulting Unavailable AICHHOLZ, CHECK SERVICES CLERK TONJA Admitting Unavailable AICHHOLZ, CHECK SERVICES CLERK TONJA Attending Unavailable AICHHOLZ, CHECK SERVICES CLERK TONJA Primary Care Unavailable AICHHOLZ, CHECK SERVICES CLERK TONJA Consulting Unavailable AICHHOLZ, CHECK SERVICES CLERK TONJA Primary Care Unavailable SHAIKH Pia LOWE Admitting Unavailable SHAIKH Pia LOWE Attending Unavailable FAWSHAIKH Pia CORADO Consulting Unavailable DIAB ., SEN Consulting Unavailable NILL ., DR CARPENTER Admitting Unavailable NILL ., DR CARPENTER Attending Unavailable AICHHOLZ, CHECK SERVICES CLERK TONJA Primary Care Unavailable NILL ., DR CARPENTER Consulting Unavailable SALMA CONNOLLY Consulting Unavailable MARCIO CARO Consulting Unavailable AICHHOLZ, CHECK SERVICES CLERK TONJA Admitting Unavailable AICHHOLZ, CHECK SERVICES CLERK TONJA Attending Unavailable AICHHOLZ, CHECK SERVICES CLERK TONJA Primary Care Unavailable ROBBIE ADAMS Consulting Unavailable AICHHOLZ, CHECK SERVICES CLERK TONJA Consulting Unavailable NILL, Pauline Rodriguez Attending Unavailable NILL, Pauline Rodriguez Attending Unavailable NILL, Pauline R Attending Unavailable Aichholz BIN FILLER-CHECK SERVICES CLERK, Tonja [place] Primary Care Provider ROMAN HUDSON Attending Unavailable AICHHOLZ, TONJA BRIGHT Primary Care Unavailable ROMAN HUDSON Attending Unavailable AICHHOLZ, TONJA BRIGHT Primary Care Unavailable TRISTANROMAN TITUS Referring Unavailable AICHHOLZ, TONJA BRIGHT Primary Care Unavailable Aichholz WIRELESS MANAGER, Tonja Unavailable Loi Red MD Primary Care Provider [phone] Unallocated , Noms Provider Primary Care Provi eddy Loi Red MD Primary Care Provider AICHHOLZ, TONJA Attending Unavailable AICHHOLZ, TONJA Attending Unavailable AICHHOLZ, TONJA Attending Unavailable AICHHOLZ, TONJA Attending Unavailable Allergies Allergy Classification Reported Allergen(s) Allergy Type Date of Onset Reaction(s) Facility (1 source) No Known Medication Allergies; Translations: [No Known Medication Allergies] Propensity to adverse reactions (disorder) [facility] Repository Medications Current Medications Medication Drug Class(es) Dates Sig (Normalized) Sig (Original) [id number] 200 actuat albuterol 0.09 mg/actuat metered dose inhaler (19 sources) beta2-Adrenergic Agonist Start: 05-07-2024 End: 09-07-2024 take 2 puff(s) by inhalation every six hours for wheezing albuterol HFA 90 mcg/act inhaler Indications: Other emphysema ([facility]) Inhale 2 puffs every 6 (six) hours [...] MG tablet Indications: Coronary artery disease involving shoshone-bannock coronary artery of 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 angina pectoris (CMS/HCC) Take 1 [...] 2 puff(s) by inhalation in the morning Fbkvjaw-Cgoeskmoonj-Vtjweptpek (Breztri Aerosphere) 160-9-4.8 MCG/ACT aerosol Indications: Chronic [...] mg/actuat / tiotropium 0.0025 mg/actuat inhalation spray (5 sources) Anticholinergic, beta2-Adrenergic Agonist tiotropium-olodatero l (Stiolto [...] aspirin 81 mg delayed release oral tablet (17 sources) Platelet Aggregation Inhibitor, Nonsteroidal Anti-inflammatory Drug [...] transluminal coronary angioplasty; Translations: [Coronary atherosclerosis of shoshone-bannock coronary artery] Onset: 04-13-2022 01-14-2020 Chronic Comment on above: RCA drug-eluting matti nt Cole 2012; Outside Source Comme nt: [...] Other snf (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; Translations: [OTH MINE PATROL CURRENT DRUG THERAPY] Onset: 03-06-2023 Episodic Other aftercare (1 source) nurse 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 aspirin; Translations: [LONGTERM CURRENT USE OF ASPIRIN] Onset: 03-06-2023 Episodic [...] Onset: 05-05-2022 Episodic Fluid and electrolyte disorders (14 sources) Hypokalemia; Translations: [Hypokalemia] Onset: 08-19-2024 08-19-2024 Episodic Other liver diseases (18 sources) Hyperbilirubinemia; Translations: [Unspecified jaundice] Onset: 11-05-2023 11-05-2023 Episodic Unclassified (4 sources) Patient encounter status 01-15-2020 Unclassified (1 source) Aneurysm of the ascending aorta, without rupture (CMS/HCC); Translations: [Aneurysm of the ascending aorta, without rupture (CMS/HCC)] Onset: 01-17-2024 Results Test Name Value Interpretation Reference Range Facility NM AUDREY PERF SPECT REST STRon 01-29-[address] [address] Nuclear Medicine Report Signed Patient: JATINDER CALVERT MR#: [id number] : 1960 Acct:[id number] Age/Sex: 64 / M ADM Date: 01/22/25 Loc: NM Attending Dr: Tonja Wiley WIRELESS MANAGER Ordering Physician: Tonja Wiley NP Date of Service: 01/22/25 Procedure(s): NM audrey perf SPECT rest str Accession Number(s): [id number] cc: Tonja Wiley NP Patient Name: JATINDER CALVERT MR#: [id number] : 1960 Exam Date: 01/22/2025 Ordering Doctor: TIFFANY Wiley CNP RADIOLOGY REPORT PROCEDURE: NM AUDERY PERF SPECT REST STR COMPARISON: None. INDICATIONS: CORONARY ARTERY DISEASE, HYPERTENSION, SMOKER TECHNIQUE: Exam Description: Stress/Rest one day protocol gated SPECT Rest Imagin.8 mCi Tc-99m Cardiolite IV on 01/22/2025 Stress Imaging 30.6 mCi Tc-99m Cardiolite IV on 01/22/2025 Exercise Protocol: Lazarus Heart Rate (bpm): Rest: 68 Max: 157 PMHR: 100 Blood Pressure: Rest: 127/76 Max: 180/98 Exercise Time: Minutes: 5 Seconds: 00 Stage Reached: Stage: 2 Mets 6.0 Symptoms: Rest and peak stress ECG findings were pending and the exercise portion of the study was pending per attending physician [facility] . For more details, please see separate cardiac stress test report. FINDINGS: QUALITY OF STUDY: Good PERFUSION DEFECT: LOCATION: Inferior SIZE: Moderate SEVERITY: Moderate TYPE: Fixed WALL MOTION: Normal wall motion LV SIZE: 90 mL. TID / TCD: 0.9 LVEF: Calculated EF 60%. SUMMARY: Myocardial perfusion imaging study is normal CONCLUSION: 1. Myocardial perfusion is normal with significant diaphragmatic attenuation 2. Global left ventricular systolic function is normal; ejection fraction is 60% 3. No evidence of transient ischemic dilatation Dictated by: Sharron Ayala M.D. on 01/29/2025 at 12:13 Approved by: Sharron Ayala M.D. on 01/29/2025 at 12:15 Dictated By: Sharron Ayala M.D. Signed By: 01/29/25 1216 DD/ 1215 TD/TT: [facility]: [facility] RadiologyAlva MD - 01/29/2025 [place] [address] Nuclear Medicine Report Signed Patient: JATINDER CALVERT MR#: [id number] : 1960 Acct:[id number] Age/Sex: 64 / M ADM Date: 01/22/25 Loc: NM Attending Dr: Tonja Wiley NP Ordering Physician: Tonja Wiley NP Date of Service: 01/22/25 Procedure(s): NM audrey perf SPECT rest str Accession Number(s): [id number] cc: Tonja Wiley NP Patient Name: JATINDER CALVERT MR#: [id number] : 1960 Exam Date: 01/22/2025 Ordering Doctor: TIFFANY Wiley CNP RADIOLOGY REPORT PROCEDURE: NM AUDREY PERF SPECT REST STR COMPARISON: None. INDICATIONS: CORONARY ARTERY DISEASE, HYPERTENSION, SMOKER TECHNIQUE: Exam Description: Stress/Rest one day protocol gated SPECT Rest Imagin.8 mCi Tc-99m Cardiolite IV on 01/22/2025 Stress Imaging 30.6 mCi Tc-99m Cardiolite IV on 01/22/2025 Exercise Protocol: Lazarus Heart Rate (bpm): Rest: 68 Max: 157 PMHR: 100 Blood Pressure: Rest: 127/76 Max: 180/98 Exercise Time: Minutes: 5 Seconds: 00 Stage Reached: Stage: 2 Mets 6.0 Symptoms: Rest and peak stress ECG findings were pending and the exercise portion of the study was pending per attending physician [facility] . For more details, please see separate cardiac stress test report. FINDINGS: QUALITY OF STUDY: Good PERFUSION DEFECT: LOCATION: Inferior SIZE: Moderate SEVERITY: Moderate TYPE: Fixed WALL MOTION: Normal wall motion LV SIZE: 90 mL. TID / TCD: 0.9 LVEF: Calculated EF 60%. SUMMARY: Myocardial perfusion imaging study is normal CONCLUSION: 1. Myocardial perfusion is normal with significant diaphragmatic attenuation 2. Global left ventricular systolic function is normal; ejection fraction is 60% 3. No evidence of transient ischemic dilatation Dictated by: Sharron Ayala M.D. on 01/29/2025 at 12:13 Approved by: Sharron Ayala M.D. on 01/29/2025 at 12:15 Dictated By: Sharron Ayala M.D. Signed By: 01/29/251215 DD/ 14 TD/TT: [facility]: [facility] Radiology Study observation (narrative) [facility] NM AUDREY PERF SPECT REST STROr dered By: Radiologist Radiology on 01-29-2025 [facility] Work Phone: CT LUNG SCREENING LOW DOSEon 01-06-2025 [place] [address] CT Scan Report Signed Patient: JATINDER CALVERT MR#: [id number] : 1960 Acct:[id number] Age/Sex: 64 / M ADM Date: 01/04/25 Loc: CT Attending Dr: Tonja Wiley NP Ordering Physician: Tonja Wiley NP Date of Service: 01/04/25 Procedure(s): CT lung screening low-dose Accession Number(s): [id number] cc: Tonja Wiley NP [place] [address] Patient Name: JATINDER CALVERT MRN: [facility]:[id number] date: 1960 Sex: M Assigned Patient Location: CT Current Patient Location: CT Accession/Order Number: [id number] Exam Date: 01/04/2025 09:21 Report Date: 01/06/2025 [...] Dictated By: Anant Calles M.D. Signed By: 01/06/251632 DD/ 163 TD/TT: [facility]: [facility] Radiology, Radiologi MD clark - 01/07/2025 [place] [address] CT Scan Report Signed Patient: JATINDER CALVERT MR#: [id number] : 1960 Acct:[id number] Age/Sex: 64 / M ADM Date: 01/04/25 Loc: CT Attending Dr: Tonja Wiley NP Ordering Physician: Tonja Wiley NP Date of Service: 01/04/25 Procedure(s): CT lung screening low-dose Accession Number(s): [id number] cc: Tonja Wiley NP [facility] [place] [id number] Patient Name: JATINDER CALVERT MRN: [facility]:[id number] date: 1960 Sex: M Assigned Patient Location: CT Current Patient Location: CT Accession/Order Number: [id number] Exam Date: 01/04/2025 09:21 Report Date: 01/06/2025 [...] Calles M.D. Signed By: 01/06/25 163 DD/ 163 TD/TT: [facility]: [facility] Radiology Study observation (narrative) [facility] CT LUNG SCREENING LOW DOSEOr dered By: Radiologist Radiology on 01-06-2025 [facility] Work Phone: ALL POTASSIUMon 09-07-2024 Potassium [Moles/Vol] 4.3 mmol/L 3.5 - 5.1 mmol/L [facility] ALL CBC WITH AUTO DIFFon BASOPHILS ABSOLUTE AUTO 0.1 [facility] Basophils/100 WBC (Bld) 0.8 % 0.2 - 2.0 % [facility] Eosinophils/100 WBC (Bld) 2.7 % 0.9 - 7.0 % [facility] Erythrocyte distribution width (RBC) [Ratio] 13.1 % 11.0 - 15.0 % [facility] Hematocrit (Bld) [Volume fraction] 43.2 % 42.0 - 54.0 % [facility] Hemoglobin (Bld) [Mass/Vol] 14.6 g/dL 14.0 - 18.0 g/dL [facility] IMMATURE GRANULOCYTES ABS AUTO 0.02 [facility] Immature granulocytes/100 WBC (Bld) 0.3 % 0.0 - 0.5 % [facility] Interpretation and review of laboratory results Abnormal [facility] LYMPHOCYTES ABSOLUTE AUTO 1.8 [facility] Lymphocytes/100 WBC (Bld) 23.4 % 20.5 - 60.0 % [facility] MCH (RBC) [Entitic mass] 31.3 pg 25.9 - 34.0 pg [facility] MCHC (RBC) [Mass/Vol] 33.8 g/dL 29.9 - 35.2 g/dL [facility] MCV (RBC) [Entitic vol] 92.7 fL 80.0 - 94.0 fL [facility] MONOCYTES ABSOLUTE AUTO 0.5 [facility] Monocytes/100 WBC (Bld) 6.1 % 1.7 - 12.0 % [facility] NEUTROPHILS ABSOLUTE AUTO 5.0 [facility] Neutrophils/100 WBC (Bld) 66.7 % 43.0 - 75.0 % [facility] Platelet mean volume (Bld) [Entitic vol] 9.7 fL 9.5 - 13.5 fL [facility] TBH EO # 0.2 [facility] TBH PLT 203 [facility] TB RBC 4.66 Low [facility] WBC 7.5 [facility] TBH UA (CLEAN/CATCH) MICROSC OPIC IF INDICATEon 08-19-2024 BILIRUBIN URINE Negative NEGATIVE [facility] BLOOD URINE Negative NEGATIVE [facility] Clarity (U) CLEAR CLEAR [facility] Color (U) YELLOW YELLOW [facility] GLUCOSE URINE UA Negative NEGATIVE mg/dL [facility] Interpretation and review of laboratory results Abnormal [facility] Ketones Ql (U) TRACE Abnormal NEGATIVE mg/dL [facility] Leukocyte esterase Test strip Ql (U) Negative NEGATIVE [facility] NITRITE URINE Negative NEGATIVE [facility] pH (U) 6.0 [pH] 5.0 - 9.0 [facility] PROTEIN URINE Negative NEG/TRACE mg/dL [facility] SPECIFIC GRAVITY URINE 1.025 1.005 - 1.025 [facility] URINE MICROSCOPIC INDICATED NO [facility] UROBILINOGEN URINE 1.0 EU/dL 0.2 - 1.0 EU/dL [facility] CT ANGIO CHEST W AND WO IV C [facility] 12-14-2023 CT ANGIO CHEST W AND [...] PM -------- ORIGINAL REPORT -------- Dictation workstation: [id number] Interpreted By: Pauline Shepard, STUDY: CT ANGIO CHEST W AND WO IV CONTRAST; 12/14/2023 11:09 am INDICATION: Signs/Symptoms:year fu. COMPARISON: None. ACCESSION NUMBER(S): [id number] ORDERING CLINICIAN: ROMAN HUDSON TECHNIQUE: Using multi-detector [...] Infrarenal abdominal aortic aneurysm 34 mm. Reading Switch Technician: Dr. Pauline Shepard, Date: 12/18/2023 2:43 pm Signed by: Pauline Shepard 12/18/2023 3:00 PM Dictation workstation: [id number] [facility] Ambulatory Visit Summaryon 0 03-14-2023 Ambulatory Visit [...] malignant neoplasm of colon Tobacco use Normal [facility] General Surgery Office/Clini c Noteon 03-14-2023 General [...] influenza virus vaccine, inactivated 08/20/2022 Recorded Normal [facility] Comment on above: Result Comment: Elec tronically Signed By: WALT ELLIOTT, Pauline Egan\Date and Time Signed: 03/14/23 15:50 EDT Reminderson 03-14-2023 Reminders - From: Delores Joseph LPN To: N - Clinical; Sent: 03/14/2023 15:27:01 EDT Show up: 01/30/2028 07:00:00 EDT Subject: colonoscopy recall Due Date/Time: 03/01/2028 07:00:00 EDT Reminder/Recall Patient due for colonoscopy 03/01/28 due to history of colonic polyp. Normal [facility] Pathology Noteon 03-06-2023 Pathology Note [id number]#1.00C D:127 Normal [facility] Outside Colonoscopyon 2022 Outside Colonoscopy [id number]#1.00C D:127 Normal [facility] Consent for Procedure/Surger yon 02-15-2023 Consent for Procedure/Surgery [id number] D:127 Normal [facility] General Surgery Office/Clini c Noteon 02-14-2023 [...] pack or (more content not included)... Normal [facility] Comment on above: Result Comment: Elec tronically [...] ROBBIE ADAMS Date: 2023-01-18 08:13 Normal [facility] Office Visit (Cardiology)on 01-09-2023 Follow-up visit Diagnoses/Problems [...] IO EKG Electrocardiogram- 12 Lead; Status:Complete; Done: [id number] CAD S/P percutaneous coronary angioplasty, Hyperlipidemia Renew: Atorvastatin Calcium 80 MG Oral Tablet; TAKE 1 TABLET DAILY ALT - Alanine Aminotransferase, Serum; Status:Active - Retrospective Authorization; Requested for:[id number]; AST; Status:Active - Retrospective Authorization; Requested for:[id number]; Lipid Panel; Status:Active - Retrospective Authorization; Requested for:[id number]; CAD S/P percutaneous coronary angioplasty, Hypertension Renew: [...] we can help. You may also call [phone] for free resources and assistance.; Status:Complete - Retrospective Authorization; Done: [id number] Tobacco Use Screening; Status:Complete; Done: [id number] Patient Instructions Please bring all medicines, vitamins, [...] was seen recently by cardiothoracic surgery at [facility] Dr. Sherman Cruz for ascending and abdominal aortic aneurysm. The size is too small to intervene on. The patient has history of CAD and previous PCI of the RCA 2012 in [place] with drug-eluting stent. He is actively smoking and at one time was smoking 2 and half packs daily. He does have significant emphysema but not on medical therapy. Has had no recurrent coronary artery disease. He is hyperlipidemic and hypertensive on medical therapy. 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 He wishes to [...] diameter followed by the aortic clinic at [facility]. Tobacco cessation was emphasized. Hypertension controlled was [...] Known Russ (more content not included)... Normal [facility] Tobacco Screening.on 023 Adult depression screening assessment No -[facility] 600 DO Work Phone: Tobacco use status [facility] a) Yes [facility] [address] DO Work Phone: Tobacco Screening. Yes [facility] 600 DO Work Phone: CARDIAC SHERMAN ADMITon 023 CK [Catalytic activity/Vol] 85 U/L Normal 39-308 [facility] Comment on above: Performed By: #### C SAVANNAH BERTRAND #### [facility] [address] [place], [place] [address] Dr. Diego Wilkins CK.MB [Mass/Vol] 1.16 ng/mL Normal <=3.60 [facility] Comment on above: Performed By: #### C SAVANNAH BERTRAND #### [facility] [address] [place], [place] [address] Dr. Diego Wilkins HSTROP 5.4 pg/mL Normal 4.0-76.1 [facility] Comment on above: Result Comment: CUT- OFF POINTS HAVE BEEN ESTABLISHED BASED ON THE FOURTH UNIVERSAL DEFINITIONS OF MYOCARDIAL INFARCTION. THE UPPER REFERENCE LIMIT (URL) OF TROPONIN, DEFINED THE 99TH PERCENTILE OF cTnI DISTRIBUTION IN A REFERENCE POPULATION, HAS BEEN CONFIRMED THE DECISION THRESHOLD FOR [place] DIAGNOSIS. Performed By: #### C SAVANNAH BERTRAND #### [facility] [address] [place] [address] [address] Diego Wilkins AUDREY 39 ng/mL Normal 16-96 [facility] Comment on above: Performed By: #### C SAVANNAH BERTRAND #### [facility] [address] [place] [address] [address] Diego Wilkins CBC AUTO DIFFon 12-30-2022 BASO # 0.1 103/ul Normal 0.0-0.1 [facility] Comment on above: Performed By: #### C BC ####[facility] [address] [place] [address]DrJos Wilkins Basophils/100 WBC (Bld) 0.8 % Normal 0.2-2.0 [facility] Comment on above: Performed By: #### C BC ####[facility] [address] [place] [address]DrJos Wilkins EO # 0.2 103/ul Normal 0.0-0.7 [facility] Comment on above: Performed By: #### C BC ####[facility] [address] [place] [address]Dr. Diego Wilkins Eosinophils/100 WBC (Bld) 2.8 % Normal 0.9-7.0 [facility] Comment on above: Performed By: #### C BC ####[facility] [address] [place] [address]DrJos Wilkins Erythrocyte distribution width (RBC) [Ratio] 12.1 % Normal 11.0-15.0 [facility] Comment on above: Performed By: #### C BC ####[facility] [address] [place] [address]DrJos Wilkins Hematocrit (Bld) [Volume fraction] 41.4 % Critically low 42.0-54.0 [facility] Comment on above: Performed By: #### C BC ####[facility] [address] [place] [id number]. Diego Wilkins Hemoglobin (Bld) [Mass/Vol] 14.1 g/dL Normal 14.0-18.0 [facility] Comment on above: Performed By: #### C BC ####[facility] [address] [place] [id number]. Diego Wilkins IG # 0.02 10e3/ul Normal 0.00-0.03 [facility] Comment on above: Performed By: #### C BC ####[facility] [address] [place], [place] [address]Dr. Diego Wilkins IG % 0.3 % Normal 0.0-0.5 [facility] Comment on above: Performed By: #### C BC ####[facility] [address] [place], [place] [address]Dr. Diego Wilkins LYMPH # 1.6 103/ul Normal 1.2-3.8 [facility] Comment on above: Performed By: #### C BC ####[facility] [address] [place], [place] [address]Dr. Diego Wilkins Lymphocytes/100 WBC (Bld) 25.9 % Normal 20.5-60.0 [facility] Comment on above: Performed By: #### C BC ####[facility] [address] [place], [place] [address]Dr. Diego Wilkins MANUAL DIFF REQ NO Normal [facility] Comment on above: Performed By: #### C BC ####[facility] [address] [place], [place] [address]Dr. Diego Wilkins MCH (RBC) [Entitic mass] 30.7 pg Normal 25.9-34.0 [facility] Comment on above: Performed By: #### C BC ####[facility] [address] [place], [place] [address]Dr. Diego Wilkins MCHC (RBC) [Mass/Vol] 34.1 g/dL Normal 29.9-35.2 [facility] Comment on above: Performed By: #### C BC ####[facility] [address] [place] [id number]. Diego Wilkins MCV (RBC) [Entitic vol] 90.0 fL Normal 80.0-94.0 [facility] Comment on above: Performed By: #### C BC ####[facility] [address] [place] [id number]. Diego Wilkins MONO # 0.3 103/ul Normal 0.3-0.8 [facility] Comment on above: Performed By: #### C BC ####[facility] [address] [place] [id number]. Diego Wilkins Monocytes/100 WBC (Bld) 5.1 % Normal 1.7-12.0 [facility] Comment on above: Performed By: #### C BC ####[facility] [address] [place] [id number]. Diego Wilkins NEUT # 4.0 103/ul Normal 1.4-6.5 [facility] Comment on above: Performed By: #### C BC ####[facility] [address] [place] [id number]. Diego Wilkins Neutrophils/100 WBC (Bld) 65.1 % Normal 43.0-75.0 [facility] Comment on above: Performed By: #### C BC ####[facility] [address] [place] [id number]. Diego Wilkins Platelet mean volume (Bld) [Entitic vol] 10.0 fL Normal 9.5-13.5 [facility] Comment on above: Performed By: #### C BC ####[facility] [address] [place] [id number]. Diego Wilkins PLT 145 103/ul Critically low 150-[address] [facility] Comment on above: Performed By: #### C BC ####[facility] [address] [place] [id number]. Diego Wilkins RBC 4.60 106/ul Critically low 4.70-6.10 [facility] Comment on above: Performed By: #### C BC ####[facility] [address] [place], [place] [address]SxDr. Diego Wilkins WBC 6.1 103/ul Normal 4.0-11.0 [facility] Comment on above: Performed By: #### C BC ####[facility] [address] [place] [id number]. Diego Wilkins PROF 14(COMP METB)on 023 Albumin [Mass/Vol] 3.5 g/dL Normal 3.4-5.0 [facility] Comment on above: Performed By: #### C ELZA, ARNOLDM #### [facility] [address] [address] [address] Diego Wilkins Albumin/Globulin [Mass ratio] 1.0 {ratio} Normal [facility] Comment on above: Performed By: #### C ELZA, ARNOLDM #### [facility] [address] [address] [address] Diego Wilkins ALP [Catalytic activity/Vol] 116 U/L Normal 46-116 [facility] Comment on above: Performed By: #### C ELZA, ARNOLDM #### [facility] [address] [address] [address] Diego Wilkins ALT [Catalytic activity/Vol] 20 U/L Normal 16-63 [facility] Comment on above: Performed By: #### C ELZA, ARNOLDM #### [facility] [address] [address] [address] Diego Wilkins Anion gap [Moles/Vol] 11.2 mmol/L Normal [facility] Comment on above: Performed By: #### C ELZA, CMADM #### [facility] [address] [address] [address] Diego Wilkins AST [Catalytic activity/Vol] 18 U/L Normal 15-37 [facility] Comment on above: Performed By: #### C ELZA, CMADM #### [facility] [address] [address] [address] Diego Wilkins Bilirubin [Mass/Vol] 0.6 mg/dL Normal 0.2-1.0 [facility] Comment on above: Performed By: #### C ELZA, CMADM #### [facility] [address] [address] [address] Diego Wilkins Calcium [Mass/Vol] 8.7 mg/dL Normal 8.5-10.1 [facility] Comment on above: Performed By: #### C MP, CMADM #### [facility] [address] [address] [address] Diego Wilkins Chloride [Moles/Vol] 102 mmol/L Normal 98-107 [facility] Comment on above: Performed By: #### C MP, CMADM #### [facility] [address] [address] [address] Diego Wilkins CO2 [Moles/Vol] 31.4 mmol/L Normal 21.0-32.0 [facility] Comment on above: Performed By: #### C MP, CMADM #### [facility] [address] [place] [address] Dr. Diego Wilkins Creatinine [Mass/Vol] 0.76 mg/dL Normal 0.70-1.30 [facility] Comment on above: Performed By: #### C MP, CMADM #### [facility] [address] [address] [address] Diego Wilkins EGFR-AF SOMALI >60 Normal >=60 [facility] Comment on above: Performed By: #### C MP, CMADM #### [facility] [address] [address] [address] Diego Wilkins EGFR-NON AF SOMALI >60 Normal >=60 [facility] Comment on above: Performed By: #### C MP, CMADM #### [facility] [address] [address] [address] Diego Wilkins Globulin (S) [Mass/Vol] 3.6 g/dL Normal [facility] Comment on above: Performed By: #### C MP, CMADM #### [facility] [address] [address] [address] Diego Wilkins Glucose [Mass/Vol] 110 mg/dL Critically high 74-106 [facility] Comment on above: Performed By: #### C MP, CMADM #### [facility] [address] [address] [address] Diego Wilkins Potassium [Moles/Vol] 3.6 mmol/L Normal 3.5-5.1 [facility] Comment on above: Performed By: #### C MP, CMADM #### [facility] [address] [address] [address] Diego Wilkins Protein [Mass/Vol] 7.1 g/dL Normal 6.4-8.2 [facility] Comment on above: Performed By: #### C MP, CMADM #### [facility] [address] [address] [address] Diego Wilkins Sodium [Moles/Vol] 141 mmol/L Normal 136-145 [facility] Comment on above: Performed By: #### C MP, CMADM #### [facility] [address] [place] [address] Dr. Diego Wilkins Urea nitrogen [Mass/Vol] 4.0 mg/dL Critically low 7.0-18.0 [facility] Comment on above: Performed By: #### C MP, CMADM #### [facility] [address] [address] [address] Diego Wilkins Urea nitrogen/Creatinine [Mass ratio] 5.3 mg/mg Normal [facility] Comment on above: Performed By: #### C MP, CMADM #### [facility] [address] [place] [address] Dr. Diego Wilkins T4on 12-30-2022 T4 [Mass/Vol] 8.90 ug/dL Normal 4.50-12.10 [facility] Comment on above: Performed By: #### T 4, TSH #### [facility] [address] [place] [address] Dr. Diego Wilkins TROPONIN, HIGH SENSITIVITYon 12-30-2022 HSTROP 4.6 pg/mL Normal 4.0-76.1 [facility] Comment on above: Result Comment: CUT- OFF POINTS HAVE BEEN ESTABLISHED BASED ON THE FOURTH UNIVERSAL DEFINITIONS OF MYOCARDIAL INFARCTION. THE UPPER REFERENCE LIMIT (URL) OF TROPONIN, DEFINED THE 99TH PERCENTILE OF cTnI DISTRIBUTION IN A REFERENCE POPULATION, HAS BEEN CONFIRMED THE DECISION THRESHOLD FOR [place] DIAGNOSIS. Performed By: #### H STROPN ####[facility] [address] [place], [place] [address]IqDr. Diego Wilkins TSHon 12-30-2022 TSH 1.729 uIU/mL Normal 0.358-3.740 [facility] Comment on above: Performed By: #### T 4, TSH #### [facility] [address] [place], [place] [address] Dr. Diego Wilkins Office Visit (Cardiac Surger [...] have asked him to speak to his [facility] team about the options to help with smoking cessation. We discussed the need for tight blood pressure control, and to take his blood pressure daily. I do believe he should be referred to a tool trouble shooter, and since he lives in the [facility], we will refer him to one of our cardiology colleagues from [facility]. Lastly, we will refer [...] following a referral by Tonja Wiley CNP ([facility]). COURTNEY Ruiz, RN Adult Risk Screening [...] (414.01,V45.82) (I25 (more content not included)... Normal [facility] Tobacco Screening.on 023 Fall risk assessment a) No falls within the last year [facility] 1800 Work Phone: Tobacco use status [facility] a) Yes [facility] 1800 Work Phone: Tobacco Screening. Yes [facility] 1800 Work Phone: CT CHEST WO CONon [...] by: DENNIS KIM Date: 2022-11-24 07:39 Normal [facility] CTA ABD/PELVIS WO W CONon CTA ABD/PELVIS [...] by: DENNIS KIM Date: 2022-05-04 07:31 Normal [facility] CTA CHEST WO W CONon 022 CTA [...] by: ROBBIE ADAMS Date: 2022-04-29 07:[address] [facility] [address] LUNG CANCER SCREENINGon 0 04-20-2022 CT [...] ROBBIE ADAMS Date: 2022-04-20 09:40 Normal [facility] CBC AUTO DIFFon 04-13-2022 BASO # 0.0 103/ul Normal 0.0-0.1 [facility] Comment on above: Performed By: #### C BC ####[facility] [address] [place] [address]Dr. Diego Wilkins Basophils/100 WBC (Bld) 0.8 % Normal 0.2-2.0 [facility] Comment on above: Performed By: #### C BC ####[facility] [address] [place] [address]DrJos Wilkins EO # 0.0 103/ul Normal 0.0-0.7 [facility] Comment on above: Performed By: #### C BC ####[facility] [address] [place] [address]DrJos Wilkins Eosinophils/100 WBC (Bld) 0.3 % Critically low 0.9-7.0 [facility] Comment on above: Performed By: #### C BC ####[facility] [address] [place] [address]DrJos Wilkins Erythrocyte distribution width (RBC) [Ratio] 13.0 % Normal 11.0-15.0 [facility] Comment on above: Performed By: #### C BC ####[facility] [address] [place] [address]Dr. Diego Wilkins Hematocrit (Bld) [Volume fraction] 43.3 % Normal 42.0-54.0 [facility] Comment on above: Performed By: #### C BC ####[facility] [address] [place], [place] [address]Dr. Diego Wilkins Hemoglobin (Bld) [Mass/Vol] 14.2 g/dL Normal 14.0-18.0 [facility] Comment on above: Performed By: #### C BC ####[facility] [address] [place], [place] [address]Dr. Diego Wilkins IG # 0.01 10e3/ul Normal 0.00-0.03 [facility] Comment on above: Performed By: #### C BC ####[facility] [address] [place], [place] [address]Dr. Diego Wilkins IG % 0.3 % Normal 0.0-0.5 [facility] Comment on above: Performed By: #### C BC ####[facility] [address] [place], [place] [address]Dr. Diego Wilkins LYMPH # 0.9 103/ul Critically low 1.2-3.[address] [facility] Comment on above: Performed By: #### C BC ####[facility] [address] [place], [place] [address]Dr. Diego Wilkins Lymphocytes/100 WBC (Bld) 23.7 % Normal 20.5-60.0 [facility] Comment on above: Performed By: #### C BC ####[facility] [address] [place], [place] [address]Dr. Diego Franky MANUAL DIFF REQ NO Normal [facility] Comment on above: Performed By: #### C BC ####[facility] [address] [place], [place] [address]Dr. Diego Franky MCH (RBC) [Entitic mass] 31.0 pg Normal 25.9-34.0 [facility] Comment on above: Performed By: #### C BC ####[facility] [address] [place] [address]Dr. Diego Wilkins MCHC (RBC) [Mass/Vol] 32.8 g/dL Normal 29.9-35.2 [facility] Comment on above: Performed By: #### C BC ####[facility] [address]aw[address] [place], [place] [address]Dr. Diego Franky MCV (RBC) [Entitic vol] 94.5 fL Critically high 80.0-94.0 [facility] Comment on above: Performed By: #### C BC ####[facility] J[address]xb[address] [place], [place] [address]Dr. Leathaliz Wilkins MONO # 0.6 103/ul Normal 0.3-0.8 [facility] Comment on above: Performed By: #### C BC ####[facility] [address]sp[address] [place], [place] [address]Dr. Leathaliz Wilkins Monocytes/100 WBC (Bld) 16.8 % Critically high 1.7-12.0 [facility] Comment on above: Performed By: #### C BC ####[facility] [address] [place], [place] [address]Dr. Diego Wilkins NEUT # 2.1 103/ul Normal 1.4-6.5 [facility] Comment on above: Performed By: #### C BC ####[facility] S[address]neu[address] [place], [place] [address]Dr. Leathaliz Wilkins Neutrophils/100 WBC (Bld) 58.1 % Normal 43.0-75.0 [facility] Comment on above: Performed By: #### C BC ####[facility] [address]vu[address] [place], [place] [address]Dr. Diego Franky Platelet mean volume (Bld) [Entitic vol] 10.6 fL Normal 9.5-13.5 [facility] Comment on above: Performed By: #### C BC ####[facility] [address]xf[address] [place] [id number]. Diego Wilkins PLT 141 103/ul Critically low 150-[address] [facility] Comment on above: Performed By: #### C BC ####[facility] [address] [place] [id number]. Diego Wilkins RBC 4.58 106/ul Critically low 4.70-6.10 [facility] Comment on above: Performed By: #### C BC ####[facility] [address] [place] [id number]. Diego Wilkins WBC 3.6 103/ul Critically low 4.0-11.[address] [facility] Comment on above: Performed By: #### C BC ####[facility] [address] [place] [id number]. Diego Wilkins LIPID PROFILEon 04-13-2022 CHOL-HDL RATIO NORM SEE BELOW Normal [facility] Comment on above: Result Comment: 3.3 - 4.4 LOW RISK 4.4 - 7.1 AVERAGE RISK 7.1 - 11.0 MODERATE RISK >11.0 HIGH RISK Performed By: #### L IPID, CMP ####[facility] [address] [place] [id number]. Diego Wilkins Cholesterol [Mass/Vol] 71 mg/dL Normal <=200 [facility] Comment on above: Performed By: #### L IPID, CMP ####[facility] [address]ylu[address] [place] [id number]. Diego Wilkins Cholesterol in HDL [Mass/Vol] 30 mg/dL Critically low 40-60 [facility] Comment on above: Performed By: #### L IPID, CMP ####[facility] [address]ju[address] [place] [id number]. Diego Wilkins Cholesterol in LDL [Mass/Vol] 28.4 mg/dL Normal [facility] Comment on above: Performed By: #### L IPID, CMP ####[facility] [address]zanxo[address] [place] [id number]. Diego Wilkins Cholesterol.total/C holesterol in HDL [Mass ratio] 2.4 {ratio} Normal [facility] Comment on above: Performed By: #### L IPID, CMP ####[facility] [address] [place] [address]Dr. Diego Wilkins HDL NORMAL > or = 60 mg/dl - LO W CARDIOVASCULAR RISK <40 mg/dl - HIGH CARDIOVASCULAR RISK Normal [facility] Comment on above: Performed By: #### L IPID, CMP ####[facility] [address] [place] [address]Dr. Diego Wilkins LDL CALC NORMAL SEE BELOW Normal [facility] Comment on above: Result Comment: <100 mg/dl OPTIMAL 100 - 129 mg/dl NEAR OR ABOVE OPTIMAL 130 - 159 mg/dl BORDERLINE HIGH 160 - 189 mg/dl HIGH >190 mg/dl VERY HIGH Performed By: #### L IPID, CMP ####[facility] Y[address]fl[address] [place], [place] [address]Dr. Diego Wilkins Triglyceride [Mass/Vol] 63 mg/dL Normal <=150 [facility] Comment on above: Performed By: #### L IPID, CMP ####[facility] [address] [place] [address]Dr. Diego Wilkins VLDL CALC 12.6 mg/dL Normal [facility] Comment on above: Performed By: #### L IPID, CMP ####[facility] Js[address] [place], [place] [address]Dr. Diego Wilkins PROF 14(COMP METB)on 022 Albumin [Mass/Vol] 3.9 g/dL Normal 3.4-5.0 [facility] Comment on above: Performed By: #### L IPID, CMP ####[facility] [address] [place] [address]Dr. Diego Wilkins Albumin/Globulin [Mass ratio] 1.1 {ratio} Normal [facility] Comment on above: Performed By: #### L IPID, CMP ####[facility] [address] [place] [address]Dr. Diego Wilkins ALP [Catalytic activity/Vol] 141 U/L Critically high 46-116 [facility] Comment on above: Performed By: #### L IPID, CMP ####[facility] [address] [place] [address]Dr. Diego Wilkins ALT [Catalytic activity/Vol] 24 U/L Normal 16-63 [facility] Comment on above: Performed By: #### L IPID, CMP ####[facility] [address]ktfgvis[address] [place] [address]Dr. Diego Wilkins Anion gap [Moles/Vol] 9.9 mmol/L Normal [facility] Comment on above: Performed By: #### L IPID, CMP ####[facility] [address]vr[address] [place], [place] [address]Dr. Diego Wilkins AST [Catalytic activity/Vol] 23 U/L Normal 15-37 [facility] Comment on above: Performed By: #### L IPID, CMP ####[facility] I[address] [place], [place] [address]Dr. Diego Wilkins Bilirubin [Mass/Vol] 0.7 mg/dL Normal 0.2-1.0 [facility] Comment on above: Performed By: #### L IPID, CMP ####[facility] [address]se[address] [place], [place] [address]Dr. Leathaliz Wilkins Calcium [Mass/Vol] 9.0 mg/dL Normal 8.5-10.1 [facility] Comment on above: Performed By: #### L IPID, CMP ####[facility] Pbuafrraod[address] [place], [place] [address]Dr. Diego Wilkins Chloride [Moles/Vol] 98 mmol/L Normal 98-107 [facility] Comment on above: Performed By: #### L IPID, CMP ####[facility] [address]bs[address]unby[address] [place], [place] [address]Dr. Diego Franky CO2 [Moles/Vol] 32.6 mmol/L Critically high 21.0-32.0 [facility] Comment on above: Performed By: #### L IPID, CMP ####[facility] Ctueyyxxhq[address] [place], [place] [address]Dr. Leathaliz Wilkins Creatinine [Mass/Vol] 0.84 mg/dL Normal 0.70-1.30 [facility] Comment on above: Performed By: #### L IPID, CMP ####[facility] [address] [place] [address]Dr. Diego Wilkins EGFR-AF SOMALI >60 Normal >=60 [facility] Comment on above: Performed By: #### L IPID, CMP ####[facility] [address]ke[address] [place] [id number]. Diego Wilkins EGFR-NON AF SOMALI >60 Normal >=60 [facility] Comment on above: Performed By: #### L IPID, CMP ####[facility] [address]xf[address]rv[address] [place] [id number]. Diego Wilkins Globulin (S) [Mass/Vol] 3.4 g/dL Normal [facility] Comment on above: Performed By: #### L IPID, CMP ####[facility] Retkjunotw[address] [place], [place] [address]Dr. Leathaliz Franky Glucose [Mass/Vol] 98 mg/dL Normal 74-106 [facility] Comment on above: Performed By: #### L IPID, CMP ####[facility] Ig[address]zw[address] [place], [place] [address]Dr. Diego Franky Potassium [Moles/Vol] 3.5 mmol/L Normal 3.5-5.1 [facility] Comment on above: Performed By: #### L IPID, CMP ####[facility] [address]vx[address] [place] [address]Dr. Diego Wilkins Protein [Mass/Vol] 7.3 g/dL Normal 6.4-8.2 [facility] Comment on above: Performed By: #### L IPID, CMP ####[facility] [address] [place] [address]Dr. Diego Wilkins Sodium [Moles/Vol] 137 mmol/L Normal 136-145 [facility] Comment on above: Performed By: #### L IPID, CMP ####[facility] [address]licir[address] [place] [address]Dr. Diego Franky Urea nitrogen [Mass/Vol] 5.0 mg/dL Critically low 7.0-18.0 [facility] Comment on above: Performed By: #### L IPID, CMP ####[facility] [address] [place] [address]Dr. Diego Wilkins Urea nitrogen/Creatinine [Mass ratio] 6.0 mg/mg Normal [facility] Comment on above: Performed By: #### L IPID, CMP ####[facility] [address] [place] [address]Dr. Diego Wilkins UA RANDOM W/MICROSCOPICon BACTERIA NONE SEEN Normal NONE SEEN [facility] Comment on above: Performed By: #### U AMIC #### [facility] [address] [place] [address] Dr. Diego Wilkins Bilirubin Ql (U) Negative Normal NEGATIVE [facility] Comment on above: Performed By: #### U AMIC #### [facility] [address] [place] [address] Dr. Diego Wilkins CAST NONE SEEN Normal NONE SEEN [facility] Comment on above: Performed By: #### U AMIC #### [facility] [address] [place] [address] Dr. Diego Wilkins Clarity (U) CLEAR Normal CLEAR [facility] Comment on above: Performed By: #### U AMIC #### [facility] [address] [place] [address] Dr. Diego Wilkins Color (U) LT. YELLOW Normal YELLOW [facility] Comment on above: Performed By: #### U AMIC #### [facility] [address] [place] [address] Dr. Diego Wilkins Crystals LM Nom (Urine sed) NONE SEEN Normal NONE SEEN [facility] Comment on above: Performed By: #### U AMIC #### [facility] [address] [place] [address] Dr. Diego Wilkins Epithelial cells LM Ql (Urine sed) RARE Normal NONE SEEN /RARE [facility] Comment on above: Performed By: #### U AMIC #### [facility] [address] [place] [address] Dr. Diego Wilkins Glucose Ql (U) Negative Normal NEGATIVE [facility] Comment on above: Performed By: #### U AMIC #### [facility] [address] [address] [address] Diego Wilkins Hemoglobin Ql (U) Negative Normal NEGATIVE [facility] Comment on above: Performed By: #### U AMIC #### [facility] [address] [address] [address] Diego Wilkins Ketones Ql (U) Negative Normal NEGATIVE [facility] Comment on above: Performed By: #### U AMIC #### [facility] [address] [address] [address] Diego Wilkins LEUKOCYTES Negative Normal NEGATIVE [facility] Comment on above: Performed By: #### U AMIC #### [facility] [address] [place] [address] Dr. Diego Wilkins MUCOUS NONE SEEN Normal NONE SEEN [facility] Comment on above: Performed By: #### U AMIC #### [facility] [address] [address] [address] Diego Wilkins Nitrite Ql (U) Negative Normal NEGATIVE [facility] Comment on above: Performed By: #### U AMIC #### [facility] [address] [address] [address] Diego Wilkins pH (U) 6.0 [pH] Normal 5-9 [facility] Comment on above: Performed By: #### U AMIC #### [facility] [address] [address] [address] Diego Wilkins RBC NONE SEEN Abnormal 0-2 [facility] Comment on above: Performed By: #### U AMIC #### [facility] [address] [address] [address] Diego Wilkins SPEC GRAVITY <=1.005 Abnormal 1.005-<=1.025 [facility] Comment on above: Performed By: #### U AMIC #### [facility] [address] [address] [address] Diego Wilkins UA PROTEIN Negative Normal NEGATIVE/ TRACE [facility] Comment on above: Performed By: #### U AMIC #### [facility] [address] [place], [place] [address] Dr. Diego Wilkins Urobilinogen Qn (U) 1.0 {Shelly'U}/dL Normal 0.2 - 1. 0 [facility] Comment on above: Performed By: #### U AMIC #### [facility] [address] [place], [place] [address] Dr. Diego Wilkins WBC NONE SEEN Normal NONE SEEN [facility] Comment on above: Performed By: #### U AMIC #### [facility] [address] [place], [place] [address] Dr. Diego Wilkins Vital Signs Date Time Vital Sign Value Performing Clinician Facility 12-26-2024 15:48-0500 Body height 176.5 cm Tonja Wiley WIRELESS MANAGER Work Phone: [facility] 12-26-2024 15:48-0500 Body mass index (BMI) [Ratio] 22.42 kg/m2 Tonja Wiley WIRELESS MANAGER Work Phone: [facility] 12-26-2024 15:48-0500 Body temperature 98.01 [degF] Tonja Wiley WIRELESS MANAGER Work Phone: [facility] 12-26-2024 15:48-0500 Body weight 69.85 kg Tonja Wiley WIRELESS MANAGER Work Phone: [facility] 12-26-2024 15:48-0500 Diastolic blood pressure 76 mm[Hg] Tonja Wiley WIRELESS MANAGER Work Phone: [facility] 12-26-2024 15:48-0500 Heart rate 51 /min Tonja Wiley WIRELESS MANAGER Work Phone: [facility] 12-26-2024 15:48-0500 Respiratory rate 18 /min Tonja Wiley WIRELESS MANAGER Work Phone: [facility] 12-26-2024 15:48-0500 SaO2% (BldA) [Mass fraction] 97 % Tonja Wiley WIRELESS MANAGER Work Phone: [facility] 12-26-2024 15:48-0500 Systolic blood pressure 118 mm[Hg] Tonjaemerita Smithz WIRELESS MANAGER Work Phone: [facility] 09-10-2024 15:37-0400 Body height 176.5 cm Tonja Esauhholz WIRELESS MANAGER Work Phone: [facility] 09-10-2024 15:37-0400 Body mass index (BMI) [Ratio] 22.42 kg/m2 Tonja Kellyholz WIRELESS MANAGER Work Phone: [facility] 09-10-2024 15:37-0400 Body temperature 98.01 [degF] Tonja Kellyholz WIRELESS MANAGER Work Phone: [facility] 09-10-2024 15:37-0400 Body weight 69.85 kg Tonja Kellyholz WIRELESS MANAGER Work Phone: [facility] 09-10-2024 15:37-0400 Diastolic blood pressure 66 mm[Hg] Tonja Kellyholz WIRELESS MANAGER Work Phone: [facility] 09-10-2024 15:37-0400 Heart rate 77 /min Tonja Esauhholz WIRELESS MANAGER Work Phone: [facility] 09-10-2024 15:37-0400 Respiratory rate 18 /min Tonja Kellyholz WIRELESS MANAGER Work Phone: [facility] 09-10-2024 15:37-0400 SaO2% (BldA) [Mass fraction] 98 % Tonja Kellyholz WIRELESS MANAGER Work Phone: [facility] 09-10-2024 15:37-0400 Systolic blood pressure 100 mm[Hg] Tonja Aichholz WIRELESS MANAGER Work Phone: [facility] 08-08-2024 15:28-0400 Body height 176.5 cm Tonja Esauhholz WIRELESS MANAGER Work Phone: [facility] 08-08-2024 15:28-0400 Body mass index (BMI) [Ratio] 22.42 kg/m2 Tonja Aichholz WIRELESS MANAGER Work Phone: [facility] 08-08-2024 15:28-0400 Body temperature 98.8 [degF] Tonja Cifuentesester WIRELESS MANAGER Work Phone: [facility] 08-08-2024 15:28-0400 Body weight 69.85 kg Tonja Cifuentesester WIRELESS MANAGER Work Phone: [facility] 08-08-2024 15:28-0400 Diastolic blood pressure 70 mm[Hg] Tonja Cifuentesester WIRELESS MANAGER Work Phone: [facility] 08-08-2024 15:28-0400 Heart rate 79 /min Tonja Saurabh WIRELESS MANAGER Work Phone: [facility] 08-08-2024 15:28-0400 Respiratory rate 18 /min Tonja Mendozahugo WIRELESS MANAGER Work Phone: [facility] 08-08-2024 15:28-0400 SaO2% (BldA) [Mass fraction] 97 % Tonja Mendozahugo WIRELESS MANAGER Work Phone: [facility] 08-08-2024 15:28-0400 Systolic blood pressure 110 mm[Hg] Tonja Mendozahugo WIRELESS MANAGER Work Phone: [facility] 11-29-2023 11:04-0500 Body height 172.7 cm Roman Hudson MD Work Phone: [facility] 11-29-2023 11:04-0500 Body mass index (BMI) [Ratio] 23.87 kg/m2 Roman Hudson MD Work Phone: [facility] 11-29-2023 11:04-0500 Body weight 71.22 kg Roman Hudson MD Work Phone: [facility] 11-29-2023 11:04-0500 Diastolic blood pressure 68 mm[Hg] Roman Hudson MD Work Phone: [facility] 11-29-2023 11:04-0500 Heart rate 84 /min Roman Hudson MD Work Phone: [facility] 11-29-2023 11:04-0500 SaO2% (BldA) [Mass fraction] 96 % Roman Hudson MD Work Phone: [facility] 11-29-2023 11:04-0500 Systolic blood pressure 105 mm[Hg] Roman Hudson MD Work Phone: [facility] 02-14-2023 15:06-0400 Blood Pressure Location Pauline NILL [facility] [place] 02-14-2023 15:06-0400 Diastolic blood pressure 84 mm[Hg] Pauline NILL [facility] [place] 02-14-2023 15:06-0400 Heart rate 68 /min Pauline NILL [facility] Surgery [place] 02-14-2023 15:06-0400 Respiratory rate 16 /min Pauline NILL [facility] Surgery [place] 02-14-2023 15:06-0400 Systolic blood pressure 116 mm[Hg] Pauline NILL [place] 01-09-2023 10:00-0500 Diastolic blood pressure 74 mm[Hg] Ton[facility]holz [facility] Work Phone: 01-09-2023 10:00-0500 Diastolic blood pressure 82 mm[Hg] Ton[facility]eshholz [facility] Work Phone: 01-09-2023 10:00-0500 Systolic blood pressure 118 mm[Hg] Tonja Cifuenteshholz Work Phone: [facility] 600 DO Work Phone: 01-09-2023 10:00-0500 Systolic blood pressure 124 mm[Hg] Tonja Wiley Work Phone: [facility] 600 DO Work Phone: 01-09-2023 09:58-0500 Body height 176.53 cm Tonja Wiley Work Phone: [facility] 600 DO Work Phone: 01-09-2023 09:58-0500 Body mass index (BMI) [Ratio] 22.27 kg/m2 Tonja Wiley Work Phone: [facility] 600 DO Work Phone: 01-09-2023 09:58-0500 Body surface area Derived from formula 1.85 m2 Tonja Wiley Work Phone: [facility] 600 DO Work Phone: 01-09-2023 09:58-0500 Body weight 69.4 kg Tonja Wiley Work Phone: [facility] 600 DO Work Phone: 01-09-2023 09:58-0500 Heart rate 75 /min Tonja Wiley Work Phone: [facility] 600 DO Work Phone: 12-28-2022 13:06-0500 Body height 175.26 cm Unknown Unknown [facility] 1800 Work Phone: 12-28-2022 13:06-0500 Body mass index (BMI) [Ratio] 22.52 kg/m2 Unknown Unknown [facility] 1800 Work Phone: 12-28-2022 13:06-0500 Body surface area Derived from formula 1.84 m2 Unknown Unknown [facility] 1800 Work Phone: 12-28-2022 13:06-0500 Body weight 69.17 kg Unknown Unknown [facility] 1800 Work Phone: 12-28-2022 13:06-0500 Diastolic blood pressure 81 mm[Hg] Unknown Unknown [facility] Work Phone: 12-28-2022 13:06-0500 Heart rate 60 /min Unknown Unknown [facility] 1800 Work Phone: 12-28-2022 13:06-0500 SaO2% (BldA) [Mass fraction] 94 % Unknown Unknown [facility] 1800 Work Phone: 12-28-2022 13:06-0500 Systolic blood pressure 152 mm[Hg] Unknown Unknown [facility] Work Phone: 12-28-2022 13:06-0500 0 1 Unknown Unknown [facility] Work Phone: Comment on above: [employer] Encounters Encounter Date Encounter Type Care Provider Facility Start: 01-29-2025 End: 01-29-2025 Clinisync Result Encounter Tonja Wiley NP Work Phone: [facility] External Department Unsolicited Start: 01-29-2025 End: 01-29-2025 Clinisync Result Encounter Tonja Wiley NP Work Phone: [facility] External [facility] Unsolicited Start: 01-09-2025 End: 01-09-2025 Orders Only Tonja Wiley NP Work Phone: [facility] Comment on above: 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 (CMS/HCC) (Primary Dx); Primary hypertension (CMS/HCC); Cigarette nicotine dependence without complication Start: 01-06-2025 End: 01-07-2025 Clinisync Result Encounter Tonja Wiley NP Work Phone: [facility] Unsolicited Start: 01-06-2025 End: 01-07-2025 Clinisync Result Encounter Tonja Aichholz WIRELESS MANAGER Work Phone: [facility] External Department Unsolicited Start: 12-26-2024 End: 12-26-2024 Office outpatient visit 25 minutes Tonja Wiley WIRELESS MANAGER Work Phone: [facility] Comment on above: Primary hypertension (CMS/HCC) (Primary Dx); Other emphysema (CMS/HCC); Coronary artery disease involving shoshone-bannock coronary artery of 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 angina pectoris (CMS/HCC); Gastroesophageal reflux disease, unspecified whether esophagitis present; Mixed hyperlipidemia (CMS/HCC); Cigarette nicotine dependence without complication; Aneurysm of ascending aorta without rupture (CMS/HCC); Abdominal aortic aneurysm (AAA) without rupture, unspecified part (CMS/HCC); Encounter for screening for lung cancer Start: 12-26-2024 End: 12-26-2024 ambulatory TONJA SAURABH Not Available Start: 12-26-2024 End: 12-26-2024 Bamboo flowsheet Tonja Wiley WIRELESS MANAGER Work Phone: [facility] Start: 12-26-2024 End: 12-26-2024 Bamboo flowsheet Tonja Wiley WIRELESS MANAGER Work Phone: [facility] Start: 11-27-2024 End: 11-27-2024 Refill Tonja Saurabh WIRELESS MANAGER Work Phone: [facility] Comment on above: Gastroesophageal ref lux disease, unspecified whether esophagitis present Start: 10-07-2024 End: 10-07-2024 Refill Tonja Saurabh WIRELESS MANAGER Work Phone: [facility] Comment on above: 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 (CMS/HCC) Start: 09-10-2024 End: 09-10-2024 Office outpatient visit 15 minutes Tonja Wiley WIRELESS MANAGER Work Phone: [facility] Comment on above: Primary hypertension (CMS/HCC) (Primary Dx); Tobacco dependence Start: 09-10-2024 End: 09-10-2024 ambulatory TONJA KELLYHOLZ Not Available Start: 09-10-2024 End: 09-10-2024 Bamboo flowsheet Tonja Saurabh WIRELESS MANAGER Work Phone: [facility] Start: 09-10-2024 End: 09-10-2024 Bamboo flowsheet Tonja Aichholz WIRELESS MANAGER Work Phone: [facility] Start: 09-07-2024 End: 09-09-2024 Clinisync Result Encounter Tonja Sarahz WIRELESS MANAGER Work Phone: [facility] External Department Unsolicited Start: 09-07-2024 End: 09-09-2024 Clinisync Result Encounter Tonja Sarahz WIRELESS MANAGER Work Phone: [facility] External [facility] Unsolicited Start: 08-19-2024 End: 08-19-2024 Clinisync Result Encounter Tonja Kellyholz WIRELESS MANAGER Work Phone: [facility] External [facility] Unsolicited Start: 08-19-2024 End: 08-19-2024 Clinisync Result Encounter Tonja Esaupiaholz WIRELESS MANAGER Work Phone: [facility] External [facility] Unsolicited Start: 08-19-2024 End: 08-19-2024 Refill Tonja Saurabh WIRELESS MANAGER Work Phone: [facility] Comment on above: Hypokalemia (Primary Dx) Start: 08-08-2024 End: 08-08-2024 Office outpatient visit 25 minutes Tonja Wiley WIRELESS MANAGER Work Phone: [facility] Comment on above: Primary hypertension (CMS/HCC) (Primary Dx); Tobacco dependence; Other emphysema (CMS/HCC); Prostate cancer screening; Coronary artery disease involving shoshone-bannock coronary artery of 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 angina pectoris (CMS/HCC); Gastroesophageal reflux disease, unspecified whether esophagitis present Start: 08-08-2024 End: 08-08-2024 ambulatory TONJA ESAUHHOLZ Not Available Start: 08-08-2024 End: 08-08-2024 Bamboo flowsheet Tonja Saurabh WIRELESS MANAGER Work Phone: [facility] Start: 08-08-2024 End: 08-08-2024 Bamboo flowsheet Tonja Saurabh WIRELESS MANAGER Work Phone: [facility] Start: 07-30-2024 End: 07-30-2024 Refill Tonja Saurabh WIRELESS MANAGER Work Phone: [facility] Comment on above: Other emphysema (CMS /HCC) (Primary Dx); Primary hypertension (CMS/HCC); Coronary artery disease involving shoshone-bannock coronary artery of 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 angina pectoris (CMS/HCC); Gastroesophageal reflux disease, unspecified whether esophagitis present Start: 05-07-2024 End: 05-07-2024 ambulatory TONJA SAURABH Not Available Start: 01-17-2024 End: 01-17-2024 Office outpatient visit 25 minutes Roman Hudson MD Work Phone: [facility] Comment on above: Ascending aortic ane urysm, unspecified whether ruptured (CMS/HCC) Start: 01-17-2024 End: 01-18-2024 ambulatory [facility] Start: 12-14-2023 End: 12-14-2023 Subsequent hospital visit by physician Madeline Narvaez [address] 1 [facility] Comment on above: Ascending aorta dila tation (CMS/HCC) Start: 12-14-2023 End: 12-14-2023 ambulatory [facility] Start: 11-29-2023 End: 11-29-2023 ambulatory ROMAN Rodriguez [facility] Start: 11-29-2023 End: 11-29-2023 Office outpatient new 60 minutes Roman Hudson MD Work Phone: [facility] Comment on above: Ascending aorta dila tion (CMS/HCC) Start: 03-14-2023 End: 03-15-2023 ambulatory Pauline BAINS Facility: [facility] Start: 03-14-2023 End: 03-14-2023 Patient encounter procedure Pauline BAINS General Surgery Nill/Said [place] Start: 03-01-2023 End: 03-02-[address] PAULINE BAINS . Facility:[facility] Start: 02-14-2023 End: 02-15-2023 ambulatory Pauline BAINS Facility:[facility] Start: 02-14-2023 End: 02-14-2023 Patient encounter procedure Pauline BAINS General Surgery [facility] [place] Start: 01-17-2023 End: 01-18-2023 ambulatory CHECK SERVICES CLERK TONJA AICHHOLZ Facility:[facility] Start: 01-09-2023 Office consultation new/estab patient 60 min Tonja Vinita Wiley Work Phone: [facility] 600 DO Work Phone: Start: 01-09-[address] Jess Marroquin Facility: Start: 12-30-2022 End: 12-30-2022 ambulatory CHECK SERVICES CLERK TONJA AICHHOLZ Facility:[facility] Start: 12-28-2022 Office consultation new/estab patient 80 min Unknown Unknown [facility] 1800 Work Phone: Start: 12-28-2022 ambulatory UNKNOWN UNKNOWN Facilit y:[facility] Start: 11-23-2022 End: 11-24-2022 ambulatory CHECK SERVICES CLERK TONJA ESAUHHOLZ Facility:[facility] Start: 05-03-2022 End: 05-04-2022 ambulatory CHECK SERVICES CLERK TONJA AICHHOLZ Facility:[facility] Start: 04-28-2022 End: 04-29-2022 ambulatory CHECK SERVICES CLERK TONJA AICHHOLZ Facility:[facility] Start: 04-20-2022 End: 04-21-2022 ambulatory CHECK SERVICES CLERK TONJA AICHHOLZ Facility:[facility] Start: 04-13-2022 End: 04-14-2022 ambulatory CHECK SERVICES CLERK TONJA AICHHOLZ Facility:[facility] Procedures Date Procedure Procedure Detail Performing Clinician Start: 01-29-2025 NM AUDREY PERF SPECT REST STR Tonja Sarahz WIRELESS MANAGER Work Phone: Start: 02-17-2025 CT LUNG SCREENING LOW DOSE Tonja Aichholz WIRELESS MANAGER Work Phone: Start: 09-07-2024 ALL POTASSIUM Tonja underwoodz WIRELESS MANAGER Work Phone: Start: 08-19-2024 ALL CBC WITH AUTO DIFF Tonja Mendozahugo WIRELESS MANAGER Work Phone: Start: 08-19-2024 TBH UA (CLEAN/CATCH) MICROSCOPIC IF INDICATE Tonja Esaupiahugo WIRELESS MANAGER Work Phone: Start: 12-14-2023 CT ANGIO CHEST W AND WO IV CONTRAST ROMAN HUDSON Start: 03-01-2023 Colonoscopy Roman rogers MD Work Phone: Start: 03-01-2023 Colonoscopy Pauline NEAL Start: 04-13-2022 PSA screening CHECK SERVICES CLERK TONJA SAURABH Comment on above: Performed By: #### P SASC #### [facility] [address] [place] [address] Dr. Diego Wilkins Start: 11-20-2020 Colonoscopy Tonja Vinita avila Work Phone: Start: 01-19-2020 Colonoscopy Pauline NEAL Cardiac catheterization Mike BAINS Placement of stent i n cardiac conduit Pauline BAINS Placement of stent i n coronary artery Unknown Unknown Plan of Treatment Date Care Activity Detail Author Start: 03-01-2033 Screening for malign ant neoplasm of colon [facility] Start: 03-10-2028 Screening for malign ant neoplasm of colon [facility] Start: 04-02-2025 End: 04-02-2025 Patient encounter procedure 04/02/2025 3:20 PM EDT Office Visit [facility] [address] [place] [address] Tonja Wiley NP [address] [place] [phone] [facility] Start: 03-25-2025 End: 03-25-2025 Patient encounter procedure 03/25/2025 3:40 PM EDT Office Visit [facility] [address] [place] [phone] Tonja Wiley, AALIYAH [address] [place] [phone] [facility] Start: 01-09-2025 End: 01-09-2027 NM Heart Perfusion W single state of exercise Stress test with myocardial perfusion Cardiac Nuclear Medicine High Priority Coronary artery disease involving shoshone-bannock coronary artery of 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 angina pectoris (CMS/HCC) Primary hypertension (CMS/HCC) Cigarette nicotine dependence without complication Expected: 01/09/2025 (Approximate), Expires: 01/09/2027 [facility] Work Phone: Comment on above: Expected: 01/09/2025 (Approximate), Expires: 01/09/2027 Start: 12-26-2024 End: 12-26-2024 Patient encounter procedure 12/26/2024 3:40 PM EST Office Visit [facility] [address] [place] [phone] Tonja Wiley, AALIYAH [address] [place] [phone] Coronary artery disease involving shoshone-bannock coronary artery of 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 angina pectoris (CMS/HCC) (Primary Dx); Other emphysema (CMS/HCC); Primary hypertension (CMS/HCC); Gastroesophageal reflux disease, unspecified whether esophagitis present; Mixed hyperlipidemia (CMS/HCC); Tobacco dependence; Aneurysm of ascending aorta without rupture (CMS/HCC); Abdominal aortic aneurysm (AAA) without rupture, unspecified part (CMS/HCC) [facility] Comment on above: 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 (CMS/HCC) (Primary Dx); [...] lung cancer Expected: 12/26/2024 (Approximate), Expires: 12/26/2025 [facility] Work Phone: Comment on above: Expected: 12/26/2024 (Approximate), Expires: 12/26/2025 Start: 12-11-2024 End: 12-11-2024 Patient encounter procedure 12/11/2024 3:20 PM EST Office Visit [facility] [address] [place] [phone] Tonja Wiley NP [address] [place] [address] [facility] Start: 09-10-2024 End: 09-10-2024 Patient encounter procedure [facility] Comment on above: Arrived Start: 09-09-2024 End: 08-19-2025 Potassium [Moles/volume] in Serum or Plasma Potassium Lab Routine Hypokalemia Expected: 09/09/2024 (Approximate), Expires: 08/19/2025 [facility] Work Phone: Comment on above: Expected: 09/09/2024 (Approximate), Expires: 08/19/2025 Start: 08-08-2024 End: 08-08-2024 Patient encounter procedure [facility] Comment on above: Tobacco dependence ( Primary Dx); Primary hypertension (CMS/HCC); Other emphysema (CMS/HCC); Prostate cancer screening; Coronary artery disease involving shoshone-bannock coronary artery of 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 angina pectoris (CMS/HCC) Start: 08-08-2024 End: 08-08-2025 CBC W Auto Differential panel - Blood CBC and differential Lab Routine Tobacco dependence Other emphysema (CMS/HCC) Coronary artery disease involving shoshone-bannock coronary artery of 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 angina pectoris (CMS/HCC) Expected: 08/08/2024 (Approximate), Expires: 08/08/2025 [facility] Work Phone: Comment on above: Expected: 08/08/2024 (Approximate), Expires: 08/08/2025 Start: 08-08-2024 End: 08-08-2025 Comprehensive metabolic 2000 panel - Serum or Plasma Comprehensive metabolic panel Lab Routine Primary hypertension (CMS/HCC) Coronary artery disease involving shoshone-bannock coronary artery of 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 angina pectoris (CMS/HCC) Expected: 08/08/2024 (Approximate), Expires: 08/08/2025 [facility] Comment on above: Expected: 08/08/2024 (Approximate), Expires: 08/08/2025 Start: 08-08-2024 End: 08-08-2025 Lipid 1996 panel - Serum or Plasma Lipid panel Lab Routine Coronary artery disease involving shoshone-bannock coronary artery of 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 angina pectoris (CMS/HCC) Expected: 08/08/2024 (Approximate), Expires: 08/08/2025 [facility] Comment on above: Expected: 08/08/2024 (Approximate), Expires: 08/08/2025 Start: 08-08-2024 End: 08-08-2025 Microalbumin/Creatinine panel in random Urine Microalbumin / creatinine, urine ratio Lab Routine Primary hypertension (CMS/HCC) Expected: 08/08/2024 (Approximate), Expires: 08/08/2025 [facility] Comment on above: Expected: 08/08/2024 (Approximate), Expires: 08/08/2025 Start: 08-08-2024 End: 08-08-2025 Prostate specific Ag [Mass/volume] in Serum or Plasma PSA Lab Routine Prostate cancer screening Expected: 08/08/2024 (Approximate), Expires: 08/08/2025 [facility] Comment on above: Expected: 08/08/2024 (Approximate), Expires: 08/08/2025 Start: 08-08-2024 End: 08-08-2025 Urinalysis complete panel - Urine Urinalysis with reflex microscopic (clean catch) Lab Routine Primary hypertension (CMS/HCC) Expected: 08/08/2024 (Approximate), Expires: 08/08/2025 [facility] Comment on above: Expected: 08/08/2024 (Approximate), Expires: 08/08/2025 Start: 07-21-2024 Influenza vaccination Influenza Vacc ine (#1) [facility] Start: 01-17-2024 End: 01-17-2024 Telemedicine consultation with patient 01/17/2024 1:20 PM EST Telemedicine [facility] [address] [facility] [address] [place] [address] [place] [address] [place] [address] [facility] Start: 01-09-2024 FUV, Provider: Jess Marroquin, Status: Pen, Time: 9:20 AM FUV, Provider: Jess Marroquin, Status: Pen, Time: 9:20 AM [facility] 600 DO Work Phone: Start: 01-09-2024 End: 01-09-2024 Patient encounter procedure 01/09/2024 9:20 AM EST [facility] [place] [address] [facility] [address] [place] [address] Jess Marroquin MD [address] [facility] 2, [facility] [address] [place] [address] [facility] Start: 11-29-2023 NPV, Provider: Roman Hudson, Status: Pen, Time: 11:30 AM NPV, Provider: Roman Hudson, Status: Pen, Time: 11:30 AM [facility] 600 DO Work Phone: Start: 01-11-2023 NPV, Provider: Roman Hudson, Status: Pen, Time: 2:30 PM NPV, Provider: Roman Hudson, Status: Pen, Time: 2:30 PM [facility] 1800 Work Phone: Start: 06-30-2018 Pneumococcal Vaccine : Pediatrics (0 to 5 Years) and At-Risk Patients (6 to 64 Years) (2 - PCV) Pneumococcal Vaccine: Pediatrics (0 to 5 Years) and At-Risk Patients (6 to 64 Years) (2 - PCV) [facility] Start: 2011 Zoster Vaccines (1 of 2) Zoster Vacc kita (1 of 2) [facility] Start: 1983 DTaP/Tdap/Td Vaccine s (1 - Tdap) DTaP/Tdap/Td Vaccines (1 - Tdap) [facility] Start: 1979 Hepatitis C screening Hepatitis C Sc [facility] Start: 1967 Pneumococcal Vaccine : Pediatrics (0 to 5 Years) and At-Risk Patients (6 to 64 Years) (1 - PCV) Pneumococcal Vaccine: Pediatrics (0 to 5 Years) and At-Risk Patients (6 to 64 Years) (1 - PCV) [facility] Start: 1962 MMR Vaccines (1 of 1 - Standard series) MMR Vaccines (1 of 1 - Standard series) [facility] Start: 02-09-1962 COVID-19 Vaccine (#1) COVID-19 Vacci ne (#1) [facility] Start: 1961 HIV screening HIV Screening [facility] Start: 1961 Lipid panel Lipid Panel [facility] Start: 1961 Screening for malign ant neoplasm of colon [facility] Start: 1961 Yearly Adult Physical Yearly Adult P hysical [facility] End: 12-14-2023 CTA Chest vessels WO and W contrast IV [facility] Service Area Work Phone: Comment on above: Once for 1 Occurrenc es starting 12/14/2023 until 12/14/2023 Immunizations Immunization Date Immunization Notes Care Provider Fa cility 08-08-2024 influenza virus vacc ine, unspecified formulation Tonja Wiley NP Work Phone: [facility] 07-13-2023 influenza, injectabl e, quadrivalent, preservative free Roman Hudson MD Work Phone: [facility] Work Phone: 07-13-2023 influenza virus vacc ine, unspecified formulation Tonja Wiley WIRELESS MANAGER Work Phone: [facility] 08-20-2022 influenza virus vacc ine, unspecified formulation Pauline BAINS [facility] [place] 08-20-2022 influenza, seasonal, injectable Tonja Wiley Work Phone: [facility] 600 DO Work Phone: 08-18-2020 influenza, injectabl e, quadrivalent, preservative free Unknown [facility] Work Phone: 07-12-2019 influenza, injectabl e, quadrivalent, preservative free Unknown [facility] Work Phone: 06-30-2017 pneumococcal polysaccharide vaccine, 23 valent Tonja Wiley Work Phone: [facility] 600 DO Work Phone: Comment on above: Series: Payers Date Payer Category Payer Private Health Insurance [employer] [id number] 2023 Unknown 1961 Unknown [id number] [id number]. 356 1961 Unknown [id number] 2..840.1.127818.3.579.2. 356 1961 Unknown [id number] 2.16.840.1.826106.3.579.2. 593 1961 Unknown [id number] 2.16.840.1.816504.3.579.2. 593 1961 Unknown [id number] 2.16.840.1.907267.3.579.2. 593 1961 Unknown [id number] 2.16.840.1.654127.3.579.2. 593 1961 Unknown [id number] 2.16.840.1.877628.3.579.2. 593 1961 Unknown [id number] 2.16.840.1.112971.3.579.2. 593 1961 Unknown [id number] 2.16.840.1.556546.3.579.2. 593 1961 Unknown [id number] 2.16.840.1.766540.3.579.2. 593 1961 Unknown [id number] 2.16.840.1.971262.3.579.2. 727 1961 Unknown [id number] 2.16.840.1.114977.3.579.2. 727 1961 Unknown [id number] 2.16.840.1.209045.3.579.2. 727 1961 Unknown [id number] 2.16.840.1.886547.3.579.2. 1245 1961 Unknown [id number] 1960 Unknown [id number] 1960 Unknown [id number] [id number] 1960 Unknown [id number] 1259 1960 Unknown [id number] 1259 1960 Unknown [id number] 1259 1958 Unknown [id number] Social History Date Type Detail Facility Start: 11-29-2023 End: 05-07-2024 Current every day smoker Current every day smoker [facility] Comment on above: 1.5PPD sometimes mor e; Start: 02-14-2023 Tobacco smoking status Heavy t obacco smoker (finding) [facility] [place] Tobacco smoking status Never [facility] [place] Start: 11-29-2023 End: 05-07-2024 Sex Assigned At Male [facility] Start: 11-06-2023 End: 11-28-2023 Tobacco smoking status NHIS Smokes tobacco daily [facility] Work Phone: History of tobacco use Cigarette Smoker U [facility] Work Phone: Start: 1960 Sex Assigned At Not on file [facility] Work Phone: Start: 11-19-2023 End: 12-14-2023 Exposure to SARS-CoV-2 (event) Not sure [facility] Start: 12-15-2023 Alcohol intake Lifetime non-d margarita (finding) [facility] Work Phone: Start: 11-06-2023 Tobacco use and exposure Former smokeless tobacco user [facility] End: 10-12-2023 History of tobacco use User of smokeless tobacco [facility] Functional Status Date Assessment Result Facility 02-14-2023 Functional Status N/A General [facility] Clinical Notes 11-23-2022 to 12-26-2024 Tonja Wiley, AALIYAH - 12/26/2024 4:33 PM Mona Wiley NP - 12/26/2024 3:40 PM Mona Wiley NP - 12/26/2024 7:51 AM Mona Wiley NP - 12/26/2024 7:50 AM ESTPatient Instructions Note [...] no compliance problems. Hypertensive end-organ damage includes CAD/NH. There is no history of CVA, heart [...] Chest pain, cardiac Coronary artery disease involving shoshone-bannock coronary artery of 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 angina pectoris (CMS/HCC) 11/06/2023 Dyspnea [...] Addressed This Visit Coronary artery disease involving shoshone-bannock coronary artery of 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 angina pectoris (CMS/HCC) - Primary [...] of the risks of continued smoking: stroke, NH, all forms of cancer, lung disease, and [...] Will trial stiolito #2 samples given Lot: [id number], exp 08/14 Encounter for screening for lung [...] of the risks of continued smoking: stroke, NH, all forms of cancer, lung disease, and [...] tana Associated Problem(s): Coronary artery disease involving shoshone-bannock coronary artery of 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 angina pectoris (CMS/HCC) No current symptoms Current meds: amlodipine, asa, statin, tana Associated Problem(s): Other emphysema (CMS/HCC) Albuterol inhaler prn Recommend smoking cessation Will trial stiolito #2 samples given Lot: [id number], exp 08/14 documented in this encounter [facility] 12-26-2024 Instructions Tonja Wiley NP - 12/26/2024 3:40 PM EST Low dose CT scan for lung cancer screening: will fax to [facility] they should schedule. If they do not call you in 10 days, call them: [phone] Try stiolito 2 puffs daily documented in this encounter [facility] 09-10-2024 History of Present illness Narrative Associated Problem(s): Tobacco dependence The patient has been advised of the risks of continued smoking: stroke, NH, all forms of cancer, lung disease, and [...] atorvastatin (LIPITOR) 80 mg, Oral, Every evening Guzdenx-Rvgmkijhctn-Zgtagbcnsp (Breztri Aerosphere) 160-9-4.8 MCG/ACT aerosol 2 puffs, [...] Chest pain, cardiac Coronary artery disease involving shoshone-bannock coronary artery of 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 angina pectoris (CMS/HCC) 11/06/2023 Dyspnea [...] of the risks of continued smoking: stroke, NH, all forms of cancer, lung disease, and . Options for quitting smoking include: cold turkey, hypnosis, acupuncture, nicotine replacement meds (gum, lozenges, and patches), Buproprion, and Varenicline. At this time pt is encouraged to evaluate their goals for wanting to quit smoking, and reach out to provider when ready to start this process documented in this encounter [facility] 08-08-2024 History of Present illness Narrative Associated Problem(s): Tobacco dependence Started smoking again, 1ppd, had quit for about 90 days The patient has been advised of the risks of continued smoking: stroke, NH, all forms of cancer, lung disease, and [...] atorvastatin (LIPITOR) 80 mg, Oral, Every evening Hdwvmjd-Zuwfiipmphp-Hrxokqwmeg (Breztri Aerosphere) 160-9-4.8 MCG/ACT aerosol 2 puffs, [...] thoracic aortic (CMS/HCC) CAD (coronary artery disease) ([facility]/HCC) Centrilobular emphysema (CMS/HCC) Chest pain, cardiac Coronary artery disease involving shoshone-bannock coronary artery of 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 angina pectoris (CMS/HCC) 11/06/2023 Dyspnea Elevated alkaline phosphatase level Erectile dysfunction GERD (gastroesophageal reflux disease) 01/15/2024 Headache HTN (hypertension) ([facility]) Leg cramps Nevus Primary hypertension ([facility]/HCC) 11/06/2023 Serum total bilirubin elevated 11/05/2023 [...] Addressed This Visit Coronary artery disease involving shoshone-bannock coronary artery of 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 angina pectoris (CMS/HCC) Relevant Medications [...] of the risks of continued smoking: stroke, NH, all forms of cancer, lung disease, and [...] Relevant Medications albuterol HFA 90 mcg/act inhaler Ldngyse-Xexvnrtwkut-Mjfagbuyhj (Breztri Aerosphere) 160-9-4.8 MCG/ACT aerosol Other Relevant Orders CBC and differential Prostate cancer screening Relevant Orders PSA documented in this encounter [facility] 01-17-2024 History of Present illness Narrative Contacting [...] avoid heavy lifting. 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 Will get the echo cardiogram to rule out bicuspid valve and we will follow him with a CT scan. He is also advised to avoid heavy lifting. documented in this encounter [facility] Work Phone: 03-01-2023 Note OPERATIVE NOTE [...] good condition. CC: Tonja Wiley CNP [facility] 11-23-2022 History of Present illness Narrative This [...] did have a coronary stent in 2012. [facility] Work Phone: Chief complaint Narrative - Reported Patient is here for a surgical evaluation for an ascending aortic aneurysm following a referral by Tonja Wiley CNP ([facility]). COURTNEY Ruiz, RN [facility] Work Phone: Chief complaint Narrative - Reported JATINDER CALVERT is being seen for a consultation for. referral Dr. Salmon; AAA, [id number] white male who is being seen for management of hypertension and CAD. The patient was seen recently by cardiothoracic surgery at [facility] Dr. Sherman Cruz for ascending and abdominal aortic aneurysm. The size is too small to intervene on. The patient has history of CAD and previous PCI of the RCA 2012 in [place] with drug-eluting stent. He is actively smoking and at one time was smoking 2 and half packs daily. He does have significant emphysema but not on medical therapy. Has had no recurrent coronary artery disease. He is hyperlipidemic and hypertensive on medical therapy. 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 He wishes to [...] diameter followed by the aortic clinic at [facility]. Tobacco cessation was emphasized. Hypertension controlled was [...] in annual basis or sooner if needed -[facility] [address] DO Work Phone: Evaluation + Plan note No data available for this section [facility] Evaluation note Diagnosis Ascending aorta dilation (CMS/HCC) Thoracic aneurysm without mention of rupture documented in this encounter [facility] Work Phone: Evaluation note* Diagnosis Ascending aorta dilatation (CMS/HCC) Thoracic aneurysm without mention of rupture documented in this encounter [facility] Work Phone: Evaluation note* Diagnosis Ascending aortic aneurysm, unspecified whether ruptured (CMS/HCC) documented in this encounter [facility] Work Phone: Evaluation note* Diagnosis Coronary artery disease involving shoshone-bannock coronary artery of 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 angina pectoris (CMS/HCC)- Primary Primary hypertension (CMS/HCC) Unspecified essential hypertension Serum total bilirubin elevated Disorders of bilirubin excretion Other emphysema (CMS/HCC)- Primary Other emphysema Primary hypertension (CMS/HCC) Unspecified essential hypertension Mixed hyperlipidemia (CMS/HCC) Mixed hyperlipidemia Abdominal aortic aneurysm (AAA) without rupture, unspecified part (CMS/HCC) Aneurysm of ascending aorta without rupture (CMS/HCC) Coronary artery disease involving shoshone-bannock coronary artery of 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 angina pectoris (CMS/HCC) Tobacco dependence Tobacco use disorder Primary hypertension (CMS/HCC)- Primary Unspecified essential hypertension Tobacco dependence Tobacco use disorder Other emphysema (CMS/HCC) Other emphysema Prostate cancer screening Special screening for malignant neoplasm of prostate Coronary artery disease involving shoshone-bannock coronary artery of 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 angina pectoris (CMS/HCC) Gastroesophageal reflux disease, unspecified whether esophagitis present Primary hypertension (CMS/HCC)- Primary Unspecified essential hypertension Tobacco dependence Tobacco use disorder [facility] Diagnosis Coronary artery disease involving shoshone-bannock coronary artery of 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 angina pectoris (CMS/HCC)- Primary Primary hypertension (CMS/HCC) Unspecified essential hypertension Serum total bilirubin elevated Disorders of bilirubin excretion Other emphysema (CMS/HCC)- Primary Other emphysema Primary hypertension (CMS/HCC) Unspecified essential hypertension Mixed hyperlipidemia (CMS/HCC) Mixed hyperlipidemia Abdominal aortic aneurysm (AAA) without rupture, unspecified part (CMS/HCC) Aneurysm of ascending aorta without rupture (CMS/HCC) Coronary artery disease involving shoshone-bannock coronary artery of 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 angina pectoris (CMS/HCC) Tobacco dependence Tobacco use disorder Primary hypertension (CMS/HCC)- Primary Unspecified essential hypertension Tobacco dependence Tobacco use disorder Other emphysema (CMS/HCC) Other emphysema Prostate cancer screening Special screening for malignant neoplasm of prostate Coronary artery disease involving shoshone-bannock coronary artery of 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 angina pectoris (CMS/HCC) Gastroesophageal reflux disease, unspecified whether esophagitis present Primary hypertension (CMS/HCC)- Primary Unspecified essential hypertension Tobacco dependence Tobacco use disorder Coronary artery disease involving shoshone-bannock coronary artery of 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 angina pectoris (CMS/HCC) [facility] Diagnosis Primary hypertension (CMS/HCC)- Primary Unspecified essential hypertension Tobacco dependence Tobacco use disorder Other emphysema (CMS/HCC) Other emphysema Prostate cancer screening Special screening for malignant neoplasm of prostate Coronary artery disease involving shoshone-bannock coronary artery of 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 angina pectoris (CMS/HCC) Gastroesophageal reflux disease, unspecified whether esophagitis present [facility] Diagnosis Other emphysema (CMS/HCC)- Primary Other emphysema Primary hypertension (CMS/HCC) Unspecified essential hypertension Coronary artery disease involving shoshone-bannock coronary artery of 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 angina pectoris (CMS/HCC) Gastroesophageal reflux disease, unspecified whether esophagitis present [facility] Diagnosis Hypokalemia- Primary Hypopotassemia [facility] Diagnosis Coronary artery disease involving shoshone-bannock coronary artery of 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 angina pectoris (CMS/HCC)- Primary Primary hypertension (CMS/HCC) Unspecified essential hypertension Serum total bilirubin elevated Disorders of bilirubin excretion Other emphysema (CMS/HCC)- Primary Other emphysema Primary hypertension (CMS/HCC) Unspecified essential hypertension Mixed hyperlipidemia (CMS/HCC) Mixed hyperlipidemia Abdominal aortic aneurysm (AAA) without rupture, unspecified part (CMS/HCC) Aneurysm of ascending aorta without rupture (CMS/HCC) Coronary artery disease involving shoshone-bannock coronary artery of 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 angina pectoris (CMS/HCC) Tobacco dependence Tobacco use disorder Primary hypertension (CMS/HCC)- Primary Unspecified essential hypertension Tobacco dependence Tobacco use disorder Other emphysema (CMS/HCC) Other emphysema Prostate cancer screening Special screening for malignant neoplasm of prostate Coronary artery disease involving shoshone-bannock coronary artery of 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 angina pectoris (CMS/HCC) Gastroesophageal reflux disease, unspecified whether esophagitis present Primary hypertension (CMS/HCC)- Primary Unspecified essential hypertension Tobacco dependence Tobacco use disorder Gastroesophageal reflux disease, unspecified whether esophagitis present [facility] Diagnosis Coronary artery disease involving shoshone-bannock coronary artery of 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 angina pectoris (CMS/HCC)- Primary Primary hypertension (CMS/HCC) Unspecified essential hypertension Serum total bilirubin elevated Disorders of bilirubin excretion Other emphysema (CMS/HCC)- Primary Other emphysema Primary hypertension (CMS/HCC) Unspecified essential hypertension Mixed hyperlipidemia (CMS/HCC) Mixed hyperlipidemia Abdominal aortic aneurysm (AAA) without rupture, unspecified part (CMS/HCC) Aneurysm of ascending aorta without rupture (CMS/HCC) Coronary artery disease involving shoshone-bannock coronary artery of 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 angina pectoris (CMS/HCC) Tobacco dependence Tobacco use disorder Primary hypertension (CMS/HCC)- Primary Unspecified essential hypertension Tobacco dependence Tobacco use disorder Other emphysema (CMS/HCC) Other emphysema Prostate cancer screening Special screening for malignant neoplasm of prostate Coronary artery disease involving shoshone-bannock coronary artery of 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 angina pectoris (CMS/HCC) Gastroesophageal reflux disease, unspecified whether esophagitis present Primary hypertension (CMS/HCC)- Primary Unspecified essential hypertension Tobacco dependence Tobacco use disorder Primary hypertension (CMS/HCC)- Primary Unspecified essential hypertension Other emphysema (CMS/HCC) Other emphysema Coronary artery disease involving shoshone-bannock coronary artery of 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 angina pectoris (CMS/HCC) Gastroesophageal reflux disease, unspecified whether esophagitis present Mixed hyperlipidemia (CMS/HCC) Mixed hyperlipidemia Cigarette nicotine dependence without complication Aneurysm of ascending aorta without rupture (CMS/HCC) Abdominal aortic aneurysm (AAA) without rupture, unspecified part (CMS/HCC) Encounter for screening for lung cancer documented in this encounter [facility]* Diagnosis Coronary artery disease involving shoshone-bannock coronary artery of 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 angina pectoris (CMS/HCC)- Primary Primary hypertension (CMS/HCC) Unspecified essential hypertension Serum total bilirubin elevated Disorders of bilirubin excretion Other emphysema (CMS/HCC)- Primary Other emphysema Primary hypertension (CMS/HCC) Unspecified essential hypertension Mixed hyperlipidemia (CMS/HCC) Mixed hyperlipidemia Abdominal aortic aneurysm (AAA) without rupture, unspecified part (CMS/HCC) Aneurysm of ascending aorta without rupture (CMS/HCC) Coronary artery disease involving shoshone-bannock coronary artery of 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 angina pectoris (CMS/HCC) Tobacco dependence Tobacco use disorder Primary hypertension (CMS/HCC)- Primary Unspecified essential hypertension Tobacco dependence Tobacco use disorder Other emphysema (CMS/HCC) Other emphysema Prostate cancer screening Special screening for malignant neoplasm of prostate Coronary artery disease involving shoshone-bannock coronary artery of 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 angina pectoris (CMS/HCC) Gastroesophageal reflux disease, unspecified whether esophagitis present Primary hypertension (CMS/HCC)- Primary Unspecified essential hypertension Tobacco dependence Tobacco use disorder Primary hypertension (CMS/HCC)- Primary Unspecified essential hypertension Other emphysema (CMS/HCC) Other emphysema Coronary artery disease involving shoshone-bannock coronary artery of 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 angina pectoris (CMS/HCC) Gastroesophageal reflux disease, unspecified whether esophagitis present Mixed hyperlipidemia (CMS/HCC) Mixed hyperlipidemia Cigarette nicotine dependence without complication Aneurysm of ascending aorta without rupture (CMS/HCC) Abdominal aortic aneurysm (AAA) without rupture, unspecified part ([facility]) Encounter for screening for lung cancer Coronary artery disease involving shoshone-bannock coronary artery of 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 angina pectoris (CMS/HCC)- Primary Primary hypertension (CMS/HCC) Unspecified essential hypertension Cigarette nicotine dependence without complication [facility] No data available for this section [facility] [place] Progress note No data available for this section [facility] [place] Summary Purpose Family History No Family History [...] [place] [id number] [address] Leija Department of Surgery-Cardiac [place] [id number] Referral ID Status Reason Start Date Expiration Date Visits Requested Visits Authorized [id number] Authorized Perform Procedure 11/30/2023 11/29/2024 1 1 Additional Source Comments (unrecognized sect ion and content) No Status Records FoundNo Status Records FoundNo Status Records FoundNo Status Records FoundNo Status Records FoundNo Status Records FoundNo Status Records Found INFORMATION SOURCE (unrecogn ized section and content) DATE CREATED AUTHOR 01/09/2023 [facility] DATE CREATED AUTHOR AUTHOR'S ORGANIZ ATION 01/09/2023 [employer] DATE CREATED AUTHOR AUTHOR'S ORGANIZ ATION 03/07/2023 [facility] DATE CREATED AUTHOR AUTHOR'S ORGANIZ ATION 03/15/2023 [facility] DATE CREATED AUTHOR AUTHOR'S ORGANIZ ATION 01/22/2024 [facility] DATE CREATED AUTHOR AUTHOR'S ORGANIZ ATION 2024 [facility] DATE CREATED AUTHOR AUTHOR'S ORGANIZ ATION 12/29/2024 [facility]ists EPIC Patient Care team informatio n (unrecognized section and content) Chemical Laboratory Tester Relationship Specialty Start Date End Date Tonja Wiley, BIN FILLER-CHECK SERVICES CLERK [address] [place] [address] PCP - General 01/09/23 Chemical Laboratory Tester Relationship Specialty Start Date [facility] BIN FILLER-CHECK SERVICES CLERK [address] [place] [address] PCP - General 01/09/23 Chemical Laboratory Tester Relationship Specialty Start Date End Date [facility] BIN FILLER-CHECK SERVICES CLERK [address] [place] [address] PCP - General 01/09/23 Chemical Laboratory Tester Relationship Specialty Start Date End Date Loi Red MD [address] [place] [phone] PCP - General Family Medicine 11/06/23 Tonja Wiley NP [address] [place] [address] Nurse Practitioner Family Medicine 11/06/23 Chemical Laboratory Tester Relationship Specialty Start Date End Date Unallocated, Ramesh Villareal MD [address] [place] [address] PCP - General Family Medicine 09/10/24 Tonja Wiley NP [address] [place] [address] Nurse Practitioner Family Medicine 11/06/23 Chemical Laboratory Tester Relationship Specialty Start Date End Date Loi Red MD [address] [place] [address] PCP - General Family Medicine 09/19/24 Tonja Wiley NP [address] [place] [address] Nurse Practitioner Family Medicine 11/06/23 Chemical Laboratory Tester Relationship Specialty Start Date End Date Loi Red MD [address] [place] [address] PCP - General Family Medicine 11/06/23 Tonja Wiley NP [address] [place] [address] Nurse Practitioner Family Medicine 11/06/23 Chemical Laboratory Tester Relationship Specialty Start Date End Date Loi Red MD [address] [place] [address] PCP - General Family Medicine 11/06/23 Tonja Wiley NP [address] [place] [address] Nurse Practitioner Family Medicine 11/06/23 Chemical Laboratory Tester Relationship Specialty Start Date End Date Loi Red MD [address] [place] [address] PCP - General Family Medicine 11/06/23 Tonja Wiley NP [address] [place] [address] Nurse Practitioner Family Medicine 11/06/23 Chemical Laboratory Tester Relationship Specialty Start Date End Date Loi Red MD [address] [place] [address] PCP - General Family Medicine 11/06/23 Tonja Wiley NP [address] [place] [address] Nurse Practitioner Family Medicine 11/06/23 Chemical Laboratory Tester Relationship Specialty Start Date End Date Loi Red MD [address] [place] [address] PCP - General Family Medicine 11/06/23 Tonja Wiley NP [address] [place] [address] Nurse Practitioner Family Medicine 11/06/23 Chemical Laboratory Tester Relationship Specialty Start Date End Date Loi Red MD [address] [place] [address] PCP - General Family Medicine 09/19/24 Tonja Wiley NP [address] [place] [address] Nurse Practitioner Family Medicine 11/06/23 Chemical Laboratory Tester Relationship Specialty Start Date End Date Loi Red MD [address] [place] [address] PCP - General Family Medicine 09/19/24 Tonja Wiley NP [address] [place] [address] Nurse Practitioner Family Medicine 11/06/23 Chemical Laboratory Tester Relationship Specialty Start Date End Date Loi Red MD [address] [place] [address] PCP - General Family Medicine 09/19/24 Tonja Wiley NP [address] [place] [address] Nurse Practitioner Family Medicine 11/06/23 Chemical Laboratory Tester Relationship Specialty Start Date End Date Loi Red MD [address] [place] [address] PCP - General Family Medicine 09/19/24 Tonja Wiley NP [address] [place] [address] Nurse Practitioner Family Medicine 11/06/23 Chemical Laboratory Tester Relationship Specialty Start Date End Date Loi Red MD [address] [place] [phone] PCP - General Family Medicine 09/19/24 Tonja Wiley NP [address] [place] [address] Nurse Practitioner Family Medicine 11/06/23 Reason for Visit (unrecogniz ed section and content) Specialty Diagnoses / Procedures Referred By Contac t Referred To Contact Radiology Diagnoses Ascending aorta dilatation (CMS/HCC) Procedures CT angio [place] [address] [address] [place] [address] Referral ID Status Reason Start Date Expiration Date Visits Requested Visits Authorized [id number] Authorized Perform Procedure 11/30/2023 11/29/2024 1 1 [...] BE BASED ON THE PRIMARY CLINICAL RECORDS. [employer] provides no warranty or guarantee of the accuracy or completeness of information in this document.
--- NOTE | 2025-02-17 08:00 | CA_ITS ---
Patient Name: JATINDER SCHULTZ MR#: [id number] : 1960 Exam Date: 02/17/2025 Ordering Doctor: TIFFANY Wiley CNP ECHOCARDIOGRAM REPORT PROCEDURE: CA ECHO DOPPLER COMPLETE INDICATIONS: Dyspnea, hypertension, emphysema, CAD COMPARISON: None. DESCRIPTION: COMPLETE ECHOCARDIOGRAM Real-time transthoracic echocardiography with 2D, M-mode, spectral and color flow Doppler performed. QUALITY: Technical quality was good. LEFT VENTRICLE: Normal chamber size. Normal left ventricular wall thickness. Normal systolic function. LV EF: Normal left ventricular ejection fraction, (55%). DIASTOLIC: Normal diastolic function. ATRIAL SEPTUM: Visually appears intact. LEFT ATRIUM: Normal chamber size. RIGHT ATRIUM: Normal chamber size. RIGHT VENTRICLE: Normal chamber size. Normal right ventricular systolic function. TRICUSPID VALVE: Normal mobility and thickness. No stenosis with trivial regurgitation. Doppler studies reveal mildly (35-45) elevated right sided pressures. RVSP 38 mmHg MITRAL VALVE: Normal mobility and thickness. No evidence of mitral valve stenosis. There is no mitral annular calcification. Trivial mitral regurgitation. AORTIC VALVE: Normal trileaflet appearance. No visible sclerosis. Normal leaflet mobility. No evidence of aortic valve stenosis. No aortic regurgitation. AORTIC ROOT: Normal diameter and appearance, measuring 3.8 cm. PULMONIC VALVE: Normal thickness and mobility. No stenosis. No regurgitation. PERICARDIUM: No evidence of pericardial effusion. IVC: Collapses with inspirations. IVC is normal in size. PLEURA: CONCLUSION: 1. Normal ventricular size and systolic function. LVEF is estimated at 55%. 2. No significant valvular dysfunction. 3. Mildly elevated right-sided pressures. 4. No pericardial effusion. Adult Echocardiography Procedure Report Left Ventricle LVEDD (3.7 - 5.6 cm): 4.58 cm LVESD (2.2 - 4.0 cm): 2.75 cm LVIVS thickness (0.6 - 1.2 cm): 0.88 cm LVPW thickness (0.5 - 1.0 cm): 0.77 cm e': 0.10 m/s E - e': 4.65 LVOT Max Gradient: 3.29 mm[Hg] LVOT Area (cm2): 0.91 m/s Peak Velocity (LVOT): 0.91 m/s Mean Velocity (LVOT): 0.59 m/s LVOT Diameter 2.35 cm Left Atrium LA Volume Index (2D A2C): 25.53 ml/m2 Left Atrium Systolic Dimension: 3.51 cm Mitral Valve MV E to A Ratio: 0.84 Mitral Valve A-Wave Peak Velocity: 0.57 m/s Mitral Valve E-Wave Peak Velocity: 0.48 m/s Right Ventricle Aorta AO Root Diam: 3.83 cm Aortic Valve AoV Area (Peak Foreign): 4.01 cm2, 4.01 cm2 AoV Area (VTI): 3.35 cm2, 3.35 cm2 Peak Velocity(Antegrade Flow): 0.98 m/s Peak Gradient(Antegrade Flow): 3.87 mm[Hg] Mean Velocity(Antegrade Flow): 0.63 m/s Mean Gradient(Antegrade Flow): 1.81 mm[Hg] Velocity Time Integral: 23.68 cm Tricuspid Valve Peak Velocity (Regurgitant Flow): 2.40 m/s, 2.50 m/s, 2.96 m/s Pulmonic Valve Mean Gradient: 1.58 mm[Hg] Mean Velocity: 0.60 m/s Peak Velocity: 0.81 m/s, 0.74 m/s Peak Gradient: 2.19 mm[Hg], 2.62 mm[Hg] Right Atrium Right Atrium Systolic Pressure: 40.88 ml, 40.88 ml Dictated by: Jose Luis Morin M.D. on 02/17/2025 at 19:52 Approved by: Jose Luis Morin M.D. on 02/17/2025 at 19:54
[2025-02-17 08:14] LABS: Hemoglobin 14.5 g/dL (14.0-18.0)
[2025-02-17] MEDS: ALBUTEROL SULFATE 2.5 MG/3 ML VIAL NEB IH (09:21)
--- NOTE | 2025-02-17 09:30 | RT_ITS ---
[facility] Test Date: 2025-02-17 Pat Name: JATINDER SCHULTZ Department: Room: - Gender: Male Legal Services Manager: Pedro Bae RRT : 1960 Requested By: PEDRO DURAN Order Number: [id number] Reading MD: Grabiel Rudolph Interpretive Statements Pulmonary function testing was completed according to ATS criteria. Findings were considered accurate and reproducible. Both pre- and post-bronchodilator values utilized for spirometry. Spirometry (based on pre-bronchodilator values): -FEV1/FVC: Reduced @ 49% -FEV1: Moderately-severe reduction @ 51% -FVC: Reduced @ 79% -There is a positive bronchodilator response in FEV1 and FVC. Lung volumes by plethysmography: -RV: Increased @ 219% -TLC: Increased @ 130% Diffusion capacity: -DLCO: Moderately-severe reduction @ 53% when corrected for Hb 14.5g/dL Impressions: -Spirometry suggests moderately-severe obstruction with a positive bronchodilator response. An elevated RV and TLC suggest air trapping and hyperinflation respectively. There is a moderately-severe reduction in diffusion capacity. Overall study compatible with COPD with a bronchodilator response or asthma-COPD overlap. Clinical correlation required. Electronically Signed On 02-20-2025 16:16:08 EDT by Grabiel Rudolph
== END 2025-02-17 07:47 | disposition home or self-care (01) ==
LOC: CARD 07:46
PROVIDERS: PCP Nurse Practitioner; Visit Provider Nurse Practitioner
DX: J43.8 Other emphysema (principal); R06.09 Other forms of dyspnea; I10 Essential (primary) hypertension; I25.10 Atherosclerotic heart disease of native coronary artery without angina pectoris
CPT/HCPCS: 36415; 85018; 93306; 94060; 94726; 94729

== ENCOUNTER 2025-10-11 09:40 | Outpatient (OUT) | payer OTHER, SELFPAY ==
--- OUTSIDE RECORDS SUMMARY | 2025-10-06 05:47 | XMS_ITS | Continuity of Care Document ---
Author Organization [facility] Address [address] [place] [address] Phone Care Team Providers Care Solar Installation Supervisor Name Role Phone Tonja Wiley ELEMENT SETTER-C Primary Care Provider Tonja Wiley NP-C Attending Provider Diamond Castro APRN Attending Provider Care Teams Patient Care Team Team Status: Active Member Role/Relationship Status Dates Tonja Wiley ELEMENT SETTER-C Primary Care Provider Active Visit Care Team Team Status: Inactive Member Role/Relationship Status Dates Tonja Wiley , ELEMENT SETTER-C Primary Care Provider Active Start: October 02, 2025 End: October 02, 2025Tonja Wiley ELEMENT SETTER-CAttendavid ProviderActiveStart: October 02, 2025 End: October 02, 2025 Patient Care Team Team Status: Inactive Member Role/Relationship Status Dates Tonja Wiley , ELEMENT SETTER-C Primary Care Provider Active Start: October 06, 2025 End: October 06, 2025Bibi Griffith ProviderActiveStart: October 06, 2025 End: October 06, 2025 Chief Complaint and Reason for Visit Chief Complaint Admit Date Established Patient October 02, 2025 3:14pm Cough, congestion October 06, 2025 10:14am Reason for Visit Admit Date Chronic GERD October 02, 2025 3:14pm Cigarette nicotine dependence September 202024 3:14pm COPD with asthma October 02, 2025 3:14pm Environmental and seasonal allergies Nov ember 2024 3:14pm Mixed hyperlipidemia October 02, 2025 3:14pm Primary hypertension October 02, 2025 3:14pm Screening for prostate cancer September 202024 3:14pm COPD exacerbation October 06, 2025 10:14am Allergies, Adverse Reactions, Alerts Allergen Type Severity Reaction Last Updated Verified Status No Known Allergies Allergy Unknown October 06, 2025 10:16amYesActive Social History Smoking Status Status Start Date End Date Date of Observa tion Smokes tobacco daily (finding) October 06, 2025 10:23am Observation Status Observation Response Date of Response Legal Sex Male (finding) Sex Assigned At BirthMaleSept1959 Problems Active Problems Problem Diagnosis/Recorded Date Onset Date Stat us Screening for prostate cancer October 01, 2025 8:18 am Unknown Active Dyspnea on exertion October 01, 2025 8:16am Unknown Active Abdominal aortic aneurysm wi thout rupture October 01, 2025 8:09am Unknown Active Mixed hyperlipidemia September 22, 2025 9:21am Unknown Active Environmental and seasonal allergies October 02 4:05pm Unknown Active Primary hypertension October 01, 2025 8:18am Unknow n Active Cigarette nicotine dependence October 01, 2025 8:09 am Unknown Active Coronary artery disease 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 October 01, 2025 8:16am Unknown Active Serum total bilirubin elevated October 01, 2025 8:1 9am Unknown Active COPD with asthma October 01, 2025 8:10am Unknown Active Chronic GERD October 01, 2025 8:16am Unknown A ctive Ascending aortic aneurysm October 01, 2025 8:09am U nknown Active Screening for lung cancer October 01, 2025 8:16am U nknown Active COPD exacerbation October 06, 2025 10:45am Unknown Active Hypokalemia October 01, 2025 8:17am Unknown A ctive Medications Medication Status Dose Units Route Directions Qty Days Refills S tart Date Stop Date End Date Reason(s) Instructions Adherence Atorvastatin 80 mg tablet Active 80 MG PO Daily at bedtime 90 0September 22, 2025 12:00amMixed hyperlipidemia Coronary artery disease Mixed hyperlipidemia Atherosclerotic heart disease of [place] coronary artery without angina pectoris Complies with drug therapyAmlodipine 5 mg ezypvmMmnhth6RWJWUbbedXwotwbrk 13th, 2025 12:00amComplies with drug therapyMeclizine 25 mg agcpctKwfouw51HWRKYtvmd times daily as needed for dizzinessOctober 02, 2025 12:00amComplies with drug therapyLisinopril 10 mg aggefhDgbuwf93XCKAWoimgJcjslpwe 2024 12:00am Complies with drug therapyOmeprazole 20 mg capsule,delayed release(DR/EC)Active 20MGPODailySaint [facility] 2024 12:00amComplies with drug therapyAspirin 81 mg jokcqlPtlluz15TBHAJlngxFidztkqh 2024 12:00amComplies with drug therapy Albuterol Sulfate 90 mcg/actuation HFA aerosol vjrkutcWojzai7YVPMQTNWRXOMNMRcvn times daily as neededSaint [facility] Medical Center 2024 12:00amComplies with drug therapy Tiotropium-Olodaterol (Stiolto Respimat) 2.5-2.5 mcg/actuation qlcpFsjhgg4YVBR INHALATIONDaSaint Claire Medical Center 2024 12:00amComplies with drug therapyDoxycycline Hyclate 100 mg dovmfcfCyxjyh248GUMBNhhqj okofl7968Xqtsizcx 2024 12:00am Complies with drug therapyPrednisone 20 mg hlykrdRdesgt02CWYJ.NKKQPGH788Addpjfvj 2024 12:00amTake 2 tabs po daily x 5 daysComplies with drug therapy Vital Signs Vital Reading Result Reference Range Collection Date/Time Height 69.5 [in_i] October 02, 2025 3:91moPeboce49.58 kgSaint [facility] Medical Center 2024 3:46pmBody Qncpqwjjhod86.8 [degF]97.6-99.0[facility] 2024 3:46pmHeart Rate98 /pkm74-240 October 02, 2025 3:46pmRespiratory rate18 /yij61-80Lfsazuzq 2024 3:46pm Oxygen saturation by Pulse fknvuqnl07 %95-100[facility] 2024 3:46pmBP Ubxdnfqg782 mm[Hg]100-140[facility] 2024 3:46pmBP Plwzisocg60 mm[Hg]60-100 October 02, 2025 3:46pmBMI (Body Mass Index)21.7 kg/h9Hpsutlfs 2024 3:99snScfsts06.5 [in_i]October 06, 2025 10:53jsXrmqph87.31 kgSaint [facility] Medical Center 2024 10:18amBody Wbdzwmmsity17.3 [degF]97.6-99.0November 2024 10:18amHeart Rate88 /rrc09-297IvviildvOctober 06, 2025 10:18amRespiratory rate16 /miz32-36 October 06, 2025 10:18amOxygen saturation by Pulse fwezktmt36 %95-100Nov2024 10:18amBP Jwzlnqky822 mm[Hg]100-140Nov2024 10:18amBP Oozzdohbg00 mm[Hg]60-100November 2024 10:18amBMI (Body Mass Index)20.9 kg/l2Eernlbqj2024 10:18am Advance Directives Advance Directive Response Recorded Date/ Time Advance Directives No September 3:11pm Insurance Providers Guarantor Chris Calvert Address [address] [place] [id number] Info.Home Phone: Coverage Status Update:2025 Payer Group Member ID Coverage Type Subscriber Relationship to Subscriber Effective Date [place] [facility] [place] [id number] W Calvert Id: [id number] [address] [place] [id number] Home Phone: [facility] NAILA/JUAN ANTONIO [id number] Encounters Encounter Location(s) Arrival/Admit Date Discharge/Departure Date Discharge/Departure Disposition Provider(s) Departed Physician/ Provider Office Visit -[facility] October 02, 2025 3:14pm October 02, 2025 4:03pm Discharged to home care or self care (routine discharge) ANETTE Sullivan Departed Physician/ Provider Office Visit -[facility] October 06, 2025 10:14am October 06, 2025 10:45am Discharged to home care or self care (routine discharge) Giana Lainez APRN Recent Diagnosis Onset Date Admit Date Chronic GERD Unknown October 02, 2 025 3:14pm Cigarette nicotine dependence Unknown No [email or web address] 3:14pm COPD with asthma Unknown October 02, 2025 3:14pm Environmental and seasonal allergies Unknown October 02, 2025 3:14pm Mixed hyperlipidemia Unknown October 022024 3:14pm Primary hypertension Unknown October 022024 3:14pm Screening for prostate cancer Unknown No vember 2024 3:14pm COPD exacerbation Unknown October 06, 2025 10:14am Assessments Diagnosis Onset Date Resolution Status Admit Date Chronic GERD acuteOctober 02, 2025 3:14pmCigarette nicotine dependenceacuteOctober 02, 2025 3:14pmCOPD with asthmaacuteOctober 02, 2025 3:14pmEnvironmental and seasonal allergiesacuteOctober 02, 2025 3:14pmMixed hyperlipidemiaacute October 02, 2025 3:14pmPrimary hypertensionacuteOctober 02, 2025 3:14pm Screening for prostate canceracuteOctober 02, 2025 3:14pmCOPD exacerbation acuteOctober 06, 2025 10:14am Plan of Treatment Author Tonja Wiley [facility]2024 4:06pmPFTs: 02/17/25: FEV1/FVC 49%, FEV1 51%, and FVC 79% low dose CT chest 01/06/25 normal meds: stiolito, and prn albuterol on statin check labs yearly and prn dose changes recommend diet low in fat and processed foods Please check blood pressure daily and record DASH diet Limit caffeine Take medication as directed Contact office if chest pain, pressures, dizziness, shortness of breath, swelling in the legs Recommend slow position changes if you develop dizziness with position changes current meds: lisinopril and amlodipine Recommendations: freq small meals, nothing to eat or drink at least 2 hours prior to bed, limit caffeine, alcohol, as well as spicy foods. Meds to limit or avoid if possible: NSAIDS Elevate the HOB if possible current meds: omeprazole order labs recommend OTC antihistamine and flonase nasal spray fu if not better The patient has been advised of the risks of continued smoking: stroke, IA, all forms of cancer, lung disease, and . Options for quitting: cold turkey, hypnosis, acupuncture, nicotine replacement meds (gum, lozenges, and patches), as well as oral meds: buproprion or varenicline . At this time pt is encouraged to evaluate their goals for wanting to quit smoking, and reach out to provider when ready to start this process Author Diamond Castro [facility] WestAuthoredNovember 2024 10:45amCOPD exacerbation secondary to viral URI. Will treat with prednisone burst. Does have mild rales to right base. Covering for secondary pneumonia with doxycycline. Finish entire course. May use Mucinex DM qlgu-amy-uysdyfc. Recommend follow-up with PCP in the next 5 to 6 days for recheck, sooner if significantly worsening or new onset fevers. Patient verbalized understanding. Future Tests Future scheduled test information is unavailable Pending Tests Test Name Ordered Date Scheduled Date Comprehensive Metabolic Panel October 02 7:36am Future Visits Future appointment information is unavailable Future Procedures Procedure Name Ordered Date Scheduled Date Dipstick and Microscopic October 02, 2025 7:3 6am Complete Blood Count Auto DiffNovember 2024 7:36amLipid PanelNovember 2024 7:36amPSA Screen (Yearly Only)October 02, 2025 7:36amAMB POC Ur Microalb/Creat RatNovember 2024 7:36am Future Medications Future medication information is unavailable Patient Instructions Patient instructions are unavailable
--- OUTSIDE RECORDS SUMMARY | 2025-10-11 09:45 | XMS_ITS | CCD ---
Author Organization [facility] Care Team Providers Care Respiratory Clinician Name Role Phone Unknown, Unknown Unavailable Unavailable UNKNOWN, UNKNOWN Primary Care Unavailable MD LOI CRUZ Attending Unava ilable Lopez, Dr. Jess Barakat Referring Jayne vailable UNKNOWN, UNKNOWN Primary Care Unavailable Lopez, Dr. Jess Barakat Attending Jayne vailable Saurabh Tonja [place] Unavailable Unavailable Unavailable CRYS WILEYA J Primary Care Physician AICHHOLZ, ACADEMIC RECORDS SPECIALIST TONJA Admitting Unavailable AICHHOLZ, ACADEMIC RECORDS SPECIALIST TONJA Attending Unavailable AICHHOLZ, ACADEMIC RECORDS SPECIALIST TONJA Primary Care Unavailable ROBBIE ADAMS Consulting Unavailable AICHHOLZ, ACADEMIC RECORDS SPECIALIST TONJA Consulting Unavailable AICHHOLZ, ACADEMIC RECORDS SPECIALIST TONJA Admitting Unavailable AICHHOLZ, ACADEMIC RECORDS SPECIALIST TONJA Attending Unavailable AICHHOLZ, ACADEMIC RECORDS SPECIALIST TONJA Primary Care Unavailable AICHHOLZ, ACADEMIC RECORDS SPECIALIST TONJA Consulting Unavailable DR DENNIS KIM Consulting Unavailable AICHHOLZ, ACADEMIC RECORDS SPECIALIST TONJA Admitting Unavailable AICHHOLZ, ACADEMIC RECORDS SPECIALIST TONJA Attending Unavailable AICHHOLZ, ACADEMIC RECORDS SPECIALIST TONJA Primary Care Unavailable AICHHOLZ, ACADEMIC RECORDS SPECIALIST TONJA Consulting Unavailable DR DENNIS KIM Consulting Unavailable AICHHOLZ, ACADEMIC RECORDS SPECIALIST TONJA Admitting Unavailable AICHHOLZ, ACADEMIC RECORDS SPECIALIST TONJA Attending Unavailable AICHHOLZ, ACADEMIC RECORDS SPECIALIST TONJA Primary Care Unavailable ROBBIE ADAMS Consulting Unavailable AICHHOLZ, ACADEMIC RECORDS SPECIALIST TONJA Consulting Unavailable AICHHOLZ, ACADEMIC RECORDS SPECIALIST TONJA Admitting Unavailable AICHHOLZ, ACADEMIC RECORDS SPECIALIST TONJA Attending Unavailable AICHHOLZ, ACADEMIC RECORDS SPECIALIST TONJA Primary Care Unavailable AICHHOLZ, ACADEMIC RECORDS SPECIALIST TONJA Consulting Unavailable AICHHOLZ, ACADEMIC RECORDS SPECIALIST TONJA Primary Care Unavailable SHAIKH Pia LOWE Admitting Unavailable SHAIKH Pia LOWE Attending Unavailable FAWWADSHAIKH Pia Consulting Unavailable DIAB ., SEN Consulting Unavailable NILL ., DR CARPENTER Admitting Unavailable NILL ., DR CARPENTER Attending Unavailable AICHHOLZ, ACADEMIC RECORDS SPECIALIST TONJA Primary Care Unavailable NILL ., DR CARPENTER Consulting Unavailable MOHSENSALMA ALCOCER Consulting Unavailable MARCIO CARO Consulting Unavailable AICHHOLZ, ACADEMIC RECORDS SPECIALIST TONJA Admitting Unavailable AICHHOLZ, ACADEMIC RECORDS SPECIALIST TONJA Attending Unavailable AICHHOLZ, ACADEMIC RECORDS SPECIALIST TONJA Primary Care Unavailable ROBBIE ADAMS Consulting Unavailable AICHHOLZ, ACADEMIC RECORDS SPECIALIST TONJA Consulting Unavailable NILL, Pauline R Attending Unavailable NILL, Pauline Rodriguez Attending Unavailable NILL, Pauline R Attending Unavailable Aichholz TECHNICAL WRITER AND EDITOR-ACADEMIC RECORDS SPECIALIST, Tonja [place] Primary Care Provider ROMAN HUDSON Attending Unavailable AICHHOLZ, TONJA VINITA Primary Care Unavailable ROMAN HUDSON Attending Unavailable AICHHOLZ, TONJA VINITA Primary Care Unavailable ROMAN HUDSON Referring Unavailable AICHHOLZ, TONJA VINITA Primary Care Unavailable Aichholz RESIDENT CARE DIRECTOR, Tonja Unavailable Neda ELLIOTT, Loi Primary Care Provider Unallocated , [facility] Provider Primary Care Provi eddy Neda ELLIOTT, Loi Primary Care Provider [phone] AICHHOLZ, TONJA Attending Unavailable AICHHOLZ, TONJA Attending Unavailable AICHHOLZ, TONJA Attending Unavailable AICHHOLZ, TONJA Attending Unavailable AICHHOLZ, TONJA Attending Unavailable Aichholz RESIDENT CARE DIRECTOR, Tonja Unavailable Loi Red MD Primary Care Provider [phone] Unallocatcarolina ELLIOTT, Lenin Provider Primary Care Provi eddy Loi Red MD Primary Care Provider [phone] Allergies Allergy ClassificationReported Allergen(s)Allergy TypeDate of OnsetReaction(s) Facility (1 source)No Known Medication Allergies; Translations: [No Known Medication Allergies]Propensity to adverse reactions (disorder)[facility] Repository Medications Current Medications MedicationDrug Class(es)DatesSig (Normalized)Sig (Original)[id number] 200 actuat albuterol 0.09 mg/actuat metered dose inhaler (20 sources)beta2-Adrenergic AgonistStart: 05-07-2024 End: 72-48-9042kdas 2 puff(s) by inhalation every six hours for wheezing albuterol HFA 90 mcg/act inhaler Indications: Other emphysema (CMS/HCC) Inhale 2 puffs every 6 (six) hours if needed for wheezing or shortness of breath 18 g 1 08/08/2024 ActiveamLODIPine 5 mg oral tablet (20 sources)Dihydropyridine Calcium Channel BlockerStart: 09-10-2024 End: 37-71-1292ozyy 1 tablet by mouth once dailyamLODIPine (Norvasc) 5 MG tablet Indications: Primary hypertension (CMS/HCC) Take 1 tablet (5 mg) by mouth Daily 90 tablet 1 04/02/2025 07/01/2025 ActiveStart: 02-14-2023 End: 71-62-7944yvmv 1 tablet by mouth once dailyamLODIPine (Norvasc) 10 MG tablet Indications: Primary hypertension (CMS/HCC) Take 1 tablet (10 mg)by mouth Daily 90 tablet 1 07/30/2024 10/28/2024 Activetake 1 tablet by mouth once daily amLODIPine Besylate 10 MG Oral Tablet Take 1 tablet daily Quantity: 90 Refills: 3 Ordered: 09-Jan-2023 Jess Marroquin MD Activeatorvastatin 80 mg oral tablet (20 sources)HMG-CoA Reductase InhibitorStart: 03-16-2025 End: 09-43-2725bbqb 1 tablet by mouth at bedtimeatorvastatin (Lipitor) 80 MG tablet Indications: Coronary 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 angina pectoris (CMS/HCC) Take 1 tablet (80 mg) by mouth at bedtime 90 tablet 1 03/16/2025 06/14/2025 ActiveStart: 01-14-2020 End: 73-44-8411pbkf 1 tablet by mouth in the eveningatorvastatin (Lipitor) 80 MG tablet Indications: Coronary 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 angina pectoris (CMS/HCC) Take 1 tablet (80 mg) by mouth in the evening 90 tablet 1 10/07/2024 Nlbhgg797 actuat budesonide 0.16 mg/actuat / formoterol fumarate 0.0048 mg/actuat / glycopyrrolate 0.009 mg/actuat metered dose inhaler (14 sources)Corticosteroid, beta2-Adrenergic AgonistStart: 07-30-2024 End: 63-73-8469lted 2 puff(s) by mouth in the morning Jsvywjn-Ccndtgunucz-Jngsshvfqy (Breztri Aerosphere) 160-9-4.8 MCG/ACT aerosol Indications: Chronic Obstructive Pulmonary Disease , Pulmonary Emphysema Inhale 2 puffs in the morning and 2 puffs beforebedtime. Rinse mouth after use. 32.1 g 1 08/08/2024 11/06/2024 Active End: 97-01-4649clas 2 puff(s) by inhalation in the morning Eohllxf-Xflfhgyrqyh-Iijgoiewzs (Breztri Aerosphere) 160-9-4.8 MCG/ACT aerosol Indications: Chronic Obstructive Pulmonary Disease , Pulmonary Emphysema Inhale 2 puffs in the morning and 2 puffs beforebedtime. 07/30/2024 Discontinued (Reorder)BuPROPion (Eqv-Wellbutrin SR) 150 mg/12 hours oral tablet, extended release (2 sources)Start: 78-14-7050EyQJWNfgh (Eqv-Wellbutrin SR) 150 mg/12 hours oral tablet, extended release 150 mg = 1 tab(s), Oral, Daily, Refills(s) 0 Start Date: 02/14/23 Status: OrderedMeclizine (20 sources)AntiemeticStart: 27-47-5813pmuptlstq 25 mg Tab as directed, Refills(s) 0 Start Date: 02/14/23 Status: OrderedStart: 45-20-8299aypj 1 tablet by mouth three times daily as needed for dizzinessmeclizine (Antivert) 25 mg tablet Take 1 tablet (25 mg) by mouth 3 times a day as needed for dizziness. 0 02/14/2023 Activetake 1 tablet by mouth every eight hours as needed for dizzinessmeclizine (Antivert) 25 MG tablet Take 25 mg by mouth every 8 (eight) hours if needed for dizzinessActivetake 1 tablet by mouth three times daily as neededMeclizine HCl - 25 MG Oral Tablet TAKE 1 TABLET 3 TIMES DAILY NEEDED. Quantity: 0 Refills: 0 Ordered: 09-Jan-2023 DO Ezacts50 actuat olodaterol 0.0025 mg/actuat / tiotropium 0.0025 mg/actuat inhalation spray (12 sources)Anticholinergic, beta2-Adrenergic Agonisttiotropium-olodaterol (Stiolto Respimat) 2.5-2.5 MCG/ACT aerosol solution inhaler Indications: Chronic Obstructive Pulmonary Disease Inhale 2 Inhalation Daily Activepotassium chloride 20 meq extended release oral tablet (1 source)Start: 08-19-2024 End: 12-94-6668udrz 1 tablet by mouth once daily at mealtimepotassium chloride CR (K-Tab) 20 MEQ ER tablet Indications: Hypokalemia Take 1 tablet (20 mEq) by mouth Daily for 5 days Take with food. Do not crush, chew, or split. 5 tablet 08/19/2024 08/24/2024 Active Completed/Discontinued Medications MedicationDrug Class(es)DatesSig (Normalized)Sig (Original)aspirin 81 mg delayed release oral tablet (20 sources)Platelet Aggregation Inhibitor, Nonsteroidal Anti-inflammatory Drug Start: 79-61-7559wjne 1 tablet by mouth once dailyAspirin 81 MG Oral Tablet Delayed Release TAKE 1 TABLET DAILY. Quantity: 90 Refills: 3 Ordered: 2022 Jess Marroquin MD Start : 28-Dec-2022 ActiveStart: 41-85-7917onsd 1 tablet by mouth once dailyaspirin 81 mg oral tablet 81 mg = 1 tab(s), Oral, Daily Start Date: 01/14/20 Status: Orderedbenzonatate 200 mg oral capsule (4 sources)Non-narcotic Antitussive End: 55-22-7811mhwg 1 capsule by mouth every eight hoursbenzonatate (Tessalon) 200 MG capsule Take 200 mg by mouth every 8 (eight) hours Do not crush or chew. 08/08/2024 Discontinued (Therapy completed)iohexol (OMNIPaque) 350 mg iodine/mL solution 75 mL (1 source)Start: 12-14-2023 End: 31-99-3864luguspa (OMNIPaque) 350 mg iodine/mL solution 75 mLlisinopril 10 mg oral tablet (20 sources)Angiotensin Converting Enzyme InhibitorStart: 01-14-2020 End: 98-56-4231lzxu 1 tablet by mouth once daily in the morninglisinopril 10 MG tablet Indications: Primary hypertension (CMS/HCC) Take 1 tablet (10 mg) by mouth Daily Take 10 mg by mouth in the morning. 90 tablet 1 09/10/2024 04/02/2025 Discontinued (Reorder)metoprolol tartrate 25 mg oral tablet (3 sources)beta-Adrenergic BlockerStart: 74-39-0744obzb 1 tablet by mouth twice dailyMetoprolol Tartrate 25 MG Oral Tablet TAKE 1 TABLET TWICE DAILY. Quantity: 30 Refills: 2 Ordered: 29-Nov-2022 DO Start : 28-Sep-2022 Activeomeprazole 20 mg delayed release oral capsule (20 sources)Proton Pump InhibitorStart: 12-02-2023 End: 96-53-2855igqj 1 capsule by mouth before mealtimeomeprazole (PriLOSEC) [address] capsule Indications: Gastroesophageal reflux disease, unspecified whether esophagitis present Take 1 capsule (20 mg) by mouth in the morning. Take before meals. 90 capsule 1 11/27/2024 04/02/2025 Discontinued (Reorder)Start: 17-57-7256kuec 1 capsule by mouth once dailyomeprazole 20 mg Cap-DR 20 mg = 1 cap(s), Oral, Daily Start Date: 01/14/20 Status: Orderedtake 1 tablet by mouth once daily before mealtimeomeprazole OTC (PriLOSEC OTC) 20 mg EC tablet Take 1 tablet (20 mg) by mouth once daily in the morning. Take before meals. Do not crush, chew, or split. 0 Active Problems Active Problems Problem ClassificationProblemDateDocumented DateEpisodic/ChronicAortic; peripheral; and visceral artery aneurysms (20 sources)Aneurysm of ascending aorta; Translations: [Thoracic aneurysm without mention of rupture]Onset: 654851-21-4289CgrojziLpzwyp (8 sources)Asthma-chronic obstructive pulmonary disease overlap syndrome; Translations: [COPD with asthma]Onset: 809982-34-7273ZmblktpHgtvuuy dysrhythmias (1 source)Bradycardia, unspecified; Translations: [BRADYCARDIA UNSPECIFIED] Onset: 98-38-1471GgonmvjbKflzoosngo associated with dizziness or vertigo (4 sources)Dizziness and giddiness; Translations: [DIZZINESS AND GIDDINESS] Onset: 84-70-4346UmoywumsPftwakee atherosclerosis and other heart disease (20 sources)Recurrent coronary arteriosclerosis after percutaneous transluminal coronary angioplasty; Translations: [Coronary atherosclerosis of [place] coronary artery]Onset: 441737-47-0506HahdsukSegnsta on above:RCA drug-eluting stent Cole 2012;Outside Source Comment: Comment on above: RCA drug-eluting stent Cole 2012;Coronary atherosclerosis and other heart disease (1 source)Presence of coronary angioplasty implant and graft; Translations: [PRESENCE COR ANGPLSTY IMPLANT AND GRAFT]Onset: 88-48-1236SzrmjfcyWuzgohwse of lipid metabolism (20 sources)Hyperlipidemia; Translations: [Other and unspecified hyperlipidemia] Onset: 995152-11-5262PoodwfuAklfuzukib disorders (20 sources)Gastroesophageal reflux disease; Translations: [Gastro-esophageal reflux disease without esophagitis]Onset: 369586-59-5874VxnqjksEtacaeezh hypertension (20 sources)Hypertensive disorder; Translations: [Unspecified essential hypertension]Onset: 710492-35-5850HzsrsxbFehdmesk; including migraine (4 sources)Headache; including migraine; Translations: [HEADACHE UNSPECIFIED] Onset: 50-61-9421Xgqwzsehntfe with complications and secondary hypertension (3 sources)Secondary hypertension; Translations: [Secondary hypertension, unspecified]Onset: 256666-30-2468QjfvqbsUzeig aftercare (1 source)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 termite 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 helper (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; Translations: [OTH [facility] CURRENT DRUG THERAPY]Onset: 90-79-1261HjopuebcShhhm aftercare (1 source)termite 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 helper (current) use of aspirin; Translations: [[facility] CURRENT USE OF ASPIRIN]Onset: 50-91-4342PizgevwuWwslk and unspecified benign neoplasm (3 sources)History of polyp of colon; Translations: [Personal history of colonic polyps]Onset: 65-82-6434QyslharlHaisw and unspecified benign neoplasm (4 sources)Personal history of colonic polyps; Translations: [PERSONAL HISTORY OF COLONIC POLYPS]Onset: 42-79-3099LmomvyhqKsken and unspecified benign neoplasm (1 source)Benign neoplasm of sigmoid colon; Translations: [BENIGN NEOPLASM OF SIGMOID COLON]Onset: 70-96-5805VgiilijiQhquy and unspecified benign neoplasm (2 sources)Benign neoplasm of sigmoid colon; Translations: [Benign neoplasm of sigmoid colon]Onset: 16-42-6171TpmxepxmXekay screening for suspected conditions (not mental disorders or infectious disease) (4 sources)Abnormal findings on diagnostic imaging of other specified body structures; Translations: [ABNORML FIND DX IMG OTH BODY STRUC]Onset: 11-23-2022 ChronicResidual codes; unclassified (1 source)Body mass index 20-24 - normal; Translations: [Body Mass Index between 19-24, adult]EpisodicResidual codes; unclassified (3 sources)Tobacco user; Translations: [Tobacco use]Onset: 87-97-3865Ucakaagc Substance-related disorders (20 sources)Smokes tobacco daily; Translations: [Tobacco use disorder]Onset: 84-30-0830DngyhsxHjidnyh on above:1.5PPD sometimes more;Unclassified (1 source)Aneurysm of the ascending aorta, without rupture; Translations: [Aneurysm of the ascending aorta, without rupture]Onset: 43-13-9496Hnycaxonckvd (1 source)Abdominal aortic aneurysm, without rupture, unspecified; Translations: [Abdominal aortic aneurysm, without rupture, unspecified]Onset: 12-28-2022 Unclassified (2 sources)Body mass index 20-24 - nfhdbo41-97-3806Hkydzztgpmuf (1 source)ABDOMINAL AA W/O RUPTURE UNSPCIFIED; Translations: [ABDOMINAL AA W/O RUPTURE UNSPCIFIED]Onset: 02-61-2579Hndggmuniprt (1 source)Aneurysm of the ascending aorta, without rupture (CMS/HCC); Translations: [Aneurysm of the ascending aorta, without rupture (CMS/HCC)]Onset: 12-15-2023 Past or Other Problems Problem ClassificationProblemDateDocumented DateEpisodic/ChronicBiliary tract disease (1 source)Calculus of gallbladder without cholecystitis without obstruction; Translations: [CALCU GB W/O CHOLECYST W/O OBST]Onset: 59-02-9364ZtqzsgdaNodephh obstructive pulmonary disease and bronchiectasis (20 sources)Pulmonary emphysema; Translations: [Other emphysema]Onset: 05-07-2024 Resolved: 28-80-518003750188-90-1790ZpniurtFbspd and electrolyte disorders (20 sources)Hypokalemia; Translations: [Hypokalemia]Onset: 607999-17-6873 EpisodicOther liver diseases (20 sources)Hyperbilirubinemia; Translations: [Unspecified jaundice]Onset: 010575-76-2676WvpinkolSqzrp lower respiratory disease (11 sources)Dyspnea on exertion; Translations: [Other forms of dyspnea]Onset: 369388-20-7942TtydonjkBpvje screening for suspected conditions (not mental disorders or infectious disease) (20 sources)Encounter for screening for malignant neoplasm of prostate; Translations: [Patient encounter status]Onset: 761717-94-0509Ucpidddf Unclassified (4 sources)Patient encounter wjeqpt36-41-3341Hrjuktvfchid (1 source)Aneurysm of the ascending aorta, without rupture (CMS/HCC); Translations: [Aneurysm of the ascending aorta, without rupture (CMS/HCC)]Onset: 01-17-2024 Results Test NameValueInterpretationReference RangeFacilityRT PULMONARY FUNCTION TESTon 70-50-5852[place] [address] Respiratory Report Signed Patient: JATINDER CALVERT MR#: [id number] : 1960 Acct:[id number] Age/Sex: 64 / M ADM Date: 02/17/25 Loc: CARD Attending Dr: Tonja Wiley NP Ordering Physician: Tonja Wiley NP Date of Service: 02/17/25 Procedure(s): RT pulmonary function test Accession Number(s): [id number] cc: [facility] Test Date: 2025-02-17 Pat Name: JATINDER CALVERT Department: Room: - Gender: Male Rug Sizer: Tonja Bae RRT : 1960 Requested By: TONJA WILEY Order Number: [id number] Girma MD: Grabiel Rudolph Interpretive Statements Pulmonary function testing was completed according to ATS criteria. Findings were considered accurate and reproducible. Both pre- and post-bronchodilator values utilized for spirometry. Spirometry (based on pre-bronchodilator values): -FEV1/FVC: Reduced @ 49% -FEV1: Moderately-severe reduction @ 51% -FVC: Reduced @ 79% -There is a positive bronchodilator response in FEV1 and FVC. Lung volumes by plethysmography: -RV: Increased @ 219% -TLC: Increased @ 130% Diffusion capacity: -DLCO: Moderately-severe reduction @ 53% when corrected for Hb 14.5g/dL Impressions: -Spirometry suggests moderately-severe obstruction with a positive bronchodilator response. An elevated RV and TLC suggest air trapping and hyperinflation respectively. There is a moderately-severe reduction in diffusion capacity. Overall study compatible with COPD with a bronchodilator response or asthma-COPD overlap. Clinical correlation required. Electronically Signed On 02-20-2025 16:16:08 EDT by Grabiel Rudolph Dictated By: Grabiel Rudolph D.O. Signed By: 02/20/25161502/20/25 161 DD/ 0837 TD/TT: Apprise Counselor:TBHRadiology, Radiologist, - 02/21/2025 [place] [address] Respiratory Report Signed Patient: JATINDER CALVERT MR#: [id number] : 1960 Acct:[id number] Age/Sex: 64 / M ADM Date: 02/17/25 Loc: CARD Attending Dr: Tonja Wiley NP Ordering Physician: Tonja Wiley NP Date of Service: 02/17/25 Procedure(s): RT pulmonary function test Accession Number(s): [id number] cc: [facility] Test Date: 2025-02-17 Pat Name: JATINDER CALVERT Department: Room: - Gender: Male Rug Sizer: Tonja Bae RRT : 1960 Requested By: TONJA WILEY Order Number: [id number] Reading MD: Grabiel Rudolph Interpretive Statements Pulmonary function testing was completed according to ATS criteria. Findings were considered accurate and reproducible. Both pre- and post-bronchodilator values utilized for spirometry. Spirometry (based on pre-bronchodilator values): -FEV1/FVC: Reduced @ 49% -FEV1: Moderately-severe reduction @ 51% -FVC: Reduced @ 79% -There is a positive bronchodilator response in FEV1 and FVC. Lung volumes by plethysmography: -RV: Increased @ 219% -TLC: Increased @ 130% Diffusion capacity: -DLCO: Moderately-severe reduction @ 53% when corrected for Hb 14.5g/dL Impressions: -Spirometry suggests moderately-severe obstruction with a positive bronchodilator response. An elevated RV and TLC suggest air trapping and hyperinflation respectively. There is a moderately-severe reduction in diffusion capacity. Overall study compatible with COPD with a bronchodilator response or asthma-COPD overlap. Clinical correlation required. Electronically Signed On 02-20-2025 16:16:08 EDT by Grabiel Rudolph Dictated By: Grabiel Rudolph D.O. Signed By: 02/20/25161502/20/251615 DD/ 0837 TD/TT: Apprise Counselor: DANTE Piper PULMONARY FUNCTION TESTOrdered By: Radiologist Radiology on 71-40-9461OAYQ emoteShare Work Phone: aLL HEMOGLOBINon 83-39-2291Xslzrcafne (Bld) [Mass/Vol] 14.5 g/dL14.0 - 18.0 g/dLBLUE MOUNTAIN HOSPITAL, INC. HealthcareCLINISYNCNOMS HealthcareCA ECHO DOPPLER COMPLETEon 83-73-4916[place]dvH[place], [place] [address] Cardiology Report Signed Patient: JATINDER CALVERT MR#: [id number] : 1960 Acct:[id number] Age/Sex: 64 / M ADM Date: 02/17/25 Loc: CARD Attending Dr: Tonja Wiley NP Ordering Physician: Tonja Wiley NP Date of Service: 02/17/25 Procedure(s): CA echo doppler complete Accession Number(s): [id number] cc: Tonja Wiley NP Patient Name: JATINDER CALVERT MR#: [id number] : 1960 Exam Date: 02/17/2025 Ordering Doctor: TIFFANY Wiley CNP ECHOCARDIOGRAM REPORT PROCEDURE: CA ECHO DOPPLER COMPLETE INDICATIONS: Dyspnea, hypertension, emphysema, CAD COMPARISON: None. DESCRIPTION: COMPLETE ECHOCARDIOGRAM Real-time transthoracic echocardiography with 2D, M-mode, spectral and color flow Doppler performed. QUALITY: Technical quality was good. LEFT VENTRICLE: Normal chamber size. Normal left ventricular wall thickness. Normal systolic function. LV EF: Normal left ventricular ejection fraction, (55%). DIASTOLIC: Normal diastolic function. ATRIAL SEPTUM: Visually appears intact. LEFT ATRIUM: Normal chamber size. RIGHT ATRIUM: Normal chamber size. RIGHT VENTRICLE: Normal chamber size. Normal right ventricular systolic function. TRICUSPID VALVE: Normal mobility and thickness. No stenosis with trivial regurgitation. Doppler studies reveal mildly (35-45) elevated right sided pressures. RVSP 38 mmHg MITRAL VALVE: Normal mobility and thickness. No evidence of mitral valve stenosis. There is no mitral annular calcification. Trivial mitral regurgitation. AORTIC VALVE: Normal trileaflet appearance. No visible sclerosis. Normal leaflet mobility. No evidence of aortic valve stenosis. No aortic regurgitation. AORTIC ROOT: Normal diameter and appearance, measuring 3.8 cm. PULMONIC VALVE: Normal thickness and mobility. No stenosis. No regurgitation. PERICARDIUM: No evidence of pericardial effusion. IVC: Collapses with inspirations. IVC is normal in size. PLEURA: CONCLUSION: 1. Normal ventricular size and systolic function. LVEF is estimated at 55%. 2. No significant valvular dysfunction. 3. Mildly elevated right-sided pressures. 4. No pericardial effusion. Adult Echocardiography Procedure Report Left Ventricle LVEDD (3.7 - 5.6 cm): 4.58 cm LVESD (2.2 - 4.0 cm): 2.75 cm LVIVS thickness (0.6 - 1.2 cm): 0.88 cm LVPW thickness (0.5 - 1.0 cm): 0.77 cm e': 0.10 m/s E - e': 4.65 LVOT Max Gradient: 3.29 mm[Hg] LVOT Area (cm2): 0.91 m/s Peak Velocity (LVOT): 0.91 m/s Mean Velocity (LVOT): 0.59 m/s LVOT Diameter 2.35 cm Left Atrium LA Volume Index (2D A2C): 25.53 ml/m2 Left Atrium Systolic Dimension: 3.51 cm Mitral Valve MV E to A Ratio: 0.84 Mitral Valve A-Wave Peak Velocity: 0.57 m/s Mitral Valve E-Wave Peak Velocity: 0.48 m/s Right Ventricle Aorta AO Root Diam: 3.83 cm Aortic Valve AoV Area (Peak Foreign): 4.01 cm2, 4.01 cm2 AoV Area (VTI): 3.35 cm2, 3.35 cm2 Peak Velocity(Antegrade Flow): 0.98 m/s Peak Gradient(Antegrade Flow): 3.87 mm[Hg] Mean Velocity(Antegrade Flow): 0.63 m/s Mean Gradient(Antegrade Flow): 1.81 mm[Hg] Velocity Time Integral: 23.68 cm Tricuspid Valve Peak Velocity (Regurgitant Flow): 2.40 m/s, 2.50 m/s, 2.96 m/s Pulmonic Valve Mean Gradient: 1.58 mm[Hg] Mean Velocity: 0.60 m/s Peak Velocity: 0.81 m/s, 0.74 m/s Peak Gradient: 2.19 mm[Hg], 2.62 mm[Hg] Right Atrium Right Atrium Systolic Pressure: 40.88 ml, 40.88 ml Dictated by: Crystal Barnes M.D. on 02/17/2025 at 19:52 Approved by: Crystal Barnes M.D. on 02/17/2025 at 19:54 Dictated By: CRYSTAL BARNES Signed By: 02/17/251954 (more content not included)...TBHRadiology, Radiologist, - 02/18/2025 [place] [address] Cardiology Report Signed Patient: JATINDER CALVERT MR#: [id number] : 1960 Acct:[id number] Age/Sex: 64 / M ADM Date: 02/17/25 Loc: CARD Attending Dr: Tonja Wiley NP Ordering Physician: Tonja Wiley NP Date of Service: 02/17/25 Procedure(s): CA echo doppler complete Accession Number(s): [id number] cc: Tonja Wiley NP Patient Name: JATINDER CALVERT MR#: [id number] : 1960 Exam Date: 02/17/2025 Ordering Doctor: TIFFANY Wiley CNP ECHOCARDIOGRAM REPORT PROCEDURE: CA ECHO DOPPLER COMPLETE INDICATIONS: Dyspnea, hypertension, emphysema, CAD COMPARISON: None. DESCRIPTION: COMPLETE ECHOCARDIOGRAM Real-time transthoracic echocardiography with 2D, M-mode, spectral and color flow Doppler performed. QUALITY: Technical quality was good. LEFT VENTRICLE: Normal chamber size. Normal left ventricular wall thickness. Normal systolic function. LV EF: Normal left ventricular ejection fraction, (55%). DIASTOLIC: Normal diastolic function. ATRIAL SEPTUM: Visually appears intact. LEFT ATRIUM: Normal chamber size. RIGHT ATRIUM: Normal chamber size. RIGHT VENTRICLE: Normal chamber size. Normal right ventricular systolic function. TRICUSPID VALVE: Normal mobility and thickness. No stenosis with trivial regurgitation. Doppler studies reveal mildly (35-45) elevated right sided pressures. RVSP 38 mmHg MITRAL VALVE: Normal mobility and thickness. No evidence of mitral valve stenosis. There is no mitral annular calcification. Trivial mitral regurgitation. AORTIC VALVE: Normal trileaflet appearance. No visible sclerosis. Normal leaflet mobility. No evidence of aortic valve stenosis. No aortic regurgitation. AORTIC ROOT: Normal diameter and appearance, measuring 3.8 cm. PULMONIC VALVE: Normal thickness and mobility. No stenosis. No regurgitation. PERICARDIUM: No evidence of pericardial effusion. IVC: Collapses with inspirations. IVC is normal in size. PLEURA: CONCLUSION: 1. Normal ventricular size and systolic function. LVEF is estimated at 55%. 2. No significant valvular dysfunction. 3. Mildly elevated right-sided pressures. 4. No pericardial effusion. Adult Echocardiography Procedure Report Left Ventricle LVEDD (3.7 - 5.6 cm): 4.58 cm LVESD (2.2 - 4.0 cm): 2.75 cm LVIVS thickness (0.6 - 1.2 cm): 0.88 cm LVPW thickness (0.5 - 1.0 cm): 0.77 cm e': 0.10 m/s E - e': 4.65 LVOT Max Gradient: 3.29 mm[Hg] LVOT Area (cm2): 0.91 m/s Peak Velocity (LVOT): 0.91 m/s Mean Velocity (LVOT): 0.59 m/s LVOT Diameter 2.35 cm Left Atrium LA Volume Index (2D A2C): 25.53 ml/m2 Left Atrium Systolic Dimension: 3.51 cm Mitral Valve MV E to A Ratio: 0.84 Mitral Valve A-Wave Peak Velocity: 0.57 m/s Mitral Valve E-Wave Peak Velocity: 0.48 m/s Right Ventricle Aorta AO Root Diam: 3.83 cm Aortic Valve AoV Area (Peak Foreign): 4.01 cm2, 4.01 cm2 AoV Area (VTI): 3.35 cm2, 3.35 cm2 Peak Velocity(Antegrade Flow): 0.98 m/s Peak Gradient(Antegrade Flow): 3.87 mm[Hg] Mean Velocity(Antegrade Flow): 0.63 m/s Mean Gradient(Antegrade Flow): 1.81 mm[Hg] Velocity Time Integral: 23.68 cm Tricuspid Valve Peak Velocity (Regurgitant Flow): 2.40 m/s, 2.50 m/s, 2.96 m/s Pulmonic Valve Mean Gradient: 1.58 mm[Hg] Mean Velocity: 0.60 m/s Peak Velocity: 0.81 m/s, 0.74 m/s Peak Gradient: 2.19 mm[Hg], 2.62 mm[Hg] Right Atrium Right Atrium Systolic Pressure: 40.88 ml, 40.88 ml Dictated by: Crystal Barnes M.D. on 02/17/2025 at 19:52 Approved by: Crystal Barnes M.D. on 02/17/2025 at 19:54 Dictated By: CRYSTAL BARNES Signed By: 02/17/251954 DD/ 53 TD/TT: Apprise Counselor: [facility] CenterRadiology Study observation (narrative)[facility] ECHO DOPPLER COMPLETEOrdered By: Radiologist Radiology on 38-39-7384JGPOCrossroads Regional Medical Center Work Phone: RT PULMONARY FUNCTION TESTon 02-77-3068Szmlyhief Study observation (narrative)[facility] AUDREY PERF SPECT REST STRon 01-29-2025 [place] [address] Nuclear Medicine Report Signed Patient: JATINDER CALVERT MR#: [id number] : 1960 Acct:[id number] Age/Sex: 64 / M ADM Date: 01/22/25 Loc: JACQUI Attending Dr: Tonja Wiley NP Ordering Physician: Tonja Wiley NP Date of Service: 01/22/25 Procedure(s): NM audrey perf SPECT rest str Accession Number(s): [id number] cc: Tonja Wiley NP Patient Name: JATINDER CALVERT MR#: [id number] : 1960 Exam Date: 01/22/2025 Ordering Doctor: [...] the study was pending per attending physician [facility] . For more details, please see separate [...] Ayala M.D. Signed By: 01/29/25 1216 DD/ 14 TD/TT: Apprise Counselor:VISHALadiologshyann, Radiologist, - 01/29/2025 [place] [address] Nuclear Medicine Report Signed Patient: JATINDER CALVERT MR#: [id number] : 1960 Acct:[id number] Age/Sex: 64 / M ADM Date: 01/22/25 Loc: NM Attending Dr: Tonja Wiley NP Ordering Physician: Tonja Wiley NP Date of Service: 01/22/25 Procedure(s): NM audrey perf SPECT rest str Accession Number(s): [id number] cc: Tonja Wiley NP Patient Name: JATINDER CALVERT MR#: [id number] : 1960 Exam Date: 01/22/2025 Ordering Doctor: [...] the study was pending per attending physician [facility] . For more details, please see separate [...] Signed By: 01/29/25 1216 DD/ 1215 TD/TT: Apprise Counselor: [facility] CenterRadiology Study observation (narrative)[facility] CenterNM AUDREY PERF SPECT REST STROrdered By: Radiologist Radiology on 13-65-0851AGEJCrossroads Regional Medical Center Work Phone: ct LUNG SCREENING LOW DOSEon 42-87-4548F[address] [address] [address] Scan Report Signed Patient: JATINDER CALVERT MR#: [id number] : 1960 Acct:[id number] Age/Sex: 64 / M ADM Date: 01/04/25 Loc: CT Attending Dr: Tonja Wiley NP Ordering Physician: Tonja Wiley NP Date of Service: 01/04/25 Procedure(s): CT lung screening low-dose Accession Number(s): [id number] cc: Tonja Wiley NP [place] [id number] Patient Name: JATINDER CALVERT MRN: [id number] date: 1960 Sex: M Assigned Patient Location: CT Current Patient Location: CT Accession/Order Number: [id number] Exam Date: 01/04/2025 09:21 Report Date: 01/06/2025 [...] M.D. Signed By: 01/06/251632 DD/ 163 TD/TT: Apprise Counselor:TBHRadiology, Radiologist, - 01/07/2025 [place] [address] CT Scan Report Signed Patient: JATINDER CALVERT MR#: [id number] : 1960 Acct:[id number] Age/Sex: 64 / M ADM Date: 01/04/25 Loc: CT Attending Dr: Tonja Wiley NP Ordering Physician: Tonja Wiley NP Date of Service: 01/04/25 Procedure(s): CT lung screening low-dose Accession Number(s): [id number] cc: Tonja Wiley NP [place] [address] Patient Name: JATINDER CALVERT MRN: [facility]:[id number] date: 1960 Sex: M Assigned Patient Location: CT Current Patient Location: CT Accession/Order Number: [id number] Exam Date: 01/04/2025 09:21 Report Date: 01/06/2025 [...] Signed By: 01/06/25 163 DD/ 163 TD/TT: Apprise Counselor: [facility] CenterRadiology Study observation (narrative)[facility] CenterCT LUNG SCREENING LOW DOSEOrdered By: Radiologist Radiology on 19-28-7975IBUECrossroads Regional Medical Center Work Phone: aLL POTASSIUMon 17-81-9005Ieuixajmv [Moles/Vol]4.3 mmol/L3.5 - 5.1 mmol/LNOMS HealthcareCLINISYNCNOMS HealthcareALL CBC WITH AUTO DIFFon 54-56-4543GXFQILPVO ABSOLUTE AUTO0.1NOMS HealthcareBasophils/100 WBC (Bld)0.8 %0.2 - 2.0 %[facility] CenterEosinophils/100 WBC (Bld)2.7 %0.9 - 7.0 % [facility] CenterErythrocyte distribution width (RBC) [Ratio]13.1 %11.0 - 15.0 % [facility] CenterHematocrit (Bld) [Volume fraction]43.2 %42.0 - 54.0 %[facility] CenterHemoglobin (Bld) [Mass/Vol]14.6 g/dL14.0 - 18.0 g/dLCrossroads Regional Medical Center IMMATURE GRANULOCYTES ABS AUTO0.02NOSaint Francis Hospital & Health ServicesImmature granulocytes/100 WBC (Bld)0.3 %0.0 - 0.5 %[facility] CenterInterpretation and review of laboratory resultsAbnormalNOSaint Francis Hospital & Health ServicesLYMPHOCYTES ABSOLUTE AUTO1.8NOMS [facility] Lymphocytes/100 WBC (Bld)23.4 %20.5 - 60.0 %[facility] HospitalH (RBC) [Entitic mass]31.3 pg25.9 - 34.0 pgNOMS HealthcareMCHC (RBC) [Mass/Vol]33.8 g/dL29.9 - 35.2 g/dLNOSaint Louis University Health Science CenterV (RBC) [Entitic vol]92.7 fL80.0 - 94.0 fLNONE HealthcareMONOCYTES ABSOLUTE AUTO0.5NONE HealthcareMonocytes/100 WBC (Bld)6.1 % 1.7 - 12.0 %NOMS HealthcareNEUTROPHILS ABSOLUTE AUTO5.0NONE Healthcare Neutrophils/100 WBC (Bld)66.7 %43.0 - 75.0 %NOMS HealthcarePlatelet mean volume (Bld) [Entitic vol]9.7 fL9.5 - 13.5 fLNOSaint Francis Hospital & Health ServicesTBH EO #0.2NOMS Healthcare TBH [id number] Francis Hospital & Health ServicesTB RBC4.66LowNOSaint Francis Hospital & Health ServicesTB WBC7.5NONE Healthcare CLINISYNCNOSaint Francis Hospital & Health ServicesTBH UA (CLEAN/CATCH) MICROSCOPIC IF INDICATEon 05-95-6047ZXDDPRSPB URINENegativeNEGATIVENONE HealthcareBLOOD URINENegative NEGATIVEBLUE MOUNTAIN HOSPITAL, INC. HealthcareClarity (U)CLEARCLEARNOMS HealthcareColor (U)YELLOWYELLOW [facility] HealthcareGLUCOSE URINE UANegativeNEGATIVE mg/dLNONE Healthcare Interpretation and review of laboratory resultsAbnormalNOMS HealthcareKetones Ql (U)TRACEAbnormalNEGATIVE mg/dLBLUE MOUNTAIN HOSPITAL, INC. HealthcareLeukocyte esterase Test strip Ql (U)NegativeNEGATIVENONE HealthcareNITRITE URINENegativeNEGATIVENONE HealthcarepH (U)6.0 [pH]5.0 - 9.0NOMS HealthcarePROTEIN URINENegativeNEG/TRACE mg/dLNONE HealthcareSPECIFIC GRAVITY URINE1.0251.005 - 1.025NONE HealthcareURINE MICROSCOPIC INDICATEDNONOMS HealthcareUROBILINOGEN URINE1.0 EU/dL0.2 - 1.0 EU/dL [facility] HealthcareCLINISYNCNGRIFFIN MEM[facility]IAL [facility] HealthcareCTA Chest vessels WO and W contrast [place] 27-55-5577Igmgkanr by Radiology, RadiologistMD on 12/18/2023 4:59 PM EST Interpreted By: Pauline Flowers, ADDENDUM: Technical: The [...] PM -------- ORIGINAL REPORT -------- Dictation workstation: [id number] Interpreted By: Pauline Shepard, STUDY: CT ANGIO CHEST W AND WO IV CONTRAST; 12/14/2023 11:09 am INDICATION: Signs/Symptoms:year fu. COMPARISON: None. ACCESSION NUMBER(S): [id number] ORDERING CLINICIAN: ROMAN HUDSON TECHNIQUE: Using multi-detector [...] 21mm. Sinus of Valsalva(coronal): 39 mm Across sinuses(cusp-commissure): 38mm. Sinotubular junction: 33mm. Ascending aorta (RPA [...] Infrarenal abdominal aortic aneurysm 34 mm. Reading Instructional Coordinator: Dr. Pauline Shepard, Date: 12/18/2023 2:43 pm Signed by: Pauline Shepard 12/18/2023 3:00 PM Dictation workstation: [id number] Interpreted By: Pauline Shepard, STUDY: CT ANGIO CHEST W AND WO IV CONTRAST; 12/14/2023 11:09 am INDICATION: Signs/Symptoms:year fu. COMPARISON: None. ACCESSION NUMBER(S): [id number] ORDERING CLINICIAN: ROMAN HUDSON TECHNIQUE: Using multi-detector [...] 21mm. Sinus of Valsalva(coronal): 39 mm Across sinuses(cusp-commissure): 38mm. Sinotubular junction: 33mm. Ascending aorta (RPA [...] Infrarenal abdominal aortic aneurysm 34 mm. Reading Instructional Coordinator: Dr. Pauline Shepard, Date: 12/18/2023 2:43 pm Signed by: Pauline Shepard 12/18/2023 3:00 PM Dictation workstation: [id number], Radiologist, - 12/18/2023 Interpreted By: Pauline Shepard, STUDY: CT ANGIO CHEST W AND WO IV CONTRAST; 12/14/2023 11:09 am INDICATION: Signs/Symptoms:year fu. COMPARISON: None. ACCESSION NUMBER(S): [id number] ORDERING CLINICIAN: ROMAN HUDSON TECHNIQUE: Using multi-detector [...] 21mm. Sinus of Valsalva(coronal): 39 mm Across sinuses(cusp-commissure): 38mm. Sinotubular junction: 33mm. Ascending aorta (RPA [...] Infrarenal abdominal aortic aneurysm 34 mm. Reading Instructional Coordinator: Dr. Pauline Shepard, Date: 12/18/2023 2:43 pm Signed by: Pauline Shepard 12/18/2023 3:00 PM Dictation workstation: [id number] [facility] Chest vessels WO and W contrast IVOrdered By: Radiologist Radiology on 27-87-9776MFOJ emoteShare Work Phone: cT ANGIO CHEST W AND WO IV CONTRASTon 03-15-2730MD ANGIO CHEST W AND WO IV CONTRASTInterpreted By: Pauline Flowers, ADDENDUM: Technical: The following [...] PM -------- ORIGINAL REPORT -------- Dictation workstation: [id number] Interpreted By: Pauline Shepard, STUDY: CT ANGIO CHEST W AND WO IV CONTRAST; 12/14/2023 11:09 am INDICATION: Signs/Symptoms:year fu. COMPARISON: None. ACCESSION NUMBER(S): [id number] ORDERING CLINICIAN: ROMAN HUDSON TECHNIQUE: Using multi-detector [...] 21mm. Sinus of Valsalva(coronal): 39 mm Across sinuses(cusp-commissure): 38mm. Sinotubular junction: 33mm. Ascending aorta (RPA [...] Infrarenal abdominal aortic aneurysm 34 mm. Reading Instructional Coordinator: Dr. Pauline Shepard, Date: 12/18/2023 2:43 pm Signed by: Pauline Shepard 12/18/2023 3:00 PM Dictation workstation: [id number] Clinic Avon HospitalCTA Chest vessels WO and W contrast [place] 04-82-2431Tpenaygsi Study observation (narrative)NOMS HealthcareAmbulatory Visit Summaryon 03-14-2023 Ambulatory Visit Summary JATINDER CALVERT :1960 [...] for malignant neoplasm of colon Tobacco use [facility] Surgery Office/Clinic Noteon 87-64-8255Yuzbkit Surgery Office/Clinic NoteChief Complaint colonoscopy follow up HPI Staff 13 [...] swallowing difficulties, no hearing loss, no ear infection(s),no nose bleeds. Cardiovascular: normal blood pressure, no [...] Date Status influenza virus vaccine, inactivated 08/20/2022 RecordedCleveland Clinic Mentor HospitalComment on above:Result Comment: Electronically Signed By: WALT ELLIOTT, Pauline Egan\Date and Time Signed: 03/14/23 15:50 EDTReminderson 03-14-2023 Reminders From: Delores Joseph LPN To: N - Clinical; Sent: 03/14/2023 15:27:01 EDT Show up: 01/30/2028 07:00:00 EDT Subject: colonoscopy recall Due Date/Time: 03/01/2028 07:00:00 EDT Reminder/Recall Patient due for colonoscopy 03/01/28 due to history of colonic polyp.Normal [facility] HospitalPathology Noteon 31-07-6265Hdtbungjq Note [id number]#1.00CD:127C[facility] Mentor HospitalOutside Colonoscopyon 32-62-1685Fmutfse Colonoscopy [id number]#1.00CD:[address] [place], [place] [address]Consent for Procedure/Surgeryon 39-09-0442Rcxrmrk for Procedure/Surgery [id number]#1.00CD:[address] [place], [place] [address]General Surgery Office/Clinic Noteon 14-18-7484Bqtdtlc Surgery Office/Clinic NoteChief Complaint surveillance colonoscopy HPI Staff 62 year [...] swallowing difficulties, no hearing loss, no ear infection(s),no nose bleeds. Cardiovascular: normal blood pressure, no [...] cigarettes (1/2 pack or (more content not included)...[facility] Ment[facility] HospitalComment on above:Result Comment: Electronically Signed By: WALT ELLIOTT, Pauline Egan\Date and Time Signed: 02/14/23 15:24 EDTMRI BRAIN WO CON on 90-96-6680JNH BRAIN WO CONEXAMINATION: MRI BRAIN WO CON, 01/17/2023 3:03 PM EST HISTORY: [...] Electronically authenticated by: ROBBIE ADAMS Date: 2023-01-18 08:13[facility] HospitalOffice Visit (Cardiology)on 01-76-7842Gunfjm-up visit Diagnoses/Problems Assessed CAD S/P percutaneous coronary [...] IO EKG Electrocardiogram- 12 Lead; Status:Complete; Done: [id number] CAD S/P percutaneous coronary angioplasty, Hyperlipidemia Renew: Atorvastatin Calcium 80 MG Oral Tablet; TAKE 1 TABLET DAILY ALT - Alanine Aminotransferase, Serum; Status:Active - Retrospective Authorization; Requested for:09Jan2023; AST; Status:Active - Retrospective Authorization; Requested for:09Jan2023; Lipid Panel; Status:Active - Retrospective Authorization; Requested for:54Hvy1066; CAD S/P percutaneous coronary angioplasty, Hypertension Renew: [...] we can help. You may also call 4-904-UUQXNOW for free resources and assistance.; Status:Complete - Retrospective Authorization; Done: [id number] Tobacco Use Screening; Status:Complete; Done: 85Hxo5351 Patient Instructions Please bring all medicines, vitamins, [...] was seen recently by cardiothoracic surgery at [facility] Dr. Sherman Cruz for ascending and abdominal aortic aneurysm. The size is too small to intervene on. The patient has history of CAD and previous PCI of the RCA 2012 in [place] with drug-eluting stent. He is actively smoking and at one time was smoking 2 and half packs daily. He does have significant emphysema but not on medical therapy.Has had no recurrent coronary artery disease. He is hyperlipidemic and hypertensive on medical therapy. 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 He wishes to quit smoking and he is working with his PCP on tobacco cessation methods. His examination is only remarkable for diminished breath sounds otherwise was unremarkable. Assessment/recommendations: 1?CAD status post PCI of the RCA 2012 with drug-eluting stent. No recurrences and no symptoms. He is on aspirin and high intensity statin. Tobacco cessation was advised. No card investigations are needed. 2?ascending aortic aneurysm and abdominal arctic aneurysm both are less than 4 cm in diameter followed by the aortic clinic at [facility]. Tobacco cessation was emphasized. Hypertension controlled was [...] NoKnown No Known Russ (more content not included)...NormalUH TouchworksTobacco Screening.on 29-03-8533Uoxex depression screening assessmentNoVirginia Mason Hospital [employer] 600 DO Work Phone: Tobacco use status CPHSa) [facility] and ClinicZacharon Pharmaceuticals [place] 600 DO Work Phone: [place] [facility] 600 DO Work Phone: CARDIAC SHERMAN ADMITon 80-84-1506TA [Catalytic activity/Vol]85 U/PYtqgnu27-695Ykz [facility] Md, Cancer CenterComment on above:Performed By: #### CMP, CMADM #### [facility] Laboratory [address] [place] [address] [address] Diego uYsuf.MB [Mass/Vol]1.16 ng/mLNormal<=3.60The [facility] Comment on above:Performed By: #### CMP, CMADM #### [facility] [address] [address] [address] Diego WellsTROP5.4 pg/mLNormal4.0-76.1The [facility] Health Main Campusment on above:Result Comment: CUT-OFF POINTS HAVE BEEN ESTABLISHED BASED ON THE FOURTH UNIVERSAL DEFINITIONS OF MYOCARDIAL INFARCTION. THE UPPER REFERENCE LIMIT (URL) OF TROPONIN, DEFINED THE 99TH PERCENTILE OF cTnI DISTRIBUTION IN A REFERENCE POPULATION, HAS BEEN CONFIRMED THE DECISION THRESHOLD FOR MS DIAGNOSIS.Performed By: #### CMP, CMADM #### [facility] [address] [address] [address] Diego RedmondO39 ng/qQOweecw62-96Btd [facility], Cancer CenterComment on above: Performed By: #### CMP, CMADM #### [facility] [address] [address] [address] Diego Diaz AUTO DIFFon 27-00-0693XCMQ #0.1 103/ulNormal0.0-0.1The [facility], Md, Cancer CenterComment on above:Performed By: #### CBC ####[facility] [address] [place] [address]Dr.Yilan Longsophils/100 WBC (Bld)0.8 %Normal0.2-2.0The [facility], Md, Cancer CenterComment on above:Performed By: #### CBC ####[facility] [address] [place] [address]Dr.Yilan JesusO #0.2 103/ulNormal0.0-0.7The Memphis HospitalComment on above:Performed By: #### CBC ####[facility] L[address]aw[address] [place], [place] [address]Dr.Diego ChangEosinophils/100 WBC (Bld)2.8 %Normal 0.9-7.0The [facility], Md, Cancer CenterComment on above:Performed By: #### CBC ####[facility] Xilhqhkymn[address] [place], [place] [address]Dr.Diego Wilkins Erythrocyte distribution width (RBC) [Ratio]12.1 %Lwzuvz96.0-15.0The [facility], Md, Cancer CenterComment on above:Performed By: #### CBC ####[facility] Utvebcotco[address] [place], [place] [address]Dr.Diego ChangHematocrit (Bld) [Volume fraction]41.4 %Critically low42.0-54.0The [facility], Md, Cancer CenterComment on above:Performed By: #### CBC ####[facility] Xeiwswnkdx[address] [place], [place] [address]Dr.Diego ChangHemoglobin (Bld) [Mass/Vol]14.1 g/dL Xzzvyr08.0-18.0The [facility] HospitalComment on above:Performed By: #### CBC ####[facility] Vdtmdnxokm[address] [place], [place] [address]Dr. Diego ChangIG #0.02 10e3/ulNormal0.00-0.03The [facility] Md, Cancer CenterComment on above: Performed By: #### CBC ####[facility] Eatxsscerh[address] [place], [place] [address]Dr.Diego ChangIG %0.3 %Normal0.0-0.5The [facility] HospitalComment on above:Performed By: #### CBC ####[facility] Mrinpmveyt[address] [place], [place] [address]Dr.Diego ChangLYMPH #1.6 103/ulNormal1.2-3.8The [facility] Md, Cancer CenterComment on above:Performed By: #### CBC ####[facility] [address]prgcq[address] [place], [place] [address]Dr. Yilan ChangLymphocytes/100 WBC (Bld)25.9 %Qdgari29.5-60.0The [facility] Comment on above:Performed By: #### CBC ####[facility] [address] [place] [address]Dr.Diego WilkinsMANUAL DIFF REQNONormalThe [facility], Cancer CenterComment on above:Performed By: #### CBC ####[facility] Wimhxvtf[address] [place], [place] [address]Dr.Diego WilkinsH (RBC) [Entitic mass]30.7 jgErzumt13.9-34.0The [facility] HospitalComment on above: Performed By: #### CBC ####[facility] Oxvhfhedaz[address] [place], [place] [address]Dr.Diego WilkinsHC (RBC) [Mass/Vol]34.1 g/dLNormal 29.9-35.2The [facility], Cancer CenterComment on above:Performed By: #### CBC ####[facility] Mpbomzyfuw[address] [place], [place] [address]Dr. Diego WilkinsV (RBC) [Entitic vol]90.0 oIKjdohu55.0-94.0The [facility] Comment on above:Performed By: #### CBC ####[facility] Grlvzhhjyc[address] [place], [place] [address]Dr.Diego WilkinsMONO #0.3 103/ulNormal0.3-0.8 The [facility], Md, Cancer CenterComment on above:Performed By: #### CBC ####[facility] Oreyhrkrhk[address] [place], [place] [address]Dr.Diego Wilkins Monocytes/100 WBC (Bld)5.1 %Normal1.7-12.0The [facility], Md, Cancer CenterComment on above: Performed By: #### CBC ####[facility] Qhxphusagk[address] [place], [place] [address]Dr.Diego WilkinsNEUT #4.0 103/ulNormal1.4-6.5The [facility], Cancer CenterComment on above:Performed By: #### CBC ####[facility] [address] [place] [address]Dr.Diego WilkinsNeutrophils/100 WBC (Bld)65.1 %Rhnjxu72.0-75.0The [facility], Cancer CenterComment on above:Performed By: #### CBC ####[facility] [address] [place] [address]Dr.Diego WilkinsPlatelet mean volume (Bld) [Entitic vol]10.0 fLNormal9.5-13.5 The [facility], Cancer CenterComment on above:Performed By: #### CBC ####[facility] [address] [place] [address]Dr.Diego HnkukXDD926 103/ulCritically wqy580-667Ufi [facility], [facility] CenterComment on above:Performed By: #### CBC ####[facility] Cwuc[address] [place], [place] [address]Dr.Diego ChangRBC4.60 106/ulCritically low4.70-6.10The [facility] Comment on above:Performed By: #### CBC ####[facility] [address] [place] [address]Dr.Diego WilkinsWBC6.1 103/ulNormal4.0-11.0The [facility], Cancer CenterComment on above:Performed By: #### CBC ####[facility] Keylw[address]op[address] [place], [place] [address]Dr.Diego WilkinsPROF 14(COMP METB)on 22-79-5823Jbjnkii [Mass/Vol]3.5 g/dLNormal3.4-5.0The [facility] Comment on above:Performed By: #### CMP, CMADM #### [facility] [address] [address] [address] Diego WilkinsAlbumin/Globulin [Mass ratio]1.0 {ratio}NormalThe [facility], Cancer CenterComment on above:Performed By: #### CMP, CMADM #### [facility] [address] [address] [address] Diego GoelP [Catalytic activity/Vol]116 U/BXyteqf42-544Sjr [facility] CenterComment on above:Performed By: #### CMP, CMADM #### [facility] [address] [address] [address] Diego GoelT [Catalytic activity/Vol]20 U/ZTfhxiq25-82Fjp [facility] CenterComment on above:Performed By: #### CMP, CMADM #### [facility] [address] [address] [address] Diego Shaneon gap [Moles/Vol]11.2 mmol/LNormalThe [facility] Comment on above:Performed By: #### CMP, CMADM #### [facility] Laboratory [address] [address] [address] Diego WilkinsAST [Catalytic activity/Vol]18 U/FXrcvuf01-99Qps [facility] CenterComment on above:Performed By: #### CMP, CMADM #### [facility] [address] [address] [address] Dieog WilkinsBilirubin [Mass/Vol]0.6 mg/dLNormal0.2-1.0The [facility] Comment on above:Performed By: #### CMP, CMADM #### [facility] [address] [address] [address] Diego WilkinsCalcium [Mass/Vol]8.7 mg/dLNormal8.5-10.1[facility] Comment on above:Performed By: #### CMP, CMADM #### [facility] [address] [address] [address] Diego WilkinsChloride [Moles/Vol]102 mmol/CTvzbwh01-266Ckd [facility] Comment on above:Performed By: #### CMP, CMADM #### [facility] [address] [address] [address] Diego WilkinsCO2 [Moles/Vol]31.4 mmol/UTkkugw43.0-32.0The [facility] Comment on above:Performed By: #### CMP, CMADM #### [facility] [address] [address] [address] Diego WilkinsCreatinine [Mass/Vol]0.76 mg/dLNormal0.70-1.30[facility] HospitalComment on above:Performed By: #### CMP, CMADM #### [facility] [address] [address] [address] Diego JesusGFR-AF ROMANIAN>60Normal>=60The [facility] CenterComment on above:Performed By: #### CMP, CMADM #### [facility] [address] [address] [address] Diego JesusGFR-NON AF ROMANIAN>60Normal>=60The [facility] CenterComment on above:Performed By: #### CMP, CMADM #### [facility] [address] [address] [address] Diego WilkinsGlobulin (S) [Mass/Vol]3.6 g/dLNormalThe [facility] CenterComment on above:Performed By: #### CMP, CMADM #### [facility] [address] [address] [address] Diego WilkinsGlucose [Mass/Vol]110 mg/dLCritically szlk98-900VjnCleveland Clinic Union HospitalComment on above:Performed By: #### CMP, CMADM #### [facility] [address] [address] [address] Diego WilkinsPotassium [Moles/Vol]3.6 mmol/LNormal3.5-5.1[facility] Comment on above:Performed By: #### CMP, CMADM #### [facility] [address] [address] [address] Diego WilkinsProtein [Mass/Vol]7.1 g/dLNormal6.4-8.2[facility] Comment on above:Performed By: #### CMP, CMADM #### [facility] [address] [address] [address] Diego WilkinsSodium [Moles/Vol]141 mmol/NLlzfgp454-823Jxr [facility] Comment on above:Performed By: #### CMP, CMADM #### [facility] [address] [address] [address] Diego WilkinsUrea nitrogen [Mass/Vol]4.0 mg/dLCritically low7.0-18.0The [facility] Campusment on above:Performed By: #### CMP, CMADM #### [facility] [address] [address] [address] Diego Melgar nitrogen/Creatinine [Mass ratio]5.3 mg/mgNormalThe [facility] CenterComment on above:Performed By: #### CMP, CMADM #### [facility] [address] [address] [address] Diego WilkinsT4on 35-80-5329F1 [Mass/Vol]8.90 ug/dLNormal4.50-12.10The [facility] CenterCominsight surgical hospital on above:Performed By: #### T4, TSH #### [facility] Laboratory [address] [place] [address] Dr. Diego Chong, HIGH SENSITIVITYon 43-35-8679DVVUDR7.6 pg/mLNormal 4.0-76.1The [facility] on above:Result Comment: CUT-OFF POINTS HAVE BEEN ESTABLISHED BASED ON THE FOURTH UNIVERSAL DEFINITIONS OF MYOCARDIAL INFARCTION. THE UPPER REFERENCE LIMIT (URL) OF TROPONIN, DEFINED THE 99TH PERCENTILE OF cTnI DISTRIBUTION IN A REFERENCE POPULATION, HAS BEEN CONFIRMED THE DECISION THRESHOLD FOR MS DIAGNOSIS.Performed By: #### HSTROPN ####[facility] [address] [address]Dr. Diego LinoHon 90-81-7677AIR1.729 uIU/mLNormal0.358-3.740The [facility] on above:Performed By: #### T4, TSH #### [facility] [address] [place] [address] Dr. Diego Mireles Visit (Cardiac Surgery)on [id number]-up visit Diagnoses/Problems Assessed Ascending aortic aneurysm (441.2) (I71.21) Abdominal aortic aneurysm (441.4) (I71.40) Orders Abdominal aortic aneurysm, Ascending aortic aneurysm Basic Metabolic Panel; Status:Active - Retrospective By Protocol Authorization; Requested for:20Nov2023; CT Chest Abdomen Pelvis with IV Contrast; Status:Hold For - Scheduling,Retrospective By Protocol Authorization; Requested for:20Nov2023; Patient taking Metformin or Derivatives? : No Radiologist to Determine Optimal Study : Y What are the patient's signs and symptoms? : none SocHx: Current every day smoker Tobacco Use Screening; Status:Complete; Done: [id number] Provider Impressions In summary this 62-year-old man [...] guidelines neither meet the indications for surgery atthis time. Typically for the ascending aorta this [...] believe he should be referred to a radiation officer, and since he lives in the [facility], we will refer him to one of our cardiology colleagues from [facility]. Lastly, we will refer him to the aortic clinic. So that he can be followed on a regular basis. Thatteam will be able to evaluate both the abdominal aortic aneurysm and ascending aortic aneurysm on aregular basis. I have spoken with the nurse from that team, María Elena Tubbs, and his next visit would be in approximately 1 year. Chief Complaint Patient is here for a surgical evaluation for an ascending aortic aneurysm following a referral by Tonja Wiley CNP ([facility]). COURTNEY Ruiz, RN Adult Risk Screening Living [...] coronary angioplasty (414.01,V45.82) (I25 (more content not included)...NormalUH TouchworksTobacco Screening.on 60-48-8015Spgi risk assessmenta) No falls within the last yearMG-CT Surgery[facility] 1800 Work Phone: Tobacco use status CPHSa) YesMG-CT [facility] 1800 Work Phone: Tobacco Screening.YesMG-CT Surgery[facility] 1800 Work Phone: cT CHEST WO CONon [id number] CHEST WO CON EXAMINATION: CT CHEST WO CON HISTORY: Imaging result abnormal ; [...] Electronically authenticated by: DENNIS KIM Date: 2022-11-24 07:[address] [place] [address] ABD/PELVIS WO W CONon [id number] ABD/PELVIS WO W CON EXAMINATION: CTA ABD/PELVIS [...] Electronically authenticated by: DENNIS KIM Date: 2022-05-04 07:[address] [place] [address] CHEST WO W CONon [id number] CHEST WO W CONEXAMINATION: CTA CHEST WO W CON HISTORY: Thoracic aortic aneurysm [...] Electronically authenticated by: ROBBIE ADAMS Date: 2022-04-29 07:[address] [place] [address] LUNG CANCER SCREENINGon [id number] LUNG CANCER SCREENING EXAMINATION: CT LUNG CANCER [...] Electronically authenticated by: ROBBIE ADAMS Date: 2022-04-20 09:[facility] DIFFon [id number] #0.0 103/ulNormal0.0-0.1[facility] HospitalComment on above:Performed By: #### CBC ####[facility] Qiepubxpsv[address] [place], [place] [address]Dr.Yilan ChangBasophils/100 WBC (Bld)0.8 %Normal0.2-2.0The [facility], Cancer CenterComment on above:Performed By: #### CBC ####[facility] Czvpexhzar[address] [place], [place] [address]Dr.Yilan ChangEO #0.0 103/ulNormal0.0-0.7The [facility], [facility] CenterComment on above:Performed By: #### CBC ####[facility] Bzoswantqg[address] [place], [place] [address]Dr.Yilan ChangEosinophils/100 WBC (Bld)0.3 %Critically low0.9-7.0The [facility], [facility] CenterComment on above:Performed By: #### CBC ####[facility] Xwfclcjczn[address] [place], [place] [address]Dr. Leathalan ChangErythrocyte distribution width (RBC) [Ratio]13.0 %Rzeadv80.0-15.0The [facility], [facility] CenterComment on above:Performed By: #### CBC ####[facility] Rttynshfcp[address] [place], [place] [address]Dr.Leathalan ChangHematocrit (Bld) [Volume fraction]43.3 %Hhplww82.0-54.0The [facility], [facility] CenterComment on above:Performed By: #### CBC ####[facility] Ivzmmouddk[address] [place], [place] [address]Dr.Leathalan ChangHemoglobin (Bld) [Mass/Vol]14.2 g/dL Pckuih14.0-18.0The [facility], Cancer CenterComment on above:Performed By: #### CBC ####[facility] [address] [address]Dr. Diego WilkinsIG #0.01 10e3/ulNormal0.00-0.03The [facility], [facility] CenterComment on above: Performed By: #### CBC ####[facility] [address] [address]Dr.Diego WilkinsIG %0.3 %Normal0.0-0.5The [facility], [facility] CenterComment on above:Performed By: #### CBC ####[facility] Wgyxqrjljj[address] [place], [place] [address]Dr.Diego WilkinsLYMPH #0.9 103/ulCritically low1.2-3.8The [facility], Cancer CenterComment on above:Performed By: #### CBC ####[facility] Ttqjynrwji[address] [place], [place] [address]Dr.Diego WilkinsLymphocytes/100 WBC (Bld)23.7 %Errepn66.5-60.0The [facility], [facility] CenterComment on above:Performed By: #### CBC ####[facility] Wegmggrngs[address] [place], [place] [address]Dr.Diego WilkinsMANUAL DIFF REQ NONormalThe [facility], [facility] CenterComment on above:Performed By: #### CBC ####[facility] Dhbifygvms6[address] [place], [place] [address]Dr. Diego WilkinsH (RBC) [Entitic mass]31.0 czItdita18.9-34.0The [facility] Comment on above:Performed By: #### CBC ####[facility] Jqyrknfibc[address] [place], [place] [address]Dr.Diego WilkinsHC (RBC) [Mass/Vol]32.8 g/dL Xajjqv03.9-35.2The [facility], [facility] CenterComment on above:Performed By: #### CBC ####[facility] Skgrutforr[address] [place], [place] [address]Dr. Diego WilkinsMCV (RBC) [Entitic vol]94.5 fLCritically high80.0-94.0The [facility] CenterComment on above:Performed By: #### CBC ####[facility] [address] [address]Dr.Yilan ChangMONO #0.6 103/ulNormal0.3-0.8The [facility], [facility] CenterComment on above:Performed By: #### CBC ####[facility] [address] [address]Dr. Yilan ChangMonocytes/100 WBC (Bld)16.8 %Critically high1.7-12.0The [facility], [facility] CenterComment on above:Performed By: #### CBC ####[facility] [address]tr[address] [address]Dr.Yilan ChangNEUT #2.1 103/ulNormal1.4-6.5The [facility] CenterComment on above:Performed By: #### CBC ####[facility] [address] [address]Dr. Yilan ChangNeutrophils/100 WBC (Bld)58.1 %Pracen35.0-75.0The [facility] Comment on above:Performed By: #### CBC ####[facility] [address] [address]Dr.Leathalan ChangPlatelet mean volume (Bld) [Entitic vol]10.6 fLNormal9.5-13.5The [facility] CenterComment on above: Performed By: #### CBC ####[facility] [address] [address]Dr.Yilan AeogpWEH561 103/ulCritically zqm463-246Jxq [facility] CenterComment on above:Performed By: #### CBC ####[facility] [address] [address]Dr.Yilan ChangRBC4.58 106/ul Critically low4.70-6.10The [facility] CenterComment on above:Performed By: #### CBC ####[facility] Ppqncazqpj[address] [place], [place] [address]Dr. Yilan ChangWBC3.6 103/ulCritically low4.0-11.0The [facility], [facility] CenterComment on above:Performed By: #### CBC ####[facility] [address] [address]Dr.Yilan ChangLIPID PROFILEon 75-12-8190ZOBL-HDL RATIO NORMSEE [facility] CenterCominsight surgical hospital on above:Result Comment: 3.3 - 4.4 LOW RISK 4.4 - 7.1 AVERAGE RISK 7.1 - 11.0 MODERATE RISK >11.0 HIGH RISK Performed By: #### LIPID, CMP ####[facility] Piluwsilox[address] [place], [place] [address]Dr. Yilan ChangCholesterol [Mass/Vol]71 mg/dLNormal <=200[facility] on above:Performed By: #### LIPID, CMP ####[facility] Xdjyjyttdo[address] [place], [place] [address]Dr. Yilan ChangCholesterol in HDL [Mass/Vol]30 mg/dLCritically lxf91-60IeyCleveland Clinic Union HospitalCominsight surgical hospital on above:Performed By: #### LIPID, CMP ####[facility] Xxrgzbtigu[address] [place], [place] [address]Dr. Yilan ChangCholesterol in LDL [Mass/Vol]28.4 mg/dLGrand Lake Joint Township District Memorial HospitalCominsight surgical hospital on above:Performed By: #### LIPID, CMP ####[facility] Cdkvfbpdxu[address] [place], [place] [address]Dr. Yilan ChangCholesterol.total/Cholesterol in HDL [Mass ratio]2.4 {ratio}NormalCleveland Clinic Union HospitalCominsight surgical hospital on above:Performed By: #### LIPID, CMP ####[facility] Ekofiegamw[address] [place], [place] [address]Dr. Yilan ChangHDL NORMAL> or = 60 mg/dl - LOW CARDIOVASCULAR RISK <40 mg/dl - HIGH CARDIOVASCULAR RISKGrand Lake Joint Township District Memorial HospitalCominsight surgical hospital on above: Performed By: #### LIPID, CMP ####[facility] Ohajdasbeh[address] [place], [place] [address]Dr. Yilan ChangLDL CALC NORMALSEE [facility] CenterCominsight surgical hospital on above:Result Comment: <100 mg/dl OPTIMAL 100 - 129 mg/dl NEAR OR ABOVE OPTIMAL 130 - 159 mg/dl BORDERLINE HIGH 160 - 189 mg/dl HIGH >190 mg/dl VERY HIGHPerformed By: #### LIPID, CMP ####[facility] [address] [address]Dr. Yilan ChangTriglyceride [Mass/Vol]63 mg/dLNormal<=150The [facility] CenterComment on above:Performed By: #### LIPID, CMP ####[facility] Axarstbpoz[address] [place], [place] [address]Dr. Yilan ChangVLDL CALC12.6 mg/dLNormalThe [facility] CenterComment on above:Performed By: #### LIPID, CMP ####[facility] Czgetcytsq[address] [place], [place] [address]Dr. Yilan ChangPROF 14(COMP METB)on 04-13-2022 Albumin [Mass/Vol]3.9 g/dLNormal3.4-5.0The [facility] CenterComment on above: Performed By: #### LIPID, CMP ####[facility] Cbfihkewet[address] [place], [place] [address]Dr. Yilan ChangAlbumin/Globulin [Mass ratio]1.1 {ratio}NormalThe [facility] CenterComment on above:Performed By: #### LIPID, CMP ####[facility] Zmphqdkxqa[address] [place], [place] [address]Dr. Yilan ChangALP [Catalytic activity/Vol]141 U/LCritically schd04-489Tss [facility] CenterComment on above:Performed By: #### LIPID, CMP ####[facility] Pvssreqnie[address] [place], [place] [address]Dr. Yilan ChangALT [Catalytic activity/Vol]24 U/ADczwja86-97Cuf [facility] CenterComment on above:Performed By: #### LIPID, CMP ####[facility] Rykrehttzt[address] [place], [place] [address]Dr. Yilan ChangAnion gap [Moles/Vol]9.9 mmol/LNormal The [facility], [facility] CenterComment on above:Performed By: #### LIPID, CMP ####[facility] [address] [address]Dr. Yilan ChangAST [Catalytic activity/Vol]23 U/EGymaru70-89Lvy [facility] on above: Performed By: #### LIPID, CMP ####[facility] Ipdegqucur[address] [place], [place] [address]Dr. Yilan ChangBilirubin [Mass/Vol]0.7 mg/dLNormal 0.2-1.0The [facility] CenterComment on above:Performed By: #### LIPID, CMP ####[facility] Twbyywmiyp[address] [place], [place] [address]Dr. Yilan ChangCalcium [Mass/Vol]9.0 mg/dLNormal8.5-10.1The [facility] on above:Performed By: #### LIPID, CMP ####[facility] Vkearqavwi[address] [place], [place] [address]Dr. Yilan ChangChloride [Moles/Vol]98 mmol/L Rmgixe78-422Ffa [facility] CenterCominsight surgical hospital on above:Performed By: #### LIPID, CMP ####[facility] Pcutgkbiko[address] [place], [place] [address]Dr. Yilan ChangCO2 [Moles/Vol]32.6 mmol/LCritically high21.0-32.0The [facility] CenterCominsight surgical hospital on above:Performed By: #### LIPID, CMP ####[facility] Qdbshltvfq06[address] [place], [place] [address]Dr. Yilan ChangCreatinine [Mass/Vol]0.84 mg/dLNormal0.70-1.30The [facility] on above: Performed By: #### LIPID, CMP ####[facility] Iugwobiibm[address] [place], [place] [address]Dr. Yilan ChangEGFR-AF ROMANIAN>60Normal>=60The [facility] CenterCominsight surgical hospital on above:Performed By: #### LIPID, CMP ####[facility] Txwsqeckhw[address] [place], [place] [address]Dr. Yilan ChangEGFR- NON AF ROMANIAN>60Normal>=60The [facility] Main Campusment on above:Performed By: #### LIPID, CMP ####[facility] [address]otpuh[address] [address]Dr. Yilan ChangGlobulin (S) [Mass/Vol]3.4 g/dLNoTrinity Health System West CampusComment on above:Performed By: #### LIPID, CMP ####[facility] [address]sfaf[address] [address]Dr. Yilan ChangGlucose [Mass/Vol]98 mg/cXZtdwit02-517Ftw [facility] CenterComment on above:Performed By: #### LIPID, CMP ####[facility] Qndynuwjth[address] [place], [place] [address]Dr. Yilan ChangPotassium [Moles/Vol]3.5 mmol/LNormal 3.5-5.1The [facility] Cancer CenterComment on above:Performed By: #### LIPID, CMP ####[facility] Itginbabon[address] [place], [place] [address]Dr. Yilan ChangProtein [Mass/Vol]7.3 g/dLNormal6.4-8.2The [facility] Cancer CenterComment on above:Performed By: #### LIPID, CMP ####[facility] Yiofyxidhe[address] [place], [place] [address]Dr. Yilan ChangSodium [Moles/Vol]137 mmol/L Kwsadb258-059Bsx [facility] CenterCominsight surgical hospital on above:Performed By: #### LIPID, CMP ####[facility] Yeetqcxuuy[address] [place], [place] [address]Dr. Yilan ChangUrea nitrogen [Mass/Vol]5.0 mg/dLCritically low7.0-18.0The [facility] CenterComment on above:Performed By: #### LIPID, CMP ####[facility] Ijooiskkgh[address] [place], [place] [address]Dr. Yilan ChangUrea nitrogen/Creatinine [Mass ratio]6.0 mg/mgNoTrinity Health System West CampusComment on above:Performed By: #### LIPID, CMP ####[facility] Nhumkquwiy[address] [place], [place] [address]Dr. Yilan ChangUA RANDOM W/MICROSCOPICon 38-68-7925ZCWYSUAUYJJO SEENNormalNONE SEENCleveland Clinic Union HospitalComment on above: Performed By: #### UAMIC #### [facility] Laboratory [address] [address] [address] Diego WilkinsBilirubin Ql (U)NegativeNormalNEGATIVECleveland Clinic Union Hospital Comment on above:Performed By: #### UAMIC #### [facility] Laboratory [address] [address] [address] Diego WilkinsCASTNONE SEENNormalNONE SEENCleveland Clinic Union HospitalComment on above:Performed By: #### UAMIC #### [facility] Laboratory [address] [address] [address] Diego WilkinsClarity (U)CLEARNormalCLEARCleveland Clinic Union HospitalComment on above: Performed By: #### UAMIC #### [facility] Laboratory [address] [place] [address] Dr. Diego aPzlor (U)LT. YELLOWNormalYFirelands Regional Medical CenterComment on above:Performed By: #### UAMIC #### [facility] Laboratory [address] [place] [address] Dr. Diego WilkinsCrystals LM Nom (Urine sed)NONE SEENNormalNONE SEENCleveland Clinic Union HospitalComment on above:Performed By: #### UAMIC #### [facility] Laboratory [address] [place] [address] Dr. Cortez ChangEpithelial cells LM Ql (Urine sed)RARENormalNONE SEEN /RARECleveland Clinic Union HospitalComment on above:Performed By: #### UAMIC #### [facility] Laboratory [address] [place] [address] Dr. Diego WilkinsGlucose Ql (U)NegativeNormalNEGATIVECleveland Clinic Union HospitalComment on above:Performed By: #### UAMIC #### [facility] Laboratory [address] [place] [address] Dr. Diego WilkinsHemoglobin Ql (U)NegativeNormalNEGElyria Memorial Hospital Comment on above:Performed By: #### UAMIC #### [facility] Laboratory [address] [place] [address] Dr. Diego Grayson Ql (U)NegativeNormalNEGATIVECleveland Clinic Union HospitalComment on above:Performed By: #### UAMIC #### [facility] Laboratory [address] [place] [address] Dr. Diego WilkinsLEUKOCYTESNegativeNormalNEGATIVEThe [facility] CenterComment on above:Performed By: #### UAMIC #### [facility] Laboratory 89 [place] [address] Dr. Diego ButcherCOUSNONTawnya SEENNormalNONE SEENCleveland Clinic Union HospitalComment on above:Performed By: #### UAMIC #### [facility] [address] [place] [address] Dr. Diego Concepcion Ql (U)NegativeNormalNEGATIVECleveland Clinic Union HospitalComment on above:Performed By: #### UAMIC #### [facility] [address] [place] [address] Dr. Diego WilkinspH (U)6.0 [pH]Normal5-9The [facility], Cancer CenterComment on above: Performed By: #### UAMIC #### [facility] [address] [place] [address] Dr. Diego AvilaCNRED SEENAbnormal0-2[facility] Union HospitalCominsight surgical hospital on above: Performed By: #### UAMIC #### [facility] [address] [place] [address] Dr. Diego WilkinsSPEC GRAVITY<=1.027Sazuwacb9.005-<=1.025The [facility] Comment on above:Performed By: #### UAMIC #### [facility] [address] [place] [address] Dr. Diego WilkinsUA PROTEINNegativeNormalNEGATIVE/ TRACEThe [facility] Comment on above:Performed By: #### UAMIC #### [facility] [address] [place] [address] Dr. Diego Erwinbilberylgen Qn (U)1.0 {Shelly'U}/dLNormal0.2 - 1.0The [facility], Cancer CenterComment on above:Performed By: #### UAMIC #### [facility] [address] [address] [address] Diego WilkinsWBCNONTawnya SEENNormalNONE SEENCleveland Clinic Union HospitalComment on above: Performed By: #### UAMIC #### [facility] [address] [address] [address] Diego Wilkins Vital Signs Date TimeVital SignValuePerforming OgbqibxbjWwhptlbc04-65-6325 15:31-0400Body mass index (BMI) [Ratio]21.66 kg/m2Lisa Cifuenteshholz RESIDENT CARE DIRECTOR Work Phone: [facility] CenterYzlgzmichs17-48-8993 15:31-0400Body temperature 98.49 [degF]Tonja Cifuenteshholz RESIDENT CARE DIRECTOR Work Phone: [facility] CenterQldybsufcp15-47-6713 15:31-0400Body gfoizo69.5 kg Tonja Aichholz RESIDENT CARE DIRECTOR Work Phone: [facility] CenterCqpzwpwxqv08-49-9602 15:31-0400Diastolic blood mm[Hg]Tonja Esauhholz RESIDENT CARE DIRECTOR Work Phone: [facility] CenterLjgnimoyff11-89-3457 15:31-0400Heart rate89 /min Tonja Aichholz RESIDENT CARE DIRECTOR Work Phone: [facility] CenterUcmaiywlcv71-82-0753 15:31-0400Respiratory rate18 /minLisa Esauhholz RESIDENT CARE DIRECTOR Work Phone: [facility] CenterPlurjdadoh78-96-7689 15:31-1974HaY3% (BldA) [Mass fraction]95 %Tonja Esauhholz RESIDENT CARE DIRECTOR Work Phone: [facility] CenterGummljsruc52-58-2882 15:31-0400Systolic blood iiyrqoba240 mm[Hg]Tonja Aichholz RESIDENT CARE DIRECTOR Work Phone: [facility] CenterVfbouoekya76-65-4443 15:48-0500Body abtbfe495.5 cmLisa Aichholz RESIDENT CARE DIRECTOR Work Phone: [facility] CenterIhbprxbctz03-22-2536 15:48-0500Body mass index (BMI) [Ratio]22.42 kg/m2Lisa Esauhholz RESIDENT CARE DIRECTOR Work Phone: [facility] CenterZusbjpsdwq82-23-5489 15:48-0500Body temperature 98.01 [degF]Tonja Kellyholz RESIDENT CARE DIRECTOR Work Phone: [facility] CenterDwvtyigdwa02-53-4924 15:48-0500Body .85 kgLisa Esauhholz RESIDENT CARE DIRECTOR Work Phone: [facility] CenterLjczuiiizv26-36-9488 15:48-0500Diastolic blood twomfpqo81 mm[Hg]Tonja Esauhholz RESIDENT CARE DIRECTOR Work Phone: [facility] CenterEyxjzfsseg94-49-3702 15:48-0500Heart rate51 /min Tonja Esauhholz RESIDENT CARE DIRECTOR Work Phone: [facility] CenterWkfhunqbaq06-05-1783 15:48-0500Respiratory rate18 /minLisa Kellyholz RESIDENT CARE DIRECTOR Work Phone: [facility] CenterIjrlravkfz64-75-3683 15:48-7614AeS2% (BldA) [Mass fraction]97 %Tonja Esauhholz RESIDENT CARE DIRECTOR Work Phone: [facility] CenterMpwzgovycm51-43-3123 15:48-0500Systolic blood hrfpuxuv400 mm[Hg]Tonja Kellyholz RESIDENT CARE DIRECTOR Work Phone: [facility] CenterZbozjqrikx98-96-1249 15:37-0400Body hybkmw613.5 cmLisa Esauhholz RESIDENT CARE DIRECTOR Work Phone: [facility] CenterRqdtknaxfz75-83-0902 15:37-0400Body mass index (BMI) [Ratio]22.42 kg/m2Lisa Aichholz RESIDENT CARE DIRECTOR Work Phone: [facility] CenterWwgygudmwp86-25-1219 15:37-0400Body temperature 98.01 [degF]Tonja Kellyholz RESIDENT CARE DIRECTOR Work Phone: [facility] CenterQnrknokqdn99-51-1492 15:37-0400Body scsraf97.85 kgLisa Aichholz RESIDENT CARE DIRECTOR Work Phone: [facility] CenterUetonqdfcu68-85-7101 15:37-0400Diastolic blood anilmvpc41 mm[Hg]Tonja Aichholz RESIDENT CARE DIRECTOR Work Phone: [facility] CenterLwtqvcdsiw75-29-5755 15:37-0400Heart rate77 /min Tonja Aichholz RESIDENT CARE DIRECTOR Work Phone: [address] [address]Vesjrqwemq09-84-4117 15:37-0400Respiratory rate18 /minLisa Aichholz RESIDENT CARE DIRECTOR Work Phone: [address] [address]Nacluttnra15-31-3524 15:37-4369SeN6% (BldA) [Mass fraction]98 %Tonja Aichholz RESIDENT CARE DIRECTOR Work Phone: [address] [address]Qfgdfptyba36-37-4710 15:37-0400Systolic blood mm[Hg]Tonja Aichholz RESIDENT CARE DIRECTOR Work Phone: [facility] CenterFuhntlfxfe57-77-2586 15:28-0400Body cahreq574.5 cmLisa Aichholz RESIDENT CARE DIRECTOR Work Phone: [address] [address]Hzaxxedgop21-91-6724 15:28-0400Body mass index (BMI) [Ratio]22.42 kg/m2Lisa Aichholz RESIDENT CARE DIRECTOR Work Phone: [address] [address]Rmhaudhtfw82-87-6360 15:28-0400Body temperature 98.8 [degF]Tonja Aichholz RESIDENT CARE DIRECTOR Work Phone: [address] [address]Ksahgovuyl88-69-7836 15:28-0400Body qmujom59.85 kgLisa Aichholz RESIDENT CARE DIRECTOR Work Phone: [address] [address]Qopjsdpvtr63-05-7382 15:28-0400Diastolic blood alfhgijj11 mm[Hg]Tonja Aichholz RESIDENT CARE DIRECTOR Work Phone: [address] [address]Lrlhxbvohl57-61-7738 15:28-0400Heart rate79 /min Tonja Aichholz RESIDENT CARE DIRECTOR Work Phone: [address] [address]Prcrvetspg25-60-4265 15:28-0400Respiratory rate18 /minLisa Aichholz RESIDENT CARE DIRECTOR Work Phone: [facility] CenterGvzuaeydwa79-88-7169 15:28-1339XeE6% (BldA) [Mass fraction]97 %Tonja Mendozahugo RESIDENT CARE DIRECTOR Work Phone: [facility] CenterPkohwsrwnp22-75-1804 15:28-0400Systolic blood ykwwolbm735 mm[Hg]Tonja Mendozahugo RESIDENT CARE DIRECTOR Work Phone: [facility] CenterKskmezejoi75-34-5159 11:04-0500Body fitxjc177.7 Abner Hudson MD Work Phone: [phone]-[facility]01-10-2024 11:04-0500 Body mass index (BMI) [Ratio]23.87 kg/e5TxnnazdjRoman Hudson MD Work Phone: [phone]01-10-2024 11:04-0500 Body vvvjer80.22 kgRoman Hudson MD Work Phone: [phone] [place], [place] [address]01-10-2024 11:04-0500 Diastolic blood acrqswxo43 mm[Hg]Roman Hudson MD Work Phone: [phone]-[facility]01-10-2024 11:04-0500 Heart rate84 /minRoman Hudson MD Work Phone: [phone]-[facility]01-10-2024 11:04-0500 SaO2% (BldA) [Mass fraction]96 %Roman Hudson MD Work Phone: [phone]-[facility]01-10-2024 11:04-0500 Systolic blood jxrdvzig920 mm[Hg]Roman Hudson MD Work Phone: [phone]-[facility]03-28-2023 15:06-0400 Blood Pressure Santos BAINS [facility]03-28-2023 15:06-0400Diastolic blood ancnxari28 mm[Hg]Pauline BAINS [facility]03-28-2023 15:06-0400Heart rate 68 /minMichael NILL [facility] Dtebjczc23-08-9063 15:06-0400 Respiratory rate16 /minMichael NILL [facility] Surgery Krnsiniu39-40-8778 15:06-0400Systolic blood hwhcuhln249 mm[Hg]Pauline NILL [facility] Surgery Ocszakfp27-07-3614 10:00-0500Diastolic blood kfppojmr23 mm[Hg]Tonja Mendozaholjose manuel Work Phone: mp597-2704VS-TkoveSt. [facility] 600 DO Work Phone: 1(655) 910-129902-20-2023 10:00-0500Diastolic blood mm[Hg] Tonja Cifuenteshholz Work Phone: mp162-1160AT-XuoimBigfork [facility] 600 DO Work Phone: 1(243) 170-990902-20-2023 10:00-0500Systolic blood apmtkzxa018 mm[Hg] Tonja Cifuenteshholz Work Phone: mp853-8662MW-VruwzBigfork Valley Hospital 600 DO Work Phone: 1(510) 716-945602-20-2023 10:00-0500Systolic blood dmmmfgno736 mm[Hg] Tonja Cifuenteshholz Work Phone: mp093-0391WW-SygicBigfork Valley Hospital 600 DO Work Phone: 1(977) 492-768102-20-2023 09:58-0500Body mlwytp505.53 cmLmaritza Talamantes Aichholz Work Phone: mp531-9401GK-LnhbaBigfork Valley Hospital 600 DO Work Phone: 1(396) 702-108602-20-2023 09:58-0500Body mass index (BMI) [Ratio] 22.27 kg/m2Tonja Talamantes Aichholz Work Phone: mp206-3125VK-KnhqyBigfork Valley Hospital 600 DO Work Phone: 1(708) 735-834302-20-2023 09:58-0500Body surface area Derived from formula1.85 m2Lisa Vinita Wiley Work Phone: mp007-8234XT-DoxgoBigfork Valley Hospital 600 DO Work Phone: 1(543) 781-636902-20-2023 09:58-0500Body unvmxg70.4 kgLisa Vinita Wiley Work Phone: mp252-0318AQ-JrigvBigfork Valley Hospital 600 DO Work Phone: 1(578) 880-711602-20-2023 09:58-0500Heart rate75 /minLisa Vinita Wiley Work Phone: mp136-2333IU-DxxnqBigfork Valley Hospital 600 DO Work Phone: 1(447) 667-903902-08-2023 13:06-0500Body threoh546.26 cmUnknown UnknownMG-CT Surgery-[place] [address] Work Phone: 1(233) 348-948802-08-2023 13:06-0500Body mass index (BMI) [Ratio] 22.52 kg/x9Gwvlrao UnknownMG-CT Surgery-[place] [address] Work Phone: [phone]4-1419 13:06-0500Body surface area Derived from formula1.84 i0Zjcrvtx UnknownMG-CT Surgery-[place] 1800 Work Phone: [phone]5-68-1389 13:06-0500Body qbugxg91.17 kgUnknown UnknownMG-CT Surgery-[place] [address] Work Phone: [phone]2-27-3668 13:06-0500Diastolic blood hocrbnuv27 mm[Hg] Unknown UnknownMG-[facility] Surgery-[place] [address] Work Phone: [phone]3-68-2569 13:06-0500Heart rate60 /minUnknown Unknown [facility] [address] Work Phone: [phone]7-76-1453 13:06-6534CoF9% (BldA) [Mass fraction]94 % Unknown UnknownMG-[facility] Surgery-[place] [address] Work Phone: [phone]4-04-4331 13:06-0500Systolic blood zuvfdxhh131 mm[Hg] Unknown UnknownMG-CT Surgery-[place] [address] Work Phone: 1(424) 404-404202-08-2023 13:06-26762 1Unknown UnknownMG-CT Surgery- [place] [address] Work Phone: comment on above:[employer] Encounters Encounter DateEncounter TypeCare ProviderFacilityStart: 04-02-2025 End: 87-86-0578Pdbowb outpatient visit 25 minutesLisa Mendozahugo RESIDENT CARE DIRECTOR Work Phone: noMS CWM FMComment on above:COPD with asthma (CMS/HCC) (Primary Dx); Cigarette nicotine dependence without complication; Primary hypertension (CMS/HCC); Coronary 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 angina pectoris (CMS/HCC); Gastroesophageal reflux disease, unspecified whether esophagitis presentStart: 04-02-2025 End: 33-56-8663vfvlmcjxfbLTJF AICHHOLZNot AvailableStart: 04-02-2025 End: 91-57-4378Covyqd flowsheetLisa Aichholz RESIDENT CARE DIRECTOR Work Phone: [facility] CWM FMStart: 04-02-2025 End: 54-77-1463Hkrfuc flowsheetLisa Aichholz RESIDENT CARE DIRECTOR Work Phone: [facility] CWM FMStart: 03-15-2025 End: 84-23-0240KtwtbqQmaa Esauhholz RESIDENT CARE DIRECTOR Work Phone: [facility] CWM FMComment on above:Coronary 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 angina pectoris (CM S/HCC)Start: 02-17-2025 End: 92-64-4112Uxnpgsrgd Result EncounterLisa Kellyholz RESIDENT CARE DIRECTOR Work Phone: noms External Department UnsolicitedStart: 02-17-2025 End: 77-03-5744Dkvtuumoq Result EncounterLisa Esauhholz RESIDENT CARE DIRECTOR Work Phone: noms External Department UnsolicitedStart: 01-29-2025 End: 72-59-0399Bcmaswaeo Result EncounterTonja Wiley RESIDENT CARE DIRECTOR Work Phone: noms External Department UnsolicitedStart: 01-29-2025 End: 37-49-1232Dlpgnkfvq Result EncounterTonja Wiley RESIDENT CARE DIRECTOR Work Phone: noms External Department UnsolicitedStart: 01-09-2025 End: 60-72-7847Amepso OnlyTonja Wiley RESIDENT CARE DIRECTOR Work Phone: noms CWM FMComment on above:Coronary 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 angina pectoris (CM S/HCC) (Primary Dx); Primary hypertension (CMS/HCC); Cigarette nicotine dependence without complicationStart: 01-06-2025 End: 54-60-0009Yvbjfbxay Result EncounterTonja Wiley RESIDENT CARE DIRECTOR Work Phone: noms External Department UnsolicitedStart: 01-06-2025 End: 04-72-5138Wrjtjxnxo Result EncounterTonja Wiley RESIDENT CARE DIRECTOR Work Phone: noms External Department UnsolicitedStart: 12-26-2024 End: 04-60-8858Qgvwfn outpatient visit 25 minutesTonja Wiley RESIDENT CARE DIRECTOR Work Phone: noms CWM FMComment on above:Primary hypertension (CMS/HCC) (Primary Dx); Other emphysema (CMS/HCC); Coronary 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 angina pectoris (CMS/HCC); Gastroesophageal reflux disease, unspecified whether esophagitis present; Mixed hyperlipidemia (CMS/HCC); Cigarette nicotine dependence without complication; Aneurysm of ascending aorta without rupture (CMS/HCC); Abdominal aortic aneurysm (AAA) without rupture, unspecified part (CMS/HCC); Encounter for screening for lung cancerStart: 12-26-2024 End: 03-88-9608spisospnpkYDHY KINJALot AvailableStart: 12-26-2024 End: 39-83-9476Csuldn flowsheetTonja Smithjose manuel RESIDENT CARE DIRECTOR Work Phone: noms CWM FMStart: 12-26-2024 End: 44-20-0746Gygkrr flowsheetTonja Mendozaholz RESIDENT CARE DIRECTOR Work Phone: noms CWM FMStart: 11-27-2024 End: 53-47-2973ZygmhcHtgo Aichholz RESIDENT CARE DIRECTOR Work Phone: noms CWM FMComment on above:Gastroesophageal reflux disease, unspecified whether esophagitis presentStart: 10-07-2024 End: 01-67-4053LcjtkoZmfc Aichholz RESIDENT CARE DIRECTOR Work Phone: noms CWM FMComment on above:Coronary 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 angina pectoris (CM S/HCC)Start: 09-10-2024 End: 96-70-3805Pcaoyq outpatient visit 15 minutesTonja Wiley RESIDENT CARE DIRECTOR Work Phone: noms CWM FMComment on above:Primary hypertension (CMS/HCC) (Primary Dx); Tobacco dependenceStart: 09-10-2024 End: 68-35-4691ynfjswmdfoUEPH ESAUHHOLZNot AvailableStart: 09-10-2024 End: 57-70-7454Rcurrz flowsheetLisa Mendozaholz RESIDENT CARE DIRECTOR Work Phone: noms CWM FMStart: 09-10-2024 End: 87-35-4245Zjbako flowsheetLisa Mendozaholz RESIDENT CARE DIRECTOR Work Phone: noms CWM FMStart: 09-07-2024 End: 24-64-1748Hdqdxxzdd Result EncounterLisa Esauhholz RESIDENT CARE DIRECTOR Work Phone: noms External Department UnsolicitedStart: 09-07-2024 End: 45-43-3112Yfjyvzprn Result EncounterLisa Kellyholz RESIDENT CARE DIRECTOR Work Phone: noms External Department UnsolicitedStart: 08-19-2024 End: 57-50-5963Lymxfwvrx Result EncounterLisa Esauhholz RESIDENT CARE DIRECTOR Work Phone: noms External Department UnsolicitedStart: 08-19-2024 End: 89-60-9962Ctariaaoc Result EncounterLisa Mendozaholz RESIDENT CARE DIRECTOR Work Phone: noms External Department UnsolicitedStart: 08-19-2024 End: 85-79-9135YdfkciZdhj Aichholz RESIDENT CARE DIRECTOR Work Phone: noms CWM FMComment on above:Hypokalemia (Primary Dx) Start: 08-08-2024 End: 63-92-6913Czqsdr outpatient visit 25 minutesTonja Mendozaholz RESIDENT CARE DIRECTOR Work Phone: noms CWM FMComment on above:Primary hypertension (CMS/HCC) (Primary Dx); Tobacco dependence; Other emphysema (CMS/HCC); Prostate cancer screening; Coronary 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 angina pectoris (CMS/HCC); Gastroesophageal reflux disease, unspecified whether esophagitis presentStart: 08-08-2024 End: 36-29-1399odnfhzgfloINDD AICHHOLZNot AvailableStart: 08-08-2024 End: 77-64-3719Apsctk flowsVikramsa Aichholz RESIDENT CARE DIRECTOR Work Phone: noms CWM FMStart: 08-08-2024 End: 33-37-6294Xvhosq aliseLisa Aichholz RESIDENT CARE DIRECTOR Work Phone: noms CWM FMStart: 07-30-2024 End: 69-85-1314FytibxWfzx Aichholz RESIDENT CARE DIRECTOR Work Phone: noms CWM FMComment on above:Other emphysema (CMS/HCC) (Primary Dx); Primary hypertension (CMS/HCC); Coronary 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 angina pectoris (CMS/HCC); Gastroesophageal reflux disease, unspecified whether esophagitis presentStart: 05-07-2024 End: 74-61-3884sxetaiiahtJQRA AICHHOLZNot AvailableStart: 01-17-2024 End: 34-24-2438Xcdleh outpatient visit 25 minutesRoman Hudson MD Work Phone: [facility] MatherComment on above: Ascending aortic aneurysm, unspecified whether ruptured (CMS/HCC)Start: 01-17-2024 End: 77-10-9427kjqexmzyfaFXPGQLFFParkview Health Montpelier Hospitaltart: 12-14-2023 End: 80-54-7731Ghomqxfoz Result EncounterGeneric External Data ProviderNOMS External Department UnsolicitedStart: 12-14-2023 End: 03-32-5687Ebjcjmdvz Result EncounterGeneric External Data ProviderNOMS External Department UnsolicitedStart: 12-14-2023 End: 77-81-3401Bfcoydukny hospital visit by [address] [place], [place] [address]Comment on above:Ascending aorta dilatation (CMS/HCC)Start: 12-14-2023 End: 70-73-1702esreuezvtxIEDFOZMIUniversity Hospitals Geneva Medical Centertart: 11-29-2023 End: 57-92-0946zxscccqnxwMGSGOVECParkview Health Montpelier Hospitaltart: 11-29-2023 End: 00-46-4565Kvasls outpatient new 60 minutesRoman Hudson MD Work Phone: [facility]eland MatherComment on above: Ascending aorta dilation (CMS/HCC)Start: 03-14-2023 End: 21-17-5187iuthbmwhbmNudctap R NILLFacility:[facility] Hospitaltart: 03-14-2023 End: 47-38-4775Nsljmgf encounter procedureMichael R NILL General Surgery Nill/Said [place] Start: 03-01-2023 End: 58-05-0956jjbnuntzdrOG PAULINE NILL .Facility:K0Phaio: 02-14-2023 End: 10-52-1419kpfumaiqdkFlaoyue R NILLFacility:[facility] HospitalueStart: 02-14-2023 End: 33-95-3661Mpmxgbr encounter procedureMichael R NILL General Surgery Nill/Said [place] Start: 01-17-2023 End: 22-75-4472btkqclvagaMOB TONJA AICHHOLZFacility:R9Fxeqf: 58-52-3736Xbhhqi consultation new/estab patient 60 minLisa Vinita Aichholz Work Phone: [phone]-Edhrg [facility] 600 DO Work Phone: Start: 82-25-6192ieagwldadrTg. Jess Barakat [facility] Facility:[id number]: 12-30-2022 End: 29-18-7795xyzexpynzkMTH TONJA AICHHOLZFacility:V4Dgqeu: 53-85-4495Jnymdy consultation new/estab patient 80 minUnknown UnknownMG-CT Surgery-[place] [address] Work Phone: Start: 07-74-2271fnlbsvvzlgATRHRQU UNKNOWNFacility:[facility] Start: 11-23-2022 End: 40-58-8870rzzimzjhldSWP TONJA AICHHOLZFacility:V9Hnuew: 05-03-2022 End: 40-22-0644ygjcappbjgAHY TONJA AICHHOLZFacility:T5Evutx: 04-28-2022 End: 65-45-7347ocuecyibphRNI TONJA AICHHOLZFacility:U8Cvjgo: 04-20-2022 End: 80-60-1168ztzizfzbswEVP TONJA AICHHOLZFacility:R4Lzcyf: 04-13-2022 End: 33-10-7725zaxntevugoGUW TONJA AICHHOLZFacility:H1 Procedures DateProcedureProcedure DetailPerforming ClinicianStart: 65-16-3215LK ECHO DOPPLER COMPLETELisa Saurabh RESIDENT CARE DIRECTOR Work Phone: Start: 33-34-9670NR PULMONARY FUNCTION TESTLisa Aichholz RESIDENT CARE DIRECTOR Work Phone: Start: 61-83-3582TGC HEMOGLOBINLisa Esauhholz RESIDENT CARE DIRECTOR Work Phone: Start: 53-04-9467TA AUDREY PERF SPECT REST STRLisa Aichholz RESIDENT CARE DIRECTOR Work Phone: Start: 14-75-8347AU LUNG SCREENING LOW DOSELisa Aichholz RESIDENT CARE DIRECTOR Work Phone: Start: 66-78-8644IXJ POTASSIUMLisa Aichholz RESIDENT CARE DIRECTOR Work Phone: Start: 62-70-6212LRU CBC WITH AUTO DIFFLisa Aichholz RESIDENT CARE DIRECTOR Work Phone: Start: 36-59-1091EBE UA (CLEAN/CATCH) MICROSCOPIC IF INDICATELisa Aichholz RESIDENT CARE DIRECTOR Work Phone: Start: 34-58-5440LQ ANGIO CHEST W AND WO IV CONTRAST ROMAN BASURTOAStart: 19-90-6014IUC Chest vessels WO and W contrast IVGeneric External Data ProviderStart: 10-71-7491DoihjntdczrPhpkxtdz Baeza MD Work Phone: Start: 49-74-0559BytmhifbiysQclyyxo NILL Start: 88-92-7527CPH screeningCNP TONJA SAURABHComment on above:Performed By: #### PSASC #### [facility] [address] [place] [address] Dr. Diego WilkinsStart: 01-56-0540YhkayanmjfcBasg Vinita Cifuentespiahugo Work Phone: Start: 02-56-0708EregookgcnrFqqbfin NILL Cardiac catheterizationMichael NILL Placement of stent in cardiac conduitMichael NILL Placement of stent in coronary arteryUnknown Unknown Plan of Treatment DateCare ActivityDetailAuthorStart: 97-95-1770Bgxxnadso for malignant neoplasm of colonAdams County HospitalStart: 99-69-5474Jlalmynat for malignant neoplasm of colonNONE HealthcareStart: 10-02-2025 End: 12-74-8925Whlpqtd encounter esctvzijj36/13/2025 3:20 PM EST Office Visit [facility] [address] [place] [address] Tonja Wiley, AALIYAH [address] [place] [address] [facility] FMStart: 04-02-2025 End: 61-99-6440Loafgzo encounter procedureNOMS [facility] FMComment on above:COPD with asthma (CMS/HCC) (Primary Dx); Cigarette nicotine dependence without complication; Primary hypertension (CMS/HCC); Coronary 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 angina pectoris (CMS/HCC)Start: 03-25-2025 End: 50-18-8473Tcavrup encounter /06/2025 3:40 PM EDT Office Visit [facility] [address] [place] [phone] Tonja Wiley, AALIYAH [address] [place] [address] [facility] FMStart: 01-09-2025 End: 14-98-3267UA Heart Perfusion W single state of exerciseStress test with myocardial perfusion Cardiac Nuclear Medicine High Priority Coronary 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 angina pectoris (CMS/HCC) Primary hypertension (CMS/HCC) Cigarette nicotine dependence without complication Expected: 01/09/2025 (Approximate), Expires: 01/09/2027[facility] Work Phone: Comment on above:Expected: 01/09/2025 (Approximate), Expires: 01/09/2027Start: 12-26-2024 End: 14-73-4487Xjzecnw encounter qfnhhoacp51/06/2025 3:40 PM EST Office Visit [facility] [address] [place] [phone] Tonja Wiley, AALIYAH [address] [place] [address] Coronary 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 angina pectoris (CMS/HCC) (Primary Dx); Other emphysema (CMS/HCC); Primary hypertension (CMS/HCC); Gastroesophageal reflux disease, unspecified whether esophagitis present; Mixed hyperlipidemia (CMS/HCC); Tobacco dependence; Aneurysm of ascending aorta without rupture (CMS/HCC); Abdominal aortic aneurysm (AAA) without rupture, unspecified part (CMS/HCC)[facility] FM Comment on above:Coronary 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 angina pectoris (CMS/HCC) (Primary Dx); Other emphysema (CMS/HCC); Primary hypertension (CMS/HCC); Gastroesophageal reflux disease, unspecified whether esophagitis present; Mixed hyperlipidemia (CMS/HCC); Tobacco dependence; Aneurysm of ascending aorta without rupture (CMS/HCC); Abdominal aortic aneurysm (AAA) without rupture, unspecified part (CMS/HCC) Start: 12-26-2024 End: 26-93-6639EB Chest for screening WO contrastCT lung screening low dose Imaging Routine Cigarette nicotine dependence without complication Encounter for screening for lung cancer Expected: 12/26/2024 (Approximate), Expires: 12/26/2025NONE emoteShare Work Phone: Comment on above:Expected: 12/26/2024 (Approximate), Expires: 12/26/2025Start: 12-11-2024 End: 89-77-2150Bdveuvs encounter /22/2025 3:20 PM EST Office Visit [facility] [address] [place] [id number] Tonja Wiley NP [address] [place] [address] [facility] FMStart: 09-10-2024 End: 83-33-5937Bwptpdn encounter procedureNOCARNEGIE [facility] [place] FMComment on above:Arrived Start: 09-09-2024 End: 17-31-4091Bnyjyjluv [Moles/volume] in Serum or PlasmaPotassium Lab Routine Hypokalemia Expected: 09/09/2024 (Approximate), Expires: 08/19/2025NONE Healthcare Work Phone: Comment on above:Expected: 09/09/2024 (Approximate), Expires: 08/19/2025Start: 08-08-2024 End: 74-08-8123Clomxcy encounter procedureNOMS CWM FMComment on above:Tobacco dependence (Primary Dx); Primary hypertension (CMS/HCC); Other emphysema (CMS/HCC); Prostate cancer screening; Coronary 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 angina pectoris (CMS/HCC)Start: 08-08-2024 End: 96-82-7110CYO W Auto Differential panel - BloodCBC and differential Lab Routine Tobacco dependence Other emphysema (CMS/HCC) Coronary 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 angina pectoris (CMS/HCC) Expected: 08/08/2024 (Approximate), Expires: 08/08/2025[facility] Work Phone: Comment on above:Expected: 08/08/2024 (Approximate), Expires: 08/08/2025Start: 08-08-2024 End: 35-02-7449Bqlcijirabgkg metabolic 2000 panel - Serum or PlasmaComprehensive metabolic panel Lab Routine Primary hypertension (CMS/HCC) Coronary 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 angina pectoris (CMS/HCC) Expected: 08/08/2024 (Approximate), Expires: 08/08/2025NONE HealthcareComment on above:Expected: 08/08/2024 (Approximate), Expires: 08/08/2025Start: 08-08-2024 End: 52-67-9715Mocmv 1996 panel - Serum or PlasmaLipid panel Lab Routine Coronary 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 angina pectoris (CMS/HCC) Expected: 08/08/2024 (Approximate), Expires: 08/08/2025NONE HealthcareComment on above:Expected: 08/08/2024 (Approximate), Expires: 08/08/2025Start: 08-08-2024 End: 56-29-3231Voorbvxqdluj/Creatinine panel in random UrineMicroalbumin / creatinine, urine ratio Lab Routine Primary hypertension (CMS/HCC) Expected: 08/08/2024 (Approximate), Expires: 08/08/2025NONE HealthcareComment on above: Expected: 08/08/2024 (Approximate), Expires: 08/08/2025Start: 08-08-2024 End: 77-20-7614Xzqmjshc specific Ag [Mass/volume] in Serum or PlasmaPSA Lab Routine Prostate cancer screening Expected: 08/08/2024 (Approximate), Expires: 08/08/2025NONE HealthcareComment on above:Expected: 08/08/2024 (Approximate), Expires: 08/08/2025Start: 08-08-2024 End: 38-55-2487Awoqvaxlol complete panel - UrineUrinalysis with reflex microscopic (clean catch) Lab Routine Primary hypertension (CMS/HCC) Expected: 08/08/2024 (Approximate), Expires: 08/08/2025[facility] HealthcareComment on above: Expected: 08/08/2024 (Approximate), Expires: 08/08/2025Start: 07-21-2024 Influenza vaccinationInfluenza Vaccine (#1)[facility]OM[facility] HealthcareStart: 01-17-2024 End: 58-92-9054Xwnowbxbgdfr consultation with hlcutrf7701/17/2024 1:20 PM EST Telemedicine [facility] [address] [address] [facility] [address] [place] [phone] [place] [address] Department of Surgery-Cardiac [place] [phone] [facility] MatherStart: 90-35-0271PUR, Provider: Jess Marroquin, Status: Pen, Time: 9:20 AMFUV, Provider: Jess Marroquin, Status: Pen, [facility]: 9:20 [facility] [address] DO Work Phone: Start: 01-09-2024 End: 26-34-6815Vbsgeqc encounter irstpidvz20/20/2024 9:20 AM EST Office Visit [address] [place] [phone] Jess Marroquin MD [address] [facility] 2, [address] [place] [address] [facility]: 12-62-4480WMZ, Provider: Roman Hudson, Status: Pen, Time: 11:30 AMNPV, Provider: Roman Hudson, Status: Pen, Time: 11:30 AMMP-[facility] 600 DO Work Phone: Start: 99-41-5709ALG, Provider: Roman Hudson, Status: Pen, Time: 2:30 PMNPV, Provider: Roman Hudson, Status: Pen, Time: 2:30 PMMG-CT Surgery-[place] 1800 Work Phone: Start: 74-36-9295Tjfmovzslvcq Vaccine: Pediatrics (0 to 5 Years) and At-Risk Patients (6 to 64 Years) (2 - PCV)Pneumococcal Vaccine: Pediatrics (0 to 5 Years) and At-Risk Patients (6 to 64 Years) (2 - PCV) [facility]: 65-90-4117Urqoha Vaccines (1 of 2)Zoster Vaccines (1 of 2)[facility]: 54-27-7957IHdY/Tdap/Td Vaccines (1 - Tdap)DTaP/Tdap/Td Vaccines (1 - Tdap)[facility]: 03-55-6267Rfskellkd C screeningHepatitis C ScreeningUnVeterans Health Administration: 97-14-7631Lijwindekstq Vaccine: Pediatrics (0 to 5 Years) and At-Risk Patients (6 to 64 Years) (1 - PCV)Pneumococcal Vaccine: Pediatrics (0 to 5 Years) and At-Risk Patients (6 to 64 Years) (1 - PCV) [facility]: 19-17-8416OJF Vaccines (1 of 1 - Standard series)MMR Vaccines (1 of 1 - Standard series)[facility]: 16-88-6174AEVOI-19 Vaccine (#1)COVID-19 Vaccine (#1)[facility]: 30-69-7474RCB screeningHIV ScreeningProMedica [facility]: 15-87-0459Cvmgp panelLipid PanelProMedica [facility] Hospital: 45-24-0907Jnuxvfjmn for malignant neoplasm of colon [facility]: 34-54-8667Kccqim Adult PhysicalYearly Adult PhysicalUnWhite Hospital End: 18-80-1385DKU Chest vessels WO and W contrast [facility] Service Area Work Phone: comment on above:Once for 1 Occurrences starting 12/14/2023 until 12/14/2023 Immunizations Immunization DateImmunizationNotesCare NkabqgmgMlerdnlo07-49-9959ocmscakah virus vaccine, unspecified formulationShyannsa Sarahz RESIDENT CARE DIRECTOR Work Phone: noSaint Francis Hospital & Health ServicesDactyolyfm62-33-4321zoxclledm, injectable, quadrivalent, preservative Darrian Hudson MD Work Phone: [facility] Work Phone: [phone]jczqh virus vaccine, unspecified formulationLisa Esauhholz RESIDENT CARE DIRECTOR Work Phone: noSaint Francis Hospital & Health ServicesOjuguenapi51-79-6213ymxvbdorn virus vaccine, unspecified formulationMichael NILL [phone]-[facility] [place] 10-93-3121qvyxegqzs, seasonal, injectableLisa Vinita Wiley Work Phone: [phone]-[facility]whyhBigfork [facility] Hospital 600 DO Work Phone: [phone]rzkkdj, injectable, quadrivalent, preservative freeUnknown UnknownMG-CT Surgery[facility] 1800 Work Phone: [phone], injectable, quadrivalent, preservative freeUnknown UnknownMG-CT Surgery-[place] [address] Work Phone: [phone]fwzvxrbb polysaccharide vaccine, 23 valentLisa Vinita Wiley Work Phone: [phone]-Tqqyq [facility] 600 DO Work Phone: Comment on above:Series: Payers DatePayer CategoryPayerPolicy [id number] Health InsuranceMEDICAL MUTUAL [id number] [id number] 2.0.1.554906.3.57[id number] 2.0.1.374307.3.57[id number] 2.0.1.711149.3.57[id number] 2.0.1.530297.3.57[id number] 2.840.1.276415.3.57[id number] 2.0.1.302258.3.57[id number] 2.840.1.225622.3.57[id number] 2.840.1.533814.3.57[id number] 2.16.840.1.863891.3.57[id number] 2.16.840.1.671370.3.57[id number] 2.16.840.1.564487.3.57[id number] 2.16.840.1.119679.3.57[id number] 2.16.840.1.264481.3.57[id number] 2.16.840.1.687749.3.57[id number] 2.840.1.711688.3.57[id number] 2..840.1.315323.3.57[id number] 2..840.1.049700.3.57[id number] 2.840.1.462993.3.57[id number] 2.840.1.260828.3.57[id number] 2.840.1.868334.3.57[id number] 2.840.1.096000.3.57[id number] Social History DateTypeDetailFacilityStart: 11-29-2023 End: 78-45-6321Cybmqdg every day smokerCurrent every day smokerNOMS Healthcare Comment on above:1.5PPD sometimes more;Start: 54-48-4410Mugiavp smoking status Heavy tobacco smoker (finding)[facility]: 88-06-3522Gbqqtsr smoking statusNeverGeneral Surgery [facility] Hospitaltart: 11-29-2023 End: 76-90-6447Hqo Assigned At BirthMaleFMarymount Hospitaltart: 11-06-2023 End: 81-69-9240Ovwclhr smoking status NHISSmokes tobacco dailyUnWhite Hospital Work Phone: History of tobacco useCigarette SmokerUnWhite Hospital Work Phone: Start: 20-16-8053Cqp Assigned At BirthNot on file [facility] Work Phone: Start: 11-19-2023 End: 02-87-8270Flvrknpg to SARS-CoV-2 (event)Not sureUnWhite HospitalStart: 33-46-7461Gmtwlxw intakeLifetime non-drinker (finding)[facility] Work Phone: Start: 43-55-8785Uybrcpq use and exposureFormer smokeless tobacco userNOMS Healthcare End: 77-94-1428Qooggew of tobacco useUser of smokeless tobaccoNOMS Healthcare Functional Status ZwqzHikcvrpklsKcnorgEvimvtam48-11-2860Nvbstff Health Questionnaire 2 item (PHQ- 2) [Reported][facility] Czjdlfqlxh03-40-4511Qnjcqhovti StatusN/AGeneral Surgery [place] Clinical Notes 11-23-2022 to 04-02-2025 Note Date & NebaYieyKltnzfks22-33-8819 History of Present illness Narrative* Tonja Wiley, AALIYAH - 04/02/2025 3:20 PM EDT Images from the original note were not included. Jatinder Calvert is a 64 y.o. male presents with chief complaint of Hypertension HPI: Breathing: winded early in the morning, better as the days go on. Difficulty with stolito inhaler, does use albuterol very occassional Occ cough, white mucus, wheeze+ Hypertension This is a chronic problem. The current episode started more than 1 year ago. The problem is unchanged. The problem is controlled. Associated symptoms include shortness of breath. Pertinent negatives include no chest pain or peripheral edema. There are no associated agents to hypertension. Risk factors for coronary artery disease include dyslipidemia, male gender and smoking/tobacco exposure. Pasttreatments include calcium channel blockers and TANA inhibitors. The current treatment provides significant improvement. There are no compliance problems. SUBJECTIVE: MEDICATIONS: Current Outpatient Medications Medication Instructions albuterol HFA 90 mcg/act inhaler 2 puffs, Inhalation, Every 6 hours PRN amLODIPine (NORVASC) 5 mg, Oral, Daily aspirin 81 mg, Daily atorvastatin (LIPITOR) 80 mg, Oral, Nightly lisinopril 10 mg, Oral, Daily, Take 10 [...] discharge and visual disturbance. Respiratory: Positive for cough, shortness of breath and wheezing. Negative for [...] Chest pain, cardiac Coronary 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 angina pectoris (CMS/HCC) 11/06/2023 Dyspnea [...] in his father. OBJECTIVE: Visit Vitals BP 120/82 (BP Location: Left arm, Patient Position: Sitting, BP Cuff Size: Adult long) Pulse 89 Temp 98.5 F (Temporal) Resp 18 Wt 148 lb 12.8 oz SpO2 95% BMI 21.66 kg/m Smoking Status Every Day BSA 1.82 m Physical Exam Vitals and nursing note [...] is soft. Musculoskeletal: Cervical back: Neck supple. Skin: General: Skin is warm and dry. Capillary Refill: Capillary refill takes 2 to 3 seconds. Neurological: General: No focal deficit present. Mental Status: He is alert. Psychiatric: Mood and Affect: Mood normal. Behavior: Behavior normal. Thought Content: Thought content normal. Judgment: Judgment normal. ASSESSMENT AND PLAN: No follow-ups on file. Problem List Items Addressed This Visit Coronary 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 angina pectoris (CMS/HCC) No current symptoms Current meds: amlodipine, asa, statin, tana 02/11 had stress and echo Primary hypertension (CMS/HCC) Please check blood pressure daily and record DASH diet Limit caffeine Take medication as directed Contact office if chest pain, pressure, dizziness, shortness of breath, swelling legs Recommend slow position changes Current meds: amlodipine, tana Relevant Medications amLODIPine (Norvasc) 5 MG tablet lisinopril 10 MG tablet GERD (gastroesophageal reflux disease) Relevant Medications omeprazole (PriLOSEC) [address] capsule Cigarette nicotine dependence without complication The patient has been advised of the risks of continued smoking: stroke, MS, all forms of cancer, lung disease, and . Options for quitting smoking include: cold turkey, hypnosis, acupuncture, nicotine replacement meds(gum, lozenges, and patches), Buproprion, and Varenicline. At this time pt is encouraged to evaluate their goals for wanting to quit smoking, and reach out toprovider when ready to start this process COPD with asthma (CMS/[facility]) - Primary Current meds: albuterol, last appt was given stiolto respimat, could not use this Had low dose CT scan as well PFT's 02/20/25 Albuterol prn Advised s/s exacerbations Recommend flu shot/pneumonia vac * Tonja Wiley NP - 04/02/2025 7:24 AM EDTAssociated Problem(s): Primary hypertension ([facility]) Please check blood pressure daily and record DASH diet Limit caffeine Take medication as directed Contact office if chest pain, pressure, dizziness, shortness of breath, swelling legs Recommend slow position changes Current meds: amlodipine, tana * Tonja Wiley NP - 04/02/2025 7:24 AM EDTAssociated Problem(s): Coronary 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 angina pectoris ([facility]) No current symptoms Current meds: amlodipine, asa, statin, tana 02/11 had stress and echo * Tonja Wiley NP - 04/02/2025 7:24 AM EDTAssociated Problem(s): Cigarette nicotine dependence without complication The patient has been advised of the risks of continued smoking: stroke, MS, all forms of cancer, lung disease, and . Options for quitting smoking include: cold turkey, hypnosis, acupuncture, nicotine replacement meds(gum, lozenges, and patches), Buproprion, and Varenicline. At this time pt is encouraged to evaluate their goals for wanting to quit smoking, and reach out toprovider when ready to start this process * Tonja Wiley NP - 04/02/2025 7:23 AM EDTAssociated Problem(s): COPD with asthma ([facility]) Current meds: albuterol, last appt was given stiolto respimat, could not use this Had low dose CT scan as well PFT's 02/20/25 Albuterol prn Advised s/s exacerbations Recommend flu shot/pneumonia vac documented in this encounterCrossroads Regional Medical CenterXllffcwyjx76-06-1887 History of Present illness Narrative* Tonja Wiley NP - 12/26/2024 4:33 PM ESTAssociated Problem(s): Encounter for screening for lung cancer [...] of smoking cessation. Smokes: 1.25ppdX 50 years * Tonja Wiley NP - 12/26/2024 3:40 PM EST Images from the original note were not [...] There are no compliance problems. Hypertensive end-organ damageincludes CAD/MS. There is no history of CVA, heart [...] thoracic aortic (CMS/HCC) CAD (coronary artery disease) ([facility]/HCC) Centrilobular emphysema ([facility]/HCC) Chest pain, cardiac Coronary 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 angina pectoris ([facility]/HCC) 11/06/2023 Dyspnea Elevated alkaline phosphatase level Erectile dysfunction GERD (gastroesophageal reflux disease) 01/15/2024 Headache HTN (hypertension) ([facility]) Leg cramps Nevus Primary hypertension ([facility]/HCC) 11/06/2023 Serum total bilirubin elevated 11/05/2023 Tobacco [...] Addressed This Visit Coronary 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 angina pectoris ([facility]/HCC) - Primary No current symptoms Current meds: amlodipine, asa, statin, tana Primary hypertension ([facility]/HCC) Please check blood pressure daily and record [...] with CV for monitoring Ascending aortic aneurysm ([facility]/HCC) Continue with CV for monitoring Hyperlipidemia ([facility]) On statin therapy Check labs yearly and prn dose changes Cigarette nicotine dependence without complication The patient has been advised of the risks of continued smoking: stroke, MS, all forms of cancer, lung disease, and . Options for quitting smoking include: cold turkey, hypnosis, acupuncture, nicotine replacement meds(gum, lozenges, and patches), Buproprion, and Varenicline. At this time pt is encouraged to evaluate their goals for wanting to quit smoking, and reach out toprovider when ready to start this process Relevant Orders CT lung screening low dose Other emphysema ([facility]/HCC) Albuterol inhaler prn Recommend smoking cessation Will trial stiolito #2 samples given Lot: [id number], exp 08/14 Encounter for screening for lung [...] Relevant Orders CT lung screening low dose * Tonja Wiley NP - 12/26/2024 7:51 AM ESTAssociated Problem(s): Ascending aortic aneurysm (CMS/HCC) Continue with CV for monitoring * Tonja Wiley NP - 12/26/2024 7:50 AM ESTAssociated Problem(s): Abdominal aortic aneurysm, without rupture, unspecified (CMS/HCC) Cont with CV for monitoring * Tonja Wiley NP - 12/26/2024 7:49 AM ESTAssociated Problem(s): Cigarette nicotine dependence without complication The patient has been advised of the risks of continued smoking: stroke, MS, all forms of cancer, lung disease, and . Options for quitting smoking include: cold turkey, hypnosis, acupuncture, nicotine replacement meds(gum, lozenges, and patches), Buproprion, and Varenicline. At this time pt is encouraged to evaluate their goals for wanting to quit smoking, and reach out toprovider when ready to start this process * Tonja Wiley NP - 12/26/2024 7:49 AM ESTAssociated Problem(s): Hyperlipidemia (CMS/HCC) On statin therapy Check labs yearly and prn dose changes * Tonja Wiley NP - 12/26/2024 7:49 AM ESTAssociated Problem(s): GERD (gastroesophageal reflux disease) Recommendations: freq small meals, nothing to eat or drink at least 2 hours prior to bed, limit caffeine, alcohol, as well as spicy foods Meds to limit or avoid if possible: NSAIDS Elevate HOB if possible Current meds: omeprazole * Tonja Wiley NP - 12/26/2024 7:48 AM ESTAssociated Problem(s): Primary hypertension ([facility]/HCC) Please check blood pressure daily and record DASH diet Limit caffeine Take medication as directed Contact office if chest pain, pressure, dizziness, shortness of breath, swelling legs Recommend slow position changes Current meds: amlodipine, tana * Tonja Wiley NP - 12/26/2024 7:48 AM ESTAssociated Problem(s): Coronary 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 angina pectoris ([facility]/HCC) No current symptoms Current meds: amlodipine, asa, statin, tana * Tonja Wiley NP - 12/26/2024 7:47 AM ESTAssociated Problem(s): Other emphysema (CMS/HCC) Albuterol inhaler prn Recommend smoking cessation Will trial stiolito #2 samples given Lot: [id number], exp 08/14 documented in this encounterCrossroads Regional Medical [id number] Instructions* Patient Instructions* Tonja Wiley NP - 12/26/2024 3:40 PM EST Low dose CT scan for lung cancer screening: will fax [facility] they should schedule.If they do not call you in 10 days, call them: [phone] Try stiolito 2 puffs daily documented in this encounterCrossroads Regional Medical CenterXmpqjyyxmc53-29-9841 History of Present illness Narrative* Tonja Wiley NP - 09/10/2024 8:22 PM EDTAssociated Problem(s): Tobacco dependence The patient has been advised of the risks of continued smoking: stroke, MS, all forms of cancer, lung disease, and . Options for quitting smoking include: cold turkey, hypnosis, acupuncture, nicotine replacement meds(gum, lozenges, and patches), Buproprion, and Varenicline. At this time pt is encouraged to evaluate their goals for wanting to quit smoking, and reach out toprovider when ready to start this process * Tonja Wiley NP - 09/10/2024 8:22 PM EDTAssociated Problem(s): Primary hypertension (CMS/HCC) Continue amlodipine at 5mg daily Continue all other blood pressure meds Fu in 3 months for recheck * REINALDO MAXWELL - 09/10/2024 3:20 PM EDT Pt states he does not feel any different however the dizziness has cut down drastically. * Tonja Wiley NP - 09/10/2024 3:20 PM EDT Images from the original note were not included. Jatinder Calvert is a 64 y.o. male presents with chief complaint of No chief complaint on file. HPI: Here for recheck of blood pressure: since his last visit, we lowered the dose of amlodipine to 5mg,d/t dizziness and lightheadedness. He reports there has [...] atorvastatin (LIPITOR) 80 mg, Oral, Every evening Cbgmhux-Fjabqhpwkku-Lbtnbveiln (Breztri Aerosphere) 160-9-4.8 MCG/ACT aerosol 2 puffs, [...] thoracic aortic (CMS/HCC) CAD (coronary artery disease) ([facility]/HCC) Centrilobular emphysema (CMS/HCC) Chest pain, cardiac Coronary 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 angina pectoris ([facility]/HCC) 11/06/2023 Dyspnea Elevated alkaline phosphatase level Erectile dysfunction GERD (gastroesophageal reflux disease) 01/15/2024 Headache HTN (hypertension) ([facility]/HCC) Leg cramps Nevus Primary hypertension ([facility]/HCC) 11/06/2023 Serum total bilirubin elevated 11/05/2023 Tobacco [...] List Items Addressed This Visit Primary hypertension (CMS/[facility]) - Primary Continue amlodipine at 5mg daily Continue all other blood pressure meds Fu in 3 months for recheck Relevant Medications amLODIPine (Norvasc) 5 MG tablet lisinopril 10 MG tablet Tobacco dependence The patient has been advised of the risks of continued smoking: stroke, MS, all forms of cancer, lung disease, and . Options for quitting smoking include: cold turkey, hypnosis, acupuncture, nicotine replacement meds(gum, lozenges, and patches), Buproprion, and Varenicline. At this time pt is encouraged to evaluate their goals for wanting to quit smoking, and reach out toprovider when ready to start this process documented in this encounterCrossroads Regional Medical [id number] History of Present illness Narrative* Tonja Wiley NP - 08/08/2024 5:11 PM EDTAssociated Problem(s): Tobacco dependence Started smoking again, 1ppd, had quit for about 90 days The patient has been advised of the risks of continued smoking: stroke, MS, all forms of cancer, lung disease, and . Options for quitting smoking include: cold turkey, hypnosis, acupuncture, nicotine replacement meds(gum, lozenges, and patches), Buproprion, and Varenicline. At this time pt is encouraged to evaluate their goals for wanting to quit smoking, and reach out toprovider when ready to start this process * Tonja Wiley NP - 08/08/2024 5:11 PM EDTAssociated Problem(s): Primary hypertension (CMS/HCC) Possible dizziness from drops in blood pressure, have him cut back amlodipine to 5mg daily and RTO in 4 weeks for blood pressure check * Tonja Wiley NP - 08/08/2024 5:10 PM EDTAssociated Problem(s): Other emphysema (CMS/HCC) Continue breztri and prn albuterol Urged to quit smoking Fu in 6 months * REINALDO MAXWELL - 08/08/2024 3:20 PM EDT Vertigo? Pass diagnosis BP was taken first with 82/60 Grabbed another MA for a BP recheck * Tonja Wiley NP - 08/08/2024 3:20 PM EDT Jatinder Calvert is a 63 y.o. male [...] male gender and smoking/tobacco exposure. Past treatments includeACE inhibitors and calcium channel blockers. The current treatment provides significant improvement. There are no compliance problems. SUBJECTIVE: MEDICATIONS: Current Outpatient Medications Medication Instructions albuterol HFA 90 mcg/act inhaler 2 puffs, Inhalation, Every 6 hours PRN amLODIPine (NORVASC) 10 mg, Oral, Daily atorvastatin (LIPITOR) 80 mg, Oral, Every evening Ssfmsyr-Gzmxbtbivfn-Vcatftiaov (Breztri Aerosphere) 160-9-4.8 MCG/ACT aerosol 2 puffs, [...] Chest pain, cardiac Coronary 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 angina pectoris (CMS/HCC) 11/06/2023 Dyspnea [...] Addressed This Visit Coronary 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 angina pectoris (CMS/HCC) Relevant Medications [...] of the risks of continued smoking: stroke, MS, all forms of cancer, lung disease, and . Options for quitting smoking include: cold turkey, hypnosis, acupuncture, nicotine replacement meds(gum, lozenges, and patches), Buproprion, and Varenicline. At this time pt is encouraged to evaluate their goals for wanting to quit smoking, and reach out toprovider when ready to start this process Relevant Orders CBC and differential Other emphysema (CMS/HCC) Continue breztri and prn albuterol Urged to quit smoking Fu in 6 months Relevant Medications albuterol HFA 90 mcg/act inhaler Cvmqbdo-Tcaoxjnyuvi-Jdmufqcyuf (Breztri Aerosphere) 160-9-4.8 MCG/ACT aerosol Other Relevant Orders CBC and differential Prostate cancer screening Relevant Orders PSA documented [facility] [id number] History of Present illness Narrative* Roman Hudson MD - 01/17/2024 1:20 PM EST Contacting Jatinder to discuss results of recent ct 12/14/23. Ginger Conley RN This is a 64 years old male patient who has been followed by the aortic center because of a dilatedascending. He had a previous CT with no [...] also avoid heavy lifting. [facility]: 1(333) 687-444201-10-2024 History of Present illness Narrative* Roman Hudson MD - 11/29/2023 11:30 AM EST Jatinder returns for aorta follow up. Ginger [...] him to maintain regular visit with his radiation officer and blood pressure control. Will get the echo cardiogram to rule out bicuspid valve and we will follow him with a CT scan. He is also advised to avoid heavy lifting. documented in this [facility] Work Phone: 1(365) 851-502204-12-2023 NoteOPERATIVE NOTE OPERATION DATE: 03/01/2023 PREOPERATIVE DIAGNOSIS: Personal [...] recovery room in good condition. CC: Tonja Wiley, [facility]01-04-2023 History of Present illness Narrative* This 62-year patient has been referred with a diagnosis of a dilated ascending aorta. He recently underwent a CT scan on 23 November, somehow he was known to have ectasia of the ascending aorta. This confirmed a slightly dilated ascending aorta of 3.9 cm. For that reason, he has been referred to our cardiac surgical team. 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 -CT SurgeryIntean Poalroath [facility] [address] Work Phone: chief complaint Narrative - ReportedPatient is here for a surgical evaluation for an ascending aortic aneurysm following a referral by Tonja Wiley CNP ([facility]). COURTNEY Ruiz, RN-CT Surgery-[facility] 1800 Work Phone: chief complaint Narrative - Reported* JATINDER CALVERT is being seen for a consultation for. referral Dr. Salmon; AAA, HTN * 62-year-old white male who is being seen for management of hypertension and CAD. The patient was seen recently by cardiothoracic surgery at [facility] Dr. Sherman Cruz for ascending and abdominal aortic aneurysm. The size is too small to intervene on. The patient has history of CAD and previous PCI of the RCA 2012 in [place] with drug-eluting stent. He is actively smoking and at one time was smoking 2 and half packs daily. He does have significant emphysema but not on medical therapy.Has had no recurrent coronary artery disease. He is hyperlipidemic and hypertensive on medical therapy. 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 He wishes to quit smoking and he is working with his PCP on tobacco cessation methods. His examination is only remarkable for diminished breath sounds otherwise was unremarkable. * Assessment/recommendations: * 1 CAD status post PCI of the RCA 2012 with drug-eluting stent. No recurrences and no symptoms. He is on aspirin and high intensity statin. Tobacco cessation was advised. No card investigations are needed. * 2 ascending aortic aneurysm and abdominal arctic aneurysm both are less than 4 cm in diameter followed by the aortic clinic at [facility]. Tobacco cessation was emphasized. Hypertension controlled was advised as well. * 3 hypertension, currently under control medical therapy with no changes needed. * 4 hyperlipidemia on statin therapy. Target LDL less than 70 mg/dL. Lipid profile is ordered. * 5 COPD from heavy tobacco abuse. Currently not on medical therapy. * 6 heavy tobacco abuse. Patient was counseled on tobacco cessation and and he wishes to quit smoking. His PCP is working on measures to achieve the goal. Patient will come back to see me in annual basis or sooner if needed -[facility] [address] DO Work Phone: Evaluation + Plan note No data available for this section General Surgery [place] Evaluation note* Diagnosis Ascending aorta dilation (CMS/HCC) Thoracic aneurysm without mention of rupture documented in this encounter [facility] Work Phone: Evaluation note* Diagnosis Ascending aorta dilatation (CMS/HCC) Thoracic aneurysm without mention of rupture documented in this encounter [facility] Work Phone: Evaluation note* Diagnosis Ascending aortic aneurysm, unspecified whether ruptured (CMS/HCC) documented in this encounter [facility] Work Phone: Evaluation note* Diagnosis Coronary 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 angina pectoris (CMS/HCC)- Primary Primary hypertension (CMS/HCC) Unspecified essential hypertension Serum total bilirubin elevated Disorders of bilirubin excretion Other emphysema (CMS/HCC)- Primary Other emphysema Primary hypertension (CMS/HCC) Unspecified essential hypertension Mixed hyperlipidemia (CMS/HCC) Mixed hyperlipidemia Abdominal aortic aneurysm (AAA) without rupture, unspecified part (CMS/HCC) Aneurysm of ascending aorta without rupture (CMS/HCC) Coronary 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 angina pectoris (CMS/HCC) Tobacco dependence Tobacco use disorder Primary hypertension (CMS/HCC)- Primary Unspecified essential hypertension Tobacco dependence Tobacco use disorder Other emphysema (CMS/HCC) Other emphysema Prostate cancer screening Special screening for malignant neoplasm of prostate Coronary 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 angina pectoris (CMS/HCC) Gastroesophageal reflux disease, unspecified whether esophagitis present Primary hypertension (CMS/HCC)- Primary Unspecified essential hypertension Tobacco dependence Tobacco use disorder [facility] Diagnosis Coronary 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 angina pectoris (CMS/HCC)- Primary Primary hypertension (CMS/HCC) Unspecified essential hypertension Serum total bilirubin elevated Disorders of bilirubin excretion Other emphysema (CMS/HCC)- Primary Other emphysema Primary hypertension (CMS/HCC) Unspecified essential hypertension Mixed hyperlipidemia (CMS/HCC) Mixed hyperlipidemia Abdominal aortic aneurysm (AAA) without rupture, unspecified part (CMS/HCC) Aneurysm of ascending aorta without rupture (CMS/HCC) Coronary 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 angina pectoris (CMS/HCC) Tobacco dependence Tobacco use disorder Primary hypertension (CMS/HCC)- Primary Unspecified essential hypertension Tobacco dependence Tobacco use disorder Other emphysema (CMS/HCC) Other emphysema Prostate cancer screening Special screening for malignant neoplasm of prostate Coronary 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 angina pectoris (CMS/HCC) Gastroesophageal reflux disease, unspecified whether esophagitis present Primary hypertension (CMS/HCC)- Primary Unspecified essential hypertension Tobacco dependence Tobacco use disorder Coronary 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 angina pectoris (CMS/HCC) [facility]* Diagnosis Primary hypertension (CMS/HCC)- Primary Unspecified essential hypertension Tobacco dependence Tobacco use disorder Other emphysema (CMS/HCC) Other emphysema Prostate cancer screening Special screening for malignant neoplasm of prostate Coronary 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 angina pectoris (CMS/HCC) Gastroesophageal reflux disease, unspecified whether esophagitis present [facility]* Diagnosis Other emphysema (CMS/HCC)- Primary Other emphysema Primary hypertension (CMS/HCC) Unspecified essential hypertension Coronary 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 angina pectoris (CMS/HCC) Gastroesophageal reflux disease, unspecified whether esophagitis present [facility]* Diagnosis Hypokalemia- Primary Hypopotassemia documented [facility]* Diagnosis Coronary 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 angina pectoris (CMS/HCC)- Primary Primary hypertension (CMS/HCC) Unspecified essential hypertension Serum total bilirubin elevated Disorders of bilirubin excretion Other emphysema (CMS/HCC)- Primary Other emphysema Primary hypertension (CMS/HCC) Unspecified essential hypertension Mixed hyperlipidemia (CMS/HCC) Mixed hyperlipidemia Abdominal aortic aneurysm (AAA) without rupture, unspecified part (CMS/HCC) Aneurysm of ascending aorta without rupture (CMS/HCC) Coronary 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 angina pectoris (CMS/HCC) Tobacco dependence Tobacco use disorder Primary hypertension (CMS/HCC)- Primary Unspecified essential hypertension Tobacco dependence Tobacco use disorder Other emphysema (CMS/HCC) Other emphysema Prostate cancer screening Special screening for malignant neoplasm of prostate Coronary 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 angina pectoris (CMS/HCC) Gastroesophageal reflux disease, unspecified whether esophagitis present Primary hypertension (CMS/HCC)- Primary Unspecified essential hypertension Tobacco dependence Tobacco use disorder Gastroesophageal reflux disease, unspecified whether esophagitis present documented in this encounter [facility]* Diagnosis Coronary 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 angina pectoris (CMS/HCC)- Primary Primary hypertension (CMS/HCC) Unspecified essential hypertension Serum total bilirubin elevated Disorders of bilirubin excretion Other emphysema (CMS/HCC)- Primary Other emphysema Primary hypertension (CMS/HCC) Unspecified essential hypertension Mixed hyperlipidemia (CMS/HCC) Mixed hyperlipidemia Abdominal aortic aneurysm (AAA) without rupture, unspecified part (CMS/HCC) Aneurysm of ascending aorta without rupture (CMS/HCC) Coronary 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 angina pectoris (CMS/HCC) Tobacco dependence Tobacco use disorder Primary hypertension (CMS/HCC)- Primary Unspecified essential hypertension Tobacco dependence Tobacco use disorder Other emphysema (CMS/HCC) Other emphysema Prostate cancer screening Special screening for malignant neoplasm of prostate Coronary 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 angina pectoris (CMS/HCC) Gastroesophageal reflux disease, unspecified whether esophagitis present Primary hypertension (CMS/HCC)- Primary Unspecified essential hypertension Tobacco dependence Tobacco use disorder Primary hypertension (CMS/HCC)- Primary Unspecified essential hypertension Other emphysema (CMS/HCC) Other emphysema Coronary 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 angina pectoris (CMS/HCC) Gastroesophageal reflux disease, unspecified whether esophagitis present Mixed hyperlipidemia (CMS/HCC) Mixed hyperlipidemia Cigarette nicotine dependence without complication Aneurysm of ascending aorta without rupture (CMS/HCC) Abdominal aortic aneurysm (AAA) without rupture, unspecified part (CMS/HCC) Encounter for screening for lung cancer documented in this encounter [facility]* Diagnosis Coronary 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 angina pectoris (CMS/HCC)- Primary Primary hypertension (CMS/HCC) Unspecified essential hypertension Serum total bilirubin elevated Disorders of bilirubin excretion Other emphysema (CMS/HCC)- Primary Other emphysema Primary hypertension (CMS/HCC) Unspecified essential hypertension Mixed hyperlipidemia (CMS/HCC) Mixed hyperlipidemia Abdominal aortic aneurysm (AAA) without rupture, unspecified part (CMS/HCC) Aneurysm of ascending aorta without rupture (CMS/HCC) Coronary 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 angina pectoris (CMS/HCC) Tobacco dependence Tobacco use disorder Primary hypertension (CMS/HCC)- Primary Unspecified essential hypertension Tobacco dependence Tobacco use disorder Other emphysema (CMS/HCC) Other emphysema Prostate cancer screening Special screening for malignant neoplasm of prostate Coronary 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 angina pectoris (CMS/HCC) Gastroesophageal reflux disease, unspecified whether esophagitis present Primary hypertension (CMS/HCC)- Primary Unspecified essential hypertension Tobacco dependence Tobacco use disorder Primary hypertension (CMS/HCC)- Primary Unspecified essential hypertension Other emphysema (CMS/HCC) Other emphysema Coronary 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 angina pectoris (CMS/HCC) Gastroesophageal reflux disease, unspecified whether esophagitis present Mixed hyperlipidemia (CMS/HCC) Mixed hyperlipidemia Cigarette nicotine dependence without complication Aneurysm of ascending aorta without rupture (CMS/HCC) Abdominal aortic aneurysm (AAA) without rupture, unspecified part (CMS/HCC) Encounter for screening for lung cancer Coronary 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 angina pectoris (CMS/HCC)- Primary Primary hypertension (CMS/HCC) Unspecified essential hypertension Cigarette nicotine dependence without complication documented in this encounter [facility] HealthcareEvaluation [facility]* Diagnosis Coronary 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 angina pectoris (CMS/HCC)- Primary Primary hypertension (CMS/HCC) Unspecified essential hypertension Serum total bilirubin elevated Disorders of bilirubin excretion Other emphysema (CMS/HCC)- Primary Other emphysema Primary hypertension (CMS/HCC) Unspecified essential hypertension Mixed hyperlipidemia (CMS/HCC) Mixed hyperlipidemia Abdominal aortic aneurysm (AAA) without rupture, unspecified part (CMS/HCC) Aneurysm of ascending aorta without rupture (CMS/HCC) Coronary 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 angina pectoris (CMS/HCC) Tobacco dependence Tobacco use disorder Primary hypertension (CMS/HCC)- Primary Unspecified essential hypertension Tobacco dependence Tobacco use disorder Other emphysema (CMS/HCC) Other emphysema Prostate cancer screening Special screening for malignant neoplasm of prostate Coronary 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 angina pectoris (CMS/HCC) Gastroesophageal reflux disease, unspecified whether esophagitis present Primary hypertension (CMS/HCC)- Primary Unspecified essential hypertension Tobacco dependence Tobacco use disorder Primary hypertension (CMS/HCC)- Primary Unspecified essential hypertension Other emphysema (CMS/HCC) Other emphysema Coronary 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 angina pectoris (CMS/HCC) Gastroesophageal reflux disease, unspecified whether esophagitis present Mixed hyperlipidemia (CMS/HCC) Mixed hyperlipidemia Cigarette nicotine dependence without complication Aneurysm of ascending aorta without rupture (CMS/HCC) Abdominal aortic aneurysm (AAA) without rupture, unspecified part (CMS/HCC) Encounter for screening for lung cancer Coronary 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 angina pectoris (CMS/HCC) documented in this encounter [facility]* Diagnosis Coronary 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 angina pectoris (CMS/HCC)- Primary Primary hypertension (CMS/HCC) Unspecified essential hypertension Serum total bilirubin elevated Disorders of bilirubin excretion Other emphysema (CMS/HCC)- Primary Other emphysema Primary hypertension (CMS/HCC) Unspecified essential hypertension Mixed hyperlipidemia (CMS/HCC) Mixed hyperlipidemia Abdominal aortic aneurysm (AAA) without rupture, unspecified part (CMS/HCC) Aneurysm of ascending aorta without rupture (CMS/HCC) Coronary 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 angina pectoris (CMS/HCC) Tobacco dependence Tobacco use disorder Primary hypertension (CMS/HCC)- Primary Unspecified essential hypertension Tobacco dependence Tobacco use disorder Other emphysema (CMS/HCC) Other emphysema Prostate cancer screening Special screening for malignant neoplasm of prostate Coronary 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 angina pectoris (CMS/HCC) Gastroesophageal reflux disease, unspecified whether esophagitis present Primary hypertension (CMS/HCC)- Primary Unspecified essential hypertension Tobacco dependence Tobacco use disorder Primary hypertension (CMS/HCC)- Primary Unspecified essential hypertension Other emphysema (CMS/HCC) Other emphysema Coronary 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 angina pectoris (CMS/HCC) Gastroesophageal reflux disease, unspecified whether esophagitis present Mixed hyperlipidemia (CMS/HCC) Mixed hyperlipidemia Cigarette nicotine dependence without complication Aneurysm of ascending aorta without rupture (CMS/HCC) Abdominal aortic aneurysm (AAA) without rupture, unspecified part (CMS/HCC) Encounter for screening for lung cancer COPD with asthma (CMS/HCC)- Primary Cigarette nicotine dependence without complication Primary hypertension (CMS/HCC) Unspecified essential hypertension Coronary 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 angina pectoris (CMS/HCC) Gastroesophageal reflux disease, unspecified whether esophagitis present documented in this encounter [facility]Evaluation note* Diagnosis Coronary 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 angina pectoris (CMS/HCC)- Primary Primary hypertension (CMS/HCC) Unspecified essential hypertension Serum total bilirubin elevated Disorders of bilirubin excretion Other emphysema (CMS/HCC)- Primary Other emphysema Primary hypertension (CMS/HCC) Unspecified essential hypertension Mixed hyperlipidemia (CMS/HCC) Mixed hyperlipidemia Abdominal aortic aneurysm (AAA) without rupture, unspecified part (CMS/HCC) Aneurysm of ascending aorta without rupture (CMS/HCC) Coronary 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 angina pectoris (CMS/HCC) Tobacco dependence Tobacco use disorder Primary hypertension (CMS/HCC)- Primary Unspecified essential hypertension Tobacco dependence Tobacco use disorder Other emphysema (CMS/HCC) Other emphysema Prostate cancer screening Special screening for malignant neoplasm of prostate Coronary 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 angina pectoris (CMS/HCC) Gastroesophageal reflux disease, unspecified whether esophagitis present Primary hypertension (CMS/HCC)- Primary Unspecified essential hypertension Tobacco dependence Tobacco use disorder Primary hypertension (CMS/HCC)- Primary Unspecified essential hypertension Other emphysema (CMS/HCC) Other emphysema Coronary 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 angina pectoris (CMS/HCC) Gastroesophageal reflux disease, unspecified whether esophagitis present Mixed hyperlipidemia (CMS/HCC) Mixed hyperlipidemia Cigarette nicotine dependence without complication Aneurysm of ascending aorta without rupture (CMS/HCC) Abdominal aortic aneurysm (AAA) without rupture, unspecified part (CMS/HCC) Encounter for screening for lung cancer COPD with asthma (CMS/HCC)- Primary Cigarette nicotine dependence without complication Primary hypertension (CMS/HCC) Unspecified essential hypertension Coronary 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 angina pectoris (CMS/HCC) Gastroesophageal reflux disease, unspecified whether esophagitis present documented in this encounter [facility] Discharge instructions No data available for this section General Surgery [employer] note No data available for this section General Surgery [place] Summary Purpose Family History No Family History [...] Advanced Directives Records Found Reason for Referral SpecialtyDiagnoses / ProceduresReferred By ContactReferred To ContactRadiology Diagnoses Ascending aorta dilatation (CMS/HCC) Procedures CT angio [place] [address] Department of Surgery-Cardiac [place] [id number] Referral IDStatusReasonStart DateExpiration DateVisits RequestedVisits [id number] Perform Procedure Additional Source Comments (unrecognized sect ion and content) No Status Records FoundNo Status Records FoundNo Status Records FoundNo Status Records FoundNo Status Records FoundNo Status Records FoundNo Status Records Found INFORMATION SOURCE (unrecogn ized section and content) DATE CREATED AUTHOR 01/09/2023 [facility] DATE CREATED AUTHOR AUTHOR'S ORGANIZ ATION 01/09/2023 [facility] DATE CREATED AUTHOR AUTHOR'S ORGANIZ ATION 03/07/2023 [facility] DATE CREATED AUTHOR AUTHOR'S ORGANIZ ATION 03/15/2023 [facility] DATE CREATED AUTHOR AUTHOR'S ORGANIZ ATION 01/22/2024 [facility] DATE CREATED AUTHOR AUTHOR'S ORGANIZ ATION 2024 [facility] DATE CREATED AUTHOR AUTHOR'S ORGANIZ ATION 04/04/2025 [facility] EPIC Patient Care team informatio n (unrecognized section and content) Team MemberRelationshipSpecialtyStart DateEnd Date Tonja Wiley, TECHNICAL WRITER AND EDITOR-ACADEMIC RECORDS SPECIALIST [address] [place] [address] PCP - General01/09/23Team MemberRelationshipSpecialtyStart DateEnd Date Tonja Wiley, TECHNICAL WRITER AND EDITOR-ACADEMIC RECORDS SPECIALIST [address] [facility] [place] [address] PCP - General01/09/23Team MemberRelationshipSpecialtyStart DateEnd Date Tonja Wiley, TECHNICAL WRITER AND EDITOR-ACADEMIC RECORDS SPECIALIST [address] [facility] [place] [address] PCP - General01/09/23Team MemberRelationshipSpecialtyStart DateEnd Date Loi Red MD [address] [place] [address] PCP - GeneralFamily Wsnjiozb61/18/23 Tonja Wiley NP [address] [place] [address] Nurse PractitionerFamily Rsglzbxj72/18/23Team MemberRelationshipSpecialtyStart DateEnd Date Unallocated, Noms MD Dionna [address] [place] [address] PCP - GeneralFamily Wktsmmuh95/22/24 Tonja Wiley, AALIYAH [address] [place] [address] Nurse Practitionermily Mejpdhrn03/18/23Team MemberRelationshipSpecialtyStart DateEnd Date Loi Red MD [address] [place] [address] PCP - GeneralFamily Navzulcv96/31/24 Tonja Wiley NP [address] [place] [address] Nurse [facility]11/06/23Team MemberRelationshipSpecialtyStart DateEnd Date Loi Red MD [address] [place] [address] PCP - [facility]11/06/23 Tonja Wiley NP [address] [place] [address] Nurse [facility]11/06/23Team MemberRelationshipSpecialtyStart DateEnd Date Loi Red MD [address] [place] [address] PCP - [facility]11/06/23 Tonja Wiley NP [address] [place] [address] Nurse Pract[facility]Em[facility]11/06/23Team MemberRelationshipSpecialtyStart DateEnd Date Loi Red MD [address] [place] [address] PCP - [facility]11/06/23 Tonja Wiley NP [address] [place] [address] Nurse Pract[facility]Em[facility]11/06/23Team MemberRelationshipSpecialtyStart DateEnd Date Loi Red MD [address] [place] [address] PCP - [facility]11/06/23 Tonja Wiley NP [address] [place] [address] Nurse Pract[facility]Em[facility]11/06/23Team MemberRelationshipSpecialtyStart DateEnd Date Loi Red MD [address] [place] [address] PCP - [facility]11/06/23 Tonja Wiley NP [address] [place] [address] Nurse Pract[facility]11/06/23Team MemberRelationshipSpecialtyStart DateEnd Date Loi Red MD [address] [place] [address] PCP - [facility]09/19/24 Tonja Wiley NP [address] [place] [address] Nurse Pract[facility]11/06/23Team MemberRelationshipSpecialtyStart DateEnd Date Loi Red MD [address] [place] [address] PCP - [facility]09/19/24 Tonja Wiley NP [address] [place] [address] [facility] Orzoluhm34/18/23Team MemberRelationshipSpecialtyStart DateEnd Date Loi Red MD [address] [place] [address] [facility] - [facility] Dmljtzmt75/31/24 Tonja Wiley NP [address] [place] [address] Nurse Pract[facility]11/06/23Team MemberRelationshipSpecialtyStart DateEnd Date Loi Red MD [address] [place] [address] PCP - [facility]09/19/24 Tonja Wiley NP [address] [place] [address] Nurse [facility]11/06/23Team MemberRelationshipSpecialtyStart DateEnd Date Loi Red MD [address] [place] [address] PCP - [facility] Mgdldrwk14/31/24 Tonja Wiley NP [address] [place] [address] Nurse Pract[facility]11/06/23Team MemberRelationshipSpecialtyStart DateEnd Date Loi Red MD [address] [place] [address] PCP - GeneralFamily Izjvlbny58/31/24 Tonja Wiley NP [address] [place] [address] Nurse Pract[facility] Xdpbseny89/18/23Team MemberRelationshipSpecialtyStart DateEnd Date Loi Red MD [address] [place] [address] PCP - [facility] Vaxyjnmp55/31/24 Tonja Wiley NP [address] [place] [address] Nurse Pract[facility] Kefbhxqn77/18/23Team MemberRelationshipSpecialtyStart DateEnd Date Loi Red MD [address] [place] [address] [facility] - [facility] Cktszsyh66/31/24 Tonja Wiley NP [address] [place] [address] Nurse Pract[facility] Kueqyazy70/18/23Team MemberRelationshipSpecialtyStart DateEnd Date Loi eRd MD [address] [place] [address] PCP - Generalmi Qszbwlfl57/31/24 Tonja Wiley NP [address] [place] [address] Nurse Pract[facility]erEm[facility]11/06/23Team MemberRelationshipSpecialtyStart DateEnd Date Loi Red MD [address] [place] [address] PCP - [facility]09/19/24 Tonja Wiley NP [address] [place] [address] Nurse Pract[facility]Em[facility]11/06/23Team MemberRelationshipSpecialtyStart DateEnd Date Loi Red MD [address] [place] [address] PCP - [facility]09/19/24 Tonja Wiley NP [address] [place] [address] Nurse Pract[facility]erEm[facility]11/06/23Te MemberRelationshipSpecialtyStart DateEnd Date Loi Red MD [address] [place] [address] PCP - [facility]09/19/24 Tonja Wiley NP [address] [place] [address] Nurse PractitionerEm[facility]11/06/23Team MemberRelationshipSpecialtyStart DateEnd Date Loi Red MD PCP - GeneralFamily Ogyxkgaq02/18/ Unallocated, Dante Villareal MD [address] [place] [address] PCP - GeneralFamily Ppsiswyh81/22/ Loi Red MD PCP - GeneralFami Apjnledi52/31/24 Tonja Wiley NP Nurse PractitionerEm[facility]11/06/23 Reason for Visit (unrecogniz ed section and content) SpecialtyDiagnoses / ProceduresReferred By ContactReferred To ContactRadiology Diagnoses Ascending aorta dilatation (CMS/HCC) Procedures CT angio chest w [place] [address] [address] [facility] Department [place] [address] Referral IDStatusReasonStart DateExpiration DateVisits RequestedVisits [id number] Perform Procedure [id number] RefillReasonCommentsHypertension FOR RECORDS PERTAINING TO PATIENTS WHO ARE [...] BE BASED ON THE PRIMARY CLINICAL RECORDS. [employer] [facility]. provides no warranty or guarantee of the accuracy or completeness of information in this document.
--- OUTSIDE RECORDS SUMMARY | 2025-10-11 09:45 | XMS_ITS | Clinical Summary ---
Author Organization [facility] Address [address] [place] [address] Phone Care Team Providers Care Paste Worker Name Role Phone Tonja Wiley APRN-COCONUT COOKER Primary Care Provider Allergies No known active allergies Medications MedicationSigDispense QuantityRefillsLast FilledStart DateEnd DateStatus atorvastatin (Lipitor) 80 mg tablet Take 1 tablet (80 mg) by mouth once daily.Active lisinopril 10 mg tablet Take 1 tablet (10 mg) by mouth once daily.Active aspirin 81 mg EC tablet Take 1 tablet (81 mg) by mouth once daily.Active amLODIPine (Norvasc) 10 mg tablet Take 1 tablet (10 mg) by mouth once daily.02/14/2023ctive meclizine (Antivert) 25 mg tablet Take 1 tablet (25 mg) by mouth 3 times a day as needed for dizziness.02/14/2023 Active omeprazole (PriLOSEC) [address] capsule Take 1 capsule (20 mg) by mouth once daily.12/02/2023ctive Active Problems ProblemNoted DateDiagnosed DateCAD S/P percutaneous coronary angioplasty 12/15/2023scending aortic klgyttei98/09/2024oronary artery disease involving twenty[place]nine palms coronary artery of [place] heart with angina zikhpgxl09/09/2024yspnea on fytigqxd68/09/7559Wmsophiwqwqxdp40/09/2024Secondary hykcqvxiqexp16/09/2024 Gastroesophageal reflux disease without ccguftguwth55/09/2024bdominal aortic aneurysm, without rupture, wuwbqxnkehu33/08/2023 Immunizations ImmunizationAdministration DatesNext DueFlu vaccine (IIV4), preservative free *Check age/dose*07/13/2023,08/18/2020,07/12/2019Influenza, seasonal, injectable 2Pneumococcal polysaccharide vaccine, 23-valent, age 2 years and older (PNEUMOVAX 23)06/30/2017 Family History Medical HistoryRelationNameCommentsNo Known ProblemsMotherRelationNameStatus CommentsMother Social History Tobacco UseTypesPacks/DayYears UsedDateSmoking Tobacco: Every DayCigarettes Tobacco Cessation:Ready to Q uit: Not Asked; Counseling Given: Not Answered Alcohol UseStandard Drinks/WeekCommentsNever0 (1 standard drink = 0.6 oz pure alcohol)Sex and Gender InformationValueDate RecordedSex Assigned at BirthNot on fileLegal UqmVqwq3012/16/2022 4:06 PM ESTGender IdentityNot on fileSexual OrientationNot on file Last Filed Vital Signs Vital SignReadingTime TakenCommentsBlood Fvlojbpj165/68011/29/2023 11:04 AM EST Dzhvx390611/29/2023 11:04 AM ESTTemperature--Respiratory Rate--Oxygen Saturation 96%11/29/2023 11:04 AM ESTInhaled Oxygen Concentration--Tzthqa27.2 kg (157 lb) 11/29/2023 11:04 AM LLNUnuxes988.7 cm (5' 8 )11/29/2023 11:04 AM ESTBody Mass Index23.8711/29/2023 11:04 AM EST Plan of Treatment Health MaintenanceDue DateLast DoneCommentsCT Uwmddekgrkby1961FIT-DNA (Cologuard)1961FIT1961HIV Gveuzgcap1961Lipid Panel1961 Nxmxddawjinoq1961Yearly Adult Yjmxjude1961MMR Vaccines (1 of 1 - Standard series)1962Hepatitis C Gohsgcpll88/23/1979DTaP/Tdap/Td Vaccines (1 - Tdap)1983PSA Prostate Cancer Vxldkwhgm51/23/2011RSV High Risk: (Elderly (60+) or Population) (1 - Risk 50-74 years 1-dose series) 2011Zoster Vaccines (1 of 2)2011Pneumococcal Vaccine (2 of 2 - PCV) Influenza Vaccine (#1)/, 08/20/2022, 08/18/2020, Additional history existsCOVID-19 Vaccine ( season) 5640Unjhntzaesg01/12/203304/10/2023, 11/20/2020olorectal Cancer Screening 03/01/2033HIB VaccinesAged OutNo longer eligible based on patient's age to complete this topicHPV VaccinesAged OutNo longer eligible based on patient's age to complete this topicHepatitis A VaccinesAged OutNo longer eligible based on patient's age to complete this topicHepatitis B VaccinesAged OutNo longer eligible based on patient's age to complete this topicIPV VaccinesAged OutNo longer eligible based on patient's age to complete this topicMeningococcal VaccineAged OutNo longer eligible based on patient's age to complete this topic Rotavirus VaccinesAged OutNo longer eligible based on patient's age to complete this topic Insurance Care Teams Team MemberRelationshipSpecialtyStart DateEnd Date Tonja Wiley, SUPERCHARGER REPAIR SUPERVISOR-COCONUT COOKER [address] [place] [address] [facility] - [facility]01/09/23
--- OUTSIDE RECORDS SUMMARY | 2025-10-11 09:45 | XMS_ITS | Clinical Summary ---
Author Organization [facility] Address [address] [place] [address] Care Team Providers Care Corrections Counselor Name Role Phone Saurabh Tonja CREDIT REPORTING CLERK Unavailable [phone] Loi Red MD Primary Care Provider [phone] Allergies No known active allergies Medications MedicationSigDispense QuantityRefillsLast FilledStart DateEnd DateStatus meclizine (Antivert) 25 MG tablet Take 25 mg by mouth every 8 (eight) hours if needed for dizzinessActive albuterol HFA 90 mcg/act inhaler Indications:Other emphysema (HCC)Inhale 2 puffs every 6 (six) hours if needed for wheezing or shortness of breath 18 g 4Active aspirin 81 MG EC tablet Indications:Carotid Artery Stenting,Carotid AtherosclerosisTake 81 mg by mouth DailyActive tiotropium-olodaterol (Stiolto Respimat) 2.5-2.5 MCG/ACT aerosol solution inhaler Indications:Chronic Obstructive Pulmonary DiseaseInhale 2 Inhalation DailyActive atorvastatin (Lipitor) 80 MG tablet Indications:Coronary artery disease involving [place] coronary artery of [place] heart without angina pectorisTake 1 tablet (80 mg) by mouth at bedtime 90 tablet 5Active amLODIPine (Norvasc) 5 MG tablet Indications:Primary hypertensionTake 1 tablet (5 mg) by mouth Daily 90 tablet 5Active lisinopril 10 MG tablet Indications:Primary hypertensionTake 1 tablet (10 mg) by mouth Daily Take 10 mg by mouth in the morning. 90 tablet 5Active omeprazole (PriLOSEC) [address] capsule Indications:Gastroesophageal reflux disease, unspecified whether esophagitis presentTake 1 capsule (20 mg) by mouth in the morning. Take before meals. 90 capsule 5Active Active Problems ProblemNoted DateDiagnosed DateCOPD with ugzvdl2602/21/2025 Overview (02/21/2025): PFT: 02/20/25 FVC 79%, FEV1 51%, FEV1/FVC 49% Assessment & Plan (04/02/2025 4:01 PM EDT): Current meds: albuterol, last appt was given stiolto respimat, could not use this Had low dose CT scan as well PFT's 02/20/25 Albuterol prn Advised s/s exacerbations Recommend flu shot/pneumonia vac Dyspnea on dzvfhuso82/14/2025Encounter for screening for lung znrgqp5012/26/2024 Overview (01/09/2025): Low Dose CT chest: 01/06/24: no supicious nodules, heaving coronary calcifications Assessment & Plan (12/26/2024 4:33 PM EST): Patient meets requirements for low dose CT [...] of smoking cessation. Smokes: 1.25ppdX 50 years Lcrshbhjkon61/30/2024Prostate cancer pxoxdkkgc98/19/2024 Overview (08/19/2024): 08/19/24: 0.99 Cigarette nicotine dependence without cycscgvzacnr28/18/2024 Assessment & Plan (04/02/2025 7:24 AM EDT): The patient has been advised of the [...] toprovider when ready to start this process Assessment & Plan (12/26/2024 7:49 AM EST): The patient has been advised of the [...] toprovider when ready to start this process Assessment & Plan (09/10/2024 8:22 PM EDT): The patient has been advised of the [...] toprovider when ready to start this process Assessment & Plan (08/08/2024 5:11 PM EDT): Started smoking again, 1ppd, had quit for [...] toprovider when ready to start this process Assessment & Plan (05/07/2024 4:54 PM EDT): Started smoking again, 1ppd, had quit for [...] toprovider when ready to start this process GERD (gastroesophageal reflux disease)01/15/2024 Assessment & Plan (12/26/2024 7:49 AM EST): Recommendations: freq small meals, nothing to eat or drink at least 2 hours prior to bed, limit caffeine, alcohol, as well as spicy foods Meds to limit or avoid if possible: NSAIDS Elevate HOB if possible Current meds: omeprazole CAD S/P percutaneous coronary xtoyakowcpb35/26/2024scending aortic aneurysm 11/28/2023 Assessment & Plan (12/26/2024 7:51 AM EST): Continue with CV for monitoring Assessment & Plan (05/07/2024 4:52 PM EDT): Continue with CV for monitoring Nzcvbmhnlnbmrs56/09/2024 Assessment & Plan (12/26/2024 7:49 AM EST): On statin therapy Check labs yearly and prn dose changes Assessment & Plan (05/07/2024 4:53 PM EDT): Cont statin Coronary artery disease involving ekw[place] coronary artery of ekw[place] heart without angina pssypknv21/18/2023 Overview (01/29/2025): Stress test 02/11: normal Assessment & Plan (04/02/2025 7:24 AM EDT): No current symptoms Current meds: amlodipine, asa, statin, tana 02/11 had stress and echo Assessment & Plan (12/26/2024 7:48 AM EST): No current symptoms Current meds: amlodipine, asa, statin, tana Assessment & Plan (05/07/2024 4:53 PM EDT): No active chest pain Cont meds Recommend quitting smoking Assessment & Plan (11/06/2023 3:53 PM EST): Is doing well on current meds Has quit smoking as well No changes in doses Primary nzoqqzdfmsad05/18/2023 Assessment & Plan (04/02/2025 7:24 AM EDT): Please check blood pressure daily and record DASH diet Limit caffeine Take medication as directed Contact office if chest pain, pressure, dizziness, shortness of breath, swelling legs Recommend slow position changes Current meds: amlodipine, tana Assessment & Plan (12/26/2024 7:48 AM EST): Please check blood pressure daily and record DASH diet Limit caffeine Take medication as directed Contact office if chest pain, pressure, dizziness, shortness of breath, swelling legs Recommend slow position changes Current meds: amlodipine, tana Assessment & Plan (09/10/2024 8:22 PM EDT): Continue amlodipine at 5mg daily Continue all other blood pressure meds Fu in 3 months for recheck Assessment & Plan (08/08/2024 5:11 PM EDT): Possible dizziness from drops in blood pressure, have him cut back amlodipine to 5mg daily and RTO in 4 weeks for blood pressure check Assessment & Plan (05/07/2024 4:53 PM EDT): stable Assessment & Plan (11/06/2023 3:52 PM EST): Stable no changes in meds/doses Serum total bilirubin emziownx41/17/2023 Assessment & Plan (11/06/2023 3:54 PM EST): No current symptoms at this time, mother w hx cirrhosis although not a alcohol drinker, aunt with liver cancer related Will recheck labs in a month or so Abdominal aortic aneurysm, without rupture, hzojykuqpcg42/08/2023 Assessment & Plan (12/26/2024 7:50 AM EST): Cont with CV for monitoring Assessment & Plan (05/07/2024 4:52 PM EDT): Cont with CV for monitoring Resolved Problems ProblemNoted DateDiagnosed DateResolved DateOther oxovawsct45/ Assessment & Plan (12/26/2024 4:32 PM EST): Albuterol inhaler prn Recommend smoking cessation Will trial ethelolito #2 samples given Lot: [id number], exp 08/14 Assessment & Plan (08/08/2024 5:10 PM EDT): Continue breztri and prn albuterol Urged to quit smoking Fu in 6 months Assessment & Plan (05/07/2024 4:55 PM EDT): Is using albuterol in am and pm d/t dyspnea, no chest pain, no wheeze Will trial julianei, #2 samples given: lot [id number] exp 08/15 Will fu in 3 months Does not want PFT's at this time Can still use prn albuterol Recommend quitting smoking Immunizations ImmunizationAdministration DatesNext DueInfluenza, Xxszcemdjef28/19/2024 Influenza, injectable, quadrivalent, preservative free07/13/2023,08/18/2020, 07/12/2019Influenza, seasonal, wswwrfavqh08/01/2022Pneumococcal Polysaccharide SZEL0447 Family History Medical HistoryRelationNameCommentsHeart diseaseFatherDiabetesMotherRelationName StatusCommentsFatherMother Social History Tobacco UseTypesPacks/DayYears UsedDateSmoking Tobacco: Every DayCigarettes Smokeless Tobacco: FormerQuit: 10/12/2023 Tobacco Cessation:Ready to Q uit: Not Asked; Counseling Given: Not Answered PHQ-2AnswerDate RecordedPatient Health Questionnaire-2 Wlowl977Sex and Gender InformationValueDate RecordedSex Assigned at BirthNot on fileLegal Sex Male10/13/2023 10:20 AM ESTGender IdentityNot on fileSexual OrientationNot on file Last Filed Vital Signs Vital SignReadingTime TakenCommentsBlood Celcdjgn612/8204/02/2025 3:31 PM EDT Yedrs102104/02/2025 3:31 PM GRFIxhsknerzhz15.9 ??C (98.5 ??F)04/02/2025 3:31 PM EDTRespiratory Pppg517704/02/2025 3:31 PM EDTOxygen Vmcwmjrovl07%04/02/2025 3:31 PM EDTInhaled Oxygen Concentration--Jsprkt95.5 kg (148 lb 12.8 oz)04/02/2025 3:31 PM XYZBdfntg448.5 cm (5' 9.5 )12/26/2024 3:48 PM ESTBody Mass Index21.66 12/26/2024 3:48 PM EST Plan of Treatment Not on file Insurance Care Teams Team MemberRelationshipSpecialtyStart DateEnd Date Loi Red MD PCP - GeneralFamily Mfuucbbc77/31/24 Tonja Wiley NP Nurse PractitionerFamily Cuoywsuw49/18/23
--- OUTSIDE RECORDS SUMMARY | 2025-10-11 09:45 | XMS_ITS | Clinical Summary ---
Author Organization [employer] Address [id number] [address] [place] [address] Care Team Providers Care Cold Roll Catcher Name Role Phone Unavailable Primary Care Provider Unavailabl e Social History Tobacco UseTypesPacks/DayYears UsedDateSmoking Tobacco: Never AssessedChildcare AnswerDate YudvflsgGieukwnbzWyimukc85/12/2019EmploymentAnswerDate Recorded WztohepydsMpjnvbg18/12/2019Sex and Gender InformationValueDate RecordedSex Assigned at BirthNot on fileLegal YvzNyuh9006/25/2015 11:29 AM EDTGender Identity Not on fileSexual OrientationNot on file Plan of Treatment Health MaintenanceDue DateLast DoneCommentsDepression Mnqirolyu18/23/1973Tobacco Guljosujg62/23/1973Adult BMI Vuijuvoeh01/23/1979DTaP,Tdap and Td Vaccines (1 - Tdap)1980Zoster (Shingles) Vaccine (1 of 2)2011Influenza Vaccine 07/21/2025RSV ( or age 60+ yrs) (1 - 1-dose 75+ series)2036 [employer] Not on file
[2025-10-11 10:16] LABS: Hematocrit 46.2 % (42.0-54.0); Hemoglobin 15.6 g/dL (14.0-18.0); Immature Granulocytes Abs Auto 0.04 10^3/uL (0.00-0.03); Immature Granulocytes Pct Auto 0.5 % (0.0-0.5); Lymphocytes Absolute Auto 2.8 10^3/uL (1.2-3.8); Mean Corpuscular HGB Conc 33.8 g/dL (29.9-35.2); Mean Corpuscular Hemoglobin 31.0 pg (25.9-34.0); Mean Corpuscular Volume 91.7 fL (80.0-94.0); Platelet Count 316 10^3/uL (150-450); Red Blood Count 5.04 10^6/uL (4.70-6.10); White Blood Count 8.3 10^3/uL (4.0-11.0)
[2025-10-11 10:56] LABS: Alanine Aminotransferase 43 U/L (16-63); Albumin Globulin Ratio 0.9; Albumin Level 3.6 g/dL (3.4-5.0); Alkaline Phosphatase 124 U/L (46-116); Anion Gap 10.9; Aspartate Amino Transferase 19 U/L (15-37); Blood Urea Nitrogen 11.0 mg/dL (7.0-18.0); Calcium 9.2 mg/dL (8.5-10.1); Carbon Dioxide 34.1 mmol/L (21.0-32.0); Chloride 100 mmol/L (98-107); Cholesterol 100 mg/dL (<=200); Estimated GFR (African America >60 (>=60 mL/min/1.73m^2); Estimated GFR (Non-African Ame >60 (>=60 mL/min/1.73m^2); Globulin 4.0 g/dL; Glucose 110 mg/dL (74-106); HDL Cholesterol 30 mg/dL (40-60); Potassium 4.0 mmol/L (3.5-5.1); Sodium 141 mmol/L (136-145); Total Protein 7.6 g/dL (6.4-8.2); Triglycerides 132 mg/dL (<=150); VLDL CHOLESTEROL 26.4 mg/dL
[2025-10-11 13:34] LABS: Glucose Urine UA NEGATIVE (NEGATIVE)
[2025-10-11 13:44] LABS: Cast Seen? NONE SEEN #/LPF (NONE SEEN); Crystals Seen? None Seen #/HPF (None Seen)
== END 2025-10-11 09:41 | disposition home or self-care (01) ==
LOC: LAB 09:42
PROVIDERS: PCP Nurse Practitioner; Visit Provider Nurse Practitioner
DX: I10 Essential (primary) hypertension (principal); K21.9 Gastro-esophageal reflux disease without esophagitis; I25.10 Atherosclerotic heart disease of native coronary artery without angina pectoris; J44.89 Other specified chronic obstructive pulmonary disease; E78.2 Mixed hyperlipidemia; Z12.5 Encounter for screening for malignant neoplasm of prostate
CPT/HCPCS: 36415; 80053; 80061; 81001; 82043; 82570; 85025; G0103